=== PATIENT | male | born 1955 | race Hispanic/Latino ===

== ENCOUNTER 2020-09-20 09:33 | Inpatient (IN) | payer MEDICARE ==
[2020-09-20] MEDS ORDERED: Albuterol 200 PUFF (6.7GM INHALER) ONE (10:01)
[2020-09-20] MEDS ORDERED: methylPREDNISolone Sod Succ/PF 125 MG/2 ML VIAL ONE (10:01)
[2020-09-20 10:26] LABS: #Lymphocytes 0.7 thou/uL (1.20-3.40); #Monocytes 0.5 thou/uL (0.11-0.59); #Neutrophils 7.9 thou/uL (1.40-6.50); %Basophils 0.1 % (0.0-1.0); %Eosinophils 0.2 % (0.0-10.0); %Lymphocytes 7.5 % (21.0-51.0); %Monocytes 5.7 % (0.0-10.0); %Neutrophils 86.5 % (42.0-75.0); Hemoglobin 15.1 g/dL (14.0-18.0); Mean Corpuscular HGB CONC 34.6 g/dL (32.0-36.0); Mean Corpuscular Volume 95.5 fL (78.0-98.0); Mean Platelet Volume 11.4 fL (7.4-10.4); Platelet Count 286 thou/uL (130-400); RBC Distribution Width 12.2 % (11.5-14.5); Red Blood Cell (RBC) Count 4.58 mill/uL (4.70-6.10); White Blood Cell (WBC) Count 9.1 thou/uL (4.8-10.8)
[2020-09-20] MEDS ORDERED: Azithromycin 500 MG VIAL ONE (10:38)
--- NOTE | 2020-09-20 10:49 | RAD ---
Exam: Chest one view HISTORY:Dehydration. Low O2 saturation at home. Comparison: None FINDINGS: Cardiac silhouette:Cardiomegaly Aorta: Atherosclerosis Pulmonary vessels: Normal Costophrenic angles: Clear LUNGS: Multifocal consolidation. Pneumothorax: None Osseous abnormalities: None IMPRESSION: Cardiomegaly. Multi focal consolidation. Correlate for congestive heart failure.
[2020-09-20] MEDS ORDERED: Iopamidol-370 76% 500 ML 1 ML ONE (11:23)
[2020-09-20 11:30] LABS: ALT (SGPT) 30 U/L (8-55); AST (SGOT) 46 U/L (5-34); Alkaline Phosphatase 123 U/L (40-110); Anion Gap 20 mmol/L (10-20); BUN (Urea Nitrogen) 20 mg/dL (8.4-25.7); Calc. Creatinine Clearance 0 mL/min (70-130); Calcium 7.6 mg/dL (7.8-10.44); Carbon Dioxide 20 mmol/L (23-31); Chloride 99 mmol/L (98-107); Globulin 3.8 g/dL (2.4-3.5); Glucose 263 mg/dL (80-115); Potassium 4.2 mmol/L (3.5-5.1); Protein, Total 6.8 g/dL (5.8-8.1); Sodium 135 mmol/L (136-145)
[2020-09-20 11:58] LABS: SARS-CoV-2 NAA Rapid Test DETECTED (NotDetected)
[2020-09-20 12:28] LABS: Actual Bicarbonate (HCO3a) 19.6 mEq/L (22-28); Analyzer IN Cardio ER; Base Excess (BEa) -3.6 mEq/L (-2.0 to +3.0); CO2 Tension 31.3 mmHg (35.0-45.0); Carboxyhemoglobin (COHb) 1.3 gm% (0.0-3.0); Potassium - ABG Lab 4.17 mmol/L (3.70-5.30); pH, Arterial 7.41 (7.35-7.45)
[2020-09-20 12:31] LABS: ALV-art Gradient 251.315 mmHg (0-20); O2 Tension (PaO2), arterial 51.8 mmHg (> 80.0); Puncture Site RRA
[2020-09-20] MEDS ORDERED: Meropenem 2 GM in Sodium Chloride 0.9% 100 ML IVPB SCH (12:45)
--- NOTE | 2020-09-20 13:06 | CT ---
CT PULMONARY ANGIOGRAM WITH IV CONTRAST AND 3D POSTPROCESSING: Date: 09/20/2020 HISTORY: Dyspnea. FINDINGS: There is good contrast opacification of the pulmonary arterial vasculature without filling defects to suggest pulmonary embolism. The thoracic aorta is well opacified without evidence of aneurysm or dis section. Vascular calcifications are present. No pleural or pericardial effusions are seen. Extensive ground-glass opacities are seen in the lungs bilaterally. No pneumothoraces are identified. There ar e degenerative changes in the spine. The upper abdominal tomograms are unremarkable. IMPRESSION: 1. No CT evidence of pulmonary embolism. 2. Correlate for COVID-19 pneumonia. POS: AH
[2020-09-20 13:25] LABS: Lactic Acid 2.9 mmol/L (0.5-2.2)
[2020-09-20 14:15] LABS: Troponin I 0.013 ng/mL (< 0.028)
[2020-09-20] MEDS ORDERED: Ondansetron PF 4 MG/2 ML Vial IVP PRN (15:19)
[2020-09-20] MEDS ORDERED: hydrALAZINE 20 MG/ML VIAL SLOW IVP PRN (15:19)
[2020-09-20] MEDS ORDERED: Guaifenesin DM 100-10/5 ML UDCUP PO PRN (15:19)
[2020-09-20] MEDS ORDERED: Enoxaparin Sodium 40 MG/0.4 ML SYRINGE SC SCH (15:19)
[2020-09-20] MEDS ORDERED: Ondansetron ODT 4 MG TAB PO PRN (15:19)
[2020-09-20] MEDS ORDERED: Benzonatate 100 MG CAP PO PRN (15:19)
[2020-09-20] MEDS ORDERED: Albuterol Sulfate 2.5 mg/3 ml Neb NEB PRN (15:19)
[2020-09-20] MEDS ORDERED: [UNRECOGNIZED DRUG - REMARK] FS ONE (15:19)
[2020-09-20] MEDS ORDERED: Dextrose 50% Abboject 50 ML SYRINGE SLOW IVP PRN (15:39)
[2020-09-20] MEDS ORDERED: Dextrose 5% in Water 1,000 ML IV PRN (15:39)
[2020-09-20 16:40] LABS: Troponin I 0.013 ng/mL (< 0.028)
[2020-09-20] MEDS: cefTRIAXone\\ROCEPHIN 2 GM in Sodium Chloride 0.9% 100 ML IVPB SCH (16:49)
[2020-09-20] MEDS: Sodium Chloride 0.9% 1,000 ML IV SCH ×2 (16:49→23:26)
--- NOTE | 2020-09-20 16:55 | HP ---
PRIMARY CARE PROVIDER: Sarmad Zuniga DO CHIEF COMPLAINT: Shortness of breath. HISTORY OF PRESENT ILLNESS: This is a 65-year-old male, who presents to [facility] Emergency Department complaining of persistent shortness of breath and apparent hypoxia after checking his O2 saturations at home with a reading in the 70% to low 80% range. The patient states that his son was positive for COVID-19 several months prior to this evaluation and he denies any known sick contacts or recent travel history. The patient states his urged him to seek medical attention when he was noted with increasing shortness of breath even at rest and had difficulty completing sentences. The patient denies any chronic lung conditions, smoking history, recent vaccinations or recurrent pneumonia. The patient states he did not take any specific medications at home to alleviate the 80s symptoms and denied any unilateral weakness, chest pain, or jaw discomfort. The patient denied any swelling of his lower extremities. The patient did state he had body aches, fever, and back pain associated with the shortness of breath. In the emergency room, the patient underwent general evaluation meeting sepsis criteria for tachypneic as well as fever and tachycardia. The patient underwent ABG evaluation showing hypoxia and low CO2 levels consistent with hyperventilation. The patient was placed on initial oxygen supplementation at 2 L/minute, however, O2 saturations increased to the low 80% range, at which point, the patient was titrated to 4 L/minute. The patient continued to exhibit tachypnea, at which point, the patient was transitioned to high-flow oxygen by nasal cannula. In the emergency room, the patient received IV meropenem, azithromycin, Solu-Medrol, Proventil HFA, and intravenous normal saline x1 L. PAST MEDICAL HISTORY: 1. Hypertension. 2. Diabetes mellitus, type 2. PAST SURGICAL HISTORY: Status post right knee repair. CURRENT MEDICATIONS: Unable to provide the home medications at this time, however, family will provide them after arriving to hospital. ALLERGIES: TO PENICILLIN. FAMILY HISTORY: Positive for diabetes and hypertension. SOCIAL HISTORY: . Resides in [place], [place]. Retired. No current alcohol, tobacco, or illicit drug use. REVIEW OF SYSTEMS: CONSTITUTIONAL: Negative for weight loss or gain, ability to conduct usual activities. SKIN: Negative for rash, itching. EYES: Negative for double vision, pain. ENT/MOUTH: Negative for nose bleeding, neck stiffness, pain, tenderness. CARDIOVASCULAR: Negative for palpitations, dyspnea on exertion, orthopnea. RESPIRATORY: Negative for shortness of breath, wheezing, cough, hemoptysis, fever or night sweats. GASTROINTESTINAL: Negative for poor appetite, abdominal pain, heartburn, nausea, vomiting, constipation, or diarrhea. GENITOURINARY: Negative for urgency, frequency, dysuria, nocturia. MUSCULOSKELETAL: Negative for pain, swelling. NEUROLOGIC/PSYCHIATRIC: Negative for anxiety, depression. ALLERGY/IMMUNOLOGIC: Negative for skin rash, bleeding tendency. Otherwise negative except as stated per HPI. PHYSICAL EXAMINATION: VITAL SIGNS: On admission, blood pressure 117/82, pulse 120, respiratory rate 34, temperature 100.5 degrees Fahrenheit, and O2 saturation 85% on 2 L/minute by nasal cannula. GENERAL APPEARANCE: This is a 65-year-old male, alert and oriented x3, pleasant, responsive, in moderate respiratory distress. HEENT: Pupils are equal, round, and reactive to light and accommodation. Extraocular muscles are intact. No scleral icterus. No conjunctival injection. Nares patent. OP is clear. Teeth in fair repair. NECK: Supple. No cervical adenopathy. No thyromegaly. No carotid bruits. No JVD appreciated. Cervical spine with full active and passive range of motion. No meningeal signs noted. CHEST: Diminished breath sounds in the bases bilaterally with scattered rhonchi. Tachypnea noted with accessory muscle use. CARDIOVASCULAR: S1 and S2 with tachycardia. No murmur, rub, or gallop appreciated. ABDOMEN: Rounded, soft, nontender, and nondistended. Bowel sounds are positive in all 4 quadrants. There is no hepatosplenomegaly. No abdominal bruits. No rebound or guarding appreciated. EXTREMITIES: Warm and dry with fair turgor. No clubbing, cyanosis, or asymmetric edema appreciated. Pulses palpable distally at the dorsalis pedis, posterior tibial, and popliteal arteries bilaterally. Capillary refill less than 2 seconds. NEUROLOGIC: Cranial nerves II through XII are grossly intact. No focal or lateralizing signs appreciated. PERTINENT LABORATORY AND X-RAY FINDINGS: Sodium 135, potassium 4.2, chloride 99, CO2 of 20, BUN 20, creatinine 1.05, estimated GFR 71, and glucose 263. Lactic acid level ranged between 2.9 to 3.3. AST 46, ALT of 30, and alkaline phosphatase 123. Troponin I negative x2. BNP 21. CBC showed a white blood cell count of 9.1, hemoglobin 15, hematocrit 44, platelet count 286 with 87% neutrophils. D-dimer 1.18. ABG dated 09/20/2020, showed a pH of 7.41, pCO2 of 31, pO2 of 52, O2 saturation 86% on 48% FiO2. COVID-19 PCR positive on 09/20/2020. Influenza A and B antigen negative on 09/20/2020. Portable chest x-ray dated 09/20/2020, showed multifocal infiltrates. CT angiogram of the chest dated 09/20/2020, showed no evidence for pulmonary embolus. Multifocal infiltrates noted. EKG dated 09/20/2020, by my interpretation shows sinus tachycardia with heart rates in the 110s. Normal axis and no acute ST-T wave changes appreciated. ASSESSMENT AND PLAN: 1. Sepsis secondarily to COVID-19 pneumonia. The patient will be admitted to the medical floor. We will continue isolation protocol. Continue Rocephin 2 g IV q.24 hours with additional dose of azithromycin 500 mg IV daily. Add dexamethasone 8 mg IV daily with additional vitamin C 1000 mg daily and zinc sulfate 220 mg daily. Albuterol metered-dose inhaler q.4 hours p.r.n. Start remdesivir per protocol. Continue high-flow oxygen supplementation and titrate to clinical response. 2. Acute hypoxic respiratory failure. Continue high-flow oxygen supplementation as stated previously in #1. Titrate to clinical response. 3. Hypertension. Confirm home blood pressure regimen and continue hydralazine 10 mg IV q.4 hours p.r.n. systolic blood pressure greater than or equal to 180. 4. Diabetes mellitus, type 2. Confirm home diabetic regimen. Insulin sliding scale for reflexive coverage. ADA diet when tolerating p.o. intake. 5. Prophylaxis. SCDs while in bed. Lovenox 40 mg subcutaneously daily. Isolation per protocol. 6. Code status: Full. Surrogate medical decision maker is the patient's spouse. Job ID: [id number]
[2020-09-20] MEDS: Famotidine 20 MG TAB PO SCH (20:21)
[2020-09-20] MEDS: HumaLOG 300 UNITS/3 ML VIAL SC PRN (20:31)
[2020-09-20] MEDS ORDERED: REMDESIVIR (EUA) 200 MG in Sodium Chloride 0.9% 250 ML 210 ML IV SCH (23:00)
[2020-09-21 04:06] LABS: #Lymphocytes 0.6 thou/uL (1.20-3.40); #Monocytes 0.6 thou/uL (0.11-0.59); #Neutrophils 4.2 thou/uL (1.40-6.50); %Eosinophils 0.3 % (0.0-10.0); %Lymphocytes 10.6 % (21.0-51.0); %Monocytes 10.8 % (0.0-10.0); %Neutrophils 78.3 % (42.0-75.0); Hemoglobin 12.6 g/dL (14.0-18.0); Mean Corpuscular HGB CONC 33.1 g/dL (32.0-36.0); Mean Corpuscular Hemoglobin 31.3 pg (27.0-31.0); Mean Corpuscular Volume 94.6 fL (78.0-98.0); Mean Platelet Volume 8.5 fL (7.4-10.4); Platelet Count 280 thou/uL (130-400); Red Blood Cell (RBC) Count 4.03 mill/uL (4.70-6.10); White Blood Cell (WBC) Count 5.4 thou/uL (4.8-10.8)
[2020-09-21 04:39] LABS: ALT (SGPT) 27 U/L (8-55); AST (SGOT) 29 U/L (5-34); Albumin 2.7 g/dL (3.4-4.8); Alkaline Phosphatase 106 U/L (40-110); Anion Gap 14 mmol/L (10-20); BUN (Urea Nitrogen) 22 mg/dL (8.4-25.7); Bilirubin, Total 0.4 mg/dL (0.2-1.2); CRP (Inflammatory) 20.64 mg/dL (= or < 0.5); Calc. Creatinine Clearance 138 mL/min (70-130); Calcium 7.6 mg/dL (7.8-10.44); Carbon Dioxide 24 mmol/L (23-31); Chloride 104 mmol/L (98-107); Globulin 3.7 g/dL (2.4-3.5); Glucose 334 mg/dL (80-115); Potassium 4.3 mmol/L (3.5-5.1); Protein, Total 6.4 g/dL (5.8-8.1); Sodium 138 mmol/L (136-145)
[2020-09-21] MEDS: HumaLOG 300 UNITS/3 ML VIAL SC PRN ×2 (05:33→20:12)
[2020-09-21] MEDS ORDERED: Dexamethasone 4 mg/ml Vial SLOW IVP SCH (09:00)
[2020-09-21] MEDS ORDERED: Insulin Glargine 8 UNITS in Pre-Filled Syringe 1 EACH SC SCH (09:45)
[2020-09-21] MEDS: Dexamethasone 4 mg/ml Vial SLOW IVP SCH (10:47)
[2020-09-21] MEDS: Zinc Sulfate 220 MG CAP PO SCH (10:47)
[2020-09-21] MEDS: Ascorbic Acid 500 mg Chewable Tablet PO SCH (10:47)
[2020-09-21] MEDS: Famotidine 20 MG TAB PO SCH ×2 (10:47→19:56)
[2020-09-21] MEDS: Azithromycin 500 MG in Sodium Chloride 0.9% 250 ML 250 ML IVPB SCH (10:48)
[2020-09-21] MEDS: Enoxaparin Sodium 40 MG/0.4 ML SYRINGE SC SCH (10:48)
[2020-09-21] MEDS: HumaLOG 300 UNITS/3 ML VIAL SC SCH ×2 (11:42→17:09)
[2020-09-21] MEDS: cefTRIAXone\\ROCEPHIN 2 GM in Sodium Chloride 0.9% 100 ML IVPB SCH (15:23)
--- NOTE | 2020-09-21 16:42 | PDOC.HOSPP ---
- Subjective Encounter Date: 09/21/20 Encounter Time: 12:30 Subjective: Patient up in bed no complaints. - Objective Vital Signs & Weight: Vital Signs (12 hours) Temp Pulse Ox 09/21/20 16:00 98.1 F 09/21/20 08:00 98.5 F 09/21/20 07:37 92 L Weight Weight 236 lb Most Recent Monitor Data Heart Rate from ECG 77 NIBP 136/80 NIBP BP-Mean 98 Respiration from ECG 38 SpO2 92 I&O: 09/20/20 09/21/20 09/22/20 06:59 06:59 06:59 Intake Total 1930 Output Total 1800 Balance 130 Result Diagrams: 09/21/20 03:44 09/21/20 03:44 Additional Labs: Accuchecks 09/21/20 09/21/20 09/20/20 10:51 05:31 20:31 POC Glucose 252 H 294 H 393 H 09/20/20 17:14 POC Glucose 398 H Hospitalist ROS - Review of Systems Respiratory: reports: shortness of breath Cardiovascular: denies: chest pain, palpitations, orthopnea, paroxysmal noc. dyspnea, edema, light headedness, other Gastrointestinal: denies: nausea, vomiting, abdominal pain, diarrhea, constipation, melena, hematochezia, other Genitourinary: denies: dysuria, frequency, incontinence, hematuria, retention, other - Medication Medications: Active Medications Generic Name Dose Route Start Last Admin Trade Name Freq PRN Reason Stop Dose Admin Ascorbic Acid 1,000 mg 09/21/20 09:00 09/21/20 10:47 Ascorbic Acid 500 Mg Chewable Tablet PO 1,000 mg DAILY LUCIEN Administration Dexamethasone 6 mg 09/21/20 09:00 09/21/20 10:47 Dexamethasone 4 Mg/Ml Vial SLOW IVP 6 mg DAILY LUCIEN Administration Enoxaparin Sodium 40 mg 09/21/20 09:00 09/21/20 10:48 Enoxaparin Sodium 40 Mg/0.4 Ml Syringe SC 40 mg 0900 LUCIEN Administration Famotidine 20 mg 09/20/20 21:00 09/21/20 10:47 Famotidine 20 Mg Tab PO 20 mg BID LUCIEN Administration Azithromycin 500 mg/ Sodium 250 mls @ 250 mls/hr 09/21/20 11:00 09/21/20 10:48 Chloride IVPB 250 mls 1100 LUCIEN Administration Ceftriaxone Sodium 2 gm/ 100 mls @ 200 mls/hr 09/20/20 16:00 09/21/20 15:23 Sodium Chloride IVPB 100 mls 1600 LUCIEN Administration Insulin Human Lispro 0 units 09/20/20 15:39 09/21/20 05:33 Humalog 300 Units/3 Ml Vial SC 4 units .MILD SLIDING SCALE PRN Administration Mild Correctional Scale Insulin Human Lispro 0 units 09/20/20 15:39 09/20/20 20:31 Humalog 300 Units/3 Ml Vial SC 5 units .BEDTIME SLIDING SC PRN Administration Bedtime Correctional Scale Insulin Human Lispro 8 units 09/21/20 12:00 09/21/20 11:42 Humalog 300 Units/3 Ml Vial SC 8 unit TID-WM LUCIEN Administration Zinc Sulfate 220 mg 09/21/20 09:00 09/21/20 10:47 Zinc Sulfate 220 Mg Cap PO 220 mg DAILY LUCIEN Administration - Exam Neck: negative: supple, symmetric, no JVD, no thyromegaly, no lymphadenopathy, no carotid bruit, JVD Heart: negative: RRR, no murmur, no gallops, no rubs, normal peripheral pulses, irregular, diminshed peripheral pulses, murmur present, II/IV, III/IV Respiratory: rales Gastrointestinal: negative: soft, non-tender, non-distended, normal bowel sounds, no palpable masses, no hepatomegaly, no splenomegaly, no bruit, no gu arding, no rigidity, tender to palpation, distended, diminished bowl sounds, voluntary guarding Hosp A/P (1) Acute respiratory failure with hypoxia Code(s): J96.01 - ACUTE RESPIRATORY FAILURE WITH HYPOXIA Status: Acute (2) COVID-19 Code(s): U07.1 - COVID-19 Status: Acute (3) Diabetes Code(s): E11.9 - TYPE 2 DIABETES MELLITUS WITHOUT COMPLICATIONS Status: Acute (4) Hypertension Code(s): I10 - ESSENTIAL (PRIMARY) HYPERTENSION Status: Acute - Plan We will continue remdesivir for now. Patient on high flow. We will continue dexamethasone, DVT prophylaxis and will add Dulera. Will start patient on some insulin and will check hemoglobin A1c. We will stop fluids.
[2020-09-21] MEDS ORDERED: Mometasone 100 MCG/Formoterol 5 MCG 120 PUFF INHALER INH SCH (18:30)
[2020-09-21] MEDS ORDERED: Insulin Glargine 6 UNITS in Pre-Filled Syringe 1 EACH SC SCH (21:00)
[2020-09-21] MEDS: Mometasone 100 MCG/Formoterol 5 MCG 120 PUFF INHALER INH SCH (21:05)
[2020-09-21] MEDS: REMDESIVIR (EUA) 100 MG in Sodium Chloride 0.9% 250 ML 230 ML IV SCH (22:24)
[2020-09-22 04:29] LABS: Hemoglobin A1c 9.5 % (4.0-6.0)
[2020-09-22] MEDS: Mometasone 100 MCG/Formoterol 5 MCG 120 PUFF INHALER INH SCH ×2 (05:45→20:50)
[2020-09-22] MEDS: HumaLOG 300 UNITS/3 ML VIAL SC PRN ×2 (05:59→21:09)
[2020-09-22] MEDS: Dexamethasone 4 mg/ml Vial SLOW IVP SCH (08:27)
[2020-09-22] MEDS: Amlodipine 10 MG TAB PO SCH (08:28)
[2020-09-22] MEDS: Famotidine 20 MG TAB PO SCH ×2 (08:28→20:51)
[2020-09-22] MEDS: Zinc Sulfate 220 MG CAP PO SCH (08:28)
[2020-09-22] MEDS: Ascorbic Acid 500 mg Chewable Tablet PO SCH (08:28)
[2020-09-22] MEDS: HumaLOG 300 UNITS/3 ML VIAL SC SCH ×3 (08:35→16:46)
[2020-09-22] MEDS ORDERED: Insulin Glargine 6 UNITS in Pre-Filled Syringe 1 EACH SC SCH (09:00)
[2020-09-22] MEDS: Enoxaparin Sodium 40 MG/0.4 ML SYRINGE SC SCH (09:06)
[2020-09-22] MEDS: Azithromycin 500 MG in Sodium Chloride 0.9% 250 ML 250 ML IVPB SCH (12:15)
--- NOTE | 2020-09-22 16:32 | EKG ---
Test Reason : Blood Pressure : / mmHG Vent. Rate : 110 BPM Atrial Rate : 110 BPM P-R Int : 172 ms QRS Dur : 100 ms QT Int : 350 ms P-R-T Axes : 016 005 038 degrees QTc Int : 473 ms Sinus tachycardia RSR' or QR pattern in V1 suggests right ventricular conduction delay Borderline ECG Confirmed by JASON DELONG M.D. ([id number]), photographic editor DC THORPE ([id number]) on 09/22/2020 4:31:51 PM Referred By: Confirmed By:JASON DELONG M.D.
[2020-09-22] MEDS: cefTRIAXone\\ROCEPHIN 2 GM in Sodium Chloride 0.9% 100 ML IVPB SCH (16:45)
--- NOTE | 2020-09-22 17:27 | PDOC.HOSPP ---
- Subjective Subjective: Patient was seen examined at bedside. He is remained on high flow, patient stated he is feeling better. No fever - Objective Vital Signs & Weight: Vital Signs (12 hours) Temp Pulse Ox 09/22/20 17:15 98.6 F 09/22/20 16:00 98.0 F 09/22/20 07:38 98.2 F 09/22/20 07:24 92 L 09/22/20 07:15 97.9 F Weight Weight 236 lb Most Recent Monitor Data Heart Rate from ECG 73 NIBP 125/78 NIBP BP-Mean 93 Respiration from ECG 51 SpO2 98 I&O: 09/21/20 09/22/20 09/23/20 06:59 06:59 06:59 Intake Total 1930 850 Output Total 1800 1200 Balance 130 -350 Result Diagrams: 09/21/20 03:44 09/21/20 03:44 Additional Labs: Accuchecks 09/22/20 09/22/20 09/21/20 16:48 05:51 20:02 POC Glucose 205 H 220 H 319 H Hospitalist ROS - Medication Medications: Active Medications Generic Name Dose Route Start Last Admin Trade Name Freq PRN Reason Stop Dose Admin Amlodipine Besylate 10 mg 09/22/20 09:00 09/22/20 08:28 Amlodipine 10 Mg Tab PO 10 mg DAILY LUICEN Administration Ascorbic Acid 1,000 mg 09/21/20 09:00 09/22/20 08:28 Ascorbic Acid 500 Mg Chewable Tablet PO 1,000 mg DAILY LUCIEN Administration Dexamethasone 6 mg 09/21/20 09:00 09/22/20 08:27 Dexamethasone 4 Mg/Ml Vial SLOW IVP 6 mg DAILY LUCIEN Administration Enoxaparin Sodium 40 mg 09/21/20 09:00 09/22/20 09:06 Enoxaparin Sodium 40 Mg/0.4 Ml Syringe SC 40 mg 0900 LUCINE Administration Famotidine 20 mg 09/20/20 21:00 09/22/20 08:28 Famotidine 20 Mg Tab PO 20 mg BID LUCIEN Administration Remdesivir 100 mg/ Sodium 250 mls @ 250 mls/hr 09/21/20 23:00 09/21/20 22:24 Chloride IV 09/24/20 23:59 250 mls 2300 LUCIEN Administration Azithromycin 500 mg/ Sodium 250 mls @ 250 mls/hr 09/21/20 11:00 09/22/20 12:15 Chloride IVPB 250 mls 1100 LUCIEN Administration Ceftriaxone Sodium 2 gm/ 100 mls @ 200 mls/hr 09/20/20 16:00 09/22/20 16:45 Sodium Chloride IVPB 100 mls 1600 LUCIEN Administration Insulin Glargine 6 units/ 0.06 mls @ 0 mls/hr 09/21/20 21:00 09/21/20 20:08 Miscellaneous Medication SC 0.06 mls HS LUCIEN Administration Insulin Glargine 6 units/ 0.06 mls @ 0 mls/hr 09/22/20 09:00 09/22/20 08:27 Miscellaneous Medication SC 0.06 mls QAM LUCIEN Administration Insulin Human Lispro 0 units 09/20/20 15:39 09/22/20 05:59 Humalog 300 Units/3 Ml Vial SC 3 units .MILD SLIDING SCALE PRN Administration Mild Correctional Scale Insulin Human Lispro 0 units 09/20/20 15:39 09/21/20 20:12 Humalog 300 Units/3 Ml Vial SC 4 units .BEDTIME SLIDING SC PRN Administration Bedtime Correctional Scale Insulin Human Lispro 8 units 09/21/20 12:00 09/22/20 16:46 Humalog 300 Units/3 Ml Vial SC 8 unit TID-WM LUCIEN Administration Mometasone Furoate/Formoterol Fumar 0 puff 09/21/20 18:30 09/22/20 05:45 Mometasone 100 Mcg/Formoterol 5 Mcg 120 Puff Inhaler INH 1 puff BID-RT LUCIEN Administration Sodium Chloride 10 ml 09/21/20 21:00 09/22/20 08:28 Flush - Normal Saline 10 Ml Syringe IVF 10 ml Q12HR LUCIEN Administration Zinc Sulfate 220 mg 09/21/20 09:00 09/22/20 08:28 Zinc Sulfate 220 Mg Cap PO 220 mg DAILY LUCIEN Administration - Exam General Appearance: NAD Eye: PERRL ENT: normocephalic atraumatic Neck: supple Heart: RRR Respiratory: rhonchi, wheezes Gastrointestinal: soft, non-tender Extremities: no cyanosis Skin: normal turgor Neurological: cranial nerve grossly intact Psychiatric: normal affect, normal behavior, A&O x 3 Hosp A/P - Plan Patient is a pleasant 65 years old gentleman who has significant past medical history of uncontrolled diabetes, hypertension, who presented to the ED with complaint of short of breath and hypoxia. He was admitted for COVID-19 pneumonia Acute hypoxic respiratory failure secondary to COVID-19 pneumonia --cont HiFLo, wean as tolerated. Cont Decadron, Remdesivir un 09/24 --Follow labs. --cont Lovenox for DVT ppx COVID-19 pneumonia --as above Uncontrolled diabetes, A1c 9.5 --adjust lantus, cont Humalog TID, ISS Hypertension --cont Norvasc
[2020-09-22] MEDS: Insulin Glargine 25 UNITS in Pre-Filled Syringe SC SCH (21:08)
[2020-09-22] MEDS: REMDESIVIR (EUA) 100 MG in Sodium Chloride 0.9% 250 ML 230 ML IV SCH (23:33)
[2020-09-23 04:20] LABS: #Lymphocytes 0.8 thou/uL (1.20-3.40); #Monocytes 0.2 thou/uL (0.11-0.59); #Neutrophils 6.2 thou/uL (1.40-6.50); %Basophils 0.4 % (0.0-1.0); %Eosinophils 0.6 % (0.0-10.0); Hemoglobin 13.2 g/dL (14.0-18.0); Mean Corpuscular HGB CONC 33.3 g/dL (32.0-36.0); Mean Corpuscular Hemoglobin 31.6 pg (27.0-31.0); Mean Platelet Volume 8.3 fL (7.4-10.4); Platelet Count 272 thou/uL (130-400); RBC Distribution Width 12.3 % (11.5-14.5); Red Blood Cell (RBC) Count 4.16 mill/uL (4.70-6.10); White Blood Cell (WBC) Count 7.3 thou/uL (4.8-10.8)
[2020-09-23 04:34] LABS: Anion Gap 14 mmol/L (10-20); BUN (Urea Nitrogen) 16 mg/dL (8.4-25.7); CRP (Inflammatory) 11.98 mg/dL (= or < 0.5); Calc. Creatinine Clearance 169 mL/min (70-130); Calcium 7.7 mg/dL (7.8-10.44); Carbon Dioxide 24 mmol/L (23-31); Chloride 108 mmol/L (98-107); Glucose 109 mg/dL (80-115); Potassium 3.8 mmol/L (3.5-5.1); Sodium 142 mmol/L (136-145)
[2020-09-23] MEDS: Mometasone 100 MCG/Formoterol 5 MCG 120 PUFF INHALER INH SCH ×2 (06:28→20:53)
[2020-09-23] MEDS: Zinc Sulfate 220 MG CAP PO SCH (09:07)
[2020-09-23] MEDS: Dexamethasone 4 mg/ml Vial SLOW IVP SCH (09:07)
[2020-09-23] MEDS: Famotidine 20 MG TAB PO SCH ×2 (09:07→20:53)
[2020-09-23] MEDS: Amlodipine 10 MG TAB PO SCH (09:07)
[2020-09-23] MEDS: Ascorbic Acid 500 mg Chewable Tablet PO SCH (09:07)
[2020-09-23] MEDS: Enoxaparin Sodium 40 MG/0.4 ML SYRINGE SC SCH (09:08)
[2020-09-23] MEDS: HumaLOG 300 UNITS/3 ML VIAL SC SCH ×3 (09:15→18:03)
--- NOTE | 2020-09-23 12:21 | CON ---
DATE OF CONSULTATION: 09/23/2020 This is 75 minutes of time, of that time, greater than 50% was spent with the patient and/or the patient's unit in the hospital. REASON FOR CONSULTATION: Severe COVID-19 pneumonia. HISTORY OF PRESENT ILLNESS: Dr. Dobbs has asked me to see Mr. Pitts, who is a 65-year-old male, who was initially hospitalized here on 09/20 with complaints of shortness of breath and hypoxemia and positive COVID-19 test. He has been treated with escalated amount of oxygen, steroids, antibiotics, and anticoagulation. Despite that, he is getting worse. PAST MEDICAL HISTORY: 1. Hypertension. 2. Diabetes mellitus. PAST SURGICAL HISTORY: Knee repair. MEDICATIONS: Current medications prior to admission, amlodipine, I believe he uses also some type of insulin at home. Current inpatient medications reviewed, include; 1. Ventolin. 2. Norvasc. 3. Vitamin C. 4. Azithromycin. 5. Ceftriaxone. 6. Dexamethasone. 7. Enoxaparin. 8. Famotidine. 9. Hydralazine. 10. Glargine insulin. 11. Remdesivir. SOCIAL HISTORY: Nonsmoker. Does not consume alcohol. He is . His also has COVID-19. REVIEW OF SYSTEMS: Remarkable for shortness of breath, chest pain, body aches, intermittent fever, and chills. PHYSICAL EXAMINATION: VITAL SIGNS: Temperature 98.8, pulse 105, blood pressure 126/61, and O2 saturation around 91% on 95% high-flow nasal cannula. The patient is 5 feet and 11 inches, weighs 236 pounds. HEENT: Unremarkable. NECK: No adenopathy or JVD. LUNGS: Inspiratory crackles bilaterally. CARDIAC: S1 and S2. Regular. ABDOMEN: Soft and nontender. EXTREMITIES: No edema. LABORATORY DATA: White blood cell count 7.3, hematocrit 39.6, and platelet count 272. D-dimer 11.5. PH of 7.41, pCO2 of 31, and pO2 of 52. Sodium 142, potassium 3.8, chloride 108, CO2 of 24, BUN 16, creatinine 0.6, and glucose 109. C-reactive protein 11.8. Chest x-ray shows diffuse bilateral infiltrates. ASSESSMENT: COVID-19 infection with severe pneumonia and hypoxemia. RECOMMENDATIONS: 1. Add vitamin D. 2. BiPAP. 3. Low threshold for intubation if he gets worse. Job ID: [id number]
[2020-09-23] MEDS: Azithromycin 500 MG in Sodium Chloride 0.9% 250 ML 250 ML IVPB SCH (13:27)
--- NOTE | 2020-09-23 16:40 | PDOC.HOSPP ---
- Subjective Subjective: Segments at bedside. Patient remains very stoic, and stated he is feeling fine. However she appears to be increased work of breathing. He is currently is maxed out his high flow. His blood glucose appears to be stable. He is currently is on remdesivir Decadron, empiric IV antibiotics. Concerned that he continued to deteriorate, I have discussed the with store operations associate. Appreciate Dr. Sparks's input. - Objective Vital Signs & Weight: Vital Signs (12 hours) Pulse Pulse Ox 09/23/20 12:10 89 09/23/20 06:49 90 L 09/23/20 05:25 91 L Weight Weight 236 lb Most Recent Monitor Data Heart Rate from ECG 90 NIBP 148/94 NIBP BP-Mean 112 Respiration from ECG 55 SpO2 92 I&O: 09/22/20 09/23/20 09/24/20 06:59 06:59 06:59 Intake Total 850 730 Output Total 1200 900 Balance -350 -170 Result Diagrams: 09/23/20 03:30 09/23/20 03:30 Additional Labs: Accuchecks 09/23/20 09/23/20 09/22/20 11:27 05:39 21:00 POC Glucose 131 H 111 H 212 H 09/22/20 16:48 POC Glucose 205 H Hospitalist ROS - Medication Medications: Active Medications Generic Name Dose Route Start Last Admin Trade Name Freq PRN Reason Stop Dose Admin Amlodipine Besylate 10 mg 09/22/20 09:00 09/23/20 09:07 Amlodipine 10 Mg Tab PO 10 mg DAILY LUCIEN Administration Ascorbic Acid 1,000 mg 09/21/20 09:00 09/23/20 09:07 Ascorbic Acid 500 Mg Chewable Tablet PO 1,000 mg DAILY LUCIEN Administration Dexamethasone 6 mg 09/21/20 09:00 09/23/20 09:07 Dexamethasone 4 Mg/Ml Vial SLOW IVP 6 mg DAILY LUCIEN Administration Enoxaparin Sodium 40 mg 09/21/20 09:00 09/23/20 09:08 Enoxaparin Sodium 40 Mg/0.4 Ml Syringe SC 40 mg 0900 LUCIEN Administration Famotidine 20 mg 09/20/20 21:00 09/23/20 09:07 Famotidine 20 Mg Tab PO 20 mg BID LUCIEN Administration Remdesivir 100 mg/ Sodium 250 mls @ 250 mls/hr 09/21/20 23:00 09/22/20 23:33 Chloride IV 09/24/20 23:59 250 mls 2300 LUCIEN Administration Azithromycin 500 mg/ Sodium 250 mls @ 250 mls/hr 09/21/20 11:00 09/23/20 13:27 Chloride IVPB 250 mls 1100 LUCIEN Administration Ceftriaxone Sodium 2 gm/ 100 mls @ 200 mls/hr 09/20/20 16:00 09/22/20 16:45 Sodium Chloride IVPB 100 mls 1600 LUCIEN Administration Insulin Glargine 25 units/ 0.25 mls @ 0 mls/hr 09/22/20 21:00 09/22/20 21:08 Miscellaneous Medication SC 0.25 mls HS LUCIEN Administration Insulin Human Lispro 0 units 09/20/20 15:39 09/22/20 05:59 Humalog 300 Units/3 Ml Vial SC 3 units .MILD SLIDING SCALE PRN Administration Mild Correctional Scale Insulin Human Lispro 0 units 09/20/20 15:39 09/22/20 21:09 Humalog 300 Units/3 Ml Vial SC 2 units .BEDTIME SLIDING SC PRN Administration Bedtime Correctional Scale Insulin Human Lispro 8 units 09/21/20 12:00 09/23/20 13:28 Humalog 300 Units/3 Ml Vial SC Not Given TID-WM LUCIEN Mometasone Furoate/Formoterol Fumar 0 puff 09/21/20 18:30 09/23/20 06:28 Mometasone 100 Mcg/Formoterol 5 Mcg 120 Puff Inhaler INH 1 puff BID-RT LUCIEN Administration Sodium Chloride 10 ml 09/21/20 21:00 09/23/20 09:08 Flush - Normal Saline 10 Ml Syringe IVF 10 ml Q12HR LUCIEN Administration Zinc Sulfate 220 mg 09/21/20 09:00 09/23/20 09:07 Zinc Sulfate 220 Mg Cap PO 220 mg DAILY LUCIEN Administration - Exam General Appearance: NAD Eye: PERRL ENT: normocephalic atraumatic Neck: supple Respiratory: rhonchi Gastrointestinal: soft, non-tender Extremities: no cyanosis Skin: normal turgor Neurological: cranial nerve grossly intact Musculoskeletal: normal tone Psychiatric: normal affect Hosp A/P - Plan Patient is a pleasant 65 years old gentleman who has significant past medical history of uncontrolled diabetes, hypertension, who presented to the ED with complaint of short of breath and hypoxia. He was admitted for COVID-19 pneumonia Acute hypoxic respiratory failure secondary to COVID-19 pneumonia --pt has maxed out on HiFlo, escalate to BiBAP --Cont Decadron, Remdesivir until 09/24, empiric IV abx --cont Lovenox for DVT ppx --appreciate Pulmonology's input --AM labs COVID-19 pneumonia --as above Uncontrolled diabetes, A1c 9.5 --adjust lantus, cont Humalog TID, ISS Hypertension --cont Norvasc
[2020-09-23] MEDS ORDERED: ALPRAZolam 0.5 MG TAB PO PRN (17:24)
[2020-09-23] MEDS: cefTRIAXone\\ROCEPHIN 2 GM in Sodium Chloride 0.9% 100 ML IVPB SCH (17:28)
[2020-09-23] MEDS: Insulin Glargine 25 UNITS in Pre-Filled Syringe SC SCH (20:52)
[2020-09-23] MEDS ORDERED: Cholecalciferol 1,000 UNITS (25 MCG) TAB PO SCH (21:00)
[2020-09-23] MEDS: REMDESIVIR (EUA) 100 MG in Sodium Chloride 0.9% 250 ML 230 ML IV SCH (23:33)
[2020-09-24 03:46] LABS: Actual Bicarbonate (HCO3a) 23.8 mEq/L (22-28); Base Excess (BEa) -0.2 mEq/L (-2.0 to +3.0); CO2 Tension 36.9 mmHg (35.0-45.0); Calcium, Ionized (arterial) 1.16 mmol/L (1.12-1.30); Carboxyhemoglobin (COHb) 0.7 gm% (0.0-3.0); Hemoglobin (Hb) 13.3 g/dL (14.0-18.0); Potassium - ABG Lab 4.23 mmol/L (3.70-5.30); pH, Arterial 7.43 (7.35-7.45)
[2020-09-24 03:56] LABS: #Lymphocytes 0.7 thou/uL (1.20-3.40); #Monocytes 0.3 thou/uL (0.11-0.59); #Neutrophils 8.5 thou/uL (1.40-6.50); %Eosinophils 0.5 % (0.0-10.0); %Lymphocytes 7.3 % (21.0-51.0); %Monocytes 2.6 % (0.0-10.0); %Neutrophils 89.6 % (42.0-75.0); Hemoglobin 13.3 g/dL (14.0-18.0); Mean Corpuscular HGB CONC 32.9 g/dL (32.0-36.0); Mean Corpuscular Hemoglobin 31.5 pg (27.0-31.0); Mean Corpuscular Volume 95.9 fL (78.0-98.0); Mean Platelet Volume 8.1 fL (7.4-10.4); Platelet Count 186 thou/uL (130-400); RBC Distribution Width 12.3 % (11.5-14.5); Red Blood Cell (RBC) Count 4.21 mill/uL (4.70-6.10); White Blood Cell (WBC) Count 9.5 thou/uL (4.8-10.8)
[2020-09-24 04:19] LABS: ALT (SGPT) 24 U/L (8-55); AST (SGOT) 29 U/L (5-34); Albumin 2.7 g/dL (3.4-4.8); Alkaline Phosphatase 107 U/L (40-110); Anion Gap 16 mmol/L (10-20); BUN (Urea Nitrogen) 12 mg/dL (8.4-25.7); Bilirubin, Total 0.4 mg/dL (0.2-1.2); CRP (Inflammatory) 23.08 mg/dL (= or < 0.5); Calc. Creatinine Clearance 157 mL/min (70-130); Calcium 7.9 mg/dL (7.8-10.44); Carbon Dioxide 24 mmol/L (23-31); Chloride 107 mmol/L (98-107); Globulin 3.8 g/dL (2.4-3.5); Glucose 109 mg/dL (80-115); Potassium 4.8 mmol/L (3.5-5.1); Protein, Total 6.5 g/dL (5.8-8.1); Sodium 142 mmol/L (136-145)
[2020-09-24] MEDS ORDERED: Rocuronium Bromide 10 MG/ML (10ML VIAL) ONE ×2 (04:41→08:20)
[2020-09-24] MEDS ORDERED: Propofol 1,000 MG/100 ML VIAL IV ONE (04:48)
[2020-09-24 05:18] LABS: Actual Bicarbonate (HCO3a) 25.3 mEq/L (22-28); Base Excess (BEa) -0.1 mEq/L (-2.0 to +3.0); CO2 Tension 44.1 mmHg (35.0-45.0); Calcium, Ionized (arterial) 1.16 mmol/L (1.12-1.30); Carboxyhemoglobin (COHb) 0.8 gm% (0.0-3.0); Hemoglobin (Hb) 13.5 g/dL (14.0-18.0); O2 Tension (PaO2), arterial 65.5 mmHg (> 80.0); Potassium - ABG Lab 4.08 mmol/L (3.70-5.30); pH, Arterial 7.38 (7.35-7.45)
[2020-09-24 05:19] LABS: Puncture Site LRA
[2020-09-24 05:20] LABS: ALV-art Gradient 592.375 mmHg (0-20)
[2020-09-24 05:41] LABS: O2 Tension (PaO2), arterial 52.8 mmHg (> 80.0); Puncture Site RRA
[2020-09-24 05:43] LABS: ALV-art Gradient 614.075 mmHg (0-20)
[2020-09-24] MEDS ORDERED: Ventilator Sedation Protocol 1 EACH FS SCH (06:15)
--- NOTE | 2020-09-24 06:22 | PRG ---
DATE OF SERVICE: 09/24/2020 35 minutes of critical care time. SUBJECTIVE: The patient decompensated on BiPAP this evening, had to be brought to the ICU. He was intubated by Anesthesia and placed on mechanical ventilation. OBJECTIVE: GENERAL: He is currently in a supine position. VITAL SIGNS: His pulse is 93, blood pressure 109/87, respiratory rate 47, O2 saturation 92% on 100% oxygen. He is intubated and sedated. HEENT: Unremarkable. NECK: No JVD. LUNGS: Inspiratory crackles bilaterally. CARDIOVASCULAR: S1, S2. Tachycardic. ABDOMEN: Soft, obese, nontender. EXTREMITIES: No edema. LABORATORY DATA: White blood cell count 9.5, hematocrit 40.3, and platelet count 186. PH of 7.38, pCO2 of 44, pO2 of 65 on SIMV rate 30, tidal volume 500, PEEP 12, FiO2 of 100%. Sodium 142, potassium 4.8, chloride 107, CO2 of 24, BUN 12, creatinine 0.7, glucose 109, C-reactive protein 23. X-ray shows diffuse bilateral infiltrates, but ET tube is in good position after intubation. ASSESSMENT: 1. COVID-19 pneumonia. 2. Acute respiratory failure, requiring mechanical ventilation. PLAN: The patient is being treated with remdesivir, steroids, and empiric antibiotics. I do not expect him to do well despite aggressive therapy. We will continue supportive care and hope for the best. Job ID: [id number]
[2020-09-24] MEDS: Vecuronium 10 MG VIAL IVP PRN ×4 (06:25→23:16)
[2020-09-24] MEDS ORDERED: Propofol BOLUS 1,000 MG/100 ML VIAL IV PRN (06:30)
[2020-09-24] MEDS ORDERED: Fentanyl BOLUS 250 ML IVPB PRN (06:30)
[2020-09-24] MEDS ORDERED: Morphine 2 MG/ML VIAL SLOW IVP PRN (06:30)
[2020-09-24] MEDS: Lorazepam 2 MG/ML VIAL SLOW IVP PRN (07:22)
[2020-09-24] MEDS: Propofol 1,000 MG/100 ML VIAL IV PRN ×3 (07:24→16:48)
--- NOTE | 2020-09-24 08:12 | RAD ---
XR Chest 1 View Portable History: Tube placement Comparison: Radiograph September 20, 2020 Findings: Endotracheal tube tip above the jigar 3 cm. Moderate effusions. Extensive perihilar and pe ripheral opacities. Enteric tube tip below diaphragm although out of field of view. Impression: 1. Endotracheal tube tip above the jigar 3 cm. 2. Enteric tube tip below diaphragm although out of field of view. 3. Severe perihilar and peripheral airspace opacities.
[2020-09-24] MEDS: Acetaminophen 500 MG TAB PO PRN (08:16)
[2020-09-24] MEDS ORDERED: Rocuronium Bromide 10 MG/ML (10ML VIAL) IVP PRN (08:19)
[2020-09-24] MEDS: fentaNYL Citrate/PF 2,000 MCG in Sodium Chloride 0.9% 60 ML IV SCH (08:39)
[2020-09-24] MEDS: Mometasone 100 MCG/Formoterol 5 MCG 120 PUFF INHALER INH SCH ×2 (08:55→18:36)
[2020-09-24] MEDS: Dexamethasone 4 mg/ml Vial SLOW IVP SCH ×2 (09:34→21:23)
[2020-09-24] MEDS: Apixaban 5 MG TAB PER TUBE SCH ×2 (09:34→21:23)
[2020-09-24] MEDS: Amlodipine 10 MG TAB PO SCH (09:34)
[2020-09-24] MEDS: Zinc Sulfate 220 MG CAP PO SCH (09:34)
[2020-09-24] MEDS: Ascorbic Acid 500 mg Chewable Tablet PO SCH (09:34)
[2020-09-24] MEDS: Famotidine 20 MG TAB PO SCH ×2 (09:35→21:23)
[2020-09-24] MEDS: HumaLOG 300 UNITS/3 ML VIAL SC SCH ×4 (09:36→16:47)
[2020-09-24] MEDS: HumaLOG 300 UNITS/3 ML VIAL SC PRN ×2 (10:32→16:01)
[2020-09-24] MEDS: cefTRIAXone\\ROCEPHIN 2 GM in Sodium Chloride 0.9% 100 ML IVPB SCH (15:31)
[2020-09-24] MEDS ORDERED: Sodium Chloride 0.9% 500 ML IV SCH (18:15)
[2020-09-24] MEDS: Sodium Chloride 0.9% 1,000 ML IV SCH (18:45)
[2020-09-24] MEDS: Cholecalciferol 1,000 UNITS (25 MCG) TAB PER TUBE SCH (21:23)
[2020-09-24] MEDS: Insulin Glargine 25 UNITS in Pre-Filled Syringe SC SCH (21:24)
[2020-09-24] MEDS: REMDESIVIR (EUA) 100 MG in Sodium Chloride 0.9% 250 ML 230 ML IV SCH (22:28)
[2020-09-25] MEDS: Propofol 1,000 MG/100 ML VIAL IV PRN ×3 (00:52→17:00)
[2020-09-25] MEDS: Sodium Chloride 0.9% 1,000 ML IV SCH ×2 (02:48→07:21)
[2020-09-25 04:04] LABS: #Lymphocytes 0.3 thou/uL (1.20-3.40); #Monocytes 0.2 thou/uL (0.11-0.59); #Neutrophils 7.8 thou/uL (1.40-6.50); %Eosinophils 0.1 % (0.0-10.0); %Lymphocytes 3.9 % (21.0-51.0); %Monocytes 2.5 % (0.0-10.0); %Neutrophils 93.5 % (42.0-75.0); Hemoglobin 11.3 g/dL (14.0-18.0); Mean Corpuscular HGB CONC 31.5 g/dL (32.0-36.0); Mean Corpuscular Hemoglobin 30.8 pg (27.0-31.0); Mean Corpuscular Volume 97.7 fL (78.0-98.0); Mean Platelet Volume 9.6 fL (7.4-10.4); Platelet Count 172 thou/uL (130-400); RBC Distribution Width 12.5 % (11.5-14.5); Red Blood Cell (RBC) Count 3.68 mill/uL (4.70-6.10); White Blood Cell (WBC) Count 8.3 thou/uL (4.8-10.8)
[2020-09-25] MEDS: fentaNYL Citrate/PF 2,000 MCG in Sodium Chloride 0.9% 60 ML IV SCH (04:09)
[2020-09-25 04:54] LABS: Anion Gap 16 mmol/L (10-20); BUN (Urea Nitrogen) 42 mg/dL (8.4-25.7); Calc. Creatinine Clearance 43 mL/min (70-130); Calcium 7.5 mg/dL (7.8-10.44); Carbon Dioxide 22 mmol/L (23-31); Chloride 106 mmol/L (98-107); Glucose 276 mg/dL (80-115); Potassium 5.2 mmol/L (3.5-5.1); Sodium 139 mmol/L (136-145)
[2020-09-25] MEDS: HumaLOG 300 UNITS/3 ML VIAL SC PRN ×3 (05:06→15:50)
[2020-09-25] MEDS: Vecuronium 10 MG VIAL IVP PRN ×3 (06:36→15:36)
[2020-09-25] MEDS: HumaLOG 300 UNITS/3 ML VIAL SC SCH ×3 (07:39→16:35)
[2020-09-25] MEDS: Mometasone 100 MCG/Formoterol 5 MCG 120 PUFF INHALER INH SCH (07:40)
[2020-09-25 07:43] LABS: Actual Bicarbonate (HCO3a) 23.2 mEq/L (22-28); Base Excess (BEa) -3.4 mEq/L (-2.0 to +3.0); Calcium, Ionized (arterial) 1.11 mmol/L (1.12-1.30); Carboxyhemoglobin (COHb) 0.7 gm% (0.0-3.0); Hemoglobin (Hb) 12.2 g/dL (14.0-18.0); O2 Tension (PaO2), arterial 70.3 mmHg (> 80.0); Potassium - ABG Lab 4.71 mmol/L (3.70-5.30)
[2020-09-25 07:46] LABS: Puncture Site LRA
--- NOTE | 2020-09-25 08:56 | PRG ---
DATE OF SERVICE: 09/25/2020 35 minutes of critical care time. SUBJECTIVE: This patient remains intubated on mechanical ventilation. There have been no acute changes in the prone position overnight. OBJECTIVE: VITAL SIGNS: His temperature is 97.5, pulse 68, blood pressure 104/57. 24-hour intake 3496, up at 1020. His exam is limited to lungs and extremities. His breath sounds have crackles bilaterally and his extremities are slightly edematous. LABORATORY DATA: White blood cell count 8.3, hematocrit 35.9, and platelet count 172. PH of 7.30, pCO2 of 48, PO2 of 70 on bilevel, rate 30, high pressure 27, low pressure of 12, tidal volume is running in the high 300s, FiO2 has been weaned down to 50%. Sodium 139, potassium 5.2, chloride 106, CO2 of 22, BUN 42, creatinine 2.5, glucose 276. His x-ray shows bilateral infiltrates. ASSESSMENT: 1. COVID-19 pneumonia. 2. Acute respiratory failure requiring mechanical ventilation. 3. Obesity. 4. Developing renal dysfunction. PLAN: The remdesivir has been stopped. I think that the ceftriaxone can be stopped after 7 days. He is going to be kept in a prone position for at least the next 24 hours provided there is no facial trauma. I am going to keep him on normal saline. Eliquis and steroids will continue. Also we will put on inhaled steroid inhalation. Job ID: [id number]
[2020-09-25] MEDS: Amlodipine 10 MG TAB PO SCH (09:00)
--- NOTE | 2020-09-25 09:14 | RAD ---
PORTABLE CHEST: Date: 09/25/2020 HISTORY: Follow-up pneumonia. COMPARISON: Prior day's study. FINDINGS: Heart size is enlarged. Endotracheal and NG tubes are in satisfactory position. Diffuse lung infiltra jacinto are stable. IMPRESSION: Stable exam. POS: OFF
[2020-09-25] MEDS: Dexamethasone 4 mg/ml Vial SLOW IVP SCH ×2 (09:21→20:24)
[2020-09-25] MEDS: Apixaban 5 MG TAB PER TUBE SCH ×2 (09:22→20:24)
[2020-09-25] MEDS: Zinc Sulfate 220 MG CAP PO SCH (09:23)
[2020-09-25] MEDS: Ascorbic Acid 500 mg Chewable Tablet PO SCH (09:23)
[2020-09-25] MEDS: Metoclopramide HCl 10 MG/2 ML VIAL IVP SCH ×3 (09:25→20:23)
[2020-09-25] MEDS: NPH, Human Insulin Isophane 300 UNIT/3 ML VIAL SC SCH ×2 (10:01→20:50)
[2020-09-25] MEDS: cefTRIAXone\\ROCEPHIN 2 GM in Sodium Chloride 0.9% 100 ML IVPB SCH (15:34)
[2020-09-25] MEDS: Budesonide 0.5 MG/2 ML NEB NEB SCH (18:44)
[2020-09-25] MEDS: Arformoterol 15 MCG/2 ML NEB NEB SCH (18:45)
--- NOTE | 2020-09-25 18:45 | PDOC.HOSPP ---
- Subjective Encounter Date: 09/25/20 Encounter Time: 11:00 Subjective: Patient seen for follow-up regarding COVID-19 pneumonia. He is intubated, in prone position. - Objective Vital Signs & Weight: Vital Signs (12 hours) Pulse Resp Pulse Ox 09/25/20 18:18 69 09/25/20 18:00 30 H 09/25/20 16:00 30 H 09/25/20 15:11 65 09/25/20 14:00 30 H 09/25/20 12:49 63 09/25/20 12:00 30 H 09/25/20 10:56 74 09/25/20 10:00 30 H 09/25/20 08:00 30 H 09/25/20 07:43 97 09/25/20 07:40 96 Weight Admit Weight 236 lb Weight 236 lb Most Recent Monitor Data Heart Rate from ECG 60 NIBP 103/58 NIBP BP-Mean 73 Respiration from ECG 30 SpO2 95 I&O: 09/24/20 09/25/20 09/26/20 06:59 06:59 06:59 Intake Total 310 3496 1706 Output Total 1125 1020 200 Balance -815 2476 1506 Result Diagrams: 09/25/20 03:38 09/25/20 03:38 Additional Labs: Accuchecks 09/25/20 09/25/20 09/24/20 15:45 10:08 21:10 POC Glucose 238 H 229 H 271 H I reviewed patient's labs and MAR EKG Reviewed by me: Yes (Normal sinus rhythm on telemetry) Hospitalist ROS - Review of Systems ROS unobtainable: due to endotracheal tube - Medication Medications: Active Medications Generic Name Dose Route Start Last Admin Trade Name Freq PRN Reason Stop Dose Admin Acetaminophen 1,000 mg 09/20/20 15:19 09/24/20 08:16 Acetaminophen 500 Mg Tab PO 1,000 mg Q6H PRN Administration Mild Pain (1-3) Amlodipine Besylate 10 mg 09/22/20 09:00 09/25/20 09:00 Amlodipine 10 Mg Tab PO Not Given DAILY LUCIEN Apixaban 5 mg 09/24/20 09:00 09/25/20 09:22 Apixaban 5 Mg Tab PER TUBE 5 mg BID LUCIEN Administration Arformoterol Tartrate 15 mcg 09/25/20 18:30 09/25/20 18:45 Arformoterol 15 Mcg/2 Ml Neb NEB 15 mcg BID-RT LUCIEN Administration Ascorbic Acid 1,000 mg 09/21/20 09:00 09/25/20 09:23 Ascorbic Acid 500 Mg Chewable Tablet PO 1,000 mg DAILY LUCIEN Administration Budesonide 0.5 mg 09/25/20 18:30 09/25/20 18:44 Budesonide 0.5 Mg/2 Ml Neb NEB 0.5 mg BID-RT LUCIEN Administration Cholecalciferol 5,000 units 09/24/20 21:00 09/24/20 21:23 Cholecalciferol 1,000 Units (25 Mcg) Tab PER TUBE 5,000 units HS LUCIEN Administration Dexamethasone 6 mg 09/24/20 09:00 09/25/20 09:21 Dexamethasone 4 Mg/Ml Vial SLOW IVP 6 mg BID LUCIEN Administration Ceftriaxone Sodium 2 gm/ 100 mls @ 200 mls/hr 09/20/20 16:00 09/25/20 15:34 Sodium Chloride IVPB 100 mls 1600 LUCIEN Administration Fentanyl Citrate 2,000 mcg/ 100 mls @ 0 mls/hr 09/24/20 06:30 09/25/20 04:09 Sodium Chloride IV 10/24/20 06:30 100 mls INF LUCIEN Administration Protocol Per Protocol Sodium Chloride 1,000 mls @ 75 mls/hr 09/24/20 18:15 09/25/20 07:21 Normal Saline 0.9% IV 1,000 mls INF LUCIEN Administration Insulin Human Lispro 0 units 09/20/20 15:39 09/25/20 15:50 Humalog 300 Units/3 Ml Vial SC 3 units .MILD SLIDING SCALE PRN Administration Mild Correctional Scale Insulin Human Lispro 0 units 09/20/20 15:39 09/22/20 21:09 Humalog 300 Units/3 Ml Vial SC 2 units .BEDTIME SLIDING SC PRN Administration Bedtime Correctional Scale Insulin Human Lispro 8 units 09/21/20 12:00 09/25/20 16:35 Humalog 300 Units/3 Ml Vial SC 8 unit TID-WM LUCIEN Administration Insulin Human NPH 30 unit 09/25/20 09:00 09/25/20 10:01 Nph, Human Insulin Isophane 300 Unit/3 Ml Vial SC 30 unit BID LUCIEN Administration Lorazepam 2 mg 09/24/20 06:30 09/24/20 07:22 Lorazepam 2 Mg/Ml Vial SLOW IVP 10/24/20 06:30 2 mg Q1H PRN Administration Breakthrough agitation Metoclopramide HCl 10 mg 09/25/20 09:00 09/25/20 13:59 Metoclopramide Hcl 10 Mg/2 Ml Vial IVP 10 mg 0300,0900,1500,2100 LUCIEN Administration Propofol 1,000 mg 09/24/20 06:30 09/25/20 17:00 Propofol 1,000 Mg/100 Ml Vial IV 10/24/20 06:30 1,000 mg INF PRN Administration TO ACHIEVE GOAL RASS Protocol Sodium Chloride 10 ml 09/21/20 21:00 09/25/20 09:26 Flush - Normal Saline 10 Ml Syringe IVF 10 ml Q12HR LUCIEN Administration Vecuronium [place] 10 mg 09/24/20 06:03 09/25/20 15:36 Vecuronium 10 Mg Vial IVP 10 mg Q30MIN PRN Administration Agitation Zinc Sulfate 220 mg 09/21/20 09:00 09/25/20 09:23 Zinc Sulfate 220 Mg Cap PO 220 mg DAILY LUCIEN Administration - Exam General - other findings: Intubated Heart: RRR Respiratory: rhonchi Skin: no rashes Neurological: cranial nerve grossly intact Psychiatric: normal affect, normal behavior Hosp A/P - Plan Assessment/plan: Acute hypoxic respiratory failure secondary to COVID-19 pneumonia --And is on BiPAP --Cont Decadron, --Completed remdesivir number --cont Lovenox for DVT ppx COVID-19 pneumonia --as above Uncontrolled diabetes, A1c 9.5 --Started on Humulin N 30 units twice daily Hypertension --Controlled
[2020-09-25] MEDS: Famotidine 20 MG TAB PO SCH (20:24)
[2020-09-25] MEDS: Cholecalciferol 1,000 UNITS (25 MCG) TAB PER TUBE SCH (20:25)
[2020-09-26] MEDS: fentaNYL Citrate/PF 2,000 MCG in Sodium Chloride 0.9% 60 ML IV SCH ×2 (00:16→20:18)
[2020-09-26] MEDS: Propofol 1,000 MG/100 ML VIAL IV PRN ×4 (00:39→19:52)
[2020-09-26] MEDS: Vecuronium 10 MG VIAL IVP PRN ×4 (01:17→14:02)
[2020-09-26] MEDS: Metoclopramide HCl 10 MG/2 ML VIAL IVP SCH ×4 (03:07→21:21)
[2020-09-26 04:16] LABS: #Lymphocytes 0.3 thou/uL (1.20-3.40); #Monocytes 0.4 thou/uL (0.11-0.59); #Neutrophils 10.1 thou/uL (1.40-6.50); %Basophils 0.1 % (0.0-1.0); %Eosinophils 0.2 % (0.0-10.0); %Lymphocytes 2.3 % (21.0-51.0); %Monocytes 3.7 % (0.0-10.0); %Neutrophils 93.7 % (42.0-75.0); Hemoglobin 11.2 g/dL (14.0-18.0); Mean Corpuscular HGB CONC 31.6 g/dL (32.0-36.0); Mean Corpuscular Volume 98.2 fL (78.0-98.0); Mean Platelet Volume 9.6 fL (7.4-10.4); Platelet Count 190 thou/uL (130-400); RBC Distribution Width 12.8 % (11.5-14.5); Red Blood Cell (RBC) Count 3.62 mill/uL (4.70-6.10); White Blood Cell (WBC) Count 10.8 thou/uL (4.8-10.8)
[2020-09-26] MEDS: Sodium Chloride 0.9% 1,000 ML IV SCH (04:28)
[2020-09-26] MEDS: HumaLOG 300 UNITS/3 ML VIAL SC SCH ×4 (05:21→16:38)
[2020-09-26 05:50] LABS: Anion Gap 18 mmol/L (10-20); BUN (Urea Nitrogen) 72 mg/dL (8.4-25.7); Calc. Creatinine Clearance 26 mL/min (70-130); Calcium 7.3 mg/dL (7.8-10.44); Carbon Dioxide 20 mmol/L (23-31); Chloride 106 mmol/L (98-107); Glucose 199 mg/dL (80-115); Potassium 5.1 mmol/L (3.5-5.1); Sodium 139 mmol/L (136-145)
[2020-09-26] MEDS: Arformoterol 15 MCG/2 ML NEB NEB SCH ×2 (07:50→19:05)
[2020-09-26 08:02] LABS: Base Excess (BEa) -7.7 mEq/L (-2.0 to +3.0); CO2 Tension 57.4 mmHg (35.0-45.0); Calcium, Ionized (arterial) 1.08 mmol/L (1.12-1.30); Carboxyhemoglobin (COHb) 0.4 gm% (0.0-3.0); Hemoglobin (Hb) 12.3 g/dL (14.0-18.0); O2 Tension (PaO2), arterial 76.8 mmHg (> 80.0); Potassium - ABG Lab 4.69 mmol/L (3.70-5.30)
[2020-09-26] MEDS: Dexamethasone 4 mg/ml Vial SLOW IVP SCH ×2 (08:25→21:21)
[2020-09-26] MEDS: Zinc Sulfate 220 MG CAP PO SCH (08:25)
[2020-09-26] MEDS: Amlodipine 10 MG TAB PO SCH (08:25)
[2020-09-26] MEDS: Apixaban 5 MG TAB PER TUBE SCH ×2 (08:26→21:21)
[2020-09-26] MEDS: Ascorbic Acid 500 mg Chewable Tablet PO SCH (08:26)
[2020-09-26] MEDS: NPH, Human Insulin Isophane 300 UNIT/3 ML VIAL SC SCH ×2 (08:41→21:23)
--- NOTE | 2020-09-26 08:43 | RAD ---
CHEST 1 VIEW: Date: 09/26/2020 INDICATION: History of pneumonia. COMPARISON: Prior exam dated 09/25/2020. IMPRESSION: Bilateral air space disease persists. The patient remains intubated with gastric catheter placement. No definite pneumothorax is evident. Osseous structures are unremarkable. POS: BH
--- NOTE | 2020-09-26 08:46 | PRG ---
DATE OF SERVICE: 09/26/2020 SUBJECTIVE: The patient remains intubated in a supine position with COVID-19 pneumonia. OBJECTIVE: VITAL SIGNS: Temperature 97.7, pulse 93, blood pressure 151/71. He is requiring no vasopressor. He is sedated on propofol and fentanyl. 24-hour intake output 345. HEENT: Unremarkable. NECK: No JVD. LUNGS: Coarse breath sounds. CARDIAC: S1 and S2. Regular. ABDOMEN: Soft and obese. EXTREMITIES: No edema. LABORATORY DATA: PH 7.18, pCO2 of 57, PO2 of 76, and that was on bilevel high pressure 27, low pressure 12, rate 30, FiO2 of 50%. White blood cell count 10.8, hematocrit 35.6, and platelet count 190. Sodium 139, potassium 5.1, chloride 106, CO2 of 20, BUN 72, creatinine 4.2, glucose 199. ASSESSMENT: 1. COVID-19 pneumonia with acute respiratory failure requiring mechanical ventilation. 2. Acute renal failure. 3. Obesity. PLAN: 1. I will increase bilevel to see if we can increase his tidal volume and reduce his respiratory acidosis. 2. Continue anticoagulation. 3. We will ask Nephrology to see as the patient is developing acute renal failure related to his COVID and probably will not do well with that. 4. Continue NPH insulin for hyperglycemia. Job ID: [id number]
[2020-09-26 09:22] LABS: pH, Arterial 7.18 (7.35-7.45)
[2020-09-26 09:23] LABS: Puncture Site LRA
[2020-09-26] MEDS: Lorazepam 2 MG/ML VIAL SLOW IVP PRN ×2 (09:24→14:02)
[2020-09-26] MEDS: Budesonide 0.5 MG/2 ML NEB NEB SCH ×2 (09:41→19:05)
[2020-09-26] MEDS: HumaLOG 300 UNITS/3 ML VIAL SC PRN (10:16)
[2020-09-26 10:25] LABS: Bilirubin Negative (Negative); Blood, Urine Large (Negative); Glucose, Urine (Dipstick) Negative (Negative); Ketone, Urine Negative (Negative); Leukocyte Negative (Negative); Nitrite Negative (Negative); Protein, Urine (Dipstick) Trace mg/dL (Neg-Trace); Urobilinogen 0.2 mg/dL (Less than 2)
[2020-09-26 10:34] LABS: Clarity Clear (Clear)
[2020-09-26 10:37] LABS: Specific Gravity, Urine 1.015 (1.002-1.036)
[2020-09-26 10:42] LABS: Sodium, Urine 57 mmol/L (Not Available); Urea Nitrogen, Random Urine 445 mg/dl; pH, Urine 4.7 (5.0-9.0)
[2020-09-26 10:46] LABS: ALT (SGPT) 16 U/L (8-55); AST (SGOT) 20 U/L (5-34); Albumin 2.4 g/dL (3.4-4.8); Alkaline Phosphatase 93 U/L (40-110); Bilirubin, Direct 0.2 mg/dL (0.1-0.3); Bilirubin, Total 0.2 mg/dL (0.2-1.2); Protein, Total 6.2 g/dL (5.8-8.1)
[2020-09-26 10:48] LABS: Bacteria/HPF None Seen HPF (None Seen)
[2020-09-26 10:49] LABS: Squamous Epithelial 0-3 HPF (0-3); WBC/HPF 0-3 HPF (0-3)
--- NOTE | 2020-09-26 12:22 | CON ---
DATE OF CONSULTATION: 09/26/2020 SERVICE: Nephrology. REASON FOR CONSULTATION: Acute renal failure. REQUESTING PHYSICIAN: Derian Sparks MD HISTORY OF PRESENT ILLNESS: A 65-year-old male patient with known history of hypertension and type 2 diabetes mellitus, admitted on September 20, 2020, due to worsening shortness of breath and cough associated with hypoxia, generalized body aches in the context of recent COVID infection. The patient was found to be hypoxic, and impression of sepsis from COVID pneumonia and respiratory failure was made, and was started on oxygen supplementation. He later was escalated to high-humidity oxygen, which he failed and was subsequently intubated. Of note, on presentation due to concern for pulmonary embolism, the patient had a CT angio of the chest on September 20, which was negative for PE. On presentation, the patient had normal creatinine of 1.05, which actually trended downwards to a liset of 0.66 on September 23 before, starting to trend up to 2.59 on September 25. Creatinine went further up today to 4.22, necessitating Nephrology consult. Review of medical records showed that the patient was started on steroid as well as remdesivir on presentation. There was, however, no documented evidence of hypotension since hospitalization. Review of medical records showed no use of nephrotoxic agent since admission. Note that, the following history was obtained from review of medical record as the patient is currently intubated and mechanically ventilated and was unable to provide any history. PAST MEDICAL HISTORY: 1. Hypertension. 2. Diabetes mellitus. PAST SURGICAL HISTORY: Right knee repair. FAMILY HISTORY: Significant for diabetes mellitus in relatives. SOCIAL HISTORY: The patient lives with family. He is and lives with spouse. There is no history of alcohol, tobacco, or recreational drug use. ALLERGIES: PENICILLIN. PRIOR TO HOSPITAL MEDICATIONS: Amlodipine 10 mg daily. CURRENT HOSPITAL MEDICATIONS: Are as follows: 1. Ceftriaxone 2 g daily. 2. Sodium chloride at 75 mL/h. 3. Amlodipine 10 mg per tube daily. 4. Eliquis 5 mg per tube b.i.d. 5. Brovana 15 mcg nebulization b.i.d. 6. Ascorbic acid 1000 mg per tube daily. 7. Pulmicort nebulization 0.5 mg nebulization b.i.d. 8. Vitamin D 5000 units per tube daily. 9. Dexamethasone 6 mg IV b.i.d. 10. Pepcid 20 mg p.o. daily. 11. Humalog 8 units subcutaneously according to sliding scale. 12. NPH 30 units b.i.d. 13. Zinc 220 mg per tube daily. 14. Propofol as needed for sedation. 15. The patient also is on rocuronium as well as vecuronium p.r.n. REVIEW OF SYSTEMS: Could not be performed due to the patient's condition. PHYSICAL EXAMINATION: VITAL SIGNS: Temperature 97.9, pulse 66, respiratory rate 30, SpO2 of 97% on the ventilator. GENERAL: Male patient in prone position. HEENT: Normocephalic, atraumatic. ET tube is in place. NECK: Symmetrical. No obvious JVD appreciated. CARDIOVASCULAR: Regular rhythm and rate with normal heart sounds one and two. RESPIRATORY: Ventilator transmitted breath sounds heard. GI: Obese, soft with no distention. Bowel sound is normal. UROGENITAL: Nicole catheter is in place, draining some urine. EXTREMITIES: Trace edema of the extremities noted. CONE OPERATOR: The patient is sedated. DIAGNOSTIC DATA: CBC today showed WBC count of 10.8, hemoglobin of 11.2, platelets of 190. On presentation, WBC was 9.1, hemoglobin was 15.1, and platelets were 286. Arterial blood gas performed earlier today showed pH of 7.18, pCO2 of 57.4, pO2 of 76.8, ionized calcium of 1.08. Chemistry today showed sodium 139, potassium 5.1, chloride 106, CO2 of 20, BUN 72, creatinine 4.22, calcium 7.1, albumin 2.4, alkaline phosphatase 93, AST 20, ALT 16, total bilirubin 0.2. Total protein 6.2. Chest x-ray performed earlier today showed bilateral airspace disease with no definite pneumothorax. Review of medical records showed that on presentation, creatinine was 1.05, which is above his baseline, which ranges from 0.8 to 1.0. ASSESSMENT: 1. Acute renal failure: Etiology is unclear. Differentials include hemodynamic factors related to poor perfusion as well as cytokine-mediated injury related to sepsis. Contrast-induced nephropathy remains a concern, though it is about 4 days since the contrast therapy, and creatinine on presentation was normal and at baseline. The patient continued to make some urine, though urine output is progressively trending downwards. 2. Acidosis: Both metabolic and respiratory. 3. History of hypertension: Blood pressure is adequately controlled at this moment. He may actually be on the soft side. The patient is getting amlodipine 10 mg p.o. daily. 4. Diabetes mellitus, on insulin therapy. PLAN: 1. We will hold amlodipine and allow BP to come up to improve renal perfusion. 2. We will also avoid nephrotoxic agents. 3. We will get urinalysis as well as urine electrolytes. We will also rule out rhabdomyolysis given history of body aches. We will also start the patient on alkali therapy given metabolic acidosis. Further treatment to follow depending on hospital course. We will also monitor intake and output. Many thanks for involving us in the care of this patient. We will follow along with you. Job ID: [id number] [facility]
[2020-09-26] MEDS: Sodium Bicarbonate 150 MEQ in Dextrose 5% in Water 1,000 ML IV SCH (14:35)
[2020-09-26] MEDS: cefTRIAXone\\ROCEPHIN 2 GM in Sodium Chloride 0.9% 100 ML IVPB SCH (15:33)
--- NOTE | 2020-09-26 16:44 | PDOC.HOSPP ---
- Subjective Encounter Date: 09/26/20 Encounter Time: 11:30 Subjective: Patient seen for follow-up regarding acute hypoxic respiratory failure. Patient is intubated, review of systems could not be completed. - Objective Vital Signs & Weight: Vital Signs (12 hours) Pulse Resp BP Pulse Ox 09/26/20 16:00 30 H 09/26/20 15:49 56 L 130/72 09/26/20 14:00 30 H 09/26/20 12:00 30 H 09/26/20 11:35 63 112/60 09/26/20 10:00 30 H 09/26/20 08:25 92 155/77 H 09/26/20 08:00 30 H 09/26/20 07:50 80 120/58 L 09/26/20 07:22 95 09/26/20 05:47 30 H Weight Admit Weight 236 lb Weight 236 lb Most Recent Monitor Data Heart Rate from ECG 57 NIBP 124/71 NIBP BP-Mean 88 Respiration from ECG 30 SpO2 97 I&O: 09/25/20 09/26/20 09/27/20 06:59 06:59 06:59 Intake Total 3496 3076 90 Output Total 1020 345 275 Balance 2476 2731 -185 Result Diagrams: 09/26/20 04:03 09/26/20 04:03 Additional Labs: Accuchecks 09/26/20 09/26/20 09/26/20 15:48 10:00 05:18 POC Glucose 119 H 165 H 191 H 09/25/20 20:32 POC Glucose 200 H Labs and MAR reviewed by me Hospitalist ROS - Review of Systems ROS unobtainable: due to endotracheal tube - Medication Medications: Active Medications Generic Name Dose Route Start Last Admin Trade Name Freq PRN Reason Stop Dose Admin Acetaminophen 1,000 mg 09/20/20 15:19 09/24/20 08:16 Acetaminophen 500 Mg Tab PO 1,000 mg Q6H PRN Administration Mild Pain (1-3) Amlodipine Besylate 10 mg 09/22/20 09:00 09/26/20 08:25 Amlodipine 10 Mg Tab PO 10 mg DAILY LUCIEN Administration Apixaban 5 mg 09/24/20 09:00 09/26/20 08:26 Apixaban 5 Mg Tab PER TUBE 5 mg BID LUCIEN Administration Arformoterol Tartrate 15 mcg 09/25/20 18:30 09/26/20 07:50 Arformoterol 15 Mcg/2 Ml Neb NEB 15 mcg BID-RT LUCIEN Administration Ascorbic Acid 1,000 mg 09/21/20 09:00 09/26/20 08:26 Ascorbic Acid 500 Mg Chewable Tablet PO 1,000 mg DAILY LUCIEN Administration Budesonide 0.5 mg 09/25/20 18:30 09/26/20 09:41 Budesonide 0.5 Mg/2 Ml Neb NEB 0.5 mg BID-RT LUCIEN Administration Cholecalciferol 5,000 units 09/24/20 21:00 09/25/20 20:25 Cholecalciferol 1,000 Units (25 Mcg) Tab PER TUBE 5,000 units HS LUCIEN Administration Dexamethasone 6 mg 09/24/20 09:00 09/26/20 08:25 Dexamethasone 4 Mg/Ml Vial SLOW IVP 6 mg BID LUCIEN Administration Famotidine 20 mg 09/25/20 21:00 09/25/20 20:24 Famotidine 20 Mg Tab PO 20 mg 2100 LUCIEN Administration Ceftriaxone Sodium 2 gm/ 100 mls @ 200 mls/hr 09/20/20 16:00 09/26/20 15:33 Sodium Chloride IVPB 100 mls 1600 LUCIEN Administration Fentanyl Citrate 2,000 mcg/ 100 mls @ 0 mls/hr 09/24/20 06:30 09/26/20 00:16 Sodium Chloride IV 10/24/20 06:30 100 mls INF LUCIEN Administration Protocol Per Protocol Sodium Bicarbonate 150 meq/ 1,150 mls @ 50 mls/hr 09/26/20 11:45 09/26/20 14:35 Dextrose/Water IV 1,150 mls INF LUCIEN Administration Insulin Human Lispro 0 units 09/20/20 15:39 09/26/20 10:16 Humalog 300 Units/3 Ml Vial SC 2 units .MILD SLIDING SCALE PRN Administration Mild Correctional Scale Insulin Human Lispro 0 units 09/20/20 15:39 09/22/20 21:09 Humalog 300 Units/3 Ml Vial SC 2 units .BEDTIME SLIDING SC PRN Administration Bedtime Correctional Scale Insulin Human Lispro 8 units 09/21/20 12:00 09/26/20 16:38 Humalog 300 Units/3 Ml Vial SC 8 unit TID-WM LUCIEN Administration Insulin Human NPH 30 unit 09/25/20 09:00 09/26/20 08:41 Nph, Human Insulin Isophane 300 Unit/3 Ml Vial SC 30 unit BID LUCIEN Administration Lorazepam 2 mg 09/24/20 06:30 09/26/20 14:02 Lorazepam 2 Mg/Ml Vial SLOW IVP 10/24/20 06:30 2 mg Q1H PRN Administration Breakthrough agitation Metoclopramide HCl 10 mg 09/25/20 09:00 09/26/20 14:35 Metoclopramide Hcl 10 Mg/2 Ml Vial IVP 10 mg 0300,0900,1500,2100 LUCIEN Administration Propofol 1,000 mg 09/24/20 06:30 09/26/20 13:03 Propofol 1,000 Mg/100 Ml Vial IV 10/24/20 06:30 1,000 mg INF PRN Administration TO ACHIEVE GOAL RASS Protocol Sodium Chloride 10 ml 09/21/20 21:00 09/26/20 08:30 Flush - Normal Saline 10 Ml Syringe IVF 10 ml Q12HR LUCIEN Administration Vecuronium [place] 10 mg 09/24/20 06:03 09/26/20 14:02 Vecuronium 10 Mg Vial IVP 10 mg Q30MIN PRN Administration Agitation Zinc Sulfate 220 mg 09/21/20 09:00 09/26/20 08:25 Zinc Sulfate 220 Mg Cap PO 220 mg DAILY LUCIEN Administration - Exam General - other findings: Intubated ENT - other findings: Endotracheal tube Heart: RRR Respiratory: rales, rhonchi Gastrointestinal: normal bowel sounds Skin: no rashes Psychiatric - other findings: Notices Hosp A/P - Plan Assessment/plan: Acute hypoxic respiratory failure secondary to COVID-19 pneumonia --Continue BiPAP --Patient is on Decadron, --Completed remdesivir number 21st --cont Lovenox for DVT ppx COVID-19 pneumonia --as above Uncontrolled diabetes, A1c 9.5 --Blood sugars have improved, continue Humulin N 30 units twice daily Hypertension --Controlled
[2020-09-26] MEDS: Famotidine 20 MG TAB PO SCH (21:21)
[2020-09-26] MEDS: Cholecalciferol 1,000 UNITS (25 MCG) TAB PER TUBE SCH (21:36)
[2020-09-27] MEDS: Metoclopramide HCl 10 MG/2 ML VIAL IVP SCH ×4 (02:36→21:12)
[2020-09-27] MEDS: Propofol 1,000 MG/100 ML VIAL IV PRN ×5 (02:37→23:06)
[2020-09-27] MEDS: HumaLOG 300 UNITS/3 ML VIAL SC PRN ×3 (03:40→17:00)
[2020-09-27 03:52] LABS: #Lymphocytes 0.3 thou/uL (1.20-3.40); #Monocytes 0.4 thou/uL (0.11-0.59); #Neutrophils 7.8 thou/uL (1.40-6.50); %Basophils 0.2 % (0.0-1.0); %Eosinophils 0.3 % (0.0-10.0); %Lymphocytes 3.2 % (21.0-51.0); %Monocytes 4.9 % (0.0-10.0); %Neutrophils 91.4 % (42.0-75.0); Hemoglobin 10.9 g/dL (14.0-18.0); Mean Corpuscular HGB CONC 32.7 g/dL (32.0-36.0); Mean Corpuscular Hemoglobin 31.1 pg (27.0-31.0); Mean Corpuscular Volume 95.3 fL (78.0-98.0); Mean Platelet Volume 9.7 fL (7.4-10.4); Platelet Count 184 thou/uL (130-400); RBC Distribution Width 12.5 % (11.5-14.5); Red Blood Cell (RBC) Count 3.49 mill/uL (4.70-6.10); White Blood Cell (WBC) Count 8.6 thou/uL (4.8-10.8)
[2020-09-27 07:13] LABS: Chloride 106 mmol/L (98-107); Potassium 5.6 mmol/L (3.5-5.1); Sodium 139 mmol/L (136-145)
[2020-09-27 07:14] LABS: Calcium 7.2 mg/dL (7.8-10.44); Glucose 213 mg/dL (80-115)
[2020-09-27 07:16] LABS: Anion Gap 24 mmol/L (10-20); Carbon Dioxide 15 mmol/L (23-31)
[2020-09-27 07:18] LABS: Calc. Creatinine Clearance 23 mL/min (70-130)
[2020-09-27 07:19] LABS: BUN (Urea Nitrogen) 103 mg/dL (8.4-25.7)
--- NOTE | 2020-09-27 07:41 | RAD ---
Chest AP view INDICATION: History of pneumonia COMPARISON: September 26, 2020 FINDINGS: Lungs: Bilateral airspace disease is stable. Cardiac silhouette: The cardiomediastinal silhouette appears within normal limits. Pulmonary vasculature: Normal Pleural spaces: No pleural effusion or pneumothorax is demonstrated. Upper abdomen: No abnormality seen. Osseous structures: No acute osseous abnormality. Additional findings: ET tube and gastric catheter unchanged. IMPRESSION: Stable bilateral pneumonia. Stable tubes and lines. No pneumothorax.
[2020-09-27] MEDS: Arformoterol 15 MCG/2 ML NEB NEB SCH ×2 (07:45→18:29)
[2020-09-27 08:01] LABS: Actual Bicarbonate (HCO3a) 20.7 mEq/L (22-28); Base Excess (BEa) -5.6 mEq/L (-2.0 to +3.0); CO2 Tension 43.4 mmHg (35.0-45.0); Calcium, Ionized (arterial) 1.07 mmol/L (1.12-1.30); Carboxyhemoglobin (COHb) 0.1 gm% (0.0-3.0); Hemoglobin (Hb) 11.8 g/dL (14.0-18.0); O2 Tension (PaO2), arterial 72.9 mmHg (> 80.0); Potassium - ABG Lab 4.53 mmol/L (3.70-5.30)
[2020-09-27] MEDS: HumaLOG 300 UNITS/3 ML VIAL SC SCH ×3 (08:17→17:43)
[2020-09-27] MEDS: Sodium Bicarbonate 150 MEQ in Dextrose 5% in Water 1,000 ML IV SCH (08:53)
[2020-09-27 08:55] LABS: Puncture Site LRA
[2020-09-27] MEDS: Amlodipine 10 MG TAB PO SCH (09:01)
[2020-09-27] MEDS: Apixaban 5 MG TAB PER TUBE SCH ×2 (09:04→21:11)
[2020-09-27] MEDS: Zinc Sulfate 220 MG CAP PO SCH (09:04)
[2020-09-27] MEDS: Dexamethasone 4 mg/ml Vial SLOW IVP SCH ×2 (09:04→21:12)
[2020-09-27] MEDS: Ascorbic Acid 500 mg Chewable Tablet PO SCH (09:05)
[2020-09-27] MEDS: NPH, Human Insulin Isophane 300 UNIT/3 ML VIAL SC SCH ×2 (09:05→21:13)
--- NOTE | 2020-09-27 10:04 | PDOC.NEPPN ---
- Subjective Encounter Date: 09/27/20 Subjective: Seen in follow up for TAMI. Still intubated for Covid pneumonia. Getting tube feeds. - Objective Vital Signs & Weight: Vital Signs (12 hours) Pulse Resp BP 09/27/20 09:01 65 123/69 09/27/20 05:46 30 H 09/27/20 05:05 54 L 09/27/20 03:44 34 H 09/27/20 01:48 30 H 09/27/20 00:56 52 L 115/65 09/26/20 23:53 30 H Weight Admit Weight 236 lb Weight 236 lb Most Recent Monitor Data Heart Rate from ECG 64 NIBP 131/73 NIBP BP-Mean 92 Respiration from ECG 30 SpO2 99 I&O: 09/26/20 09/27/20 09/28/20 06:59 06:59 06:59 Intake Total 3076 1913 Output Total 345 880 Balance 2731 1033 Result Diagrams: 09/27/20 03:23 09/27/20 06:47 Additional Labs: Accuchecks 09/27/20 09/27/20 09/26/20 09:31 03:38 15:48 POC Glucose 210 H 225 H 119 H 09/26/20 10:00 POC Glucose 165 H Nephrology ROS - Medication Medications: Active Medications Generic Name Dose Route Start Last Admin Trade Name Freq PRN Reason Stop Dose Admin Acetaminophen 1,000 mg 09/20/20 15:19 09/24/20 08:16 Acetaminophen 500 Mg Tab PO 1,000 mg Q6H PRN Administration Mild Pain (1-3) Amlodipine Besylate 10 mg 09/22/20 09:00 09/27/20 09:01 Amlodipine 10 Mg Tab PO 10 mg DAILY LUCIEN Administration Apixaban 5 mg 09/24/20 09:00 09/27/20 09:04 Apixaban 5 Mg Tab PER TUBE 5 mg BID LUCIEN Administration Arformoterol Tartrate 15 mcg 09/25/20 18:30 09/26/20 19:05 Arformoterol 15 Mcg/2 Ml Neb NEB 15 mcg BID-RT LUCIEN Administration Ascorbic Acid 1,000 mg 09/21/20 09:00 09/27/20 09:05 Ascorbic Acid 500 Mg Chewable Tablet PO 1,000 mg DAILY LUCIEN Administration Budesonide 0.5 mg 09/25/20 18:30 09/26/20 19:05 Budesonide 0.5 Mg/2 Ml Neb NEB 0.5 mg BID-RT LUCIEN Administration Cholecalciferol 5,000 units 09/24/20 21:00 09/26/20 21:36 Cholecalciferol 1,000 Units (25 Mcg) Tab PER TUBE 5,000 units HS LUCIEN Administration Dexamethasone 6 mg 09/24/20 09:00 09/27/20 09:04 Dexamethasone 4 Mg/Ml Vial SLOW IVP 6 mg BID LUCIEN Administration Famotidine 20 mg 09/25/20 21:00 09/26/20 21:21 Famotidine 20 Mg Tab PO 20 mg 2100 LUCIEN Administration Fentanyl Citrate 2,000 mcg/ 100 mls @ 0 mls/hr 09/24/20 06:30 09/26/20 20:18 Sodium Chloride IV 10/24/20 06:30 100 mls INF LUCIEN Administration Protocol Per Protocol Insulin Human Lispro 0 units 09/20/20 15:39 09/27/20 03:40 Humalog 300 Units/3 Ml Vial SC 3 units .MILD SLIDING SCALE PRN Administration Mild Correctional Scale Insulin Human Lispro 0 units 09/20/20 15:39 09/22/20 21:09 Humalog 300 Units/3 Ml Vial SC 2 units .BEDTIME SLIDING SC PRN Administration Bedtime Correctional Scale Insulin Human Lispro 8 units 09/21/20 12:00 09/27/20 08:17 Humalog 300 Units/3 Ml Vial SC Not Given TID-WM LUCIEN Insulin Human NPH 30 unit 09/25/20 09:00 09/27/20 09:05 Nph, Human Insulin Isophane 300 Unit/3 Ml Vial SC 30 unit BID LUCIEN Administration Lorazepam 2 mg 09/24/20 06:30 09/26/20 14:02 Lorazepam 2 Mg/Ml Vial SLOW IVP 10/24/20 06:30 2 mg Q1H PRN Administration Breakthrough agitation Metoclopramide HCl 10 mg 09/25/20 09:00 09/27/20 09:05 Metoclopramide Hcl 10 Mg/2 Ml Vial IVP 10 mg 0300,0900,1500,2100 LUCIEN Administration Propofol 1,000 mg 09/24/20 06:30 09/27/20 09:07 Propofol 1,000 Mg/100 Ml Vial IV 10/24/20 06:30 1,000 mg INF PRN Administration TO ACHIEVE GOAL RASS Protocol Sodium Chloride 10 ml 09/21/20 21:00 09/27/20 09:05 Flush - Normal Saline 10 Ml Syringe IVF 10 ml Q12HR LUCIEN Administration Vecuronium [place] 10 mg 09/24/20 06:03 09/26/20 14:02 Vecuronium 10 Mg Vial IVP 10 mg Q30MIN PRN Administration Agitation Zinc Sulfate 220 mg 09/21/20 09:00 09/27/20 09:04 Zinc Sulfate 220 Mg Cap PO 220 mg DAILY LUCIEN Administration - Exam General Appearance: awake alert General - other findings: sedated Eye: anicteric sclera ENT: normocephalic atraumatic ENT - other findings: ET tube in place Respiratory - other findings: ventilator transmitted sound noted Cardiovascular: RRR Gastrointestinal: soft, non-distended, normal bowel sounds Extremities - other findings: trace extremity edema Neurological - other findings: sedated Nephrology Results - Labs Result Diagrams: 09/27/20 03:23 09/27/20 06:47 Lab results: WBC 8.6 thou/uL (4.8-10.8) 09/27/20 03:23 Hgb 10.9 g/dL (14.0-18.0) L 09/27/20 03:23 Hct 33.2 % (42.0-52.0) L 09/27/20 03:23 MCV 95.3 fL (78.0-98.0) 09/27/20 03:23 Plt Count 184 thou/uL (130-400) 09/27/20 03:23 Neutrophils % 91.4 % (42.0-75.0) H 09/27/20 03:23 ABG pH 7.30 (7.35-7.45) L 09/27/20 07:45 ABG pCO2 43.4 mmHg (35.0-45.0) 09/27/20 07:45 ABG pO2 72.9 mmHg (> 80.0) 09/27/20 07:45 Sodium 139 mmol/L (136-145) 09/27/20 06:47 Potassium 5.6 mmol/L (3.5-5.1) H 09/27/20 06:47 Chloride 106 mmol/L (98-107) 09/27/20 06:47 Carbon Dioxide 15 mmol/L (23-31) L 09/27/20 06:47 BUN 103 mg/dL (8.4-25.7) H 09/27/20 06:47 Creatinine 4.89 mg/dL (0.7-1.3) H 09/27/20 06:47 Glucose 213 mg/dL (80-115) H 09/27/20 06:47 Lactic Acid 2.0 mmol/L (0.5-2.2) 09/20/20 16:06 Calcium 7.2 mg/dL (7.8-10.44) L 09/27/20 06:47 Total Bilirubin 0.2 mg/dL (0.2-1.2) 09/26/20 04:03 AST 20 U/L (5-34) 09/26/20 04:03 ALT 16 U/L (8-55) 09/26/20 04:03 Alkaline Phosphatase 93 U/L (40-110) 09/26/20 04:03 Creatine Kinase 273 U/L (30-200) H 09/26/20 04:03 Troponin I 0.013 ng/mL (< 0.028) 09/20/20 16:06 C-Reactive Protein 23.08 mg/dL (= or < 0.5) H 09/24/20 03:29 B-Natriuretic Peptide 21.2 pg/mL (0-100) 09/20/20 10:13 Serum Total Protein 6.2 g/dL (5.8-8.1) 09/26/20 04:03 Albumin 2.4 g/dL (3.4-4.8) L 09/26/20 04:03 Urine Ketones Negative mg/dL (Negative) 09/26/20 10:00 Urine Blood Large (Negative) A 09/26/20 10:00 Urine Nitrite Negative (Negative) 09/26/20 10:00 Ur Leukocyte Esterase Negative (Negative) 09/26/20 10:00 Urine RBC 11-20 HPF (0-3) A 09/26/20 10:00 Urine WBC 0-3 HPF (0-3) 09/26/20 10:00 Ur Squamous Epith Cells 0-3 HPF (0-3) 09/26/20 10:00 Urine Bacteria None Seen HPF (None Seen) 09/26/20 10:00 Sodium 139 mmol/L (136-145) 09/27/20 06:47 Potassium 5.6 mmol/L (3.5-5.1) H 09/27/20 06:47 Chloride 106 mmol/L (98-107) 09/27/20 06:47 Carbon Dioxide 15 mmol/L (23-31) L 09/27/20 06:47 Anion Gap 24 mmol/L (10-20) H 09/27/20 06:47 BUN 103 mg/dL (8.4-25.7) H 09/27/20 06:47 Creatinine 4.89 mg/dL (0.7-1.3) H 09/27/20 06:47 Glucose 213 mg/dL (80-115) H 09/27/20 06:47 Calcium 7.2 mg/dL (7.8-10.44) L 09/27/20 06:47 Albumin 2.4 g/dL (3.4-4.8) L 09/26/20 04:03 Nephrology AP PN - Plan ASSESSMENT: Acute renal failure: ATN is a concern as creat continue to trend up. H emodynamic factors related to poor perfusion as well as cytokine-mediated injury related to sepsis, and Contrast-induced nephropathy are other possibilities. Urine output is better in the last 24 hours. Hyperkalemia: TAMI +/- tube feeding and acidosis Acidosis: Both metabolic and respiratory. Hypoalbuminemia Acute respiratory failure due to Covid Pneumonia: still intubated. PLAN Start sodium bicarb infusion as patient may not have started that yet. Give a dose of kayexalate. give albumin 25 grams x 2 Recheck renal function in 6 hours. Re evaluate patient with repeat labs. HD contemplated.
--- NOTE | 2020-09-27 10:11 | PRG ---
DATE OF SERVICE: 09/27/2020 35 minutes of critical care time. SUBJECTIVE: The patient remains intubated on mechanical ventilation. He is in a supine position. OBJECTIVE: VITAL SIGNS: Temperature 97.9, pulse 64, blood pressure 131/73, O2 saturations running 99%, and he is on 50% oxygen. Total intake 1913, output 880. HEENT: Unremarkable except for pressure necrosis on the tip of his nose for being prone. NECK: No JVD. CHEST: Fairly clear anteriorly. CARDIOVASCULAR: S1, S2. Regular. ABDOMEN: Soft. EXTREMITIES: No edema. LABORATORY DATA: White blood cell count 8.6, hematocrit 33.2, and platelet count 184, pH 7.30, pCO2 of 43, pO2 of 72 on bilevel rate 30, high pressure 34, low pressure 12, FiO2 of 50%. Sodium 139, potassium 5.6, chloride 106, CO2 of 15, BUN 103, creatinine 4.8, glucose 213. ASSESSMENT: 1. Coronavirus disease 2019 pneumonia. 2. Acute hypoxic respiratory failure requiring mechanical ventilation. 3. Acute renal failure. PLAN: 1. The patient can stop the Rocephin. Continue anticoagulation. 2. At some point, he is probably going to need dialysis. 3. Discussed with Dr. Pulido. For now, he is going to use bicarbonate as a way to mitigate potassium increased. 4. Continue NPH insulin. Job ID: [id number]
[2020-09-27] MEDS: Budesonide 0.5 MG/2 ML NEB NEB SCH ×2 (12:09→18:29)
[2020-09-27] MEDS: Albumin 25% 25 GM/100 ML BOT IVPB SCH ×2 (14:20→16:25)
[2020-09-27 15:42] LABS: Albumin 2.4 g/dL (3.4-4.8); Anion Gap 20 mmol/L (10-20); BUN (Urea Nitrogen) 111 mg/dL (8.4-25.7); BUN/Creatinine Ratio 23.03; Calc. Creatinine Clearance 23 mL/min (70-130); Carbon Dioxide 21 mmol/L (23-31); Chloride 104 mmol/L (98-107); Glucose 223 mg/dL (80-115); Phosphorus 8.1 mg/dL (2.3-4.7); Potassium 5.2 mmol/L (3.5-5.1); Sodium 140 mmol/L (136-145)
[2020-09-27] MEDS: fentaNYL Citrate/PF 2,000 MCG in Sodium Chloride 0.9% 60 ML IV SCH (16:11)
--- NOTE | 2020-09-27 19:57 | PDOC.HOSPP ---
- Subjective Encounter Date: 09/27/20 Encounter Time: 13:30 Subjective: Patient seen for follow-up regarding hypoxic respiratory failure. Patient is intubated, could not complete review of systems. - Objective Vital Signs & Weight: Vital Signs (12 hours) Temp Pulse Resp BP Pulse Ox 09/27/20 18:29 57 L 26 H 99 09/27/20 18:00 26 H 09/27/20 16:00 98.1 F 26 H 09/27/20 14:42 58 L 116/62 09/27/20 14:00 26 H 09/27/20 13:00 61 117/64 09/27/20 12:00 98.6 F 26 H 09/27/20 10:00 26 H 09/27/20 09:01 65 123/69 09/27/20 08:00 98.2 F 34 H 97 Weight Admit Weight 236 lb Weight 236 lb Most Recent Monitor Data Heart Rate from ECG 57 NIBP 135/73 NIBP BP-Mean 93 Respiration from ECG 26 SpO2 99 I&O: 09/26/20 09/27/20 09/28/20 06:59 06:59 06:59 Intake Total 3076 1913 1904.1 Output Total 345 880 885 Balance 2731 1033 1019.1 Result Diagrams: 09/27/20 03:23 09/27/20 14:48 Additional Labs: Accuchecks 09/27/20 09/27/20 09/27/20 16:55 09:31 03:38 POC Glucose 225 H 210 H 225 H 09/26/20 20:29 POC Glucose 148 H I reviewed patient's labs and MAR Hospitalist ROS - Review of Systems ROS unobtainable: due to endotracheal tube - Medication Medications: Active Medications Generic Name Dose Route Start Last Admin Trade Name Freq PRN Reason Stop Dose Admin Acetaminophen 1,000 mg 09/20/20 15:19 09/24/20 08:16 Acetaminophen 500 Mg Tab PO 1,000 mg Q6H PRN Administration Mild Pain (1-3) Amlodipine Besylate 10 mg 09/22/20 09:00 09/27/20 09:01 Amlodipine 10 Mg Tab PO 10 mg DAILY LUCIEN Administration Apixaban 5 mg 09/24/20 09:00 09/27/20 09:04 Apixaban 5 Mg Tab PER TUBE 5 mg BID LUCIEN Administration Arformoterol Tartrate 15 mcg 09/25/20 18:30 09/27/20 18:29 Arformoterol 15 Mcg/2 Ml Neb NEB 15 mcg BID-RT LUCIEN Administration Ascorbic Acid 1,000 mg 09/21/20 09:00 09/27/20 09:05 Ascorbic Acid 500 Mg Chewable Tablet PO 1,000 mg DAILY LUCIEN Administration Budesonide 0.5 mg 09/25/20 18:30 09/27/20 18:29 Budesonide 0.5 Mg/2 Ml Neb NEB 0.5 mg BID-RT LUCIEN Administration Cholecalciferol 5,000 units 09/24/20 21:00 09/26/20 21:36 Cholecalciferol 1,000 Units (25 Mcg) Tab PER TUBE 5,000 units HS LUCIEN Administration Dexamethasone 6 mg 09/24/20 09:00 09/27/20 09:04 Dexamethasone 4 Mg/Ml Vial SLOW IVP 6 mg BID LUCIEN Administration Famotidine 20 mg 09/25/20 21:00 09/26/20 21:21 Famotidine 20 Mg Tab PO 20 mg 2100 LUCIEN Administration Fentanyl Citrate 2,000 mcg/ 100 mls @ 0 mls/hr 09/24/20 06:30 09/27/20 16:11 Sodium Chloride IV 10/24/20 06:30 100 mls INF LUCIEN Administration Protocol Per Protocol Insulin Human Lispro 0 units 09/20/20 15:39 09/27/20 17:00 Humalog 300 Units/3 Ml Vial SC 3 units .MILD SLIDING SCALE PRN Administration Mild Correctional Scale Insulin Human Lispro 0 units 09/20/20 15:39 09/22/20 21:09 Humalog 300 Units/3 Ml Vial SC 2 units .BEDTIME SLIDING SC PRN Administration Bedtime Correctional Scale Insulin Human Lispro 8 units 09/21/20 12:00 09/27/20 17:43 Humalog 300 Units/3 Ml Vial SC 8 unit TID-WM LUCIEN Administration Insulin Human NPH 30 unit 09/25/20 09:00 09/27/20 09:05 Nph, Human Insulin Isophane 300 Unit/3 Ml Vial SC 30 unit BID LUCIEN Administration Lorazepam 2 mg 09/24/20 06:30 09/26/20 14:02 Lorazepam 2 Mg/Ml Vial SLOW IVP 10/24/20 06:30 2 mg Q1H PRN Administration Breakthrough agitation Metoclopramide HCl 10 mg 09/25/20 09:00 09/27/20 15:33 Metoclopramide Hcl 10 Mg/2 Ml Vial IVP 10 mg 0300,0900,1500,2100 LUCIEN Administration Propofol 1,000 mg 09/24/20 06:30 09/27/20 17:57 Propofol 1,000 Mg/100 Ml Vial IV 10/24/20 06:30 1,000 mg INF PRN Administration TO ACHIEVE GOAL RASS Protocol Sodium Chloride 10 ml 09/21/20 21:00 09/27/20 09:05 Flush - Normal Saline 10 Ml Syringe IVF 10 ml Q12HR LUCIEN Administration Vecuronium [place] 10 mg 09/24/20 06:03 09/26/20 14:02 Vecuronium 10 Mg Vial IVP 10 mg Q30MIN PRN Administration Agitation Zinc Sulfate 220 mg 09/21/20 09:00 09/27/20 09:04 Zinc Sulfate 220 Mg Cap PO 220 mg DAILY ULCIEN Administration - Exam General - other findings: Intubated ENT - other findings: Endotracheal tube Heart: RRR Respiratory: rhonchi Skin: no rashes Psychiatric - other findings: Unable to assess Hosp A/P - Plan Assessment/plan: Acute hypoxic respiratory failure secondary to COVID-19 pneumonia --Continue BiPAP --Continue Decadron, --Completed remdesivir August 25 --cont Lovenox for DVT ppx COVID-19 pneumonia --as above Uncontrolled diabetes, A1c 9.5 --Blood sugars have improved, continue Humulin N 30 units twice daily Hypertension --Controlled
[2020-09-27] MEDS: Cholecalciferol 1,000 UNITS (25 MCG) TAB PER TUBE SCH (21:11)
[2020-09-27] MEDS: Famotidine 20 MG TAB PO SCH (21:12)
[2020-09-28] MEDS: Sodium Bicarbonate 150 MEQ in Dextrose 5% in Water 1,000 ML IV SCH ×2 (00:06→15:29)
[2020-09-28] MEDS: Metoclopramide HCl 10 MG/2 ML VIAL IVP SCH ×4 (02:44→20:18)
[2020-09-28 04:00] LABS: #Lymphocytes 0.3 thou/uL (1.20-3.40); #Monocytes 0.5 thou/uL (0.11-0.59); #Neutrophils 8.1 thou/uL (1.40-6.50); %Basophils 0.2 % (0.0-1.0); %Eosinophils 0.3 % (0.0-10.0); %Lymphocytes 3.1 % (21.0-51.0); %Monocytes 5.4 % (0.0-10.0); Hemoglobin 10.8 g/dL (14.0-18.0); Mean Corpuscular HGB CONC 32.8 g/dL (32.0-36.0); Mean Corpuscular Hemoglobin 31.1 pg (27.0-31.0); Mean Corpuscular Volume 94.7 fL (78.0-98.0); Mean Platelet Volume 10.2 fL (7.4-10.4); Platelet Count 172 thou/uL (130-400); RBC Distribution Width 12.7 % (11.5-14.5); Red Blood Cell (RBC) Count 3.47 mill/uL (4.70-6.10); White Blood Cell (WBC) Count 8.9 thou/uL (4.8-10.8)
[2020-09-28] MEDS: Propofol 1,000 MG/100 ML VIAL IV PRN ×4 (04:12→20:21)
[2020-09-28 04:26] LABS: Anion Gap 20 mmol/L (10-20); BUN (Urea Nitrogen) 112 mg/dL (8.4-25.7); Calc. Creatinine Clearance 25 mL/min (70-130); Calcium 7.2 mg/dL (7.8-10.44); Carbon Dioxide 22 mmol/L (23-31); Chloride 102 mmol/L (98-107); Glucose 238 mg/dL (80-115); Potassium 4.8 mmol/L (3.5-5.1); Sodium 139 mmol/L (136-145)
[2020-09-28] MEDS: HumaLOG 300 UNITS/3 ML VIAL SC PRN ×2 (05:29→09:45)
[2020-09-28] MEDS: Arformoterol 15 MCG/2 ML NEB NEB SCH ×2 (07:43→18:20)
[2020-09-28] MEDS: Budesonide 0.5 MG/2 ML NEB NEB SCH ×2 (07:44→18:20)
--- NOTE | 2020-09-28 08:00 | RAD ---
CHEST 1 VIEW: Date: 09/28/2020 INDICATION: History of pneumonia. COMPARISON: Prior exam dated 09/27/2020. FINDINGS: Bilateral air space disease persists. The patient remains intubated with gastric catheter placement. No pneumothorax is evident. Osseous structures are stable appearing. IMPRESSION: Stable examination of the chest. POS: BH
[2020-09-28 08:04] LABS: Actual Bicarbonate (HCO3a) 25.7 mEq/L (22-28); Base Excess (BEa) 3.5 mEq/L (-2.0 to +3.0); CO2 Tension 30.4 mmHg (35.0-45.0); Calcium, Ionized (arterial) 1.15 mmol/L (1.12-1.30); Carboxyhemoglobin (COHb) 1.6 gm% (0.0-3.0); Hemoglobin (Hb) 9.8 g/dL (14.0-18.0); Potassium - ABG Lab 3.85 mmol/L (3.70-5.30)
[2020-09-28 08:07] LABS: O2 Tension (PaO2), arterial 53.9 mmHg (> 80.0); Puncture Site LRA; pH, Arterial 7.55 (7.35-7.45)
[2020-09-28] MEDS: HumaLOG 300 UNITS/3 ML VIAL SC SCH ×3 (08:17→20:48)
[2020-09-28] MEDS: Ascorbic Acid 500 mg Chewable Tablet PO SCH (08:18)
[2020-09-28] MEDS: Zinc Sulfate 220 MG CAP PO SCH (08:18)
[2020-09-28] MEDS: Amlodipine 10 MG TAB PO SCH (08:18)
[2020-09-28] MEDS: Dexamethasone 4 mg/ml Vial SLOW IVP SCH ×2 (08:18→20:15)
[2020-09-28] MEDS: Apixaban 5 MG TAB PER TUBE SCH ×2 (08:18→20:17)
[2020-09-28] MEDS: NPH, Human Insulin Isophane 300 UNIT/3 ML VIAL SC SCH ×2 (08:19→22:37)
--- NOTE | 2020-09-28 09:41 | PDOC.NEPPN ---
- Subjective Encounter Date: 09/28/20 Subjective: Seen in follow up for TAMI. Still intubated and mechanically ventillated. Urine output is improving. - Objective Vital Signs & Weight: Vital Signs (12 hours) Pulse Resp BP Pulse Ox 09/28/20 08:18 52 L 121/63 09/28/20 08:00 26 H 09/28/20 07:43 52 L 26 H 99 09/28/20 07:41 52 L 129/64 09/28/20 07:23 98 09/28/20 06:00 31 H 09/28/20 04:00 26 H 09/28/20 02:00 38 H 09/28/20 00:00 26 H 09/27/20 22:00 26 H Weight Admit Weight 236 lb Weight 249 lb 5.485 oz Most Recent Monitor Data Heart Rate from ECG 52 NIBP 122/63 NIBP BP-Mean 82 Respiration from ECG 26 SpO2 97 I&O: 09/27/20 09/28/20 09/29/20 06:59 06:59 06:59 Intake Total 1913 3484.1 Output Total 880 2020 350 Balance 1033 1464.1 -350 Result Diagrams: 09/28/20 03:15 09/28/20 03:15 Additional Labs: Accuchecks 09/28/20 09/27/20 09/26/20 09:30 16:55 20:29 POC Glucose 224 H 225 H 148 H Nephrology ROS - Medication Medications: Active Medications Generic Name Dose Route Start Last Admin Trade Name Freq PRN Reason Stop Dose Admin Acetaminophen 1,000 mg 09/20/20 15:19 09/24/20 08:16 Acetaminophen 500 Mg Tab PO 1,000 mg Q6H PRN Administration Mild Pain (1-3) Amlodipine Besylate 10 mg 09/22/20 09:00 09/28/20 08:18 Amlodipine 10 Mg Tab PO 10 mg DAILY LUCIEN Administration Apixaban 5 mg 09/24/20 09:00 09/28/20 08:18 Apixaban 5 Mg Tab PER TUBE 5 mg BID LUCIEN Administration Arformoterol Tartrate 15 mcg 09/25/20 18:30 09/28/20 07:43 Arformoterol 15 Mcg/2 Ml Neb NEB 15 mcg BID-RT LUCIEN Administration Ascorbic Acid 1,000 mg 09/21/20 09:00 09/28/20 08:18 Ascorbic Acid 500 Mg Chewable Tablet PO 1,000 mg DAILY LUCIEN Administration Budesonide 0.5 mg 09/25/20 18:30 09/28/20 07:44 Budesonide 0.5 Mg/2 Ml Neb NEB 0.5 mg BID-RT LUCIEN Administration Cholecalciferol 5,000 units 09/24/20 21:00 09/27/20 21:11 Cholecalciferol 1,000 Units (25 Mcg) Tab PER TUBE 5,000 units HS LUCIEN Administration Dexamethasone 6 mg 09/24/20 09:00 09/28/20 08:18 Dexamethasone 4 Mg/Ml Vial SLOW IVP 6 mg BID LUCIEN Administration Famotidine 20 mg 09/25/20 21:00 09/27/20 21:12 Famotidine 20 Mg Tab PO 20 mg 2100 LUCIEN Administration Fentanyl Citrate 2,000 mcg/ 100 mls @ 0 mls/hr 09/24/20 06:30 09/27/20 16:11 Sodium Chloride IV 10/24/20 06:30 100 mls INF LUCIEN Administration Protocol Per Protocol Sodium Bicarbonate 150 meq/ 1,150 mls @ 75 mls/hr 09/27/20 10:00 09/28/20 00:06 Dextrose/Water IV 1,150 mls INF LUCIEN Administration Insulin Human Lispro 0 units 09/20/20 15:39 09/28/20 05:29 Humalog 300 Units/3 Ml Vial SC 3 units .MILD SLIDING SCALE PRN Administration Mild Correctional Scale Insulin Human Lispro 0 units 09/20/20 15:39 09/22/20 21:09 Humalog 300 Units/3 Ml Vial SC 2 units .BEDTIME SLIDING SC PRN Administration Bedtime Correctional Scale Insulin Human Lispro 8 units 09/21/20 12:00 09/28/20 08:17 Humalog 300 Units/3 Ml Vial SC 8 unit TID-WM LUCIEN Administration Insulin Human NPH 30 unit 09/25/20 09:00 09/28/20 08:19 Nph, Human Insulin Isophane 300 Unit/3 Ml Vial SC 30 unit BID LUCIEN Administration Lorazepam 2 mg 09/24/20 06:30 09/26/20 14:02 Lorazepam 2 Mg/Ml Vial SLOW IVP 10/24/20 06:30 2 mg Q1H PRN Administration Breakthrough agitation Metoclopramide HCl 10 mg 09/25/20 09:00 09/28/20 08:21 Metoclopramide Hcl 10 Mg/2 Ml Vial IVP Not Given 0300,0900,1500,2100 LUCIEN Propofol 1,000 mg 09/24/20 06:30 09/28/20 09:12 Propofol 1,000 Mg/100 Ml Vial IV 10/24/20 06:30 1,000 mg INF PRN Administration TO ACHIEVE GOAL RASS Protocol Sodium Chloride 10 ml 09/21/20 21:00 09/28/20 08:20 Flush - Normal Saline 10 Ml Syringe IVF 10 ml Q12HR LUCIEN Administration Vecuronium [place] 10 mg 09/24/20 06:03 09/26/20 14:02 Vecuronium 10 Mg Vial IVP 10 mg Q30MIN PRN Administration Agitation Zinc Sulfate 220 mg 09/21/20 09:00 09/28/20 08:18 Zinc Sulfate 220 Mg Cap PO 220 mg DAILY LUCIEN Administration - Exam General - other findings: sedated Eye: anicteric sclera ENT: normocephalic atraumatic ENT - other findings: ET tube in place Neck: no JVD Respiratory - other findings: Ventilator transmitted sound noted Cardiovascular: RRR Gastrointestinal: non-distended, normal bowel sounds Gastrointestinal - other findings: Nicole catheter in place draining urine. Extremities: no cyanosis, no clubbing Extremities - other findings: trace edema of feet and hands noted Neurological - other findings: Sedated. Nephrology Results - Labs Result Diagrams: 09/28/20 03:15 09/28/20 03:15 Lab results: WBC 8.9 thou/uL (4.8-10.8) 09/28/20 03:15 Hgb 10.8 g/dL (14.0-18.0) L 09/28/20 03:15 Hct 32.8 % (42.0-52.0) L 09/28/20 03:15 MCV 94.7 fL (78.0-98.0) 09/28/20 03:15 Plt Count 172 thou/uL (130-400) 09/28/20 03:15 Neutrophils % 91.0 % (42.0-75.0) H 09/28/20 03:15 ABG pH 7.55 (7.35-7.45) H* 09/28/20 07:25 ABG pCO2 30.4 mmHg (35.0-45.0) L 09/28/20 07:25 ABG pO2 53.9 mmHg (> 80.0) L* 09/28/20 07:25 Sodium 139 mmol/L (136-145) 09/28/20 03:15 Potassium 4.8 mmol/L (3.5-5.1) 09/28/20 03:15 Chloride 102 mmol/L (98-107) 09/28/20 03:15 Carbon Dioxide 22 mmol/L (23-31) L 09/28/20 03:15 BUN 112 mg/dL (8.4-25.7) H 09/28/20 03:15 Creatinine 4.54 mg/dL (0.7-1.3) H 09/28/20 03:15 Glucose 238 mg/dL (80-115) H 09/28/20 03:15 Lactic Acid 2.0 mmol/L (0.5-2.2) 09/20/20 16:06 Calcium 7.2 mg/dL (7.8-10.44) L 09/28/20 03:15 Total Bilirubin 0.2 mg/dL (0.2-1.2) 09/26/20 04:03 AST 20 U/L (5-34) 09/26/20 04:03 ALT 16 U/L (8-55) 09/26/20 04:03 Alkaline Phosphatase 93 U/L (40-110) 09/26/20 04:03 Creatine Kinase 273 U/L (30-200) H 09/26/20 04:03 Troponin I 0.013 ng/mL (< 0.028) 09/20/20 16:06 C-Reactive Protein 23.08 mg/dL (= or < 0.5) H 09/24/20 03:29 B-Natriuretic Peptide 21.2 pg/mL (0-100) 09/20/20 10:13 Serum Total Protein 6.2 g/dL (5.8-8.1) 09/26/20 04:03 Albumin 2.7 g/dL (3.4-4.8) L 09/28/20 03:15 Urine Ketones Negative mg/dL (Negative) 09/26/20 10:00 Urine Blood Large (Negative) A 09/26/20 10:00 Urine Nitrite Negative (Negative) 09/26/20 10:00 Ur Leukocyte Esterase Negative (Negative) 09/26/20 10:00 Urine RBC 11-20 HPF (0-3) A 09/26/20 10:00 Urine WBC 0-3 HPF (0-3) 09/26/20 10:00 Ur Squamous Epith Cells 0-3 HPF (0-3) 09/26/20 10:00 Urine Bacteria None Seen HPF (None Seen) 09/26/20 10:00 Sodium 139 mmol/L (136-145) 09/28/20 03:15 Potassium 4.8 mmol/L (3.5-5.1) 09/28/20 03:15 Chloride 102 mmol/L (98-107) 09/28/20 03:15 Carbon Dioxide 22 mmol/L (23-31) L 09/28/20 03:15 Anion Gap 20 mmol/L (10-20) 09/28/20 03:15 BUN 112 mg/dL (8.4-25.7) H 09/28/20 03:15 Creatinine 4.54 mg/dL (0.7-1.3) H 09/28/20 03:15 Glucose 238 mg/dL (80-115) H 09/28/20 03:15 Calcium 7.2 mg/dL (7.8-10.44) L 09/28/20 03:15 Phosphorus 8.1 mg/dL (2.3-4.7) H 09/27/20 14:48 Albumin 2.7 g/dL (3.4-4.8) L 09/28/20 03:15 Nephrology AP PN - Plan ASSESSMENT: Acute renal failure: Hemodynamic factors related to poor perfusion as well as cytokine-mediated injury related to sepsis, with possible contribution from Contrast-induced nephropathy. ATN is concern. Creat has peaked and is begining to trend down and Urine output continue to improve suggesting renal recovery. Hyperkalemia: TAMI +/- tube feeding and acidosis Metabolic acidosis: Improved with alkali therapy Respiratory acidosis: Improved with vent adjustment. Hypoalbuminemia Acute respiratory failure due to Covid Pneumonia: still intubated. PLAN Continue sodium bicarb infusion. Give 2 more doses of albumin 25 grams as patient may be intravascularly depleted Monitor intake and output as well as intake and output. Other treatment as per flow machine operator.
[2020-09-28] MEDS: Albumin 25% 25 GM/100 ML BOT IVPB SCH ×2 (10:14→17:32)
[2020-09-28] MEDS: Vecuronium 10 MG VIAL IVP PRN (12:22)
[2020-09-28] MEDS: fentaNYL Citrate/PF 2,000 MCG in Sodium Chloride 0.9% 60 ML IV SCH (12:23)
--- NOTE | 2020-09-28 13:37 | PDOC.HOSPP ---
- Subjective Encounter Date: 09/28/20 Encounter Time: 10:35 Subjective: Patient seen this morning is still on bilevel vent settings. He had 2 bowel movements. His creatinine level getting better. Discussed with RN. - Objective Vital Signs & Weight: Vital Signs (12 hours) Pulse Resp BP Pulse Ox 09/28/20 12:00 26 H 09/28/20 11:05 50 L 121/60 09/28/20 10:00 26 H 09/28/20 08:18 52 L 121/63 09/28/20 08:00 26 H 09/28/20 07:43 52 L 26 H 99 09/28/20 07:41 52 L 129/64 09/28/20 07:23 98 09/28/20 06:00 31 H 09/28/20 04:00 26 H 09/28/20 02:00 38 H Weight Admit Weight 236 lb Weight 249 lb 5.485 oz Most Recent Monitor Data Heart Rate from ECG 51 NIBP 127/61 NIBP BP-Mean 83 Respiration from ECG 25 SpO2 97 I&O: 09/27/20 09/28/20 09/29/20 06:59 06:59 06:59 Intake Total 1913 3484.1 Output Total 880 2020 700 Balance 1033 1464.1 -700 Result Diagrams: 09/28/20 03:15 09/28/20 03:15 Additional Labs: Accuchecks 09/28/20 09/27/20 09:30 16:55 POC Glucose 224 H 225 H Hospitalist ROS - Medication Medications: Active Medications Generic Name Dose Route Start Last Admin Trade Name Freq PRN Reason Stop Dose Admin Acetaminophen 1,000 mg 09/20/20 15:19 09/24/20 08:16 Acetaminophen 500 Mg Tab PO 1,000 mg Q6H PRN Administration Mild Pain (1-3) Albumin Human 25 gm 09/28/20 10:00 09/28/20 10:14 Albumin 25% 25 Gm/100 Ml Bot IVPB 09/29/20 02:01 25 gm Q8H LUCIEN Administration Amlodipine Besylate 10 mg 09/22/20 09:00 09/28/20 08:18 Amlodipine 10 Mg Tab PO 10 mg DAILY LUCIEN Administration Apixaban 5 mg 09/24/20 09:00 09/28/20 08:18 Apixaban 5 Mg Tab PER TUBE 5 mg BID LUCIEN Administration Arformoterol Tartrate 15 mcg 09/25/20 18:30 09/28/20 07:43 Arformoterol 15 Mcg/2 Ml Neb NEB 15 mcg BID-RT LUCIEN Administration Ascorbic Acid 1,000 mg 09/21/20 09:00 09/28/20 08:18 Ascorbic Acid 500 Mg Chewable Tablet PO 1,000 mg DAILY LUCIEN Administration Budesonide 0.5 mg 09/25/20 18:30 09/28/20 07:44 Budesonide 0.5 Mg/2 Ml Neb NEB 0.5 mg BID-RT LUCIEN Administration Cholecalciferol 5,000 units 09/24/20 21:00 09/27/20 21:11 Cholecalciferol 1,000 Units (25 Mcg) Tab PER TUBE 5,000 units HS LUCIEN Administration Dexamethasone 6 mg 09/24/20 09:00 09/28/20 08:18 Dexamethasone 4 Mg/Ml Vial SLOW IVP 6 mg BID LUCIEN Administration Famotidine 20 mg 09/25/20 21:00 09/27/20 21:12 Famotidine 20 Mg Tab PO 20 mg 2100 LUCIEN Administration Fentanyl Citrate 2,000 mcg/ 100 mls @ 0 mls/hr 09/24/20 06:30 09/28/20 12:23 Sodium Chloride IV 10/24/20 06:30 100 mls INF LUCIEN Administration Protocol Per Protocol Sodium Bicarbonate 150 meq/ 1,150 mls @ 75 mls/hr 09/27/20 10:00 09/28/20 00:06 Dextrose/Water IV 1,150 mls INF LUCIEN Administration Insulin Human Lispro 0 units 09/20/20 15:39 09/28/20 09:45 Humalog 300 Units/3 Ml Vial SC 3 units .MILD SLIDING SCALE PRN Administration Mild Correctional Scale Insulin Human Lispro 0 units 09/20/20 15:39 09/22/20 21:09 Humalog 300 Units/3 Ml Vial SC 2 units .BEDTIME SLIDING SC PRN Administration Bedtime Correctional Scale Insulin Human Lispro 8 units 09/21/20 12:00 09/28/20 11:52 Humalog 300 Units/3 Ml Vial SC 8 unit TID-WM LUCIEN Administration Insulin Human NPH 30 unit 09/25/20 09:00 09/28/20 08:19 Nph, Human Insulin Isophane 300 Unit/3 Ml Vial SC 30 unit BID LUCIEN Administration Lorazepam 2 mg 12/21/20 06:30 09/26/20 14:02 Lorazepam 2 Mg/Ml Vial SLOW IVP 10/24/20 06:30 2 mg Q1H PRN Administration Breakthrough agitation Metoclopramide HCl 10 mg 09/25/20 09:00 09/28/20 08:21 Metoclopramide Hcl 10 Mg/2 Ml Vial IVP Not Given 0300,0900,1500,2100 LUCIEN Propofol 1,000 mg 09/24/20 06:30 09/28/20 09:12 Propofol 1,000 Mg/100 Ml Vial IV 10/24/20 06:30 1,000 mg INF PRN Administration TO ACHIEVE GOAL RASS Protocol Sodium Chloride 10 ml 09/21/20 21:00 09/28/20 08:20 Flush - Normal Saline 10 Ml Syringe IVF 10 ml Q12HR LUCIEN Administration Vecuronium [place] 10 mg 09/24/20 06:03 09/28/20 12:22 Vecuronium 10 Mg Vial IVP 10 mg Q30MIN PRN Administration Agitation Zinc Sulfate 220 mg 09/21/20 09:00 09/28/20 08:18 Zinc Sulfate 220 Mg Cap PO 220 mg DAILY LUCIEN Administration - Exam General - other findings: On vent Eye: PERRL, anicteric sclera ENT: normocephalic atraumatic Neck: supple Respiratory: normal chest expansion Neurological: cranial nerve grossly intact, no focal deficits Psychiatric: not oriented Hosp A/P - Plan Acute hypoxic respiratory failure secondary to COVID-19 pneumonia --On vent --Continue Decadron, --Completed remdesAugust 25 --cont Lovenox for DVT ppx -chest x-ray this morning shows bilateral airspace disease being persistent Acute renal failure Possible contrast-induced nephropathy. Acute tubular necrosis Metabolic acidosis secondary to renal failure --improving Hyperkalemia--resolved -He is getting currently sodium bicarb infusion as well as albumin. Uncontrolled diabetes, A1c 9.5 --Blood sugars have improved, continue Humulin N 30 units twice daily-- Dose. -Sliding scale insulin Hypertension --Controlled
[2020-09-28] MEDS: Lorazepam 2 MG/ML VIAL SLOW IVP PRN (13:44)
--- NOTE | 2020-09-28 16:23 | PRG ---
DATE OF SERVICE: 09/28/2020 SUBJECTIVE: Myles Pitts remains ventilated. His FiO2 is at 50%. OBJECTIVE: VITAL SIGNS: Blood pressure 124/59, heart rate 48, respiratory rates in the teens. LUNGS: Remarkable for coarse equal breath sounds. HEART: Regular rate and rhythm. ABDOMEN: Soft. LABORATORY DATA: White count 8.9, hemoglobin 10.8, platelets 172, sodium 139, potassium 4.8, chloride 102, bicarb 22, BUN 12, creatinine 4.5. IMPRESSION: 1. Respiratory failure with coronavirus disease 19 pneumonia. 2. Renal failure. PLAN: He is not currently weanable. We will continue to follow. Job ID: [id number]
[2020-09-28] MEDS: Cholecalciferol 1,000 UNITS (25 MCG) TAB PER TUBE SCH (20:16)
[2020-09-28] MEDS: Famotidine 20 MG TAB PO SCH (20:17)
[2020-09-29] MEDS: Metoclopramide HCl 10 MG/2 ML VIAL IVP SCH ×4 (02:21→21:35)
[2020-09-29] MEDS: Albumin 25% 25 GM/100 ML BOT IVPB SCH (02:22)
[2020-09-29] MEDS: Propofol 1,000 MG/100 ML VIAL IV PRN ×4 (02:22→22:32)
[2020-09-29 04:08] LABS: #Lymphocytes 0.4 thou/uL (1.20-3.40); #Monocytes 0.5 thou/uL (0.11-0.59); #Neutrophils 9.3 thou/uL (1.40-6.50); %Eosinophils 0.3 % (0.0-10.0); %Monocytes 5.2 % (0.0-10.0); %Neutrophils 90.5 % (42.0-75.0); Hemoglobin 10.8 g/dL (14.0-18.0); Mean Corpuscular HGB CONC 32.5 g/dL (32.0-36.0); Mean Corpuscular Hemoglobin 30.8 pg (27.0-31.0); Mean Corpuscular Volume 94.6 fL (78.0-98.0); Mean Platelet Volume 9.9 fL (7.4-10.4); Platelet Count 190 thou/uL (130-400); RBC Distribution Width 12.7 % (11.5-14.5); White Blood Cell (WBC) Count 10.2 thou/uL (4.8-10.8)
[2020-09-29 04:26] LABS: Anion Gap 20 mmol/L (10-20); BUN (Urea Nitrogen) 115 mg/dL (8.4-25.7); Calc. Creatinine Clearance 33 mL/min (70-130); Calcium 7.5 mg/dL (7.8-10.44); Carbon Dioxide 27 mmol/L (23-31); Chloride 100 mmol/L (98-107); Glucose 203 mg/dL (80-115); Potassium 4.4 mmol/L (3.5-5.1); Sodium 143 mmol/L (136-145)
[2020-09-29] MEDS: Arformoterol 15 MCG/2 ML NEB NEB SCH ×2 (04:54→18:22)
[2020-09-29] MEDS: Budesonide 0.5 MG/2 ML NEB NEB SCH ×2 (04:54→18:23)
[2020-09-29] MEDS: Sodium Bicarbonate 150 MEQ in Dextrose 5% in Water 1,000 ML IV SCH (06:36)
[2020-09-29] MEDS: fentaNYL Citrate/PF 2,000 MCG in Sodium Chloride 0.9% 60 ML IV SCH (07:01)
[2020-09-29 07:09] LABS: Actual Bicarbonate (HCO3a) 30.1 mEq/L (22-28); Base Excess (BEa) 5.6 mEq/L (-2.0 to +3.0); CO2 Tension 43.7 mmHg (35.0-45.0); Calcium, Ionized (arterial) 1.02 mmol/L (1.12-1.30); Carboxyhemoglobin (COHb) 1.3 gm% (0.0-3.0); Hemoglobin (Hb) 12.7 g/dL (14.0-18.0); Potassium - ABG Lab 4.09 mmol/L (3.70-5.30); pH, Arterial 7.46 (7.35-7.45)
[2020-09-29 07:20] LABS: O2 Tension (PaO2), arterial 57.3 mmHg (> 80.0); Puncture Site RRA
[2020-09-29 07:21] LABS: ALV-art Gradient 244.575 mmHg (0-20)
[2020-09-29 07:32] LABS: Albumin 3.4 g/dL (3.4-4.8); Phosphorus 6.9 mg/dL (2.3-4.7)
--- NOTE | 2020-09-29 08:10 | RAD ---
Chest AP view INDICATION: Pneumonia COMPARISON: September 28, 2020 FINDINGS: Lungs: There is worsening airspace disease of the right lung. Left lung airspace disease is stable. Cardiac silhouette: The cardiomediastinal silhouette appears within normal limits. Pulmonary vasculature: Normal Pleural spaces: No pleural effusion or pneumothorax is demonstrated. Upper abdomen: No abnormality seen. Osseous structures: No acute osseous abnormality. Additional findings: ET tube and gastric catheter unchanged. IMPRESSION: Worsening pneumonia. There is worsening airspace opacification within the right lung. The diffuse air space disease in the left lung is stable.
[2020-09-29] MEDS ORDERED: Calcium Chloride 13.6 MEQ in Sodium Chloride 0.9% 100 ML IVPB SCH (08:15)
[2020-09-29] MEDS: Ascorbic Acid 500 mg Chewable Tablet PO SCH (08:36)
[2020-09-29] MEDS: Apixaban 5 MG TAB PER TUBE SCH ×2 (08:36→21:36)
[2020-09-29] MEDS: Amlodipine 10 MG TAB PO SCH (08:36)
[2020-09-29] MEDS: Dexamethasone 4 mg/ml Vial SLOW IVP SCH ×2 (08:36→21:35)
[2020-09-29] MEDS: Zinc Sulfate 220 MG CAP PO SCH (08:36)
[2020-09-29] MEDS: HumaLOG 300 UNITS/3 ML VIAL SC SCH ×2 (08:38→22:11)
[2020-09-29] MEDS: NPH, Human Insulin Isophane 300 UNIT/3 ML VIAL SC SCH ×2 (08:38→22:10)
--- NOTE | 2020-09-29 12:52 | PDOC.HOSPP ---
- Subjective Encounter Date: 09/29/20 Encounter Time: 10:40 Subjective: Patient remains on the vent. His creatinine is improving he has a good urine output overnight.. - Objective Vital Signs & Weight: Vital Signs (12 hours) Pulse Resp BP Pulse Ox 09/29/20 12:00 26 H 09/29/20 11:51 52 L 09/29/20 10:00 26 H 09/29/20 08:36 72 154/76 H 09/29/20 08:00 26 H 09/29/20 07:15 93 L 09/29/20 06:00 26 H 09/29/20 04:54 72 26 H 95 09/29/20 04:00 26 H 09/29/20 02:00 26 H Weight Admit Weight 236 lb Weight 249 lb 5.485 oz Most Recent Monitor Data Heart Rate from ECG 52 NIBP 122/61 NIBP BP-Mean 81 Respiration from ECG 26 SpO2 93 I&O: 09/28/20 09/29/20 09/30/20 06:59 06:59 06:59 Intake Total 3484.1 3078 90 Output Total 2019 2780 1045 Balance 1464.1 298 -955 Result Diagrams: 09/29/20 03:35 09/29/20 03:35 Additional Labs: Accuchecks 09/29/20 09/28/20 09/28/20 09:57 23:33 15:34 POC Glucose 176 H 187 H 150 H Hospitalist ROS - Medication Medications: Active Medications Generic Name Dose Route Start Last Admin Trade Name Freq PRN Reason Stop Dose Admin Acetaminophen 1,000 mg 09/20/20 15:19 09/24/20 08:16 Acetaminophen 500 Mg Tab PO 1,000 mg Q6H PRN Administration Mild Pain (1-3) Amlodipine Besylate 10 mg 09/22/20 09:00 09/29/20 08:36 Amlodipine 10 Mg Tab PO 10 mg DAILY LUCIEN Administration Apixaban 5 mg 09/24/20 09:00 09/29/20 08:36 Apixaban 5 Mg Tab PER TUBE 5 mg BID LUCIEN Administration Arformoterol Tartrate 15 mcg 09/25/20 18:30 09/29/20 04:54 Arformoterol 15 Mcg/2 Ml Neb NEB 15 mcg BID-RT LUCIEN Administration Ascorbic Acid 1,000 mg 09/21/20 09:00 09/29/20 08:36 Ascorbic Acid 500 Mg Chewable Tablet PO 1,000 mg DAILY LUCIEN Administration Budesonide 0.5 mg 09/25/20 18:30 09/29/20 04:54 Budesonide 0.5 Mg/2 Ml Neb NEB 0.5 mg BID-RT LUCIEN Administration Cholecalciferol 5,000 units 09/24/20 21:00 09/28/20 20:16 Cholecalciferol 1,000 Units (25 Mcg) Tab PER TUBE 5,000 units HS LUCIEN Administration Dexamethasone 6 mg 09/24/20 09:00 09/29/20 08:36 Dexamethasone 4 Mg/Ml Vial SLOW IVP 6 mg BID LUCIEN Administration Famotidine 20 mg 09/25/20 21:00 09/28/20 20:17 Famotidine 20 Mg Tab PO 20 mg 2100 LUCIEN Administration Fentanyl Citrate 2,000 mcg/ 100 mls @ 0 mls/hr 09/24/20 06:30 09/29/20 07:01 Sodium Chloride IV 10/24/20 06:30 100 mls INF LUCIEN Administration Protocol Per Protocol Sodium Bicarbonate 150 meq/ 1,150 mls @ 75 mls/hr 09/27/20 10:00 09/29/20 06:36 Dextrose/Water IV 1,150 mls INF LUCIEN Administration Insulin Human Lispro 12 units 09/28/20 21:00 09/29/20 08:38 Humalog 300 Units/3 Ml Vial SC 12 units BID LUCIEN Administration Insulin Human NPH 30 unit 09/25/20 09:00 09/29/20 08:38 Nph, Human Insulin Isophane 300 Unit/3 Ml Vial SC 30 unit BID LUCIEN Administration Lorazepam 2 mg 09/24/20 06:30 09/28/20 13:44 Lorazepam 2 Mg/Ml Vial SLOW IVP 10/24/20 06:30 2 mg Q1H PRN Administration Breakthrough agitation Metoclopramide HCl 10 mg 09/25/20 09:00 09/29/20 08:38 Metoclopramide Hcl 10 Mg/2 Ml Vial IVP Not Given 0300,0900,1500,2100 LUCIEN Propofol 1,000 mg 09/24/20 06:30 09/29/20 12:25 Propofol 1,000 Mg/100 Ml Vial IV 10/24/20 06:30 1,000 mg INF PRN Administration TO ACHIEVE GOAL RASS Protocol Sodium Chloride 10 ml 09/21/20 21:00 09/29/20 08:37 Flush - Normal Saline 10 Ml Syringe IVF 10 ml Q12HR LUCIEN Administration Vecuronium [place] 10 mg 09/24/20 06:03 09/28/20 12:22 Vecuronium 10 Mg Vial IVP 10 mg Q30MIN PRN Administration Agitation Zinc Sulfate 220 mg 09/21/20 09:00 09/29/20 08:36 Zinc Sulfate 220 Mg Cap PO 220 mg DAILY LUCIEN Administration - Exam General - other findings: On vent ENT: normocephalic atraumatic Neck: supple Heart: RRR Respiratory: CTAB, normal chest expansion Gastrointestinal: soft, normal bowel sounds Neurological: cranial nerve grossly intact, no focal deficits Psychiatric: not oriented Hosp A/P - Plan Acute hypoxic respiratory failure secondary to COVID-19 pneumonia --On vent --Continue Decadron, --Completed remdesivir August 25 --cont Lovenox for DVT ppx -chest x-ray this morning shows bilateral airspace disease being persistent Acute renal failure Possible contrast-induced nephropathy. Acute tubular necrosis Metabolic acidosis secondary to renal failure --improving Hyperkalemia--resolved -He is getting currently sodium bicarb infusion as well as albumin. Uncontrolled diabetes, A1c 9.5 --Blood sugars have improved, continue Humulin N 30 units twice daily-- Dose. -Sliding scale insulin Hypertension --Controlled
--- NOTE | 2020-09-29 14:11 | PRG ---
DATE OF SERVICE: 09/29/2020 SUBJECTIVE: Myles Pitts is clinically unchanged. He remains mechanically ventilated. OBJECTIVE: VITAL SIGNS: Respiratory rates in the 20s, heart rates in the 50s to 60s, blood pressure 122/61, oximetry is in the low 90s. LUNGS: Unchanged. HEART: Unchanged. ABDOMEN: Unchanged. LABORATORY DATA: White count 10.2, hemoglobin 10.8, and platelets 190. Electrolytes are unremarkable. BUN 115, creatinine 3.59. Creatinine was 0.71 on 09/24. Chest x-ray shows progression of infiltrates. Intake and output positive approximately 8 L over the last 5 days. Weight has gone from 236 to 249. IMPRESSION: 1. Respiratory failure secondary to COVID-19. 2. Renal failure with worsening of the chest radiograph, most likely secondary to volume overload. It is highly likely that he will require dialysis. He certainly will not tolerate 2 or 3 more days of strongly positive fluid balance. He has apparently started to diurese today. His pH on blood gas this morning is 7.46, CO2 of 43, pO2 of 57. He is now on bicarb drip. We will follow. Job ID: [id number]
[2020-09-29] MEDS ORDERED: Sodium Bicarbonate 50 MEQ in Sodium Chloride 0.45% 1,000 ML IV SCH (15:15)
--- NOTE | 2020-09-29 15:18 | PDOC.NEPPN ---
- Subjective Encounter Date: 09/29/20 Subjective: Still intubated and mechanically ventilated. Making more urine. - Objective Vital Signs & Weight: Vital Signs (12 hours) Pulse Resp BP Pulse Ox 09/29/20 14:00 26 H 09/29/20 12:00 26 H 09/29/20 11:51 52 L 09/29/20 10:00 26 H 09/29/20 08:36 72 154/76 H 09/29/20 08:00 26 H 09/29/20 07:15 93 L 09/29/20 06:00 26 H 09/29/20 04:54 72 26 H 95 09/29/20 04:00 26 H Weight Admit Weight 236 lb Weight 249 lb 5.485 oz Most Recent Monitor Data Heart Rate from ECG 50 NIBP 126/69 NIBP BP-Mean 88 Respiration from ECG 26 SpO2 95 I&O: 09/28/20 09/29/20 09/30/20 06:59 06:59 06:59 Intake Total 3484.1 3078 90 Output Total 2019 2780 1315 Balance 1464.1 298 -1225 Result Diagrams: 09/29/20 03:35 09/29/20 03:35 Additional Labs: Accuchecks 09/29/20 09/28/20 09/28/20 09:57 23:33 15:34 POC Glucose 176 H 187 H 150 H Nephrology ROS - Medication Medications: Active Medications Generic Name Dose Route Start Last Admin Trade Name Freq PRN Reason Stop Dose Admin Acetaminophen 1,000 mg 09/20/20 15:19 09/24/20 08:16 Acetaminophen 500 Mg Tab PO 1,000 mg Q6H PRN Administration Mild Pain (1-3) Amlodipine Besylate 10 mg 09/22/20 09:00 09/29/20 08:36 Amlodipine 10 Mg Tab PO 10 mg DAILY LUCIEN Administration Apixaban 5 mg 09/24/20 09:00 09/29/20 08:36 Apixaban 5 Mg Tab PER TUBE 5 mg BID LUCIEN Administration Arformoterol Tartrate 15 mcg 09/25/20 18:30 09/29/20 04:54 Arformoterol 15 Mcg/2 Ml Neb NEB 15 mcg BID-RT LUCIEN Administration Ascorbic Acid 1,000 mg 09/21/20 09:00 09/29/20 08:36 Ascorbic Acid 500 Mg Chewable Tablet PO 1,000 mg DAILY LUCIEN Administration Budesonide 0.5 mg 09/25/20 18:30 09/29/20 04:54 Budesonide 0.5 Mg/2 Ml Neb NEB 0.5 mg BID-RT LUCIEN Administration Cholecalciferol 5,000 units 09/24/20 21:00 09/28/20 20:16 Cholecalciferol 1,000 Units (25 Mcg) Tab PER TUBE 5,000 units HS LUCIEN Administration Dexamethasone 6 mg 09/24/20 09:00 09/29/20 08:36 Dexamethasone 4 Mg/Ml Vial SLOW IVP 6 mg BID LUCIEN Administration Famotidine 20 mg 09/25/20 21:00 09/28/20 20:17 Famotidine 20 Mg Tab PO 20 mg 2100 LUCIEN Administration Fentanyl Citrate 2,000 mcg/ 100 mls @ 0 mls/hr 09/24/20 06:30 09/29/20 07:01 Sodium Chloride IV 10/24/20 06:30 100 mls INF LUCIEN Administration Protocol Per Protocol Insulin Human Lispro 12 units 09/28/20 21:00 09/29/20 08:38 Humalog 300 Units/3 Ml Vial SC 12 units BID LUCIEN Administration Insulin Human NPH 30 unit 09/25/20 09:00 09/29/20 08:38 Nph, Human Insulin Isophane 300 Unit/3 Ml Vial SC 30 unit BID LUCIEN Administration Lorazepam 2 mg 09/24/20 06:30 09/28/20 13:44 Lorazepam 2 Mg/Ml Vial SLOW IVP 10/24/20 06:30 2 mg Q1H PRN Administration Breakthrough agitation Metoclopramide HCl 10 mg 09/25/20 09:00 09/29/20 14:24 Metoclopramide Hcl 10 Mg/2 Ml Vial IVP Not Given 0300,0900,1500,2100 LUCIEN Propofol 1,000 mg 09/24/20 06:30 09/29/20 12:25 Propofol 1,000 Mg/100 Ml Vial IV 10/24/20 06:30 1,000 mg INF PRN Administration TO ACHIEVE GOAL RASS Protocol Sodium Chloride 10 ml 09/21/20 21:00 09/29/20 08:37 Flush - Normal Saline 10 Ml Syringe IVF 10 ml Q12HR LUCIEN Administration Vecuronium [place] 10 mg 09/24/20 06:03 09/28/20 12:22 Vecuronium 10 Mg Vial IVP 10 mg Q30MIN PRN Administration Agitation Zinc Sulfate 220 mg 09/21/20 09:00 09/29/20 08:36 Zinc Sulfate 220 Mg Cap PO 220 mg DAILY LUCIEN Administration - Exam General - other findings: sedated Eye: anicteric sclera ENT: normocephalic atraumatic ENT - other findings: ET tube in place. Mild bruise of the nose noted Respiratory - other findings: ventilator transmitted sound noted Cardiovascular: RRR Gastrointestinal: soft, non-distended Extremities - other findings: trace feet edema Neurological - other findings: sedated Nephrology Results - Labs Result Diagrams: 09/29/20 03:35 09/29/20 03:35 Lab results: WBC 10.2 thou/uL (4.8-10.8) 09/29/20 03:35 Hgb 10.8 g/dL (14.0-18.0) L 09/29/20 03:35 Hct 33.1 % (42.0-52.0) L 09/29/20 03:35 MCV 94.6 fL (78.0-98.0) 09/29/20 03:35 Plt Count 190 thou/uL (130-400) 09/29/20 03:35 Neutrophils % 90.5 % (42.0-75.0) H 09/29/20 03:35 ABG pH 7.46 (7.35-7.45) H 09/29/20 06:58 ABG pCO2 43.7 mmHg (35.0-45.0) 09/29/20 06:58 ABG pO2 57.3 mmHg (> 80.0) L* 09/29/20 06:58 Sodium 143 mmol/L (136-145) 09/29/20 03:35 Potassium 4.4 mmol/L (3.5-5.1) 09/29/20 03:35 Chloride 100 mmol/L (98-107) 09/29/20 03:35 Carbon Dioxide 27 mmol/L (23-31) 09/29/20 03:35 BUN 115 mg/dL (8.4-25.7) H 09/29/20 03:35 Creatinine 3.59 mg/dL (0.7-1.3) H 09/29/20 03:35 Glucose 203 mg/dL (80-115) H 09/29/20 03:35 Lactic Acid 2.0 mmol/L (0.5-2.2) 09/20/20 16:06 Calcium 7.5 mg/dL (7.8-10.44) L 09/29/20 03:35 Total Bilirubin 0.2 mg/dL (0.2-1.2) 09/26/20 04:03 AST 20 U/L (5-34) 09/26/20 04:03 ALT 16 U/L (8-55) 09/26/20 04:03 Alkaline Phosphatase 93 U/L (40-110) 09/26/20 04:03 Creatine Kinase 273 U/L (30-200) H 09/26/20 04:03 Troponin I 0.013 ng/mL (< 0.028) 09/20/20 16:06 C-Reactive Protein 23.08 mg/dL (= or < 0.5) H 09/24/20 03:29 B-Natriuretic Peptide 21.2 pg/mL (0-100) 09/20/20 10:13 Serum Total Protein 6.2 g/dL (5.8-8.1) 09/26/20 04:03 Albumin 3.4 g/dL (3.4-4.8) 09/29/20 03:35 Urine Ketones Negative mg/dL (Negative) 09/26/20 10:00 Urine Blood Large (Negative) A 09/26/20 10:00 Urine Nitrite Negative (Negative) 09/26/20 10:00 Ur Leukocyte Esterase Negative (Negative) 09/26/20 10:00 Urine RBC 11-20 HPF (0-3) A 09/26/20 10:00 Urine WBC 0-3 HPF (0-3) 09/26/20 10:00 Ur Squamous Epith Cells 0-3 HPF (0-3) 09/26/20 10:00 Urine Bacteria None Seen HPF (None Seen) 09/26/20 10:00 Sodium 143 mmol/L (136-145) 09/29/20 03:35 Potassium 4.4 mmol/L (3.5-5.1) 09/29/20 03:35 Chloride 100 mmol/L (98-107) 09/29/20 03:35 Carbon Dioxide 27 mmol/L (23-31) 09/29/20 03:35 Anion Gap 20 mmol/L (10-20) 09/29/20 03:35 BUN 115 mg/dL (8.4-25.7) H 09/29/20 03:35 Creatinine 3.59 mg/dL (0.7-1.3) H 09/29/20 03:35 Glucose 203 mg/dL (80-115) H 09/29/20 03:35 Calcium 7.5 mg/dL (7.8-10.44) L 09/29/20 03:35 Phosphorus 6.9 mg/dL (2.3-4.7) H 09/29/20 03:35 Magnesium 3.0 mg/dL (1.6-2.6) H 09/29/20 03:35 Albumin 3.4 g/dL (3.4-4.8) 09/29/20 03:35 Nephrology AP PN - Plan ASSESSMENT: Acute renal failure: Hemodynamic factors related to poor perfusion as well as cytokine-mediated injury related to sepsis, with possible contribution from Contrast-induced nephropathy. ATN is concern. Creat continue to trend down and Urine output continue to improve suggesting renal recovery. However BUN is trending up suggesting intravascular contraction. CXR however showed worsening lung infiltrates. Hyperkalemia: TAMI +/- tube feeding and acidosis.Resolved Metabolic acidosis: Resolved with alkali therapy Respiratory acidosis: Improved with vent adjustment. Hypoalbuminemia Acute respiratory failure due to Covid Pneumonia: still intubated. Hypocalcemia PLAN Replete serum calcium with IVF of calcium chloride. Decrease IVF rate to 50cc/hr. Monitor intake and output as well as intake and output. Other treatment as per material worker.
[2020-09-29] MEDS: Famotidine 20 MG TAB PO SCH (21:35)
[2020-09-29] MEDS: Cholecalciferol 1,000 UNITS (25 MCG) TAB PER TUBE SCH (21:36)
[2020-09-30] MEDS: Propofol 1,000 MG/100 ML VIAL IV PRN ×5 (03:30→23:56)
[2020-09-30] MEDS: Metoclopramide HCl 10 MG/2 ML VIAL IVP SCH ×4 (03:30→19:48)
[2020-09-30] MEDS: fentaNYL Citrate/PF 2,000 MCG in Sodium Chloride 0.9% 60 ML IV SCH ×2 (03:34→23:13)
[2020-09-30 03:59] LABS: #Lymphocytes 0.4 thou/uL (1.20-3.40); #Monocytes 0.7 thou/uL (0.11-0.59); #Neutrophils 12.9 thou/uL (1.40-6.50); %Basophils 0.1 % (0.0-1.0); %Eosinophils 0.3 % (0.0-10.0); %Monocytes 5.2 % (0.0-10.0); %Neutrophils 91.4 % (42.0-75.0); Mean Corpuscular HGB CONC 31.6 g/dL (32.0-36.0); Mean Corpuscular Hemoglobin 30.3 pg (27.0-31.0); Mean Corpuscular Volume 95.7 fL (78.0-98.0); Platelet Count 211 thou/uL (130-400); RBC Distribution Width 12.5 % (11.5-14.5); Red Blood Cell (RBC) Count 3.97 mill/uL (4.70-6.10); White Blood Cell (WBC) Count 14.1 thou/uL (4.8-10.8)
[2020-09-30 04:21] LABS: Anion Gap 18 mmol/L (10-20); BUN (Urea Nitrogen) 99 mg/dL (8.4-25.7); Calc. Creatinine Clearance 47 mL/min (70-130); Carbon Dioxide 28 mmol/L (23-31); Chloride 101 mmol/L (98-107); Glucose 119 mg/dL (80-115); Potassium 4.9 mmol/L (3.5-5.1); Sodium 142 mmol/L (136-145)
[2020-09-30] MEDS: Arformoterol 15 MCG/2 ML NEB NEB SCH ×2 (05:20→18:48)
[2020-09-30 07:09] LABS: Actual Bicarbonate (HCO3a) 34.8 mEq/L (22-28); Base Excess (BEa) 9.3 mEq/L (-2.0 to +3.0); CO2 Tension 50.1 mmHg (35.0-45.0); Carboxyhemoglobin (COHb) 1.5 gm% (0.0-3.0); Hemoglobin (Hb) 14.3 g/dL (14.0-18.0); pH, Arterial 7.46 (7.35-7.45)
[2020-09-30 07:18] LABS: O2 Tension (PaO2), arterial 55.2 mmHg (> 80.0); Puncture Site RBA
[2020-09-30 07:19] LABS: ALV-art Gradient 238.675 mmHg (0-20)
--- NOTE | 2020-09-30 08:08 | RAD ---
Chest AP view INDICATION: Pneumonia COMPARISON: Prior study dated September 29, 2020 FINDINGS: Lungs: Diffuse airspace disease persists Cardiac silhouette: The cardiomediastinal silhouette appears within normal limits. Pulmonary vasculature: Normal Pleural spaces: No pleural effusion or pneumothorax is demonstrated. Upper abdomen: No abnormality seen. Osseous structures: No acute osseous abnormality. Additional findings: The patient remains intubated with gastric catheter placement. No pneumothorax is evident. IMPRESSION: Stable bilateral pneumonia. Stable tubes and lines. No pneumothorax.
[2020-09-30] MEDS: Lorazepam 2 MG/ML VIAL SLOW IVP PRN (08:09)
[2020-09-30] MEDS: Dexamethasone 4 mg/ml Vial SLOW IVP SCH ×2 (08:10→19:47)
[2020-09-30] MEDS: Ascorbic Acid 500 mg Chewable Tablet PO SCH (08:11)
[2020-09-30] MEDS: Apixaban 5 MG TAB PER TUBE SCH ×2 (08:11→19:47)
[2020-09-30] MEDS: Amlodipine 10 MG TAB PO SCH (08:11)
[2020-09-30] MEDS: Zinc Sulfate 220 MG CAP PO SCH (08:12)
[2020-09-30] MEDS: HumaLOG 300 UNITS/3 ML VIAL SC SCH ×2 (08:18→20:02)
[2020-09-30] MEDS: NPH, Human Insulin Isophane 300 UNIT/3 ML VIAL SC SCH ×2 (08:18→20:02)
[2020-09-30] MEDS: Budesonide 0.5 MG/2 ML NEB NEB SCH ×2 (08:19→18:48)
[2020-09-30] MEDS ORDERED: Sodium Bicarbonate 50 MEQ in Sodium Chloride 0.45% 1,000 ML IV SCH (12:56)
--- NOTE | 2020-09-30 12:57 | PDOC.NEPPN ---
- Subjective Encounter Date: 09/30/20 Subjective: Seen in follow up for TAMI in the context of acute respiratory failure due to covid pneumonia requiring intubation. Still intubated. Urine output has improved greatly. - Objective Vital Signs & Weight: Vital Signs (12 hours) Pulse Resp BP Pulse Ox 09/30/20 12:00 34 H 09/30/20 10:13 51 L 09/30/20 10:00 26 H 09/30/20 08:11 65 152/96 H 09/30/20 08:00 33 H 09/30/20 07:15 94 L 09/30/20 05:20 59 L 26 H 96 09/30/20 05:16 72 141/82 H 09/30/20 02:26 74 155/81 H Weight Admit Weight 236 lb Weight 249 lb 5.485 oz Most Recent Monitor Data Heart Rate from ECG 49 NIBP 125/68 NIBP BP-Mean 87 Respiration from ECG 26 SpO2 96 I&O: 09/29/20 09/30/20 10/01/20 06:59 06:59 06:59 Intake Total 3078 3021 350 Output Total 2780 2530 700 Balance 298 491 -350 Result Diagrams: 09/30/20 03:45 09/30/20 03:45 Additional Labs: Accuchecks 09/30/20 09/29/20 09/29/20 09:49 22:17 15:54 POC Glucose 103 H 130 H 164 H Nephrology ROS - Medication Medications: Active Medications Generic Name Dose Route Start Last Admin Trade Name Freq PRN Reason Stop Dose Admin Acetaminophen 1,000 mg 09/20/20 15:19 09/24/20 08:16 Acetaminophen 500 Mg Tab PO 1,000 mg Q6H PRN Administration Mild Pain (1-3) Amlodipine Besylate 10 mg 09/22/20 09:00 09/30/20 08:11 Amlodipine 10 Mg Tab PO 10 mg DAILY LUCIEN Administration Apixaban 5 mg 09/24/20 09:00 09/30/20 08:11 Apixaban 5 Mg Tab PER TUBE 5 mg BID LUCIEN Administration Arformoterol Tartrate 15 mcg 09/25/20 18:30 09/30/20 05:20 Arformoterol 15 Mcg/2 Ml Neb NEB 15 mcg BID-RT LUCIEN Administration Ascorbic Acid 1,000 mg 09/21/20 09:00 09/30/20 08:11 Ascorbic Acid 500 Mg Chewable Tablet PO 1,000 mg DAILY LUCIEN Administration Budesonide 0.5 mg 09/25/20 18:30 09/30/20 08:19 Budesonide 0.5 Mg/2 Ml Neb NEB 0.5 mg BID-RT LUCIEN Administration Cholecalciferol 5,000 units 09/24/20 21:00 09/29/20 21:36 Cholecalciferol 1,000 Units (25 Mcg) Tab PER TUBE 5,000 units HS LUCIEN Administration Dexamethasone 6 mg 09/24/20 09:00 09/30/20 08:10 Dexamethasone 4 Mg/Ml Vial SLOW IVP 6 mg BID LUCIEN Administration Famotidine 20 mg 09/25/20 21:00 09/29/20 21:35 Famotidine 20 Mg Tab PO 20 mg 2100 LUCIEN Administration Fentanyl Citrate 2,000 mcg/ 100 mls @ 0 mls/hr 09/24/20 06:30 09/30/20 03:34 Sodium Chloride IV 10/24/20 06:30 100 mls INF LUCIEN Administration Protocol Per Protocol Insulin Human Lispro 12 units 09/28/20 21:00 09/30/20 08:18 Humalog 300 Units/3 Ml Vial SC 12 units BID LUCIEN Administration Insulin Human NPH 30 unit 09/25/20 09:00 09/30/20 08:18 Nph, Human Insulin Isophane 300 Unit/3 Ml Vial SC 30 unit BID LUCIEN Administration Lorazepam 2 mg 09/24/20 06:30 09/30/20 08:09 Lorazepam 2 Mg/Ml Vial SLOW IVP 10/24/20 06:30 2 mg Q1H PRN Administration Breakthrough agitation Metoclopramide HCl 10 mg 09/25/20 09:00 09/30/20 08:22 Metoclopramide Hcl 10 Mg/2 Ml Vial IVP 10 mg 0300,0900,1500,2100 LUCIEN Administration Propofol 1,000 mg 09/24/20 06:30 09/30/20 08:09 Propofol 1,000 Mg/100 Ml Vial IV 10/24/20 06:30 1,000 mg INF PRN Administration TO ACHIEVE GOAL RASS Protocol Sodium Chloride 10 ml 09/21/20 21:00 09/30/20 08:24 Flush - Normal Saline 10 Ml Syringe IVF 10 ml Q12HR LUCIEN Administration Vecuronium [place] 10 mg 09/24/20 06:03 09/28/20 12:22 Vecuronium 10 Mg Vial IVP 10 mg Q30MIN PRN Administration Agitation Zinc Sulfate 220 mg 09/21/20 09:00 09/30/20 08:12 Zinc Sulfate 220 Mg Cap PO 220 mg DAILY LUCIEN Administration - Exam General - other findings: sedated Eye: anicteric sclera ENT - other findings: Normocephalic. Mild nose bruise and ET tube noted Respiratory - other findings: Ventilator transmitted sound noted. Cardiovascular: RRR Gastrointestinal: soft, non-distended Extremities - other findings: trace to mild edema of the etremities noted Neurological - other findings: sedated Nephrology Results - Labs Result Diagrams: 09/30/20 03:45 09/30/20 03:45 Lab results: WBC 14.1 thou/uL (4.8-10.8) H 09/30/20 03:45 Hgb 12.0 g/dL (14.0-18.0) L 09/30/20 03:45 Hct 38.0 % (42.0-52.0) L 09/30/20 03:45 MCV 95.7 fL (78.0-98.0) 09/30/20 03:45 Plt Count 211 thou/uL (130-400) 09/30/20 03:45 Neutrophils % 91.4 % (42.0-75.0) H 09/30/20 03:45 ABG pH 7.46 (7.35-7.45) H 09/30/20 06:51 ABG pCO2 50.1 mmHg (35.0-45.0) H 09/30/20 06:51 ABG pO2 55.2 mmHg (> 80.0) L* 09/30/20 06:51 Sodium 142 mmol/L (136-145) 09/30/20 03:45 Potassium 4.9 mmol/L (3.5-5.1) 09/30/20 03:45 Chloride 101 mmol/L (98-107) 09/30/20 03:45 Carbon Dioxide 28 mmol/L (23-31) 09/30/20 03:45 BUN 99 mg/dL (8.4-25.7) H 09/30/20 03:45 Creatinine 2.51 mg/dL (0.7-1.3) H 09/30/20 03:45 Glucose 119 mg/dL (80-115) H 09/30/20 03:45 Lactic Acid 2.0 mmol/L (0.5-2.2) 09/20/20 16:06 Calcium 8.0 mg/dL (7.8-10.44) 09/30/20 03:45 Total Bilirubin 0.2 mg/dL (0.2-1.2) 09/26/20 04:03 AST 20 U/L (5-34) 09/26/20 04:03 ALT 16 U/L (8-55) 09/26/20 04:03 Alkaline Phosphatase 93 U/L (40-110) 09/26/20 04:03 Creatine Kinase 273 U/L (30-200) H 09/26/20 04:03 Troponin I 0.013 ng/mL (< 0.028) 09/20/20 16:06 C-Reactive Protein 23.08 mg/dL (= or < 0.5) H 09/24/20 03:29 B-Natriuretic Peptide 21.2 pg/mL (0-100) 09/20/20 10:13 Serum Total Protein 6.2 g/dL (5.8-8.1) 09/26/20 04:03 Albumin 3.4 g/dL (3.4-4.8) 09/29/20 03:35 Urine Ketones Negative mg/dL (Negative) 09/26/20 10:00 Urine Blood Large (Negative) A 09/26/20 10:00 Urine Nitrite Negative (Negative) 09/26/20 10:00 Ur Leukocyte Esterase Negative (Negative) 09/26/20 10:00 Urine RBC 11-20 HPF (0-3) A 09/26/20 10:00 Urine WBC 0-3 HPF (0-3) 09/26/20 10:00 Ur Squamous Epith Cells 0-3 HPF (0-3) 09/26/20 10:00 Urine Bacteria None Seen HPF (None Seen) 09/26/20 10:00 Sodium 142 mmol/L (136-145) 09/30/20 03:45 Potassium 4.9 mmol/L (3.5-5.1) 09/30/20 03:45 Chloride 101 mmol/L (98-107) 09/30/20 03:45 Carbon Dioxide 28 mmol/L (23-31) 09/30/20 03:45 Anion Gap 18 mmol/L (10-20) 09/30/20 03:45 BUN 99 mg/dL (8.4-25.7) H 09/30/20 03:45 Creatinine 2.51 mg/dL (0.7-1.3) H 09/30/20 03:45 Glucose 119 mg/dL (80-115) H 09/30/20 03:45 Calcium 8.0 mg/dL (7.8-10.44) 09/30/20 03:45 Phosphorus 6.9 mg/dL (2.3-4.7) H 09/29/20 03:35 Magnesium 3.0 mg/dL (1.6-2.6) H 09/29/20 03:35 Albumin 3.4 g/dL (3.4-4.8) 09/29/20 03:35 Nephrology AP PN - Plan ASSESSMENT: Acute renal failure: ATN from Hemodynamic factors related to poor perfusion as well as cytokine-mediated injury related to sepsis, with possible contribution from Contrast-induced nephropathy. Creat continue to trend down and Urine output continue to improve suggesting renal recovery. Hyperkalemia: TAMI and acidosis.Resolved Metabolic acidosis: Resolved with alkali therapy Respiratory acidosis: Improved with vent adjustment. Hypoalbuminemia Acute respiratory failure due to Covid Pneumonia: still intubated. Hypocalcemia PLAN DC IVF. patient is on tube feeding which is at goal. Monitor renal function, electrolytes as well as intake and output. Other treatment as per product development actuary.
--- NOTE | 2020-09-30 13:38 | PDOC.HOSPP ---
- Subjective Encounter Date: 09/30/20 Encounter Time: 10:25 Subjective: Patient seen this morning he is still intubated. He was elevated leukocytosis he is afebrile he has a negative balance of 2500 mL urine output believe for the last 24 hours - Objective Vital Signs & Weight: Vital Signs (12 hours) Pulse Resp BP Pulse Ox 09/30/20 12:00 34 H 09/30/20 10:13 51 L 09/30/20 10:00 26 H 09/30/20 08:11 65 152/96 H 09/30/20 08:00 33 H 09/30/20 07:15 94 L 09/30/20 05:20 59 L 26 H 96 09/30/20 05:16 72 141/82 H 09/30/20 02:26 74 155/81 H Weight Admit Weight 236 lb Weight 249 lb 5.485 oz Most Recent Monitor Data Heart Rate from ECG 49 NIBP 122/73 NIBP BP-Mean 89 Respiration from ECG 25 SpO2 94 I&O: 09/29/20 09/30/20 10/01/20 06:59 06:59 06:59 Intake Total 3078 3021 350 Output Total 2780 2530 700 Balance 298 491 -350 Result Diagrams: 09/30/20 03:45 09/30/20 03:45 Additional Labs: Accuchecks 09/30/20 09/29/20 09/29/20 09:49 22:17 15:54 POC Glucose 103 H 130 H 164 H Hospitalist ROS - Medication Medications: Active Medications Generic Name Dose Route Start Last Admin Trade Name Freq PRN Reason Stop Dose Admin Acetaminophen 1,000 mg 09/20/20 15:19 09/24/20 08:16 Acetaminophen 500 Mg Tab PO 1,000 mg Q6H PRN Administration Mild Pain (1-3) Amlodipine Besylate 10 mg 09/22/20 09:00 09/30/20 08:11 Amlodipine 10 Mg Tab PO 10 mg DAILY LUCIEN Administration Apixaban 5 mg 09/24/20 09:00 09/30/20 08:11 Apixaban 5 Mg Tab PER TUBE 5 mg BID LUCIEN Administration Arformoterol Tartrate 15 mcg 09/25/20 18:30 09/30/20 05:20 Arformoterol 15 Mcg/2 Ml Neb NEB 15 mcg BID-RT LUCIEN Administration Ascorbic Acid 1,000 mg 09/21/20 09:00 09/30/20 08:11 Ascorbic Acid 500 Mg Chewable Tablet PO 1,000 mg DAILY LUCIEN Administration Budesonide 0.5 mg 09/25/20 18:30 09/30/20 08:19 Budesonide 0.5 Mg/2 Ml Neb NEB 0.5 mg BID-RT LUCIEN Administration Cholecalciferol 5,000 units 09/24/20 21:00 09/29/20 21:36 Cholecalciferol 1,000 Units (25 Mcg) Tab PER TUBE 5,000 units HS LUCIEN Administration Dexamethasone 6 mg 09/24/20 09:00 09/30/20 08:10 Dexamethasone 4 Mg/Ml Vial SLOW IVP 6 mg BID LUCIEN Administration Famotidine 20 mg 09/25/20 21:00 09/29/20 21:35 Famotidine 20 Mg Tab PO 20 mg 2100 LUCIEN Administration Fentanyl Citrate 2,000 mcg/ 100 mls @ 0 mls/hr 09/24/20 06:30 09/30/20 03:34 Sodium Chloride IV 10/24/20 06:30 100 mls INF LUCIEN Administration Protocol Per Protocol Insulin Human Lispro 12 units 09/28/20 21:00 09/30/20 08:18 Humalog 300 Units/3 Ml Vial SC 12 units BID LUCIEN Administration Insulin Human NPH 30 unit 09/25/20 09:00 09/30/20 08:18 Nph, Human Insulin Isophane 300 Unit/3 Ml Vial SC 30 unit BID LUCIEN Administration Lorazepam 2 mg 09/24/20 06:30 09/30/20 08:09 Lorazepam 2 Mg/Ml Vial SLOW IVP 10/24/20 06:30 2 mg Q1H PRN Administration Breakthrough agitation Metoclopramide HCl 10 mg 09/25/20 09:00 09/30/20 08:22 Metoclopramide Hcl 10 Mg/2 Ml Vial IVP 10 mg 0300,0900,1500,2100 LUCIEN Administration Propofol 1,000 mg 09/24/20 06:30 09/30/20 13:19 Propofol 1,000 Mg/100 Ml Vial IV 10/24/20 06:30 1,000 mg INF PRN Administration TO ACHIEVE GOAL RASS Protocol Sodium Chloride 10 ml 09/21/20 21:00 09/30/20 08:24 Flush - Normal Saline 10 Ml Syringe IVF 10 ml Q12HR LUCIEN Administration Vecuronium [place] 10 mg 09/24/20 06:03 09/28/20 12:22 Vecuronium 10 Mg Vial IVP 10 mg Q30MIN PRN Administration Agitation Zinc Sulfate 220 mg 09/21/20 09:00 09/30/20 08:12 Zinc Sulfate 220 Mg Cap PO 220 mg DAILY LUCIEN Administration - Exam General - other findings: On vent Eye: PERRL ENT: normocephalic atraumatic Neck: supple Heart: RRR, normal peripheral pulses Respiratory: normal chest expansion Gastrointestinal: soft, normal bowel sounds Neurological: cranial nerve grossly intact, no focal deficits Hosp A/P - Plan Acute hypoxic respiratory failure secondary to COVID-19 pneumonia --On vent --Continue Decadron, --Completed remdesivir August 25 --cont Lovenox for DVT ppx -chest x-ray this morning shows bilateral airspace disease being persistent Acute renal failure Possible contrast-induced nephropathy. Acute tubular necrosis Metabolic acidosis secondary to renal failure --improving Hyperkalemia--resolved -He is getting currently sodium bicarb infusion as well as albumin. Uncontrolled diabetes, A1c 9.5 --Blood sugars have improved, continue Humulin N 30 units twice daily-- Dose. -Sliding scale insulin Hypertension --Controlled
--- NOTE | 2020-09-30 17:12 | PRG ---
DATE OF SERVICE: 09/30/2020 SUBJECTIVE: Mr. Ortega heart rate remains in the 40s, respiratory rates in the 20s, FiO2 is 45%, blood pressure 124/64. Lungs, heart, and abdomen are unchanged. LABORATORY DATA: White count 14.1, hemoglobin 12, platelets 211. Electrolytes are unchanged. Creatinine is down to 2.51. Chest radiograph is unchanged. PH 7.46, CO2 of 50, PO2 of 55, bilevel at 34/12. IMPRESSION: 1. Respiratory failure secondary to COVID pneumonia. 2. Acute on chronic kidney disease with improved kidney function in the last 24 hours. PLAN: Continue supportive care. Job ID: [id number]
[2020-09-30] MEDS: Famotidine 20 MG TAB PO SCH (19:47)
[2020-09-30] MEDS: Cholecalciferol 1,000 UNITS (25 MCG) TAB PER TUBE SCH (19:48)
[2020-10-01] MEDS: Metoclopramide HCl 10 MG/2 ML VIAL IVP SCH ×4 (02:28→21:55)
[2020-10-01] MEDS: Lorazepam 2 MG/ML VIAL SLOW IVP PRN ×4 (02:38→16:22)
[2020-10-01] MEDS: Propofol 1,000 MG/100 ML VIAL IV PRN ×4 (04:00→19:39)
[2020-10-01 04:20] LABS: #Lymphocytes 0.5 thou/uL (1.20-3.40); #Monocytes 0.5 thou/uL (0.11-0.59); #Neutrophils 9.1 thou/uL (1.40-6.50); %Basophils 0.3 % (0.0-1.0); %Eosinophils 0.4 % (0.0-10.0); %Lymphocytes 4.9 % (21.0-51.0); %Monocytes 5.3 % (0.0-10.0); Hemoglobin 11.3 g/dL (14.0-18.0); Mean Corpuscular HGB CONC 31.8 g/dL (32.0-36.0); Mean Corpuscular Hemoglobin 30.8 pg (27.0-31.0); Mean Corpuscular Volume 96.9 fL (78.0-98.0); Platelet Count 208 thou/uL (130-400); RBC Distribution Width 12.6 % (11.5-14.5); Red Blood Cell (RBC) Count 3.68 mill/uL (4.70-6.10); White Blood Cell (WBC) Count 10.2 thou/uL (4.8-10.8)
[2020-10-01 04:39] LABS: Anion Gap 17 mmol/L (10-20); BUN (Urea Nitrogen) 92 mg/dL (8.4-25.7); Calc. Creatinine Clearance 53 mL/min (70-130); Carbon Dioxide 29 mmol/L (23-31); Chloride 106 mmol/L (98-107); Glucose 99 mg/dL (80-115); Potassium 5.7 mmol/L (3.5-5.1); Sodium 146 mmol/L (136-145)
--- NOTE | 2020-10-01 07:42 | RAD ---
Chest one view HISTORY: Pneumonia. Follow-up. COMPARISON: 09/30/2020. FINDINGS: Cardiac silhouette is magnified and remains partially obscured by prominent patchy widespre ad parenchymal infiltrate. Mediastinum is midline. Lines and tubes unchanged in position. No evidence of pneumothorax. IMPRESSION : Diffuse widespread infiltrate and other findings are stable.
[2020-10-01] MEDS ORDERED: Insulin Regular 300 UNITS/3 ML VIAL IVP SCH (07:45)
[2020-10-01] MEDS ORDERED: Metolazone 5 MG TAB PER TUBE SCH (07:45)
[2020-10-01] MEDS ORDERED: Dextrose 50% Abboject 50 ML SYRINGE SLOW IVP SCH (07:45)
[2020-10-01] MEDS: Dexamethasone 4 mg/ml Vial SLOW IVP SCH ×2 (08:41→21:55)
[2020-10-01] MEDS: Apixaban 5 MG TAB PER TUBE SCH ×2 (08:42→21:54)
[2020-10-01] MEDS: Amlodipine 10 MG TAB PO SCH (08:42)
[2020-10-01] MEDS: Zinc Sulfate 220 MG CAP PO SCH (08:42)
[2020-10-01] MEDS: Ascorbic Acid 500 mg Chewable Tablet PO SCH (08:42)
[2020-10-01] MEDS: HumaLOG 300 UNITS/3 ML VIAL SC SCH ×3 (08:43→22:25)
[2020-10-01] MEDS: NPH, Human Insulin Isophane 300 UNIT/3 ML VIAL SC SCH ×3 (08:44→22:24)
[2020-10-01] MEDS: Arformoterol 15 MCG/2 ML NEB NEB SCH ×2 (08:48→18:21)
[2020-10-01] MEDS: Budesonide 0.5 MG/2 ML NEB NEB SCH ×2 (08:48→18:21)
[2020-10-01 09:01] LABS: Actual Bicarbonate (HCO3a) 31.9 mEq/L (22-28); Base Excess (BEa) 7.1 mEq/L (-2.0 to +3.0); Calcium, Ionized (arterial) 1.12 mmol/L (1.12-1.30); Carboxyhemoglobin (COHb) 0.9 gm% (0.0-3.0); Hemoglobin (Hb) 13.3 g/dL (14.0-18.0); O2 Tension (PaO2), arterial 64.8 mmHg (> 80.0); Potassium - ABG Lab 5.22 mmol/L (3.70-5.30); pH, Arterial 7.46 (7.35-7.45)
[2020-10-01 09:09] LABS: Puncture Site RRA
--- NOTE | 2020-10-01 12:05 | PRG ---
DATE OF SERVICE: 10/01/2020 SUBJECTIVE: Myles Manuels heart rate is in the 40s. OBJECTIVE: VITAL SIGNS: Blood pressure 108/76, respiratory rates in the high 20s to low 30s. Blood pressure 110/59. Intake and outputs, -1301. Lungs, heart, and abdomen are unchanged. LABORATORY DATA: White count 10.2, hemoglobin 11.3, platelets 208,000. Sodium 146, potassium 5.7, chloride 106, bicarb 29, BUN 92, creatinine 2.23. IMPRESSION: 1. COVID pneumonia. 2. Improving renal dysfunction with a negative fluid balance. 3. Diabetes. PLAN: Continue supportive care, slow decrease in ventilatory support. Critical care time 30 min. Job ID: [id number] MTDD
[2020-10-01] MEDS ORDERED: Dextrose 50% Abboject 50 ML SYRINGE SLOW IVP PRN (13:49)
[2020-10-01] MEDS ORDERED: Dextrose 5% in Water 1,000 ML IV PRN (13:49)
--- NOTE | 2020-10-01 15:14 | PDOC.NEPPN ---
- Subjective Encounter Date: 10/01/20 Subjective: Seen and examined. Still intubated. Urine output remained good despite d iscontinuation of IVF. - Objective Vital Signs & Weight: Vital Signs (12 hours) Pulse Resp BP Pulse Ox 10/01/20 15:03 45 L 10/01/20 14:00 32 H 10/01/20 12:00 34 H 10/01/20 11:25 49 L 10/01/20 10:00 31 H 10/01/20 09:02 46 L 108/76 10/01/20 08:42 45 L 112/69 10/01/20 08:00 32 H 10/01/20 07:20 97 10/01/20 06:00 26 H 10/01/20 04:00 30 H Weight Admit Weight 236 lb Weight 249 lb 5.485 oz Most Recent Monitor Data Heart Rate from ECG 47 NIBP 132/76 NIBP BP-Mean 94 Respiration from ECG 26 SpO2 93 I&O: 09/30/20 10/01/20 10/02/20 06:59 06:59 06:59 Intake Total 3021 1564 270 Output Total 2530 6455 955 Balance 538 -6467 -685 Result Diagrams: 10/01/20 04:07 10/01/20 04:07 Additional Labs: Accuchecks 10/01/20 09/30/20 09/30/20 09:32 23:26 19:53 POC Glucose 206 H 83 118 H 09/30/20 09/27/20 15:55 21:25 POC Glucose 98 205 H Nephrology ROS - Medication Medications: Active Medications Generic Name Dose Route Start Last Admin Trade Name Freq PRN Reason Stop Dose Admin Acetaminophen 1,000 mg 09/20/20 15:19 09/24/20 08:16 Acetaminophen 500 Mg Tab PO 1,000 mg Q6H PRN Administration Mild Pain (1-3) Amlodipine Besylate 10 mg 09/22/20 09:00 10/01/20 08:42 Amlodipine 10 Mg Tab PO Not Given DAILY LUCIEN Apixaban 5 mg 09/24/20 09:00 10/01/20 08:42 Apixaban 5 Mg Tab PER TUBE 5 mg BID LUCIEN Administration Arformoterol Tartrate 15 mcg 09/25/20 18:30 10/01/20 08:48 Arformoterol 15 Mcg/2 Ml Neb NEB 15 mcg BID-RT LUCIEN Administration Ascorbic Acid 1,000 mg 09/21/20 09:00 10/01/20 08:42 Ascorbic Acid 500 Mg Chewable Tablet PO 1,000 mg DAILY LUCIEN Administration Budesonide 0.5 mg 09/25/20 18:30 10/01/20 08:48 Budesonide 0.5 Mg/2 Ml Neb NEB 0.5 mg BID-RT LUCIEN Administration Cholecalciferol 5,000 units 09/24/20 21:00 09/30/20 19:48 Cholecalciferol 1,000 Units (25 Mcg) Tab PER TUBE 5,000 units HS LUCIEN Administration Dexamethasone 6 mg 09/24/20 09:00 10/01/20 08:41 Dexamethasone 4 Mg/Ml Vial SLOW IVP 6 mg BID LUCIEN Administration Famotidine 20 mg 09/25/20 21:00 09/30/20 19:47 Famotidine 20 Mg Tab PO 20 mg 2100 LUCIEN Administration Fentanyl Citrate 2,000 mcg/ 100 mls @ 0 mls/hr 09/24/20 06:30 09/30/20 23:13 Sodium Chloride IV 10/24/20 06:30 100 mls INF LUCIEN Administration Protocol Per Protocol Insulin Human Lispro 12 units 09/28/20 21:00 10/01/20 08:43 Humalog 300 Units/3 Ml Vial SC 12 units BID LUCIEN Administration Insulin Human NPH 30 unit 09/25/20 09:00 10/01/20 08:44 Nph, Human Insulin Isophane 300 Unit/3 Ml Vial SC 30 unit BID LUCIEN Administration Lorazepam 2 mg 09/24/20 06:30 10/01/20 13:58 Lorazepam 2 Mg/Ml Vial SLOW IVP 10/24/20 06:30 2 mg Q1H PRN Administration Breakthrough agitation Metoclopramide HCl 10 mg 09/25/20 09:00 10/01/20 14:28 Metoclopramide Hcl 10 Mg/2 Ml Vial IVP Not Given 0300,0900,1500,2100 LUCIEN Propofol 1,000 mg 09/24/20 06:30 10/01/20 14:00 Propofol 1,000 Mg/100 Ml Vial IV 10/24/20 06:30 1,000 mg INF PRN Administration TO ACHIEVE GOAL RASS Protocol Sodium Chloride 10 ml 09/21/20 21:00 10/01/20 08:46 Flush - Normal Saline 10 Ml Syringe IVF 10 ml Q12HR LUCIEN Administration Vecuronium [place] 10 mg 09/24/20 06:03 09/28/20 12:22 Vecuronium 10 Mg Vial IVP 10 mg Q30MIN PRN Administration Agitation Zinc Sulfate 220 mg 09/21/20 09:00 10/01/20 08:42 Zinc Sulfate 220 Mg Cap PO 220 mg DAILY LUCIEN Administration - Exam General - other findings: sedated Eye: anicteric sclera ENT - other findings: ET tube in place. Neck: symmetric Respiratory - other findings: Ventilator transmitted sound noted Cardiovascular: RRR Heart - other findings: bradycardic Gastrointestinal: non-distended, diminished bowl sounds Extremities: 1+ LE edema Neurological - other findings: sedated. Nephrology Results - Labs Result Diagrams: 10/01/20 04:07 10/01/20 04:07 Lab results: WBC 10.2 thou/uL (4.8-10.8) 10/01/20 04:07 Hgb 11.3 g/dL (14.0-18.0) L 10/01/20 04:07 Hct 35.7 % (42.0-52.0) L 10/01/20 04:07 MCV 96.9 fL (78.0-98.0) 10/01/20 04:07 Plt Count 208 thou/uL (130-400) 10/01/20 04:07 Neutrophils % 89.0 % (42.0-75.0) H 10/01/20 04:07 ABG pH 7.46 (7.35-7.45) H 10/01/20 09:00 ABG pCO2 46.0 mmHg (35.0-45.0) H 10/01/20 09:00 ABG pO2 64.8 mmHg (> 80.0) 10/01/20 09:00 Sodium 146 mmol/L (136-145) H 10/01/20 04:07 Potassium 5.7 mmol/L (3.5-5.1) H 10/01/20 04:07 Chloride 106 mmol/L (98-107) 10/01/20 04:07 Carbon Dioxide 29 mmol/L (23-31) 10/01/20 04:07 BUN 92 mg/dL (8.4-25.7) H 10/01/20 04:07 Creatinine 2.23 mg/dL (0.7-1.3) H 10/01/20 04:07 Glucose 99 mg/dL (80-115) 10/01/20 04:07 Lactic Acid 2.0 mmol/L (0.5-2.2) 09/20/20 16:06 Calcium 8.0 mg/dL (7.8-10.44) 10/01/20 04:07 Total Bilirubin 0.2 mg/dL (0.2-1.2) 09/26/20 04:03 AST 20 U/L (5-34) 09/26/20 04:03 ALT 16 U/L (8-55) 09/26/20 04:03 Alkaline Phosphatase 93 U/L (40-110) 09/26/20 04:03 Creatine Kinase 273 U/L (30-200) H 09/26/20 04:03 Troponin I 0.013 ng/mL (< 0.028) 09/20/20 16:06 C-Reactive Protein 23.08 mg/dL (= or < 0.5) H 09/24/20 03:29 B-Natriuretic Peptide 21.2 pg/mL (0-100) 09/20/20 10:13 Serum Total Protein 6.2 g/dL (5.8-8.1) 09/26/20 04:03 Albumin 3.4 g/dL (3.4-4.8) 09/29/20 03:35 Urine Ketones Negative mg/dL (Negative) 09/26/20 10:00 Urine Blood Large (Negative) A 09/26/20 10:00 Urine Nitrite Negative (Negative) 09/26/20 10:00 Ur Leukocyte Esterase Negative (Negative) 09/26/20 10:00 Urine RBC 11-20 HPF (0-3) A 09/26/20 10:00 Urine WBC 0-3 HPF (0-3) 09/26/20 10:00 Ur Squamous Epith Cells 0-3 HPF (0-3) 09/26/20 10:00 Urine Bacteria None Seen HPF (None Seen) 09/26/20 10:00 Sodium 146 mmol/L (136-145) H 10/01/20 04:07 Potassium 5.7 mmol/L (3.5-5.1) H 10/01/20 04:07 Chloride 106 mmol/L (98-107) 10/01/20 04:07 Carbon Dioxide 29 mmol/L (23-31) 10/01/20 04:07 Anion Gap 17 mmol/L (10-20) 10/01/20 04:07 BUN 92 mg/dL (8.4-25.7) H 10/01/20 04:07 Creatinine 2.23 mg/dL (0.7-1.3) H 10/01/20 04:07 Glucose 99 mg/dL (80-115) 10/01/20 04:07 Calcium 8.0 mg/dL (7.8-10.44) 10/01/20 04:07 Phosphorus 6.9 mg/dL (2.3-4.7) H 09/29/20 03:35 Magnesium 3.0 mg/dL (1.6-2.6) H 09/29/20 03:35 Albumin 3.4 g/dL (3.4-4.8) 09/29/20 03:35 Nephrology AP PN - Plan ASSESSMENT: Acute renal failure: ATN from Hemodynamic factors related to poor perfusion as well as cytokine-mediated injury related to sepsis, with possible contribution from Contrast-induced nephropathy. BUN/Creat continue to trend down with good Urine output despite discontinuation of IVF. Hyperkalemia: TAMI and acidosis. Recurrent Metabolic acidosis: Resolved with alkali therapy Respiratory acidosis: Improved with vent adjustment. Hypoalbuminemia Acute respiratory failure due to Covid Pneumonia: still intubated. Hypocalcemia PLAN Treat hyperkalemia with D50W/insulin and kayexalate. Continue tube feeding. Monitor renal function, electrolytes as well as intake and output. Other treatment as per fuel cell systems engineer.
--- NOTE | 2020-10-01 15:49 | PDOC.HOSPP ---
- Subjective Encounter Date: 10/01/20 Encounter Time: 10:45 Subjective: Patient remains on the vent. His sugar is little high. Discussed with RN. - Objective Vital Signs & Weight: Vital Signs (12 hours) Pulse Resp BP Pulse Ox 10/01/20 15:03 45 L 10/01/20 14:00 32 H 10/01/20 12:00 34 H 10/01/20 11:25 49 L 10/01/20 10:00 31 H 10/01/20 09:02 46 L 108/76 10/01/20 08:42 45 L 112/69 10/01/20 08:00 32 H 10/01/20 07:20 97 10/01/20 06:00 26 H 10/01/20 04:00 30 H Weight Admit Weight 236 lb Weight 249 lb 5.485 oz Most Recent Monitor Data Heart Rate from ECG 47 NIBP 132/76 NIBP BP-Mean 94 Respiration from ECG 26 SpO2 93 I&O: 09/30/20 10/01/20 10/02/20 06:59 06:59 06:59 Intake Total 3021 1564 270 Output Total 8273 7820 955 Balance 639 -2232 -012 Result Diagrams: 10/01/20 04:07 10/01/20 04:07 Additional Labs: Accuchecks 10/01/20 09/30/20 09/30/20 09:32 23:26 19:53 POC Glucose 206 H 83 118 H 09/30/20 09/27/20 15:55 21:25 POC Glucose 98 205 H Hospitalist ROS - Medication Medications: Active Medications Generic Name Dose Route Start Last Admin Trade Name Freq PRN Reason Stop Dose Admin Acetaminophen 1,000 mg 09/20/20 15:19 09/24/20 08:16 Acetaminophen 500 Mg Tab PO 1,000 mg Q6H PRN Administration Mild Pain (1-3) Amlodipine Besylate 10 mg 09/22/20 09:00 10/01/20 08:42 Amlodipine 10 Mg Tab PO Not Given DAILY LUCIEN Apixaban 5 mg 09/24/20 09:00 10/01/20 08:42 Apixaban 5 Mg Tab PER TUBE 5 mg BID LUCIEN Administration Arformoterol Tartrate 15 mcg 09/25/20 18:30 10/01/20 08:48 Arformoterol 15 Mcg/2 Ml Neb NEB 15 mcg BID-RT LUCIEN Administration Ascorbic Acid 1,000 mg 09/21/20 09:00 10/01/20 08:42 Ascorbic Acid 500 Mg Chewable Tablet PO 1,000 mg DAILY LUCIEN Administration Budesonide 0.5 mg 09/25/20 18:30 10/01/20 08:48 Budesonide 0.5 Mg/2 Ml Neb NEB 0.5 mg BID-RT LUCIEN Administration Cholecalciferol 5,000 units 09/24/20 21:00 09/30/20 19:48 Cholecalciferol 1,000 Units (25 Mcg) Tab PER TUBE 5,000 units HS LUCIEN Administration Dexamethasone 6 mg 09/24/20 09:00 10/01/20 08:41 Dexamethasone 4 Mg/Ml Vial SLOW IVP 6 mg BID LUCIEN Administration Famotidine 20 mg 09/25/20 21:00 09/30/20 19:47 Famotidine 20 Mg Tab PO 20 mg 2100 LUCIEN Administration Fentanyl Citrate 2,000 mcg/ 100 mls @ 0 mls/hr 09/24/20 06:30 09/30/20 23:13 Sodium Chloride IV 10/24/20 06:30 100 mls INF LUCIEN Administration Protocol Per Protocol Insulin Human Lispro 12 units 09/28/20 21:00 10/01/20 08:43 Humalog 300 Units/3 Ml Vial SC 12 units BID LUCIEN Administration Insulin Human NPH 30 unit 09/25/20 09:00 10/01/20 08:44 Nph, Human Insulin Isophane 300 Unit/3 Ml Vial SC 30 unit BID LUCIEN Administration Lorazepam 2 mg 09/24/20 06:30 10/01/20 13:58 Lorazepam 2 Mg/Ml Vial SLOW IVP 10/24/20 06:30 2 mg Q1H PRN Administration Breakthrough agitation Metoclopramide HCl 10 mg 09/25/20 09:00 10/01/20 14:28 Metoclopramide Hcl 10 Mg/2 Ml Vial IVP Not Given 0300,0900,1500,2100 LUCIEN Propofol 1,000 mg 09/24/20 06:30 10/01/20 14:00 Propofol 1,000 Mg/100 Ml Vial IV 10/24/20 06:30 1,000 mg INF PRN Administration TO ACHIEVE GOAL RASS Protocol Sodium Chloride 10 ml 09/21/20 21:00 10/01/20 08:46 Flush - Normal Saline 10 Ml Syringe IVF 10 ml Q12HR LUCIEN Administration Vecuronium [place] 10 mg 09/24/20 06:03 09/28/20 12:22 Vecuronium 10 Mg Vial IVP 10 mg Q30MIN PRN Administration Agitation Zinc Sulfate 220 mg 09/21/20 09:00 10/01/20 08:42 Zinc Sulfate 220 Mg Cap PO 220 mg DAILY LUCIEN Administration - Exam General Appearance: NAD, awake alert General - other findings: The vent Eye: PERRL ENT: normocephalic atraumatic Neck: supple Psychiatric: not oriented Hosp A/P - Plan Acute hypoxic respiratory failure secondary to COVID-19 pneumonia --On vent --Continue Decadron, --Completed remdesivir August 25 --cont Lovenox for DVT ppx -chest x-ray this morning shows bilateral airspace disease being persistent Acute renal failure Possible contrast-induced nephropathy. Acute tubular necrosis Metabolic acidosis secondary to renal failure --improving Hyperkalemia--resolved -He is getting currently sodium bicarb infusion as well as albumin. Uncontrolled diabetes, A1c 9.5 --Blood sugars have improved, continue Humulin N 30 units twice daily-- Dose. -Sliding scale insulin Hypertension --Controlled
[2020-10-01] MEDS: fentaNYL Citrate/PF 2,000 MCG in Sodium Chloride 0.9% 60 ML IV SCH (18:14)
[2020-10-01] MEDS: Famotidine 20 MG TAB PO SCH (21:54)
[2020-10-01] MEDS: Cholecalciferol 1,000 UNITS (25 MCG) TAB PER TUBE SCH (21:55)
[2020-10-02] MEDS: Lorazepam 2 MG/ML VIAL SLOW IVP PRN ×2 (00:12→05:15)
[2020-10-02] MEDS: Propofol 1,000 MG/100 ML VIAL IV PRN ×4 (00:12→17:01)
[2020-10-02] MEDS: Metoclopramide HCl 10 MG/2 ML VIAL IVP SCH ×4 (03:24→22:18)
[2020-10-02 04:14] LABS: #Lymphocytes 0.4 thou/uL (1.20-3.40); #Monocytes 0.4 thou/uL (0.11-0.59); #Neutrophils 8.6 thou/uL (1.40-6.50); %Eosinophils 0.5 % (0.0-10.0); %Lymphocytes 4.4 % (21.0-51.0); %Monocytes 4.2 % (0.0-10.0); Hemoglobin 11.3 g/dL (14.0-18.0); Mean Corpuscular HGB CONC 32.2 g/dL (32.0-36.0); Mean Corpuscular Hemoglobin 31.6 pg (27.0-31.0); Mean Corpuscular Volume 98.1 fL (78.0-98.0); Mean Platelet Volume 10.3 fL (7.4-10.4); Platelet Count 216 thou/uL (130-400); RBC Distribution Width 12.7 % (11.5-14.5); Red Blood Cell (RBC) Count 3.58 mill/uL (4.70-6.10); White Blood Cell (WBC) Count 9.4 thou/uL (4.8-10.8)
[2020-10-02 04:27] LABS: Anion Gap 15 mmol/L (10-20); BUN (Urea Nitrogen) 94 mg/dL (8.4-25.7); Calc. Creatinine Clearance 62 mL/min (70-130); Calcium 8.2 mg/dL (7.8-10.44); Carbon Dioxide 30 mmol/L (23-31); Chloride 109 mmol/L (98-107); Glucose 178 mg/dL (80-115); Potassium 5.6 mmol/L (3.5-5.1); Sodium 148 mmol/L (136-145)
[2020-10-02] MEDS: Arformoterol 15 MCG/2 ML NEB NEB SCH ×2 (07:21→19:36)
[2020-10-02] MEDS: Budesonide 0.5 MG/2 ML NEB NEB SCH ×2 (07:21→19:36)
[2020-10-02 07:36] LABS: Base Excess (BEa) 5.2 mEq/L (-2.0 to +3.0); CO2 Tension 50.9 mmHg (35.0-45.0); Calcium, Ionized (arterial) 1.15 mmol/L (1.12-1.30); Hemoglobin (Hb) 12.3 g/dL (14.0-18.0); O2 Tension (PaO2), arterial 65.8 mmHg (> 80.0); Potassium - ABG Lab 5.26 mmol/L (3.70-5.30)
[2020-10-02 07:38] LABS: ALV-art Gradient 227.075 mmHg (0-20); Puncture Site RRA
--- NOTE | 2020-10-02 07:51 | RAD ---
Chest one view HISTORY: Pneumonia. Follow-up. COMPARISON: 09/23/2020. FINDINGS: Cardiac silhouette is magnified by projection and partially obscured by widespread ill-defi nick parenchymal infiltrate that is unchanged from the previous exam. Mediastinum is midline. Lines and tubes unchanged in position. Pulmonary vasculature mostly obscured by infiltrate. No evidence of pneumothorax. IMPRESSION : Widespread bilateral infiltrate and other findings are stable.
[2020-10-02] MEDS: Dexamethasone 4 mg/ml Vial SLOW IVP SCH ×2 (08:38→22:17)
[2020-10-02] MEDS: Zinc Sulfate 220 MG CAP PO SCH (08:38)
[2020-10-02] MEDS: Apixaban 5 MG TAB PER TUBE SCH ×2 (08:38→22:15)
[2020-10-02] MEDS: HumaLOG 300 UNITS/3 ML VIAL SC SCH ×2 (08:39→22:20)
[2020-10-02] MEDS: NPH, Human Insulin Isophane 300 UNIT/3 ML VIAL SC SCH ×2 (08:40→22:20)
[2020-10-02] MEDS: Ascorbic Acid 500 mg Chewable Tablet PO SCH (09:59)
--- NOTE | 2020-10-02 11:47 | PDOC.NEPPN ---
- Subjective Encounter Date: 10/02/20 Subjective: SEen today in follow up for ARF. Still intubated and mechanically ventilated. Urine output is great. - Objective Vital Signs & Weight: Vital Signs (12 hours) Pulse Resp BP 10/02/20 11:09 64 10/02/20 10:00 26 H 10/02/20 07:22 47 L 109/65 10/02/20 06:00 26 H 10/02/20 04:00 28 H 10/02/20 02:26 46 L 137/73 10/02/20 02:00 29 H 10/02/20 00:00 26 H Weight Admit Weight 236 lb Weight 249 lb 5.485 oz Most Recent Monitor Data Heart Rate from ECG 61 NIBP 128/77 NIBP BP-Mean 94 Respiration from ECG 26 SpO2 95 I&O: 10/01/20 10/02/20 10/03/20 06:59 06:59 06:59 Intake Total 1564 1639.1 100 Output Total 2865 3140 350 Balance -1301 -1500.9 -250 Result Diagrams: 10/02/20 03:37 10/02/20 03:37 Additional Labs: Accuchecks 10/02/20 10/02/20 10/01/20 09:23 03:39 22:11 POC Glucose 159 H 163 H 98 10/01/20 16:01 POC Glucose 102 H Nephrology ROS - Medication Medications: Active Medications Generic Name Dose Route Start Last Admin Trade Name Freq PRN Reason Stop Dose Admin Acetaminophen 1,000 mg 09/20/20 15:19 09/24/20 08:16 Acetaminophen 500 Mg Tab PO 1,000 mg Q6H PRN Administration Mild Pain (1-3) Apixaban 5 mg 09/24/20 09:00 10/02/20 08:38 Apixaban 5 Mg Tab PER TUBE 5 mg BID LUCIEN Administration Arformoterol Tartrate 15 mcg 09/25/20 18:30 10/02/20 07:21 Arformoterol 15 Mcg/2 Ml Neb NEB 15 mcg BID-RT LUCIEN Administration Ascorbic Acid 1,000 mg 09/21/20 09:00 10/02/20 09:59 Ascorbic Acid 500 Mg Chewable Tablet PO 1,000 mg DAILY LUCIEN Administration Budesonide 0.5 mg 09/25/20 18:30 10/02/20 07:21 Budesonide 0.5 Mg/2 Ml Neb NEB 0.5 mg BID-RT LUCIEN Administration Cholecalciferol 5,000 units 09/24/20 21:00 10/01/20 21:55 Cholecalciferol 1,000 Units (25 Mcg) Tab PER TUBE 5,000 units HS LUCIEN Administration Dexamethasone 6 mg 09/24/20 09:00 10/02/20 08:38 Dexamethasone 4 Mg/Ml Vial SLOW IVP 6 mg BID LUCIEN Administration Famotidine 20 mg 09/25/20 21:00 10/01/20 21:54 Famotidine 20 Mg Tab PO 20 mg 2100 LUCIEN Administration Fentanyl Citrate 2,000 mcg/ 100 mls @ 0 mls/hr 09/24/20 06:30 10/01/20 18:14 Sodium Chloride IV 10/24/20 06:30 100 mls INF LUCIEN Administration Protocol Per Protocol Insulin Human Lispro 12 units 09/28/20 21:00 10/02/20 08:39 Humalog 300 Units/3 Ml Vial SC 12 units BID LUCIEN Administration Insulin Human NPH 30 unit 09/25/20 09:00 10/02/20 08:40 Nph, Human Insulin Isophane 300 Unit/3 Ml Vial SC 30 unit BID LUCIEN Administration Lorazepam 2 mg 09/24/20 06:30 10/02/20 05:15 Lorazepam 2 Mg/Ml Vial SLOW IVP 10/24/20 06:30 2 mg Q1H PRN Administration Breakthrough agitation Metoclopramide HCl 10 mg 09/25/20 09:00 10/02/20 08:38 Metoclopramide Hcl 10 Mg/2 Ml Vial IVP 10 mg 0300,0900,1500,2100 LUCIEN Administration Propofol 1,000 mg 09/24/20 06:30 10/02/20 10:00 Propofol 1,000 Mg/100 Ml Vial IV 10/24/20 06:30 1,000 mg INF PRN Administration TO ACHIEVE GOAL RASS Protocol Sodium Chloride 10 ml 09/21/20 21:00 10/02/20 08:38 Flush - Normal Saline 10 Ml Syringe IVF 10 ml Q12HR LUCIEN Administration Vecuronium [place] 10 mg 09/24/20 06:03 09/28/20 12:22 Vecuronium 10 Mg Vial IVP 10 mg Q30MIN PRN Administration Agitation Zinc Sulfate 220 mg 09/21/20 09:00 10/02/20 08:38 Zinc Sulfate 220 Mg Cap PO 220 mg DAILY LUCIEN Administration - Exam General - other findings: sedated Eye: anicteric sclera ENT - other findings: Normocephalic, ET tube in place. nose bruise noted Neck: symmetric, no JVD Respiratory - other findings: ventilator transmitted sound noted Cardiovascular: RRR Gastrointestinal: soft, non-distended, diminished bowl sounds Extremities - other findings: trace edema of feet noted Neurological - other findings: sedated Nephrology Results - Labs Result Diagrams: 10/02/20 03:37 10/02/20 03:37 Lab results: WBC 9.4 thou/uL (4.8-10.8) 10/02/20 03:37 Hgb 11.3 g/dL (14.0-18.0) L 10/02/20 03:37 Hct 35.2 % (42.0-52.0) L 10/02/20 03:37 MCV 98.1 fL (78.0-98.0) H 10/02/20 03:37 Plt Count 216 thou/uL (130-400) 10/02/20 03:37 Neutrophils % 91.0 % (42.0-75.0) H 10/02/20 03:37 ABG pH 7.40 (7.35-7.45) 10/02/20 07:26 ABG pCO2 50.9 mmHg (35.0-45.0) H 10/02/20 07:26 ABG pO2 65.8 mmHg (> 80.0) 10/02/20 07:26 Sodium 148 mmol/L (136-145) H 10/02/20 03:37 Potassium 5.6 mmol/L (3.5-5.1) H 10/02/20 03:37 Chloride 109 mmol/L (98-107) H 10/02/20 03:37 Carbon Dioxide 30 mmol/L (23-31) 10/02/20 03:37 BUN 94 mg/dL (8.4-25.7) H 10/02/20 03:37 Creatinine 1.90 mg/dL (0.7-1.3) H 10/02/20 03:37 Glucose 178 mg/dL (80-115) H 10/02/20 03:37 Lactic Acid 2.0 mmol/L (0.5-2.2) 09/20/20 16:06 Calcium 8.2 mg/dL (7.8-10.44) 10/02/20 03:37 Total Bilirubin 0.2 mg/dL (0.2-1.2) 09/26/20 04:03 AST 20 U/L (5-34) 09/26/20 04:03 ALT 16 U/L (8-55) 09/26/20 04:03 Alkaline Phosphatase 93 U/L (40-110) 09/26/20 04:03 Creatine Kinase 273 U/L (30-200) H 09/26/20 04:03 Troponin I 0.013 ng/mL (< 0.028) 09/20/20 16:06 C-Reactive Protein 23.08 mg/dL (= or < 0.5) H 09/24/20 03:29 B-Natriuretic Peptide 21.2 pg/mL (0-100) 09/20/20 10:13 Serum Total Protein 6.2 g/dL (5.8-8.1) 09/26/20 04:03 Albumin 2.7 g/dL (3.4-4.8) L 10/02/20 03:37 Urine Ketones Negative mg/dL (Negative) 09/26/20 10:00 Urine Blood Large (Negative) A 09/26/20 10:00 Urine Nitrite Negative (Negative) 09/26/20 10:00 Ur Leukocyte Esterase Negative (Negative) 09/26/20 10:00 Urine RBC 11-20 HPF (0-3) A 09/26/20 10:00 Urine WBC 0-3 HPF (0-3) 09/26/20 10:00 Ur Squamous Epith Cells 0-3 HPF (0-3) 09/26/20 10:00 Urine Bacteria None Seen HPF (None Seen) 09/26/20 10:00 Sodium 148 mmol/L (136-145) H 10/02/20 03:37 Potassium 5.6 mmol/L (3.5-5.1) H 10/02/20 03:37 Chloride 109 mmol/L (98-107) H 10/02/20 03:37 Carbon Dioxide 30 mmol/L (23-31) 10/02/20 03:37 Anion Gap 15 mmol/L (10-20) 10/02/20 03:37 BUN 94 mg/dL (8.4-25.7) H 10/02/20 03:37 Creatinine 1.90 mg/dL (0.7-1.3) H 10/02/20 03:37 Glucose 178 mg/dL (80-115) H 10/02/20 03:37 Calcium 8.2 mg/dL (7.8-10.44) 10/02/20 03:37 Phosphorus 6.9 mg/dL (2.3-4.7) H 09/29/20 03:35 Magnesium 3.0 mg/dL (1.6-2.6) H 09/29/20 03:35 Albumin 2.7 g/dL (3.4-4.8) L 10/02/20 03:37 Nephrology AP PN - Plan ASSESSMENT: Acute renal failure: ATN from Hemodynamic factors related to poor perfusion as well as cytokine-mediated injury related to sepsis, with possible contribution from Contrast-induced nephropathy. BUN/Creat continue to trend down with good Urine output. Hyperkalemia: TAMI and acidosis. Recurrent Metabolic acidosis: Resolved with alkali therapy Respiratory acidosis: Improved with vent adjustment. Hypoalbuminemia Acute respiratory failure due to Covid Pneumonia: still intubated. Hypocalcemia PLAN Give a dose of lokelma. Increase free water flushes via NG tube to 100 q2h. Continue tube feeding. Monitor renal function, electrolytes as well as intake and output. Other treatment as per emergency communications operator.
[2020-10-02] MEDS: fentaNYL Citrate/PF 2,000 MCG in Sodium Chloride 0.9% 60 ML IV SCH (14:13)
--- NOTE | 2020-10-02 14:24 | PDOC.HOSPP ---
- Subjective Encounter Date: 10/02/20 Encounter Time: 10:45 Subjective: Patient remains on the vent. He is not on any pressors. His potassium is still 5.6 this morning. Given Kayexalate D50 as well as insulin. He is on tube feed. He would likely have some loose stools exacerbated with Kayexalate and being on tube feed. His sodium also little high at 148 - Objective Vital Signs & Weight: Vital Signs (12 hours) Pulse Resp BP 10/02/20 14:00 30 H 10/02/20 13:40 70 142/76 H 10/02/20 11:09 64 10/02/20 10:00 26 H 10/02/20 07:22 47 L 109/65 10/02/20 06:00 26 H 10/02/20 04:00 28 H 10/02/20 02:26 46 L 137/73 Weight Admit Weight 236 lb Weight 249 lb 5.485 oz Most Recent Monitor Data Heart Rate from ECG 76 NIBP 148/76 NIBP BP-Mean 100 Respiration from ECG 30 SpO2 93 I&O: 10/01/20 10/02/20 10/03/20 06:59 06:59 06:59 Intake Total 1564 1639.1 100 Output Total 2865 3140 1000 Balance -1301 -1500.9 -900 Result Diagrams: 10/02/20 03:37 10/02/20 03:37 Additional Labs: Accuchecks 10/02/20 10/02/20 10/01/20 09:23 03:39 22:11 POC Glucose 159 H 163 H 98 10/01/20 16:01 POC Glucose 102 H Hospitalist ROS - Medication Medications: Active Medications Generic Name Dose Route Start Last Admin Trade Name Freq PRN Reason Stop Dose Admin Acetaminophen 1,000 mg 09/20/20 15:19 09/24/20 08:16 Acetaminophen 500 Mg Tab PO 1,000 mg Q6H PRN Administration Mild Pain (1-3) Apixaban 5 mg 09/24/20 09:00 10/02/20 08:38 Apixaban 5 Mg Tab PER TUBE 5 mg BID LUCIEN Administration Arformoterol Tartrate 15 mcg 09/25/20 18:30 10/02/20 07:21 Arformoterol 15 Mcg/2 Ml Neb NEB 15 mcg BID-RT LUCIEN Administration Ascorbic Acid 1,000 mg 09/21/20 09:00 10/02/20 09:59 Ascorbic Acid 500 Mg Chewable Tablet PO 1,000 mg DAILY LUCIEN Administration Budesonide 0.5 mg 09/25/20 18:30 10/02/20 07:21 Budesonide 0.5 Mg/2 Ml Neb NEB 0.5 mg BID-RT LUCIEN Administration Cholecalciferol 5,000 units 09/24/20 21:00 10/01/20 21:55 Cholecalciferol 1,000 Units (25 Mcg) Tab PER TUBE 5,000 units HS LUCIEN Administration Dexamethasone 6 mg 09/24/20 09:00 10/02/20 08:38 Dexamethasone 4 Mg/Ml Vial SLOW IVP 6 mg BID LUCIEN Administration Famotidine 20 mg 09/25/20 21:00 10/01/20 21:54 Famotidine 20 Mg Tab PO 20 mg 2100 LUCIEN Administration Fentanyl Citrate 2,000 mcg/ 100 mls @ 0 mls/hr 09/24/20 06:30 10/02/20 14:13 Sodium Chloride IV 10/24/20 06:30 100 mls INF LUCIEN Administration Protocol Per Protocol Insulin Human Lispro 12 units 09/28/20 21:00 10/02/20 08:39 Humalog 300 Units/3 Ml Vial SC 12 units BID LUCIEN Administration Insulin Human NPH 30 unit 09/25/20 09:00 10/02/20 08:40 Nph, Human Insulin Isophane 300 Unit/3 Ml Vial SC 30 unit BID LUCIEN Administration Lorazepam 2 mg 09/24/20 06:30 10/02/20 05:15 Lorazepam 2 Mg/Ml Vial SLOW IVP 10/24/20 06:30 2 mg Q1H PRN Administration Breakthrough agitation Metoclopramide HCl 10 mg 09/25/20 09:00 10/02/20 08:38 Metoclopramide Hcl 10 Mg/2 Ml Vial IVP 10 mg 0300,0900,1500,2100 LUCIEN Administration Propofol 1,000 mg 09/24/20 06:30 10/02/20 10:00 Propofol 1,000 Mg/100 Ml Vial IV 10/24/20 06:30 1,000 mg INF PRN Administration TO ACHIEVE GOAL RASS Protocol Sodium Chloride 10 ml 09/21/20 21:00 10/02/20 08:38 Flush - Normal Saline 10 Ml Syringe IVF 10 ml Q12HR LUCIEN Administration Vecuronium [place] 10 mg 09/24/20 06:03 09/28/20 12:22 Vecuronium 10 Mg Vial IVP 10 mg Q30MIN PRN Administration Agitation Zinc Sulfate 220 mg 09/21/20 09:00 10/02/20 08:38 Zinc Sulfate 220 Mg Cap PO 220 mg DAILY LUCIEN Administration - Exam General Appearance: NAD General - other findings: On vent Eye: PERRL ENT: normocephalic atraumatic Neck: supple Heart: RRR Respiratory: CTAB, normal chest expansion Gastrointestinal: soft, normal bowel sounds Neurological: cranial nerve grossly intact, no focal deficits Psychiatric: not oriented Hosp A/P - Plan Acute hypoxic respiratory failure secondary to COVID-19 pneumonia --On vent --Continue Decadron, --Completed remdesivir August 25 --cont Lovenox for DVT ppx -chest x-ray this morning shows bilateral airspace disease being persistent Acute renal failure Possible contrast-induced nephropathy. Acute tubular necrosis Metabolic acidosis secondary to renal failure --improving -s/p sodium bicarb infusion as well as albumin. Uncontrolled diabetes, A1c 9.5 --Blood sugars have improved, continue Humulin N 30 units twice daily-- Dose. -Sliding scale insulin Hypertension --Controlled Hypernatremia Hyperkalemia- -patient is on tube feed - and free water. -Hyperkalemia has been treated with Kayexalate D50 as well as insulin.
[2020-10-02] MEDS ORDERED: LOKELMA 10 GM PACKET PO SCH (16:15)
--- NOTE | 2020-10-02 17:22 | PRG ---
DATE OF SERVICE: 10/02/2020 SUBJECTIVE: Mr. Pitts remains hemodynamically stable. OBJECTIVE: VITAL SIGNS: Heart rate is in 80s, FiO2 is at 50%, blood pressure 150/76. LUNGS: Remarkable for coarse equal breath sounds. HEART: Regular rhythm. ABDOMEN: Soft. EXTREMITIES: Without edema. IMAGING STUDIES: Chest x-ray is unchanged. He has no pneumothorax. LABORATORY DATA: White count 9.4, hemoglobin 11.3, and platelets 216. Sodium 148, potassium 5.6, chloride 109, bicarb 30, BUN 94, and creatinine 1.9, improved from 2.2. IMPRESSION: 1. COVID pneumonia. 2. Acute on chronic kidney disease. 3. Diabetes. 4. Respiratory failure, not currently weanable. PLAN: Continue supportive care. Critical care time 30 min. Job ID: [id number] MTDD
[2020-10-02] MEDS ORDERED: LOKELMA 5 GM PACKET PO SCH (19:15)
[2020-10-02] MEDS: Famotidine 20 MG TAB PO SCH (22:15)
[2020-10-02] MEDS: Cholecalciferol 1,000 UNITS (25 MCG) TAB PER TUBE SCH (22:17)
[2020-10-03] MEDS: Propofol 1,000 MG/100 ML VIAL IV PRN ×4 (00:34→23:12)
[2020-10-03] MEDS: Metoclopramide HCl 10 MG/2 ML VIAL IVP SCH ×4 (02:51→21:05)
[2020-10-03 06:21] LABS: #Lymphocytes 0.6 thou/uL (1.20-3.40); #Monocytes 0.5 thou/uL (0.11-0.59); #Neutrophils 11.5 thou/uL (1.40-6.50); %Basophils 0.2 % (0.0-1.0); %Eosinophils 0.3 % (0.0-10.0); %Lymphocytes 4.9 % (21.0-51.0); %Monocytes 3.9 % (0.0-10.0); %Neutrophils 90.7 % (42.0-75.0); Mean Corpuscular HGB CONC 30.6 g/dL (32.0-36.0); Mean Corpuscular Hemoglobin 29.6 pg (27.0-31.0); Mean Corpuscular Volume 96.8 fL (78.0-98.0); Mean Platelet Volume 10.2 fL (7.4-10.4); Platelet Count 235 thou/uL (130-400); RBC Distribution Width 12.7 % (11.5-14.5); Red Blood Cell (RBC) Count 4.05 mill/uL (4.70-6.10); White Blood Cell (WBC) Count 12.6 thou/uL (4.8-10.8)
[2020-10-03 06:38] LABS: Anion Gap 15 mmol/L (10-20); BUN (Urea Nitrogen) 91 mg/dL (8.4-25.7); Calc. Creatinine Clearance 70 mL/min (70-130); Calcium 8.1 mg/dL (7.8-10.44); Carbon Dioxide 27 mmol/L (23-31); Chloride 107 mmol/L (98-107); Glucose 187 mg/dL (80-115); Potassium 5.2 mmol/L (3.5-5.1); Sodium 144 mmol/L (136-145)
[2020-10-03 07:37] LABS: Actual Bicarbonate (HCO3a) 28.3 mEq/L (22-28); Base Excess (BEa) 3.2 mEq/L (-2.0 to +3.0); CO2 Tension 45.1 mmHg (35.0-45.0); Calcium, Ionized (arterial) 1.17 mmol/L (1.12-1.30); Carboxyhemoglobin (COHb) 1.3 gm% (0.0-3.0); Hemoglobin (Hb) 13.7 g/dL (14.0-18.0); O2 Tension (PaO2), arterial 71.1 mmHg (> 80.0); Potassium - ABG Lab 4.98 mmol/L (3.70-5.30); pH, Arterial 7.42 (7.35-7.45)
[2020-10-03] MEDS: Ascorbic Acid 500 mg Chewable Tablet PO SCH (08:20)
[2020-10-03] MEDS: Zinc Sulfate 220 MG CAP PO SCH (08:21)
[2020-10-03] MEDS: Apixaban 5 MG TAB PER TUBE SCH ×2 (08:21→21:04)
[2020-10-03] MEDS: Dexamethasone 4 mg/ml Vial SLOW IVP SCH ×2 (08:21→21:05)
[2020-10-03] MEDS: NPH, Human Insulin Isophane 300 UNIT/3 ML VIAL SC SCH ×2 (08:22→21:15)
[2020-10-03] MEDS: HumaLOG 300 UNITS/3 ML VIAL SC SCH ×2 (08:22→21:15)
[2020-10-03] MEDS: Budesonide 0.5 MG/2 ML NEB NEB SCH ×2 (08:31→18:36)
[2020-10-03] MEDS: Arformoterol 15 MCG/2 ML NEB NEB SCH ×2 (08:31→18:35)
[2020-10-03 08:41] LABS: ALV-art Gradient 157.725 mmHg (0-20); Puncture Site RRA
--- NOTE | 2020-10-03 09:21 | PDOC.NEPPN ---
- Subjective Encounter Date: 10/03/20 Subjective: Still intubated and ventilated. making large amounts of urine. - Objective Vital Signs & Weight: Vital Signs (12 hours) Temp Pulse Resp BP 10/03/20 08:37 75 10/03/20 06:00 24 H 10/03/20 05:00 98.4 F 10/03/20 04:00 26 H 10/03/20 02:51 80 156/80 H 10/03/20 02:00 26 H 10/03/20 00:00 98.1 F 26 H 10/02/20 23:57 65 112/64 10/02/20 22:17 48 L 104/63 10/02/20 22:00 30 H Weight Admit Weight 236 lb Weight 249 lb 5.485 oz Most Recent Monitor Data Heart Rate from ECG 63 NIBP 137/83 NIBP BP-Mean 101 Respiration from ECG 26 SpO2 99 I&O: 10/02/20 10/03/20 10/04/20 06:59 06:59 06:59 Intake Total 1639.1 3160 Output Total 3140 3325 500 Balance -1500.9 -165 -500 Result Diagrams: 10/03/20 05:44 10/03/20 05:44 Additional Labs: Accuchecks 10/03/20 10/03/20 10/02/20 05:08 00:42 22:42 POC Glucose 174 H 131 H 120 H 10/02/20 09:23 POC Glucose 159 H Nephrology ROS - Medication Medications: Active Medications Generic Name Dose Route Start Last Admin Trade Name Freq PRN Reason Stop Dose Admin Acetaminophen 1,000 mg 09/20/20 15:19 09/24/20 08:16 Acetaminophen 500 Mg Tab PO 1,000 mg Q6H PRN Administration Mild Pain (1-3) Apixaban 5 mg 09/24/20 09:00 10/03/20 08:21 Apixaban 5 Mg Tab PER TUBE 5 mg BID LUCIEN Administration Arformoterol Tartrate 15 mcg 09/25/20 18:30 10/03/20 08:31 Arformoterol 15 Mcg/2 Ml Neb NEB 15 mcg BID-RT LUCIEN Administration Ascorbic Acid 1,000 mg 09/21/20 09:00 10/03/20 08:20 Ascorbic Acid 500 Mg Chewable Tablet PO 1,000 mg DAILY LUCIEN Administration Budesonide 0.5 mg 09/25/20 18:30 10/03/20 08:31 Budesonide 0.5 Mg/2 Ml Neb NEB 0.5 mg BID-RT LUCIEN Administration Cholecalciferol 5,000 units 09/24/20 21:00 10/02/20 22:17 Cholecalciferol 1,000 Units (25 Mcg) Tab PER TUBE 5,000 units HS LUCIEN Administration Dexamethasone 6 mg 09/24/20 09:00 10/03/20 08:21 Dexamethasone 4 Mg/Ml Vial SLOW IVP 6 mg BID LUCIEN Administration Famotidine 20 mg 09/25/20 21:00 10/02/20 22:15 Famotidine 20 Mg Tab PO 20 mg 2100 LUCIEN Administration Fentanyl Citrate 2,000 mcg/ 100 mls @ 0 mls/hr 09/24/20 06:30 10/02/20 14:13 Sodium Chloride IV 10/24/20 06:30 100 mls INF LUCIEN Administration Protocol Per Protocol Insulin Human Lispro 12 units 09/28/20 21:00 10/03/20 08:22 Humalog 300 Units/3 Ml Vial SC 12 units BID ULCIEN Administration Insulin Human NPH 30 unit 09/25/20 09:00 10/03/20 08:22 Nph, Human Insulin Isophane 300 Unit/3 Ml Vial SC 30 unit BID LUCIEN Administration Lorazepam 2 mg 09/24/20 06:30 10/02/20 05:15 Lorazepam 2 Mg/Ml Vial SLOW IVP 10/24/20 06:30 2 mg Q1H PRN Administration Breakthrough agitation Metoclopramide HCl 10 mg 09/25/20 09:00 10/03/20 08:21 Metoclopramide Hcl 10 Mg/2 Ml Vial IVP 10 mg 0300,0900,1500,2100 LUCIEN Administration Propofol 1,000 mg 09/24/20 06:30 10/03/20 07:15 Propofol 1,000 Mg/100 Ml Vial IV 10/24/20 06:30 1,000 mg INF PRN Administration TO ACHIEVE GOAL RASS Protocol Sodium Chloride 10 ml 09/21/20 21:00 10/03/20 08:22 Flush - Normal Saline 10 Ml Syringe IVF 10 ml Q12HR LUCIEN Administration Vecuronium [place] 10 mg 09/24/20 06:03 09/28/20 12:22 Vecuronium 10 Mg Vial IVP 10 mg Q30MIN PRN Administration Agitation Zinc Sulfate 220 mg 09/21/20 09:00 10/03/20 08:21 Zinc Sulfate 220 Mg Cap PO 220 mg DAILY LUCIEN Administration - Exam General - other findings: sedated Eye: anicteric sclera ENT - other findings: ET tube in place. Neck: symmetric, no JVD Respiratory - other findings: ventilator transmitted sound noted Cardiovascular: RRR Gastrointestinal: soft, non-distended Extremities: no edema Neurological - other findings: sedated. attempting to move with stimulation Nephrology Results - Labs Result Diagrams: 10/03/20 05:44 10/03/20 05:44 Lab results: WBC 12.6 thou/uL (4.8-10.8) H 10/03/20 05:44 Hgb 12.0 g/dL (14.0-18.0) L 10/03/20 05:44 Hct 39.2 % (42.0-52.0) L 10/03/20 05:44 MCV 96.8 fL (78.0-98.0) 10/03/20 05:44 Plt Count 235 thou/uL (130-400) 10/03/20 05:44 Neutrophils % 90.7 % (42.0-75.0) H 10/03/20 05:44 ABG pH 7.42 (7.35-7.45) 10/03/20 07:27 ABG pCO2 45.1 mmHg (35.0-45.0) H 10/03/20 07:27 ABG pO2 71.1 mmHg (> 80.0) 10/03/20 07:27 Sodium 144 mmol/L (136-145) 10/03/20 05:44 Potassium 5.2 mmol/L (3.5-5.1) H 10/03/20 05:44 Chloride 107 mmol/L (98-107) 10/03/20 05:44 Carbon Dioxide 27 mmol/L (23-31) 10/03/20 05:44 BUN 91 mg/dL (8.4-25.7) H 10/03/20 05:44 Creatinine 1.68 mg/dL (0.7-1.3) H 10/03/20 05:44 Glucose 187 mg/dL (80-115) H 10/03/20 05:44 Lactic Acid 2.0 mmol/L (0.5-2.2) 09/20/20 16:06 Calcium 8.1 mg/dL (7.8-10.44) 10/03/20 05:44 Total Bilirubin 0.2 mg/dL (0.2-1.2) 09/26/20 04:03 AST 20 U/L (5-34) 09/26/20 04:03 ALT 16 U/L (8-55) 09/26/20 04:03 Alkaline Phosphatase 93 U/L (40-110) 09/26/20 04:03 Creatine Kinase 273 U/L (30-200) H 09/26/20 04:03 Troponin I 0.013 ng/mL (< 0.028) 09/20/20 16:06 C-Reactive Protein 23.08 mg/dL (= or < 0.5) H 09/24/20 03:29 B-Natriuretic Peptide 21.2 pg/mL (0-100) 09/20/20 10:13 Serum Total Protein 6.2 g/dL (5.8-8.1) 09/26/20 04:03 Albumin 2.7 g/dL (3.4-4.8) L 10/02/20 03:37 Urine Ketones Negative mg/dL (Negative) 09/26/20 10:00 Urine Blood Large (Negative) A 09/26/20 10:00 Urine Nitrite Negative (Negative) 09/26/20 10:00 Ur Leukocyte Esterase Negative (Negative) 09/26/20 10:00 Urine RBC 11-20 HPF (0-3) A 09/26/20 10:00 Urine WBC 0-3 HPF (0-3) 09/26/20 10:00 Ur Squamous Epith Cells 0-3 HPF (0-3) 09/26/20 10:00 Urine Bacteria None Seen HPF (None Seen) 09/26/20 10:00 Sodium 144 mmol/L (136-145) 10/03/20 05:44 Potassium 5.2 mmol/L (3.5-5.1) H 10/03/20 05:44 Chloride 107 mmol/L (98-107) 10/03/20 05:44 Carbon Dioxide 27 mmol/L (23-31) 10/03/20 05:44 Anion Gap 15 mmol/L (10-20) 10/03/20 05:44 BUN 91 mg/dL (8.4-25.7) H 10/03/20 05:44 Creatinine 1.68 mg/dL (0.7-1.3) H 10/03/20 05:44 Glucose 187 mg/dL (80-115) H 10/03/20 05:44 Calcium 8.1 mg/dL (7.8-10.44) 10/03/20 05:44 Phosphorus 6.9 mg/dL (2.3-4.7) H 09/29/20 03:35 Magnesium 3.0 mg/dL (1.6-2.6) H 09/29/20 03:35 Albumin 2.7 g/dL (3.4-4.8) L 10/02/20 03:37 Nephrology AP PN - Plan ASSESSMENT: Acute renal failure: ATN from Hemodynamic factors related to poor perfusion as well as cytokine-mediated injury related to sepsis, with possible contribution from Contrast-induced nephropathy. BUN/Creat continue to trend down with good Urine output. In polyuric phase of renal recovery. Hyperkalemia: TAMI and acidosis. Recurrent Hypernatremia Metabolic acidosis: Resolved with alkali therapy Respiratory acidosis: Improved with vent adjustment. Hypoalbuminemia Acute respiratory failure due to Covid Pneumonia: still intubated. Hypocalcemia PLAN Give a dose of kayexalate Continue tube feeding with increase free water flushess. Monitor renal function, electrolytes as well as intake and output. Patient is at risk of dehydration given polyuric phase of renal recovery Other treatment as per pulley maintainer.
--- NOTE | 2020-10-03 09:53 | RAD ---
PORTABLE CHEST: INDICATION: Pneumonia followup. COMPARISON: 10/02/2020. FINDINGS: ET tube and NG tube remain in place. Bilateral hazy and diffuse infiltrates again noted. Elevated hemidiaphragms and small effusions agai n noted. No significant interval change. POS: AGW
[2020-10-03] MEDS: fentaNYL Citrate/PF 2,000 MCG in Sodium Chloride 0.9% 60 ML IV SCH (10:04)
--- NOTE | 2020-10-03 13:08 | PDOC.HOSPP ---
- Subjective Encounter Date: 10/03/20 Encounter Time: 10:20 Subjective: Patient seen this morning. He is still on the vent running propofol. He is on tube feed and tolerating it. His potassium is mildly elevated at 5.2 and sodium improved. He is getting more frequent free water. - Objective Vital Signs & Weight: Vital Signs (12 hours) Temp Pulse Resp BP Pulse Ox 10/03/20 11:02 74 10/03/20 10:00 29 H 10/03/20 08:37 75 10/03/20 08:00 26 H 98 10/03/20 06:00 24 H 10/03/20 05:00 98.4 F 10/03/20 04:00 26 H 10/03/20 02:51 80 156/80 H 10/03/20 02:00 26 H Weight Admit Weight 236 lb Weight 249 lb 5.485 oz Most Recent Monitor Data Heart Rate from ECG 74 NIBP 136/86 NIBP BP-Mean 102 Respiration from ECG 26 SpO2 95 I&O: 10/02/20 10/03/20 10/04/20 06:59 06:59 06:59 Intake Total 1639.1 3160 200 Output Total 3140 3325 725 Balance -1500.9 -165 -525 Result Diagrams: 10/03/20 05:44 10/03/20 05:44 Additional Labs: Accuchecks 10/03/20 10/03/20 10/03/20 09:21 05:08 00:42 POC Glucose 146 H 174 H 131 H 10/02/20 22:42 POC Glucose 120 H Hospitalist ROS - Medication Medications: Active Medications Generic Name Dose Route Start Last Admin Trade Name Freq PRN Reason Stop Dose Admin Acetaminophen 1,000 mg 09/20/20 15:19 09/24/20 08:16 Acetaminophen 500 Mg Tab PO 1,000 mg Q6H PRN Administration Mild Pain (1-3) Apixaban 5 mg 09/24/20 09:00 10/03/20 08:21 Apixaban 5 Mg Tab PER TUBE 5 mg BID LUCIEN Administration Arformoterol Tartrate 15 mcg 09/25/20 18:30 10/03/20 08:31 Arformoterol 15 Mcg/2 Ml Neb NEB 15 mcg BID-RT LUCIEN Administration Ascorbic Acid 1,000 mg 09/21/20 09:00 10/03/20 08:20 Ascorbic Acid 500 Mg Chewable Tablet PO 1,000 mg DAILY LUCIEN Administration Budesonide 0.5 mg 09/25/20 18:30 10/03/20 08:31 Budesonide 0.5 Mg/2 Ml Neb NEB 0.5 mg BID-RT LUCIEN Administration Cholecalciferol 5,000 units 09/24/20 21:00 10/02/20 22:17 Cholecalciferol 1,000 Units (25 Mcg) Tab PER TUBE 5,000 units HS LUCIEN Administration Dexamethasone 6 mg 09/24/20 09:00 10/03/20 08:21 Dexamethasone 4 Mg/Ml Vial SLOW IVP 6 mg BID LUCIEN Administration Famotidine 20 mg 09/25/20 21:00 10/02/20 22:15 Famotidine 20 Mg Tab PO 20 mg 2100 LUCIEN Administration Fentanyl Citrate 2,000 mcg/ 100 mls @ 0 mls/hr 09/24/20 06:30 10/03/20 10:04 Sodium Chloride IV 10/24/20 06:30 100 mls INF LUCIEN Administration Protocol Per Protocol Insulin Human Lispro 12 units 09/28/20 21:00 10/03/20 08:22 Humalog 300 Units/3 Ml Vial SC 12 units BID LUCIEN Administration Insulin Human NPH 30 unit 09/25/20 09:00 10/03/20 08:22 Nph, Human Insulin Isophane 300 Unit/3 Ml Vial SC 30 unit BID LUCIEN Administration Lorazepam 2 mg 09/24/20 06:30 10/02/20 05:15 Lorazepam 2 Mg/Ml Vial SLOW IVP 10/24/20 06:30 2 mg Q1H PRN Administration Breakthrough agitation Metoclopramide HCl 10 mg 09/25/20 09:00 10/03/20 08:21 Metoclopramide Hcl 10 Mg/2 Ml Vial IVP 10 mg 0300,0900,1500,2100 LUCIEN Administration Propofol 1,000 mg 09/24/20 06:30 10/03/20 07:15 Propofol 1,000 Mg/100 Ml Vial IV 10/24/20 06:30 1,000 mg INF PRN Administration TO ACHIEVE GOAL RASS Protocol Sodium Chloride 10 ml 09/21/20 21:00 10/03/20 08:22 Flush - Normal Saline 10 Ml Syringe IVF 10 ml Q12HR LUCIEN Administration Vecuronium [place] 10 mg 09/24/20 06:03 09/28/20 12:22 Vecuronium 10 Mg Vial IVP 10 mg Q30MIN PRN Administration Agitation Zinc Sulfate 220 mg 09/21/20 09:00 10/03/20 08:21 Zinc Sulfate 220 Mg Cap PO 220 mg DAILY LUCIEN Administration - Exam General Appearance: ill appearing General - other findings: On vent Eye: PERRL ENT: normocephalic atraumatic Neck: supple Heart: RRR, normal peripheral pulses Respiratory: CTAB, normal chest expansion Gastrointestinal: soft, normal bowel sounds Extremities: 1+ LE edema Neurological: cranial nerve grossly intact, no focal deficits Psychiatric: not oriented Hosp A/P - Plan Acute hypoxic respiratory failure secondary to COVID-19 pneumonia --On vent --Continue Decadron, --Completed remdesivir August 25 --cont Lovenox for DVT ppx -Cx-ray on seems to have improvement but still has diffuse infiltrate bilaterally and trace pleural effusion and elevated hemidiaphragm. Acute renal failure Possible contrast-induced nephropathy. Acute tubular necrosis Metabolic acidosis secondary to renal failure --improving -s/p sodium bicarb infusion as well as albumin. Uncontrolled diabetes, A1c 9.5 --Blood sugars have improved, continue Humulin N 30 units twice daily-- Dose. -Sliding scale insulin Hypertension --Controlled Hypernatremia Hyperkalemia- -patient is on tube feed - and free water. -Hyperkalemia has been treated with Kayexalate D50 as well as insulin. -Improving
--- NOTE | 2020-10-03 14:30 | PRG ---
DATE OF SERVICE: 10/03/2020 SUBJECTIVE: Mr. Pitts remains mechanically ventilated. He is afebrile. OBJECTIVE: VITAL SIGNS: Heart rates in the 70s to 80s, blood pressure 146/87, respiratory rate is 26. Intake and outputs -165 mL. LUNGS: Unchanged. HEART: Unchanged. ABDOMEN: Unchanged. LABORATORY DATA: White count 12.6, hemoglobin 12.0, platelets 235. Sodium 144, potassium 5.2, chloride 107, bicarb 27, BUN 91, creatinine 1.68 which is down from 1.9. PH 7.42, CO2 of 45, pO2 of 71. His FiO2 is down to 40% now. We will down his rate. His renal function appears to be improving 13 days into his hospitalization. I suspect he is longer into this illness, but there is no way to figure this out. The admission history and physical does not document the duration of his symptoms. He will remain in isolation for now. Critical care time 30 min. Job ID: [id number] MTDD
[2020-10-03] MEDS: HumaLOG 300 UNITS/3 ML VIAL SC PRN (17:15)
[2020-10-03] MEDS: Famotidine 20 MG TAB PO SCH (21:04)
[2020-10-03] MEDS: Cholecalciferol 1,000 UNITS (25 MCG) TAB PER TUBE SCH (21:04)
[2020-10-04] MEDS: Metoclopramide HCl 10 MG/2 ML VIAL IVP SCH ×4 (03:35→20:04)
[2020-10-04 04:14] LABS: #Lymphocytes 0.6 thou/uL (1.20-3.40); #Monocytes 0.5 thou/uL (0.11-0.59); %Basophils 0.1 % (0.0-1.0); %Eosinophils 0.1 % (0.0-10.0); %Lymphocytes 5.2 % (21.0-51.0); %Neutrophils 90.5 % (42.0-75.0); Hemoglobin 11.5 g/dL (14.0-18.0); Mean Corpuscular HGB CONC 32.8 g/dL (32.0-36.0); Mean Corpuscular Hemoglobin 31.9 pg (27.0-31.0); Mean Corpuscular Volume 97.1 fL (78.0-98.0); Mean Platelet Volume 10.3 fL (7.4-10.4); Platelet Count 204 thou/uL (130-400); RBC Distribution Width 12.6 % (11.5-14.5); Red Blood Cell (RBC) Count 3.61 mill/uL (4.70-6.10); White Blood Cell (WBC) Count 12.2 thou/uL (4.8-10.8)
[2020-10-04 04:31] LABS: Anion Gap 16 mmol/L (10-20); BUN (Urea Nitrogen) 82 mg/dL (8.4-25.7); Calc. Creatinine Clearance 82 mL/min (70-130); Carbon Dioxide 27 mmol/L (23-31); Chloride 107 mmol/L (98-107); Glucose 178 mg/dL (80-115); Potassium 4.6 mmol/L (3.5-5.1); Sodium 145 mmol/L (136-145)
[2020-10-04] MEDS: HumaLOG 300 UNITS/3 ML VIAL SC PRN (05:13)
[2020-10-04] MEDS: Propofol 1,000 MG/100 ML VIAL IV PRN ×4 (05:14→20:02)
[2020-10-04] MEDS ORDERED: Morphine 2 MG/ML VIAL SLOW IVP PRN (07:00)
[2020-10-04] MEDS ORDERED: Fentanyl BOLUS 250 ML IVPB PRN (07:00)
--- NOTE | 2020-10-04 07:54 | PDOC.NEPPN ---
- Subjective Encounter Date: 10/04/20 Subjective: Seen in follow up for ARF. Developed hematuria since last night. Still intubated and ventilated. - Objective Vital Signs & Weight: Vital Signs (12 hours) Temp Resp Pulse Ox 10/04/20 06:00 26 H 10/04/20 04:00 26 H 10/04/20 02:00 29 H 10/04/20 00:00 27 H 10/03/20 22:00 26 H 10/03/20 20:00 96.9 F L 26 H 97 Weight Admit Weight 236 lb Weight 249 lb 5.485 oz Most Recent Monitor Data Heart Rate from ECG 70 NIBP 123/73 NIBP BP-Mean 89 Respiration from ECG 26 SpO2 94 I&O: 10/03/20 10/04/20 10/05/20 06:59 06:59 06:59 Intake Total 3160 3015.3 Output Total 3325 3390 Balance -165 -374.7 Result Diagrams: 10/04/20 03:37 10/04/20 03:37 Additional Labs: Accuchecks 10/03/20 10/03/20 10/03/20 21:26 17:12 09:21 POC Glucose 127 H 174 H 146 H Nephrology ROS - Medication Medications: Active Medications Generic Name Dose Route Start Last Admin Trade Name Freq PRN Reason Stop Dose Admin Acetaminophen 1,000 mg 09/20/20 15:19 09/24/20 08:16 Acetaminophen 500 Mg Tab PO 1,000 mg Q6H PRN Administration Mild Pain (1-3) Apixaban 5 mg 09/24/20 09:00 10/03/20 21:04 Apixaban 5 Mg Tab PER TUBE 5 mg BID LUCIEN Administration Arformoterol Tartrate 15 mcg 09/25/20 18:30 10/03/20 18:35 Arformoterol 15 Mcg/2 Ml Neb NEB 15 mcg BID-RT LUCIEN Administration Ascorbic Acid 1,000 mg 09/21/20 09:00 10/03/20 08:20 Ascorbic Acid 500 Mg Chewable Tablet PO 1,000 mg DAILY LUCIEN Administration Budesonide 0.5 mg 09/25/20 18:30 10/03/20 18:36 Budesonide 0.5 Mg/2 Ml Neb NEB 0.5 mg BID-RT LUCIEN Administration Cholecalciferol 5,000 units 09/24/20 21:00 10/03/20 21:04 Cholecalciferol 1,000 Units (25 Mcg) Tab PER TUBE 5,000 units HS LUCIEN Administration Dexamethasone 6 mg 09/24/20 09:00 10/03/20 21:05 Dexamethasone 4 Mg/Ml Vial SLOW IVP 6 mg BID LUCIEN Administration Famotidine 20 mg 09/25/20 21:00 10/03/20 21:04 Famotidine 20 Mg Tab PO 20 mg 2100 LUCIEN Administration Insulin Human Lispro 12 units 09/28/20 21:00 10/03/20 21:15 Humalog 300 Units/3 Ml Vial SC Not Given BID LUCIEN Insulin Human Lispro 0 units 10/01/20 13:49 10/04/20 05:13 Humalog 300 Units/3 Ml Vial SC 2 unit .MODERATE SLIDING SC PRN Administration Moderate Correctional Scale Insulin Human NPH 30 unit 09/25/20 09:00 10/03/20 21:15 Nph, Human Insulin Isophane 300 Unit/3 Ml Vial SC Not Given BID LUCIEN Metoclopramide HCl 10 mg 09/25/20 09:00 10/04/20 03:35 Metoclopramide Hcl 10 Mg/2 Ml Vial IVP 10 mg 0300,0900,1500,2100 LUCIEN Administration Propofol 1,000 mg 09/24/20 06:30 10/04/20 05:14 Propofol 1,000 Mg/100 Ml Vial IV 10/24/20 06:30 1,000 mg INF PRN Administration TO ACHIEVE GOAL RASS Protocol Sodium Chloride 10 ml 09/21/20 21:00 10/03/20 21:06 Flush - Normal Saline 10 Ml Syringe IVF 10 ml Q12HR LUCIEN Administration Vecuronium [place] 10 mg 09/24/20 06:03 09/28/20 12:22 Vecuronium 10 Mg Vial IVP 10 mg Q30MIN PRN Administration Agitation Zinc Sulfate 220 mg 09/21/20 09:00 10/03/20 08:21 Zinc Sulfate 220 Mg Cap PO 220 mg DAILY LUCIEN Administration - Exam General - other findings: sedated Eye: anicteric sclera ENT: normocephalic atraumatic ENT - other findings: ET tube is in place Neck: symmetric, no JVD Respiratory - other findings: ventilator transmitted sound noted Cardiovascular: RRR Gastrointestinal: soft, non-distended Extremities: no edema Neurological - other findings: sedated Nephrology Results - Labs Result Diagrams: 10/04/20 03:37 10/04/20 03:37 Lab results: WBC 12.2 thou/uL (4.8-10.8) H 10/04/20 03:37 Hgb 11.5 g/dL (14.0-18.0) L 10/04/20 03:37 Hct 35.1 % (42.0-52.0) L 10/04/20 03:37 MCV 97.1 fL (78.0-98.0) 10/04/20 03:37 Plt Count 204 thou/uL (130-400) 10/04/20 03:37 Neutrophils % 90.5 % (42.0-75.0) H 10/04/20 03:37 ABG pH 7.42 (7.35-7.45) 10/03/20 07:27 ABG pCO2 45.1 mmHg (35.0-45.0) H 10/03/20 07:27 ABG pO2 71.1 mmHg (> 80.0) 10/03/20 07:27 Sodium 145 mmol/L (136-145) 10/04/20 03:37 Potassium 4.6 mmol/L (3.5-5.1) 10/04/20 03:37 Chloride 107 mmol/L (98-107) 10/04/20 03:37 Carbon Dioxide 27 mmol/L (23-31) 10/04/20 03:37 BUN 82 mg/dL (8.4-25.7) H 10/04/20 03:37 Creatinine 1.43 mg/dL (0.7-1.3) H 10/04/20 03:37 Glucose 178 mg/dL (80-115) H 10/04/20 03:37 Lactic Acid 2.0 mmol/L (0.5-2.2) 09/20/20 16:06 Calcium 8.0 mg/dL (7.8-10.44) 10/04/20 03:37 Total Bilirubin 0.2 mg/dL (0.2-1.2) 09/26/20 04:03 AST 20 U/L (5-34) 09/26/20 04:03 ALT 16 U/L (8-55) 09/26/20 04:03 Alkaline Phosphatase 93 U/L (40-110) 09/26/20 04:03 Creatine Kinase 273 U/L (30-200) H 09/26/20 04:03 Troponin I 0.013 ng/mL (< 0.028) 09/20/20 16:06 C-Reactive Protein 23.08 mg/dL (= or < 0.5) H 09/24/20 03:29 B-Natriuretic Peptide 21.2 pg/mL (0-100) 09/20/20 10:13 Serum Total Protein 6.2 g/dL (5.8-8.1) 09/26/20 04:03 Albumin 2.7 g/dL (3.4-4.8) L 10/02/20 03:37 Urine Ketones Negative mg/dL (Negative) 09/26/20 10:00 Urine Blood Large (Negative) A 09/26/20 10:00 Urine Nitrite Negative (Negative) 09/26/20 10:00 Ur Leukocyte Esterase Negative (Negative) 09/26/20 10:00 Urine RBC 11-20 HPF (0-3) A 09/26/20 10:00 Urine WBC 0-3 HPF (0-3) 09/26/20 10:00 Ur Squamous Epith Cells 0-3 HPF (0-3) 09/26/20 10:00 Urine Bacteria None Seen HPF (None Seen) 09/26/20 10:00 Sodium 145 mmol/L (136-145) 10/04/20 03:37 Potassium 4.6 mmol/L (3.5-5.1) 10/04/20 03:37 Chloride 107 mmol/L (98-107) 10/04/20 03:37 Carbon Dioxide 27 mmol/L (23-31) 10/04/20 03:37 Anion Gap 16 mmol/L (10-20) 10/04/20 03:37 BUN 82 mg/dL (8.4-25.7) H 10/04/20 03:37 Creatinine 1.43 mg/dL (0.7-1.3) H 10/04/20 03:37 Glucose 178 mg/dL (80-115) H 10/04/20 03:37 Calcium 8.0 mg/dL (7.8-10.44) 10/04/20 03:37 Phosphorus 6.9 mg/dL (2.3-4.7) H 09/29/20 03:35 Magnesium 3.0 mg/dL (1.6-2.6) H 09/29/20 03:35 Albumin 2.7 g/dL (3.4-4.8) L 10/02/20 03:37 Nephrology AP PN - Plan ASSESSMENT: Acute renal failure: ATN from Hemodynamic factors related to poor perfusion as well as cytokine-mediated injury related to sepsis, with possible contribution from Contrast-induced nephropathy. BUN/Creat continue to trend down with good Urine output. Hyperkalemia: TAMI and acidosis. Resolved Hypernatremia Metabolic acidosis: Resolved with alkali therapy Respiratory acidosis: Improved with vent adjustment. Hypoalbuminemia Acute respiratory failure due to Covid Pneumonia: still intubated. Hypocalcemia Hematuria: ? spontaneous or related to trauma. Patient has bravo catheter in place. PLAN Continue tube feeding with free water flushess. Monitor renal function, electrolytes as well as intake and output. Avoid nephrotoxic agents Other treatment as per detention deputy.
--- NOTE | 2020-10-04 07:59 | RAD ---
Chest one view HISTORY: Pneumonia. Follow-up. COMPARISON: 10/03/2020. FINDINGS: Cardiac silhouette remains predominantly obscured by widespread ill-defined minimal infiltr ate throughout each lung that is predominantly homogeneous. Mediastinum is midline. Shallow its patient accentuates pulmonary markings. Endotracheal catheter and nasogastric tube remain in place. No pneumothorax. IMPRESSION : Dense widespread infiltrate and other findings are stable.
[2020-10-04] MEDS: Dexamethasone 4 mg/ml Vial SLOW IVP SCH ×2 (08:10→20:02)
[2020-10-04] MEDS: Ascorbic Acid 500 mg Chewable Tablet PO SCH (08:10)
[2020-10-04] MEDS: Zinc Sulfate 220 MG CAP PO SCH (08:10)
[2020-10-04] MEDS: Apixaban 5 MG TAB PER TUBE SCH (08:10)
[2020-10-04] MEDS: HumaLOG 300 UNITS/3 ML VIAL SC SCH ×2 (08:11→20:06)
[2020-10-04] MEDS: NPH, Human Insulin Isophane 300 UNIT/3 ML VIAL SC SCH ×2 (08:12→20:03)
[2020-10-04] MEDS: Budesonide 0.5 MG/2 ML NEB NEB SCH ×2 (08:22→20:32)
[2020-10-04] MEDS: Arformoterol 15 MCG/2 ML NEB NEB SCH ×2 (08:22→20:33)
[2020-10-04] MEDS: fentaNYL Citrate/PF 2,000 MCG in Sodium Chloride 0.9% 60 ML IV SCH (08:29)
[2020-10-04 08:44] LABS: Actual Bicarbonate (HCO3a) 28.1 mEq/L (22-28); Base Excess (BEa) 3.7 mEq/L (-2.0 to +3.0); CO2 Tension 41.7 mmHg (35.0-45.0); Calcium, Ionized (arterial) 1.15 mmol/L (1.12-1.30); Carboxyhemoglobin (COHb) 1.5 gm% (0.0-3.0); Hemoglobin (Hb) 12.8 g/dL (14.0-18.0); Potassium - ABG Lab 4.01 mmol/L (3.70-5.30); pH, Arterial 7.45 (7.35-7.45)
[2020-10-04 08:53] LABS: ALV-art Gradient 393.075 mmHg (0-20); O2 Tension (PaO2), arterial 53.9 mmHg (> 80.0); Puncture Site LRA
--- NOTE | 2020-10-04 13:45 | PDOC.HOSPP ---
- Subjective Encounter Date: 10/04/20 Encounter Time: 10:35 Subjective: Patient remains on the vent. When he is off the sedation he gets more agitated. Sats dropped significantly. He follows very simple commands. - Objective Vital Signs & Weight: Vital Signs (12 hours) Pulse Resp BP Pulse Ox 10/04/20 12:00 26 H 10/04/20 11:00 63 120/75 10/04/20 10:00 26 H 10/04/20 08:30 82 165/103 H 10/04/20 08:22 68 26 H 96 10/04/20 08:00 26 H 10/04/20 06:00 26 H 10/04/20 04:00 26 H 10/04/20 02:00 29 H Weight Admit Weight 236 lb Weight 249 lb 5.485 oz Most Recent Monitor Data Heart Rate from ECG 66 NIBP 118/70 NIBP BP-Mean 86 Respiration from ECG 26 SpO2 99 I&O: 10/03/20 10/04/20 10/05/20 06:59 06:59 06:59 Intake Total 3160 3015.3 650 Output Total 3325 3390 640 Balance -165 -374.7 10 Result Diagrams: 10/04/20 03:37 10/04/20 03:37 Additional Labs: Accuchecks 10/04/20 10/03/20 10/03/20 11:31 21:26 17:12 POC Glucose 112 H 127 H 174 H Hospitalist ROS - Medication Medications: Active Medications Generic Name Dose Route Start Last Admin Trade Name Freq PRN Reason Stop Dose Admin Acetaminophen 1,000 mg 09/20/20 15:19 09/24/20 08:16 Acetaminophen 500 Mg Tab PO 1,000 mg Q6H PRN Administration Mild Pain (1-3) Apixaban 5 mg 09/24/20 09:00 10/04/20 08:10 Apixaban 5 Mg Tab PER TUBE 5 mg BID LUCIEN Administration Arformoterol Tartrate 15 mcg 09/25/20 18:30 10/04/20 08:22 Arformoterol 15 Mcg/2 Ml Neb NEB 15 mcg BID-RT LUCIEN Administration Ascorbic Acid 1,000 mg 09/21/20 09:00 10/04/20 08:10 Ascorbic Acid 500 Mg Chewable Tablet PO 1,000 mg DAILY LUCIEN Administration Budesonide 0.5 mg 09/25/20 18:30 10/04/20 08:22 Budesonide 0.5 Mg/2 Ml Neb NEB 0.5 mg BID-RT LUCIEN Administration Cholecalciferol 5,000 units 09/24/20 21:00 10/03/20 21:04 Cholecalciferol 1,000 Units (25 Mcg) Tab PER TUBE 5,000 units HS LUCIEN Administration Dexamethasone 6 mg 09/24/20 09:00 10/04/20 08:10 Dexamethasone 4 Mg/Ml Vial SLOW IVP 6 mg BID LUCIEN Administration Famotidine 20 mg 09/25/20 21:00 10/03/20 21:04 Famotidine 20 Mg Tab PO 20 mg 2100 LUCIEN Administration Fentanyl Citrate 2,000 mcg/ 100 mls @ 0 mls/hr 10/04/20 07:00 10/04/20 08:29 Sodium Chloride IV 11/03/20 07:00 100 mls INF LUCIEN Administration Protocol Per Protocol Insulin Human Lispro 12 units 09/28/20 21:00 10/04/20 08:11 Humalog 300 Units/3 Ml Vial SC 12 units BID LUCIEN Administration Insulin Human Lispro 0 units 10/01/20 13:49 10/04/20 05:13 Humalog 300 Units/3 Ml Vial SC 2 unit .MODERATE SLIDING SC PRN Administration Moderate Correctional Scale Insulin Human NPH 30 unit 09/25/20 09:00 10/04/20 08:12 Nph, Human Insulin Isophane 300 Unit/3 Ml Vial SC 30 unit BID LUCIEN Administration Metoclopramide HCl 10 mg 09/25/20 09:00 10/04/20 08:10 Metoclopramide Hcl 10 Mg/2 Ml Vial IVP 10 mg 0300,0900,1500,2100 LUCIEN Administration Propofol 1,000 mg 09/24/20 06:30 10/04/20 11:08 Propofol 1,000 Mg/100 Ml Vial IV 10/24/20 06:30 1,000 mg INF PRN Administration TO ACHIEVE GOAL RASS Protocol Sodium Chloride 10 ml 09/21/20 21:00 10/04/20 08:10 Flush - Normal Saline 10 Ml Syringe IVF 10 ml Q12HR LUCIEN Administration Vecuronium [place] 10 mg 09/24/20 06:03 09/28/20 12:22 Vecuronium 10 Mg Vial IVP 10 mg Q30MIN PRN Administration Agitation Zinc Sulfate 220 mg 09/21/20 09:00 12/31/20 08:10 Zinc Sulfate 220 Mg Cap PO 220 mg DAILY LUCIEN Administration - Exam General Appearance: ill appearing General - other findings: On vent Eye: PERRL ENT: normocephalic atraumatic Neck: supple Respiratory: normal chest expansion Neurological: cranial nerve grossly intact, no focal deficits Psychiatric: not oriented Hosp A/P - Plan Acute hypoxic respiratory failure secondary to COVID-19 pneumonia --On vent --Continue Decadron, --Completed remdesivir August 25 --cont Lovenox for DVT ppx -Cx-ray on seems to have improvement but still has diffuse infiltrate bilaterally and trace pleural effusion and elevated hemidiaphragm. Acute renal failure Possible contrast-induced nephropathy. Acute tubular necrosis Metabolic acidosis secondary to renal failure --improving -s/p sodium bicarb infusion as well as albumin. Uncontrolled diabetes, A1c 9.5 --Blood sugars have improved, continue Humulin N 30 units twice daily-- Dose. -Sliding scale insulin Hypertension --Controlled Hypernatremia Hyperkalemia- -patient is on tube feed - and free water. -Hyperkalemia has been treated with Kayexalate D50 as well as insulin. -Improving
--- NOTE | 2020-10-04 17:40 | PRG ---
DATE OF SERVICE: 10/04/2020 SUBJECTIVE: Mr. Pitts remains mechanically ventilated. He is 14 days into his hospitalization, but it is unclear reviewing records how long he had symptoms prior to admission. It would be nice to discontinue his isolation, but we will probably need to wait 5 or 6 more days. OBJECTIVE: VITAL SIGNS: Current heart rate 60, blood pressure 121/70, FiO2 is down to 40%. He is afebrile. LUNGS: Clear. HEART: Regular rhythm. ABDOMEN: Soft. EXTREMITIES: Without asymmetry. LABORATORY DATA: White count 12.2, hemoglobin 11.5, platelets 204. Sodium 145, potassium 4.6, chloride 107, bicarb 27, BUN 82, and creatinine 1.43. IMPRESSION: 1. COVID pneumonia with respiratory failure, improving. 2. Acute renal failure on chronic kidney disease, improving. PLAN: Continue slow decrease in his ventilatory support. Probably, not weanable for a few more days. I suspect will be able to avoid a tracheostomy in him hopefully. Job ID: [id number]
[2020-10-04] MEDS: Cholecalciferol 1,000 UNITS (25 MCG) TAB PER TUBE SCH (20:01)
[2020-10-04] MEDS: Apixaban 2.5 MG TAB PER TUBE SCH (20:05)
[2020-10-04] MEDS: Famotidine 20 MG TAB PO SCH (20:05)
[2020-10-05] MEDS: Metoclopramide HCl 10 MG/2 ML VIAL IVP SCH ×4 (04:00→21:51)
[2020-10-05] MEDS: Propofol 1,000 MG/100 ML VIAL IV PRN ×4 (04:00→22:38)
[2020-10-05 04:08] LABS: #Lymphocytes 0.7 thou/uL (1.20-3.40); #Monocytes 0.5 thou/uL (0.11-0.59); #Neutrophils 14.9 thou/uL (1.40-6.50); %Basophils 0.2 % (0.0-1.0); %Eosinophils 0.3 % (0.0-10.0); %Lymphocytes 4.3 % (21.0-51.0); %Monocytes 2.9 % (0.0-10.0); %Neutrophils 92.4 % (42.0-75.0); Hemoglobin 12.6 g/dL (14.0-18.0); Mean Corpuscular HGB CONC 31.4 g/dL (32.0-36.0); Mean Corpuscular Hemoglobin 30.3 pg (27.0-31.0); Mean Corpuscular Volume 96.7 fL (78.0-98.0); Mean Platelet Volume 9.7 fL (7.4-10.4); Platelet Count 209 thou/uL (130-400); RBC Distribution Width 12.7 % (11.5-14.5); Red Blood Cell (RBC) Count 4.15 mill/uL (4.70-6.10); White Blood Cell (WBC) Count 16.1 thou/uL (4.8-10.8)
[2020-10-05 04:26] LABS: Anion Gap 16 mmol/L (10-20); BUN (Urea Nitrogen) 74 mg/dL (8.4-25.7); Calc. Creatinine Clearance 78 mL/min (70-130); Calcium 8.6 mg/dL (7.8-10.44); Carbon Dioxide 25 mmol/L (23-31); Chloride 107 mmol/L (98-107); Glucose 170 mg/dL (80-115); Potassium 4.5 mmol/L (3.5-5.1); Sodium 143 mmol/L (136-145)
[2020-10-05 07:13] LABS: Actual Bicarbonate (HCO3a) 25.6 mEq/L (22-28); Base Excess (BEa) 1.5 mEq/L (-2.0 to +3.0); CO2 Tension 38.6 mmHg (35.0-45.0); Calcium, Ionized (arterial) 1.19 mmol/L (1.12-1.30); Carboxyhemoglobin (COHb) 1.4 gm% (0.0-3.0); O2 Tension (PaO2), arterial 62.5 mmHg (> 80.0); pH, Arterial 7.44 (7.35-7.45)
[2020-10-05 07:22] LABS: Puncture Site RRA
[2020-10-05] MEDS: Budesonide 0.5 MG/2 ML NEB NEB SCH ×2 (07:23→19:21)
[2020-10-05] MEDS: Arformoterol 15 MCG/2 ML NEB NEB SCH ×2 (07:23→19:21)
--- NOTE | 2020-10-05 09:11 | PDOC.NEPPN ---
- Subjective Encounter Date: 10/05/20 Subjective: Still intubated and sedated. Still with hematuria. - Objective Vital Signs & Weight: Vital Signs (12 hours) Pulse Resp Pulse Ox 10/05/20 07:24 66 10/05/20 07:23 64 26 H 96 10/05/20 06:00 26 H 10/05/20 04:00 26 H 10/05/20 02:47 66 10/05/20 02:00 26 H 10/05/20 00:00 26 H 10/04/20 22:00 26 H Weight Admit Weight 236 lb Weight 249 lb 5.485 oz Most Recent Monitor Data Heart Rate from ECG 67 NIBP 126/76 NIBP BP-Mean 92 Respiration from ECG 26 SpO2 98 I&O: 10/04/20 10/05/20 10/06/20 06:59 06:59 06:59 Intake Total 3015.3 2763 Output Total 3390 2040 Balance -374.7 723 Result Diagrams: 10/05/20 03:56 10/05/20 03:56 Additional Labs: Accuchecks 10/04/20 10/04/20 10/04/20 22:08 16:47 11:31 POC Glucose 104 H 122 H 112 H Nephrology ROS - Medication Medications: Active Medications Generic Name Dose Route Start Last Admin Trade Name Freq PRN Reason Stop Dose Admin Acetaminophen 1,000 mg 09/20/20 15:19 09/24/20 08:16 Acetaminophen 500 Mg Tab PO 1,000 mg Q6H PRN Administration Mild Pain (1-3) Apixaban 2.5 mg 10/04/20 21:00 10/04/20 20:05 Apixaban 2.5 Mg Tab PER TUBE Not Given BID LUCIEN Arformoterol Tartrate 15 mcg 09/25/20 18:30 10/05/20 07:23 Arformoterol 15 Mcg/2 Ml Neb NEB 15 mcg BID-RT LUCIEN Administration Ascorbic Acid 1,000 mg 09/21/20 09:00 10/04/20 08:10 Ascorbic Acid 500 Mg Chewable Tablet PO 1,000 mg DAILY LUCIEN Administration Budesonide 0.5 mg 09/25/20 18:30 10/05/20 07:23 Budesonide 0.5 Mg/2 Ml Neb NEB 0.5 mg BID-RT LUCIEN Administration Cholecalciferol 5,000 units 09/24/20 21:00 10/04/20 20:01 Cholecalciferol 1,000 Units (25 Mcg) Tab PER TUBE 5,000 units HS LUCIEN Administration Dexamethasone 6 mg 09/24/20 09:00 10/04/20 20:02 Dexamethasone 4 Mg/Ml Vial SLOW IVP 6 mg BID LUCIEN Administration Famotidine 20 mg 09/25/20 21:00 10/04/20 20:05 Famotidine 20 Mg Tab PO 20 mg 2100 LUCIEN Administration Fentanyl Citrate 2,000 mcg/ 100 mls @ 0 mls/hr 10/04/20 07:00 10/04/20 08:29 Sodium Chloride IV 11/03/20 07:00 100 mls INF LUCIEN Administration Protocol Per Protocol Insulin Human Lispro 12 units 09/28/20 21:00 10/04/20 20:06 Humalog 300 Units/3 Ml Vial SC 12 units BID LUCIEN Administration Insulin Human Lispro 0 units 10/01/20 13:49 10/04/20 05:13 Humalog 300 Units/3 Ml Vial SC 2 unit .MODERATE SLIDING SC PRN Administration Moderate Correctional Scale Insulin Human NPH 30 unit 09/25/20 09:00 10/04/20 20:03 Nph, Human Insulin Isophane 300 Unit/3 Ml Vial SC 30 unit BID LUCIEN Administration Metoclopramide HCl 10 mg 09/25/20 09:00 10/05/20 04:00 Metoclopramide Hcl 10 Mg/2 Ml Vial IVP 10 mg 0300,0900,1500,2100 LUCIEN Administration Propofol 1,000 mg 09/24/20 06:30 10/05/20 04:00 Propofol 1,000 Mg/100 Ml Vial IV 10/24/20 06:30 1,000 mg INF PRN Administration TO ACHIEVE GOAL RASS Protocol Sodium Chloride 10 ml 09/21/20 21:00 10/04/20 20:03 Flush - Normal Saline 10 Ml Syringe IVF 10 ml Q12HR LUCIEN Administration Vecuronium [place] 10 mg 09/24/20 06:03 09/28/20 12:22 Vecuronium 10 Mg Vial IVP 10 mg Q30MIN PRN Administration Agitation Zinc Sulfate 220 mg 09/21/20 09:00 10/04/20 08:10 Zinc Sulfate 220 Mg Cap PO 220 mg DAILY LUCIEN Administration - Exam General - other findings: sedated. Eye: anicteric sclera ENT: normocephalic atraumatic ENT - other findings: ET tube in place Cardiovascular: RRR Gastrointestinal: soft, non-distended Gastrointestinal - other findings: Bravo in place draining bloody urine Extremities: no edema Neurological - other findings: sedated. Nephrology Results - Labs Result Diagrams: 10/05/20 03:56 10/05/20 03:56 Lab results: WBC 16.1 thou/uL (4.8-10.8) H 10/05/20 03:56 Hgb 12.6 g/dL (14.0-18.0) L 10/05/20 03:56 Hct 40.2 % (42.0-52.0) L 10/05/20 03:56 MCV 96.7 fL (78.0-98.0) 10/05/20 03:56 Plt Count 209 thou/uL (130-400) 10/05/20 03:56 Neutrophils % 92.4 % (42.0-75.0) H 10/05/20 03:56 ABG pH 7.44 (7.35-7.45) 10/05/20 07:03 ABG pCO2 38.6 mmHg (35.0-45.0) 10/05/20 07:03 ABG pO2 62.5 mmHg (> 80.0) 10/05/20 07:03 Sodium 143 mmol/L (136-145) 10/05/20 03:56 Potassium 4.5 mmol/L (3.5-5.1) 10/05/20 03:56 Chloride 107 mmol/L (98-107) 10/05/20 03:56 Carbon Dioxide 25 mmol/L (23-31) 10/05/20 03:56 BUN 74 mg/dL (8.4-25.7) H 10/05/20 03:56 Creatinine 1.52 mg/dL (0.7-1.3) H 10/05/20 03:56 Glucose 170 mg/dL (80-115) H 10/05/20 03:56 Lactic Acid 2.0 mmol/L (0.5-2.2) 09/20/20 16:06 Calcium 8.6 mg/dL (7.8-10.44) 10/05/20 03:56 Total Bilirubin 0.2 mg/dL (0.2-1.2) 09/26/20 04:03 AST 20 U/L (5-34) 09/26/20 04:03 ALT 16 U/L (8-55) 09/26/20 04:03 Alkaline Phosphatase 93 U/L (40-110) 09/26/20 04:03 Creatine Kinase 273 U/L (30-200) H 09/26/20 04:03 Troponin I 0.013 ng/mL (< 0.028) 09/20/20 16:06 C-Reactive Protein 23.08 mg/dL (= or < 0.5) H 09/24/20 03:29 B-Natriuretic Peptide 21.2 pg/mL (0-100) 09/20/20 10:13 Serum Total Protein 6.2 g/dL (5.8-8.1) 09/26/20 04:03 Albumin 2.7 g/dL (3.4-4.8) L 10/02/20 03:37 Urine Ketones Negative mg/dL (Negative) 09/26/20 10:00 Urine Blood Large (Negative) A 09/26/20 10:00 Urine Nitrite Negative (Negative) 09/26/20 10:00 Ur Leukocyte Esterase Negative (Negative) 09/26/20 10:00 Urine RBC 11-20 HPF (0-3) A 09/26/20 10:00 Urine WBC 0-3 HPF (0-3) 09/26/20 10:00 Ur Squamous Epith Cells 0-3 HPF (0-3) 09/26/20 10:00 Urine Bacteria None Seen HPF (None Seen) 09/26/20 10:00 Sodium 143 mmol/L (136-145) 10/05/20 03:56 Potassium 4.5 mmol/L (3.5-5.1) 10/05/20 03:56 Chloride 107 mmol/L (98-107) 10/05/20 03:56 Carbon Dioxide 25 mmol/L (23-31) 10/05/20 03:56 Anion Gap 16 mmol/L (10-20) 10/05/20 03:56 BUN 74 mg/dL (8.4-25.7) H 10/05/20 03:56 Creatinine 1.52 mg/dL (0.7-1.3) H 10/05/20 03:56 Glucose 170 mg/dL (80-115) H 10/05/20 03:56 Calcium 8.6 mg/dL (7.8-10.44) 10/05/20 03:56 Phosphorus 6.9 mg/dL (2.3-4.7) H 09/29/20 03:35 Magnesium 3.0 mg/dL (1.6-2.6) H 09/29/20 03:35 Albumin 2.7 g/dL (3.4-4.8) L 10/02/20 03:37 Nephrology AP PN - Plan ASSESSMENT: Acute renal failure: ATN from Hemodynamic factors related to poor perfusion as well as cytokine-mediated injury related to sepsis, with possible contribution from Contrast-induced nephropathy. BUN/Creat continue to trend down with good Urine output. Not yet back to baseline. Hyperkalemia: 2/2 TAMI and acidosis. Resolved Hypernatremia: Resolved with free water provision. Metabolic acidosis: Resolved with alkali therapy Respiratory acidosis: Improved with vent adjustment. Hypoalbuminemia Acute respiratory failure due to Covid Pneumonia: still intubated. Hypocalcemia. corrected. Hematuria: ? spontaneous or related to trauma. Patient has bravo catheter in place. PLAN Continue tube feeding with free water flushess. Monitor renal function, electrolytes as well as intake and output. Avoid nephrotoxic agents. Renaly dose all medications.
--- NOTE | 2020-10-05 09:37 | RAD ---
Chest one view HISTORY: Pneumonia. Follow-up. COMPARISON: 10/04/2020. FINDINGS: Iliac silhouette is magnified by projection. Pulmonary vasculature upper limits of normal a nd accentuated by shallow inspiration. Ill-defined parenchymal infiltrate throughout each lung are similar in appearance to the prior study. Mediastinum is midline. Lines and tubes unchanged in positi on. No evidence of pneumothorax. IMPRESSION : Diffuse bilateral infiltrate and other findings are stable.
[2020-10-05] MEDS: Zinc Sulfate 220 MG CAP PO SCH (10:05)
[2020-10-05] MEDS: Ascorbic Acid 500 mg Chewable Tablet PO SCH (10:05)
[2020-10-05] MEDS: Dexamethasone 4 mg/ml Vial SLOW IVP SCH ×2 (10:06→21:51)
[2020-10-05] MEDS: HumaLOG 300 UNITS/3 ML VIAL SC SCH ×3 (10:06→22:13)
[2020-10-05] MEDS: NPH, Human Insulin Isophane 300 UNIT/3 ML VIAL SC SCH ×3 (10:07→22:13)
[2020-10-05] MEDS: Apixaban 2.5 MG TAB PER TUBE SCH ×2 (10:11→21:50)
--- NOTE | 2020-10-05 10:23 | PRG ---
DATE OF SERVICE: 10/05/2020 SUBJECTIVE: Mr. Pitts is a 65-year-old gentleman, day #15 in the hospital, on the vent. OBJECTIVE: VITAL SIGNS: Temperature 96, pulse 64, respiratory set at 26, sats are 93% on 40% bilevel, blood pressure 126/76. CHEST: Wheezing. No crackles. CARDIAC: Normal S1, S2. No gallops. ABDOMEN: No masses. LABORATORY DATA: PO2 of 62, pCO2 of rate 26, 40%, low PEEP of 10. White count 16,000, H and H unremarkable. Blood sugar 170. IMPRESSION: Respiratory failure, leahy positive pneumonia, diabetes, and azotemia. He is on no steroids. We will restart low-dose steroids in this gentleman. One-half hour of critical care time. Job ID: [id number]
--- NOTE | 2020-10-05 14:57 | PDOC.HOSPP ---
- Subjective Encounter Date: 10/05/20 Encounter Time: 11:20 Subjective: Patient remains on the vent. White count is slightly higher. His blood glucose is controlled. - Objective Vital Signs & Weight: Vital Signs (12 hours) Pulse Resp BP Pulse Ox 10/05/20 14:21 53 L 10/05/20 11:09 58 L 136/77 10/05/20 07:24 66 10/05/20 07:23 64 26 H 96 10/05/20 06:00 26 H 10/05/20 04:00 26 H Weight Admit Weight 236 lb Weight 249 lb 5.485 oz Most Recent Monitor Data Heart Rate from ECG 56 NIBP 114/70 NIBP BP-Mean 84 Respiration from ECG 16 SpO2 98 I&O: 10/04/20 10/05/20 10/06/20 06:59 06:59 06:59 Intake Total 3015.3 2763 Output Total 3390 2040 Balance -374.7 723 Result Diagrams: 10/05/20 03:56 10/05/20 03:56 Additional Labs: Accuchecks 10/05/20 10/04/20 10/04/20 10:29 22:08 16:47 POC Glucose 142 H 104 H 122 H Hospitalist ROS - Medication Medications: Active Medications Generic Name Dose Route Start Last Admin Trade Name Freq PRN Reason Stop Dose Admin Acetaminophen 1,000 mg 09/20/20 15:19 09/24/20 08:16 Acetaminophen 500 Mg Tab PO 1,000 mg Q6H PRN Administration Mild Pain (1-3) Apixaban 2.5 mg 10/04/20 21:00 10/05/20 10:11 Apixaban 2.5 Mg Tab PER TUBE 2.5 mg BID LUCIEN Administration Arformoterol Tartrate 15 mcg 09/25/20 18:30 10/05/20 07:23 Arformoterol 15 Mcg/2 Ml Neb NEB 15 mcg BID-RT LUCIEN Administration Ascorbic Acid 1,000 mg 09/21/20 09:00 10/05/20 10:05 Ascorbic Acid 500 Mg Chewable Tablet PO 1,000 mg DAILY LUCIEN Administration Budesonide 0.5 mg 09/25/20 18:30 10/05/20 07:23 Budesonide 0.5 Mg/2 Ml Neb NEB 0.5 mg BID-RT LUCIEN Administration Cholecalciferol 5,000 units 09/24/20 21:00 10/04/20 20:01 Cholecalciferol 1,000 Units (25 Mcg) Tab PER TUBE 5,000 units HS LUCIEN Administration Dexamethasone 6 mg 09/24/20 09:00 10/05/20 10:06 Dexamethasone 4 Mg/Ml Vial SLOW IVP 6 mg BID LUCIEN Administration Famotidine 20 mg 09/25/20 21:00 10/04/20 20:05 Famotidine 20 Mg Tab PO 20 mg 2100 LUCIEN Administration Fentanyl Citrate 2,000 mcg/ 100 mls @ 0 mls/hr 10/04/20 07:00 10/04/20 08:29 Sodium Chloride IV 11/03/20 07:00 100 mls INF LUCIEN Administration Protocol Per Protocol Insulin Human Lispro 12 units 09/28/20 21:00 10/05/20 10:06 Humalog 300 Units/3 Ml Vial SC 12 units BID LUCIEN Administration Insulin Human Lispro 0 units 10/01/20 13:49 10/04/20 05:13 Humalog 300 Units/3 Ml Vial SC 2 unit .MODERATE SLIDING SC PRN Administration Moderate Correctional Scale Insulin Human NPH 30 unit 09/25/20 09:00 10/05/20 10:07 Nph, Human Insulin Isophane 300 Unit/3 Ml Vial SC 30 unit BID LUCIEN Administration Metoclopramide HCl 10 mg 09/25/20 09:00 10/05/20 10:06 Metoclopramide Hcl 10 Mg/2 Ml Vial IVP 10 mg 0300,0900,1500,2100 LUCIEN Administration Propofol 1,000 mg 09/24/20 06:30 10/05/20 10:08 Propofol 1,000 Mg/100 Ml Vial IV 10/24/20 06:30 1,000 mg INF PRN Administration TO ACHIEVE GOAL RASS Protocol Sodium Chloride 10 ml 09/21/20 21:00 10/05/20 10:07 Flush - Normal Saline 10 Ml Syringe IVF 10 ml Q12HR LUCIEN Administration Vecuronium [place] 10 mg 09/24/20 06:03 09/28/20 12:22 Vecuronium 10 Mg Vial IVP 10 mg Q30MIN PRN Administration Agitation Zinc Sulfate 220 mg 09/21/20 09:00 10/05/20 10:05 Zinc Sulfate 220 Mg Cap PO 220 mg DAILY LUCIEN Administration - Exam General - other findings: On vent Eye: PERRL ENT: normocephalic atraumatic Neck: supple Respiratory: normal chest expansion Gastrointestinal: soft, normal bowel sounds Psychiatric: not oriented Hosp A/P - Plan Acute hypoxic respiratory failure secondary to COVID-19 pneumonia --On vent --Continue Decadron, --Completed remdesivir August 25 --cont Lovenox for DVT ppx -Cx-ray seems to have improvement but still has diffuse infiltrate bilaterally and trace pleural effusion and elevated hemidiaphragm. Acute renal failure Possible contrast-induced nephropathy. Acute tubular necrosis Metabolic acidosis secondary to renal failure --improving -s/p sodium bicarb infusion as well as albumin. Uncontrolled diabetes, A1c 9.5 --Blood sugars have improved, continue Humulin twice daily-- -Sliding scale insulin Hypertension --Controlled Hypernatremia--- resolved Hyperkalemia-resolved -patient is on tube feed - and free water. -Hyperkalemia has been treated with Kayexalate D50 as well as insulin. -Improving -Inflammatory markers have been ordered to monitor the clinical progression
[2020-10-05] MEDS: HumaLOG 300 UNITS/3 ML VIAL SC PRN (16:40)
[2020-10-05] MEDS: fentaNYL Citrate/PF 2,000 MCG in Sodium Chloride 0.9% 60 ML IV SCH (17:27)
[2020-10-05] MEDS: Cholecalciferol 1,000 UNITS (25 MCG) TAB PER TUBE SCH (21:50)
[2020-10-05] MEDS: Famotidine 20 MG TAB PO SCH (21:52)
[2020-10-06 04:35] LABS: #Basophils 0.1 thou/uL (0.0-0.2); #Eosinphils 0.1 thou/uL (0.0-0.7); #Lymphocytes 0.6 thou/uL (1.20-3.40); #Monocytes 0.5 thou/uL (0.11-0.59); #Neutrophils 11.1 thou/uL (1.40-6.50); %Basophils 0.4 % (0.0-1.0); %Eosinophils 0.5 % (0.0-10.0); %Monocytes 4.1 % (0.0-10.0); Mean Corpuscular HGB CONC 31.8 g/dL (32.0-36.0); Mean Corpuscular Hemoglobin 30.9 pg (27.0-31.0); Mean Corpuscular Volume 97.2 fL (78.0-98.0); Mean Platelet Volume 10.6 fL (7.4-10.4); Platelet Count 187 thou/uL (130-400); RBC Distribution Width 12.7 % (11.5-14.5); Red Blood Cell (RBC) Count 3.87 mill/uL (4.70-6.10); White Blood Cell (WBC) Count 12.3 thou/uL (4.8-10.8)
[2020-10-06] MEDS: Metoclopramide HCl 10 MG/2 ML VIAL IVP SCH ×4 (04:51→22:17)
[2020-10-06 05:03] LABS: Anion Gap 13 mmol/L (10-20); BUN (Urea Nitrogen) 73 mg/dL (8.4-25.7); Calc. Creatinine Clearance 82 mL/min (70-130); Calcium 8.5 mg/dL (7.8-10.44); Carbon Dioxide 27 mmol/L (23-31); Chloride 107 mmol/L (98-107); Glucose 153 mg/dL (80-115); Potassium 4.4 mmol/L (3.5-5.1); Sodium 143 mmol/L (136-145)
[2020-10-06] MEDS: Propofol 1,000 MG/100 ML VIAL IV PRN ×4 (06:04→19:47)
[2020-10-06] MEDS: Arformoterol 15 MCG/2 ML NEB NEB SCH ×2 (08:30→18:40)
[2020-10-06] MEDS: Budesonide 0.5 MG/2 ML NEB NEB SCH ×2 (08:30→18:40)
[2020-10-06] MEDS: Apixaban 2.5 MG TAB PER TUBE SCH ×2 (08:54→22:16)
[2020-10-06] MEDS: Ascorbic Acid 500 mg Chewable Tablet PO SCH (08:54)
[2020-10-06] MEDS: Dexamethasone 4 mg/ml Vial SLOW IVP SCH ×2 (08:54→22:17)
[2020-10-06] MEDS: HumaLOG 300 UNITS/3 ML VIAL SC SCH ×4 (08:55→23:02)
[2020-10-06] MEDS: NPH, Human Insulin Isophane 300 UNIT/3 ML VIAL SC SCH ×4 (08:55→23:02)
--- NOTE | 2020-10-06 08:56 | RAD ---
EXAM: Chest one view: HISTORY: Follow-up pneumonia COMPARISON: 10/05/2020 FINDINGS: Stable life-support tubes. Heart size: Within normal limits. Lungs: Stable extensive bilateral interstitial, alveolar, and groundglass opacity changes. No significant pleural effusion. IMPRESSION: Stable exam.
[2020-10-06] MEDS ORDERED: methylPREDNISolone Sod Succ 40 MG VIAL IVP SCH (09:00)
[2020-10-06 09:01] LABS: Actual Bicarbonate (HCO3a) 26.5 mEq/L (22-28); Base Excess (BEa) 0.8 mEq/L (-2.0 to +3.0); CO2 Tension 46.6 mmHg (35.0-45.0); Calcium, Ionized (arterial) 1.22 mmol/L (1.12-1.30); Hemoglobin (Hb) 14.5 g/dL (14.0-18.0); O2 Tension (PaO2), arterial 75.3 mmHg (> 80.0); Potassium - ABG Lab 4.41 mmol/L (3.70-5.30); pH, Arterial 7.37 (7.35-7.45)
[2020-10-06 09:02] LABS: Puncture Site LRA
[2020-10-06] MEDS: Zinc Sulfate 220 MG CAP PO SCH (09:09)
--- NOTE | 2020-10-06 10:53 | PRG ---
DATE OF SERVICE: 10/06/2020 SUBJECTIVE: Myles Pitts, 65-year-old gentleman who is intubated on the vent with leahy positive pneumonia day 15. He looks somewhat better. OBJECTIVE: VITAL SIGNS: Sats are 100%, present settings 40% and bilevel. Blood pressure 107/66, pulse 80, respiratory rate 18. I's and O's have been good. CHEST: No wheezing. No crackles. CARDIAC: Normal S1, S2. No gallops. ABDOMEN: Soft. LABORATORY DATA: White count 10,000, H and H 12 and 37, platelet count is normal. PO2 is 75, pCO2 , BUN 73. IMPRESSION: Respiratory failure, leahy positive pneumonia, renal failure. PLAN: 1. Slowly improving. 2. Vent is being adjusted. Otherwise, we will continue Decadron, steroids, supportive care. 3. Slow weaning. One-half hour of critical care time. Job ID: [id number]
--- NOTE | 2020-10-06 13:50 | PDOC.NEPPN ---
- Subjective Encounter Date: 10/06/20 Subjective: No new problem. Still intubated. - Objective Vital Signs & Weight: Vital Signs (12 hours) Pulse Resp BP Pulse Ox 10/06/20 12:00 16 10/06/20 10:56 50 L 105/64 10/06/20 10:00 20 10/06/20 08:00 16 10/06/20 07:37 100 10/06/20 06:00 14 10/06/20 04:56 76 10/06/20 04:00 14 10/06/20 02:00 14 Weight Admit Weight 236 lb Weight 249 lb 5.485 oz Most Recent Monitor Data Heart Rate from ECG 60 NIBP 141/77 NIBP BP-Mean 98 Respiration from ECG 21 SpO2 97 I&O: 10/05/20 10/06/20 10/07/20 06:59 06:59 06:59 Intake Total 2763 2329.0 90 Output Total 2040 2685 430 Balance 723 -356.0 -340 Result Diagrams: 10/06/20 03:24 10/06/20 03:24 Additional Labs: Accuchecks 10/06/20 10/05/20 10/05/20 09:19 21:59 16:35 POC Glucose 104 H 107 H 156 H Nephrology ROS - Medication Medications: Active Medications Generic Name Dose Route Start Last Admin Trade Name Freq PRN Reason Stop Dose Admin Acetaminophen 1,000 mg 09/20/20 15:19 09/24/20 08:16 Acetaminophen 500 Mg Tab PO 1,000 mg Q6H PRN Administration Mild Pain (1-3) Apixaban 2.5 mg 10/04/20 21:00 10/06/20 08:54 Apixaban 2.5 Mg Tab PER TUBE 2.5 mg BID LUCIEN Administration Arformoterol Tartrate 15 mcg 09/25/20 18:30 10/06/20 08:30 Arformoterol 15 Mcg/2 Ml Neb NEB 15 mcg BID-RT LUCIEN Administration Ascorbic Acid 1,000 mg 09/21/20 09:00 10/06/20 08:54 Ascorbic Acid 500 Mg Chewable Tablet PO 1,000 mg DAILY LUCIEN Administration Budesonide 0.5 mg 09/25/20 18:30 10/06/20 08:30 Budesonide 0.5 Mg/2 Ml Neb NEB 0.5 mg BID-RT LUCIEN Administration Cholecalciferol 5,000 units 09/24/20 21:00 10/05/20 21:50 Cholecalciferol 1,000 Units (25 Mcg) Tab PER TUBE 5,000 units HS LUCIEN Administration Dexamethasone 6 mg 09/24/20 09:00 10/06/20 08:54 Dexamethasone 4 Mg/Ml Vial SLOW IVP 6 mg BID LUCIEN Administration Famotidine 20 mg 09/25/20 21:00 10/05/20 21:52 Famotidine 20 Mg Tab PO 20 mg 2100 LUCIEN Administration Fentanyl Citrate 2,000 mcg/ 100 mls @ 0 mls/hr 10/04/20 07:00 10/05/20 17:27 Sodium Chloride IV 11/03/20 07:00 100 mls INF LUCIEN Administration Protocol Per Protocol Insulin Human Lispro 12 units 09/28/20 21:00 10/06/20 08:55 Humalog 300 Units/3 Ml Vial SC 12 units BID LUCIEN Administration Insulin Human Lispro 0 units 10/01/20 13:49 10/05/20 16:40 Humalog 300 Units/3 Ml Vial SC 2 unit .MODERATE SLIDING SC PRN Administration Moderate Correctional Scale Insulin Human NPH 30 unit 09/25/20 09:00 10/06/20 08:55 Nph, Human Insulin Isophane 300 Unit/3 Ml Vial SC 30 unit BID LUCIEN Administration Metoclopramide HCl 10 mg 09/25/20 09:00 10/06/20 08:54 Metoclopramide Hcl 10 Mg/2 Ml Vial IVP 10 mg 0300,0900,1500,2100 LUCIEN Administration Propofol 1,000 mg 09/24/20 06:30 10/06/20 12:03 Propofol 1,000 Mg/100 Ml Vial IV 10/24/20 06:30 1,000 mg INF PRN Administration TO ACHIEVE GOAL RASS Protocol Sodium Chloride 10 ml 09/21/20 21:00 10/06/20 08:54 Flush - Normal Saline 10 Ml Syringe IVF 10 ml Q12HR LUCIEN Administration Vecuronium [place] 10 mg 09/24/20 06:03 09/28/20 12:22 Vecuronium 10 Mg Vial IVP 10 mg Q30MIN PRN Administration Agitation Zinc Sulfate 220 mg 09/21/20 09:00 10/06/20 09:09 Zinc Sulfate 220 Mg Cap PO 220 mg DAILY LUCIEN Administration - Exam General - other findings: sedated Eye: anicteric sclera ENT: normocephalic atraumatic ENT - other findings: ET tube in place Respiratory - other findings: ventilator transmitted sound noted Cardiovascular: RRR Gastrointestinal: non-distended, normal bowel sounds Gastrointestinal - other findings: Bravo cath draining dark urine Extremities: no edema Neurological - other findings: sedated Nephrology Results - Labs Result Diagrams: 10/06/20 03:24 10/06/20 03:24 Lab results: WBC 12.3 thou/uL (4.8-10.8) H 10/06/20 03:24 Hgb 12.0 g/dL (14.0-18.0) L 10/06/20 03:24 Hct 37.6 % (42.0-52.0) L 10/06/20 03:24 MCV 97.2 fL (78.0-98.0) 10/06/20 03:24 Plt Count 187 thou/uL (130-400) 10/06/20 03:24 Neutrophils % 90.0 % (42.0-75.0) H 10/06/20 03:24 ABG pH 7.37 (7.35-7.45) 10/06/20 08:45 ABG pCO2 46.6 mmHg (35.0-45.0) H 10/06/20 08:45 ABG pO2 75.3 mmHg (> 80.0) 10/06/20 08:45 Sodium 143 mmol/L (136-145) 10/06/20 03:24 Potassium 4.4 mmol/L (3.5-5.1) 10/06/20 03:24 Chloride 107 mmol/L (98-107) 10/06/20 03:24 Carbon Dioxide 27 mmol/L (23-31) 10/06/20 03:24 BUN 73 mg/dL (8.4-25.7) H 10/06/20 03:24 Creatinine 1.43 mg/dL (0.7-1.3) H 10/06/20 03:24 Glucose 153 mg/dL (80-115) H 10/06/20 03:24 Lactic Acid 2.0 mmol/L (0.5-2.2) 09/20/20 16:06 Calcium 8.5 mg/dL (7.8-10.44) 10/06/20 03:24 Total Bilirubin 0.2 mg/dL (0.2-1.2) 09/26/20 04:03 AST 20 U/L (5-34) 09/26/20 04:03 ALT 16 U/L (8-55) 09/26/20 04:03 Alkaline Phosphatase 93 U/L (40-110) 09/26/20 04:03 Creatine Kinase 273 U/L (30-200) H 09/26/20 04:03 Troponin I 0.013 ng/mL (< 0.028) 09/20/20 16:06 C-Reactive Protein 1.16 mg/dL (= or < 0.5) H 10/06/20 03:24 B-Natriuretic Peptide 21.2 pg/mL (0-100) 09/20/20 10:13 Serum Total Protein 6.2 g/dL (5.8-8.1) 09/26/20 04:03 Albumin 2.9 g/dL (3.4-4.8) L 10/06/20 03:24 Urine Ketones Negative mg/dL (Negative) 09/26/20 10:00 Urine Blood Large (Negative) A 09/26/20 10:00 Urine Nitrite Negative (Negative) 09/26/20 10:00 Ur Leukocyte Esterase Negative (Negative) 09/26/20 10:00 Urine RBC 11-20 HPF (0-3) A 09/26/20 10:00 Urine WBC 0-3 HPF (0-3) 09/26/20 10:00 Ur Squamous Epith Cells 0-3 HPF (0-3) 09/26/20 10:00 Urine Bacteria None Seen HPF (None Seen) 09/26/20 10:00 Sodium 143 mmol/L (136-145) 10/06/20 03:24 Potassium 4.4 mmol/L (3.5-5.1) 10/06/20 03:24 Chloride 107 mmol/L (98-107) 10/06/20 03:24 Carbon Dioxide 27 mmol/L (23-31) 10/06/20 03:24 Anion Gap 13 mmol/L (10-20) 10/06/20 03:24 BUN 73 mg/dL (8.4-25.7) H 10/06/20 03:24 Creatinine 1.43 mg/dL (0.7-1.3) H 10/06/20 03:24 Glucose 153 mg/dL (80-115) H 10/06/20 03:24 Calcium 8.5 mg/dL (7.8-10.44) 10/06/20 03:24 Phosphorus 6.9 mg/dL (2.3-4.7) H 09/29/20 03:35 Magnesium 3.0 mg/dL (1.6-2.6) H 09/29/20 03:35 Albumin 2.9 g/dL (3.4-4.8) L 10/06/20 03:24 Nephrology AP PN - Plan ASSESSMENT: Acute renal failure: ATN from Hemodynamic factors related to poor perfusion as well as cytokine-mediated injury related to sepsis, with possible contribution from Contrast-induced nephropathy. BUN/Creat continue to trend down with good Urine output. Not yet back to baseline. Hyperkalemia: 2/2 TAMI and acidosis. Resolved Hypernatremia: Resolved with free water provision. Metabolic acidosis: Resolved with alkali therapy Respiratory acidosis: Improved with vent adjustment. Hypoalbuminemia Acute respiratory failure due to Covid Pneumonia: still intubated. Hypocalcemia. corrected. Hematuria: ? spontaneous or related to trauma. Patient has bravo catheter in place. PLAN Continue tube feeding with free water flushes. Monitor renal function, electrolytes as well as intake and output.
[2020-10-06] MEDS: HumaLOG 300 UNITS/3 ML VIAL SC PRN (15:36)
--- NOTE | 2020-10-06 21:31 | PDOC.HOSPP ---
- Subjective Encounter Date: 10/06/20 Encounter Time: 14:30 non-verbal Subjective: Patient evaluated for respiratory failure due to COVID 19. Remains on mechanical ventilation. - Objective Vital Signs & Weight: Vital Signs (12 hours) Pulse Resp BP Pulse Ox 10/06/20 20:00 26 H 10/06/20 19:00 97 10/06/20 18:41 60 10/06/20 18:40 59 L 24 H 95 10/06/20 18:00 27 H 10/06/20 16:00 24 H 10/06/20 15:45 55 L 117/58 L 10/06/20 14:00 20 10/06/20 12:00 16 10/06/20 10:56 50 L 105/64 10/06/20 10:00 20 Weight Admit Weight 236 lb Weight 249 lb 5.485 oz Most Recent Monitor Data Heart Rate from ECG 62 NIBP 108/63 NIBP BP-Mean 78 Respiration from ECG 21 SpO2 96 I&O: 10/05/20 10/06/20 10/07/20 06:59 06:59 06:59 Intake Total 2763 2329.0 396 Output Total 2040 2685 1085 Balance 723 -356.0 -689 Result Diagrams: 10/06/20 03:24 10/06/20 03:24 Additional Labs: Accuchecks 10/06/20 10/06/20 10/05/20 15:24 09:19 21:59 POC Glucose 186 H 104 H 107 H Abnormal Lab Results - Last 48 hrs 10/05/20 03:56: BUN 74 H, Creatinine 1.52 H 10/05/20 03:56: WBC 16.1 H, RBC 4.15 L, Hgb 12.6 L, Hct 40.2 L, MCHC 31.4 L, Neutrophils % 92.4 H, Lymphocytes % 4.3 L, Neutrophils # 14.9 H, Lymphocytes # 0.7 L 10/05/20 07:03: ABG O2 Sat (Measured) 91.4 L, ABG O2 Content 16.4 L, ABG Hematocrit 38.0 L, ABG Hemoglobin 13.0 L, ABG Oxyhemoglobin 89.8 L, ABG Deoxyhemoglobin 8.5 H, A-a O2 Gradient 174.450 H, Chloride 107 H 10/05/20 17:25: D-Dimer 2.65 H 10/06/20 03:24: BUN 73 H, Creatinine 1.43 H 10/06/20 03:24: WBC 12.3 H, RBC 3.87 L, Hgb 12.0 L, Hct 37.6 L, MCHC 31.8 L, MPV 10.6 H, Neutrophils % 90.0 H, Lymphocytes % 5.0 L, Neutrophils # 11.1 H, Lymphocytes # 0.6 L 10/06/20 03:24: Albumin 2.9 L 10/06/20 03:24: C-Reactive Protein 1.16 H 10/06/20 03:24: Ferritin 849.23 H 10/06/20 08:45: ABG pCO2 46.6 H, ABG O2 Sat (Measured) 93.7 L, ABG Oxyhemoglobin 92.5 L, ABG Deoxyhemoglobin 6.2 H, A-a O2 Gradient 151.650 H, Chloride 108 H Microbiology - Entire Visit 09/26/20 10:00 Urine bravo catheter Urine Culture - Final NO GROWTH AT 48 HOURS 09/20/20 10:12 Venous blood - Left Hand Blood Culture - Final NO GROWTH IN 5 DAYS 09/20/20 10:12 Venous blood - Left Arm Blood Culture - Final NO GROWTH IN 5 DAYS Radiology Reviewed by me: Yes (Chest x-rayreviewed) EKG Reviewed by me: Yes (Sinus rhythm on telemetry) Hospitalist ROS - Review of Systems ROS unobtainable: due to mental status - Medication Medications: Active Medications Generic Name Dose Route Start Last Admin Trade Name Freq PRN Reason Stop Dose Admin Acetaminophen 1,000 mg 09/20/20 15:19 09/24/20 08:16 Acetaminophen 500 Mg Tab PO 1,000 mg Q6H PRN Administration Mild Pain (1-3) Apixaban 2.5 mg 10/04/20 21:00 10/06/20 08:54 Apixaban 2.5 Mg Tab PER TUBE 2.5 mg BID LUCIEN Administration Arformoterol Tartrate 15 mcg 09/25/20 18:30 10/06/20 18:40 Arformoterol 15 Mcg/2 Ml Neb NEB 15 mcg BID-RT LUCIEN Administration Ascorbic Acid 1,000 mg 09/21/20 09:00 10/06/20 08:54 Ascorbic Acid 500 Mg Chewable Tablet PO 1,000 mg DAILY LUCIEN Administration Budesonide 0.5 mg 09/25/20 18:30 10/06/20 18:40 Budesonide 0.5 Mg/2 Ml Neb NEB 0.5 mg BID-RT LUCIEN Administration Cholecalciferol 5,000 units 09/24/20 21:00 10/05/20 21:50 Cholecalciferol 1,000 Units (25 Mcg) Tab PER TUBE 5,000 units HS LUCIEN Administration Dexamethasone 6 mg 09/24/20 09:00 10/06/20 08:54 Dexamethasone 4 Mg/Ml Vial SLOW IVP 6 mg BID LUCIEN Administration Famotidine 20 mg 09/25/20 21:00 10/05/20 21:52 Famotidine 20 Mg Tab PO 20 mg 2100 LUCIEN Administration Fentanyl Citrate 2,000 mcg/ 100 mls @ 0 mls/hr 10/04/20 07:00 10/05/20 17:27 Sodium Chloride IV 11/03/20 07:00 100 mls INF LUCIEN Administration Protocol Per Protocol Insulin Human Lispro 12 units 09/28/20 21:00 10/06/20 15:38 Humalog 300 Units/3 Ml Vial SC Not Given BID LUCIEN Insulin Human Lispro 0 units 10/01/20 13:49 10/06/20 15:36 Humalog 300 Units/3 Ml Vial SC 2 unit .MODERATE SLIDING SC PRN Administration Moderate Correctional Scale Insulin Human NPH 30 unit 09/25/20 09:00 10/06/20 15:38 Nph, Human Insulin Isophane 300 Unit/3 Ml Vial SC Not Given BID LUCIEN Metoclopramide HCl 10 mg 09/25/20 09:00 10/06/20 14:59 Metoclopramide Hcl 10 Mg/2 Ml Vial IVP 10 mg 0300,0900,1500,2100 LUCIEN Administration Propofol 1,000 mg 09/24/20 06:30 10/06/20 18:31 Propofol 1,000 Mg/100 Ml Vial IV 10/24/20 06:30 1,000 mg INF PRN Administration TO ACHIEVE GOAL RASS Protocol Sodium Chloride 10 ml 09/21/20 21:00 10/06/20 08:54 Flush - Normal Saline 10 Ml Syringe IVF 10 ml Q12HR LUCIEN Administration Vecuronium [place] 10 mg 09/24/20 06:03 09/28/20 12:22 Vecuronium 10 Mg Vial IVP 10 mg Q30MIN PRN Administration Agitation Zinc Sulfate 220 mg 09/21/20 09:00 10/06/20 09:09 Zinc Sulfate 220 Mg Cap PO 220 mg DAILY LUCIEN Administration - Exam General Appearance: ill appearing Neck: supple Heart: RRR, no rubs Respiratory: rales, rhonchi Gastrointestinal: soft, no guarding, no rigidity Neurological - other findings: Neuro/psychexam limited due to current mentation Hosp A/P - Plan Acute hypoxic respiratory failure/sepsis due to COVID 19 pneumonia requiring mechanical ventilation S/p Remdesivir Acute kidney injury Hypertension Diabetes mellitus type II Chronic anemia probably due to nutritional deficiency Hyperkalemia/hypernatremia/hyponatremiaresolved Plan: Continue supportive care. Continue IV steroids. Continue current dose of insulin with sliding scale. Recheck labs in a.m. Monitor inflammatory markers. Continue other medications as above
[2020-10-06] MEDS: Cholecalciferol 1,000 UNITS (25 MCG) TAB PER TUBE SCH (22:16)
[2020-10-06] MEDS: Famotidine 20 MG TAB PO SCH (22:17)
[2020-10-06] MEDS: fentaNYL Citrate/PF 2,000 MCG in Sodium Chloride 0.9% 60 ML IV SCH (23:29)
[2020-10-07] MEDS: Propofol 1,000 MG/100 ML VIAL IV PRN ×5 (02:50→22:04)
[2020-10-07] MEDS: Metoclopramide HCl 10 MG/2 ML VIAL IVP SCH ×4 (02:50→20:05)
--- NOTE | 2020-10-07 04:53 | PRG ---
DATE OF SERVICE: 10/06/2020 SUBJECTIVE: This morning, he remains intubated in the vent, sedated, though he is doing somewhat better. His x-ray shows improvement in his infiltrates. Oxygen level has improved. OBJECTIVE: VITAL SIGNS: His temperature is 98.9, pulse 80, saturations 100% on FiO2 of 40%, low PEEP of 10, blood pressure 106/66. CHEST: No wheezing. No crackles. CARDIAC: Normal S1 and S2. No gallops. ABDOMEN: No masses. LABORATORY DATA: White count 12,000, H and H of 12 and 37. PO2 of 75, pCO2 of 46, pH 7.37. BUN and creatinine of 73 and 1.43, and his C-reactive protein is down to 1.16, albumin 2.9. ASSESSMENT: Respiratory failure, renal failure, prerenal, leahy positive pneumonia. PLAN: Vent is being adjusted. Continue steroids, supportive care, PT. Hopefully, we can start decreasing the sedation, try and wean process. One-half hour of critical care time. Job ID: [id number]
[2020-10-07 05:20] LABS: #Lymphocytes 0.7 thou/uL (1.20-3.40); #Monocytes 0.6 thou/uL (0.11-0.59); #Neutrophils 15.7 thou/uL (1.40-6.50); %Eosinophils 0.3 % (0.0-10.0); %Lymphocytes 4.2 % (21.0-51.0); %Monocytes 3.2 % (0.0-10.0); %Neutrophils 92.3 % (42.0-75.0); Mean Corpuscular HGB CONC 31.9 g/dL (32.0-36.0); Mean Corpuscular Hemoglobin 30.7 pg (27.0-31.0); Mean Corpuscular Volume 96.2 fL (78.0-98.0); Mean Platelet Volume 10.1 fL (7.4-10.4); Platelet Count 180 thou/uL (130-400); RBC Distribution Width 12.6 % (11.5-14.5); Red Blood Cell (RBC) Count 3.91 mill/uL (4.70-6.10)
[2020-10-07 05:41] LABS: Phosphorus 4.5 mg/dL (2.3-4.7)
[2020-10-07 05:41] LABS: Anion Gap 15 mmol/L (10-20); BUN (Urea Nitrogen) 66 mg/dL (8.4-25.7); Calc. Creatinine Clearance 89 mL/min (70-130); Calcium 8.7 mg/dL (7.8-10.44); Carbon Dioxide 25 mmol/L (23-31); Chloride 106 mmol/L (98-107); Glucose 159 mg/dL (80-115); Magnesium 1.9 mg/dL (1.6-2.6); Potassium 4.6 mmol/L (3.5-5.1); Sodium 141 mmol/L (136-145)
--- NOTE | 2020-10-07 07:58 | RAD ---
Chest one view HISTORY: Pneumonia. Follow-up. COMPARISON: 10/06/2020. FINDINGS: Cardiac silhouette is magnified by projection and slightly shifted rightward with patient r otation. Lines and tubes unchanged in position. Shallow inspiration accentuates pulmonary markings. Parenchymal opacity at the right base has become slightly less dense, with better delineation of the right hemidiaphragm. Patchy infiltrate throughout the left lung is not significantly changed. No evidence of pneumothorax. IMPRESSION : Slight improvement, with improved aeration and decreased density of right basilar infiltrate. Left in filtrate unchanged.
[2020-10-07] MEDS: Apixaban 2.5 MG TAB PER TUBE SCH ×2 (09:02→20:04)
[2020-10-07] MEDS: Dexamethasone 4 mg/ml Vial SLOW IVP SCH ×2 (09:02→20:08)
[2020-10-07] MEDS: Zinc Sulfate 220 MG CAP PO SCH (09:02)
[2020-10-07] MEDS: Ascorbic Acid 500 mg Chewable Tablet PO SCH (09:02)
[2020-10-07 09:10] LABS: Actual Bicarbonate (HCO3a) 24.4 mEq/L (22-28); Base Excess (BEa) -0.2 mEq/L (-2.0 to +3.0); Calcium, Ionized (arterial) 1.23 mmol/L (1.12-1.30); Carboxyhemoglobin (COHb) 1.1 gm% (0.0-3.0); Hemoglobin (Hb) 12.1 g/dL (14.0-18.0); O2 Tension (PaO2), arterial 82.5 mmHg (> 80.0); Potassium - ABG Lab 4.19 mmol/L (3.70-5.30)
[2020-10-07] MEDS: NPH, Human Insulin Isophane 300 UNIT/3 ML VIAL SC SCH ×2 (09:19→20:06)
[2020-10-07 09:38] LABS: Puncture Site LRA
--- NOTE | 2020-10-07 09:39 | PRG ---
DATE OF SERVICE: 10/07/2020 SUBJECTIVE: Myles Pitts is a 65-year-old gentleman who is intubated on the vent, sedated. X-ray looks somewhat better today . He is oxygenating much improved. OBJECTIVE: VITAL SIGNS: Pulse 59, blood pressure 109/62. He is on 40%, low PEEP of 8 on a bilevel. CHEST: No wheezing. No crackles. CARDIAC: Normal S1, S2. No gallop. ABDOMEN: No masses. LABORATORY DATA: White count 70,000, creatinine 1.3, BUN 66. IMPRESSION: Renal failure, slowly improving; acute respiratory distress syndrome; leahy-positive pneumonia, slightly better. Vent is being adjusted. Tomorrow, we can switch him over to IMV pressure control, start weaning slowly. In the meantime, continue steroids, supportive care. He is day #16. He may need an empiric antibiotic for presumed hospital-acquired infection. One-half hour of critical care time. Job ID: [id number]
[2020-10-07] MEDS: Arformoterol 15 MCG/2 ML NEB NEB SCH ×2 (09:42→19:13)
[2020-10-07] MEDS: Budesonide 0.5 MG/2 ML NEB NEB SCH ×2 (09:46→19:13)
[2020-10-07] MEDS: HumaLOG 300 UNITS/3 ML VIAL SC SCH ×2 (10:34→20:05)
--- NOTE | 2020-10-07 15:35 | PDOC.NEPPN ---
- Subjective Encounter Date: 10/07/20 Subjective: Still intubated and sedated. No new problem. - Objective Vital Signs & Weight: Vital Signs (12 hours) Pulse Resp BP Pulse Ox 10/07/20 14:00 24 H 10/07/20 12:00 23 H 10/07/20 11:11 58 L 123/66 10/07/20 10:00 22 H 10/07/20 09:11 59 L 109/62 10/07/20 08:00 26 H 98 10/07/20 06:00 25 H 10/07/20 04:00 25 H Weight Admit Weight 236 lb Weight 249 lb 5.485 oz Most Recent Monitor Data Heart Rate from ECG 77 NIBP 103/53 NIBP BP-Mean 69 Respiration from ECG 28 SpO2 91 I&O: 10/06/20 10/07/20 10/08/20 06:59 06:59 06:59 Intake Total 2329.0 1354.2 140 Output Total 2685 1910 570 Balance -356.0 -555.8 -430 Result Diagrams: 10/07/20 05:03 10/07/20 03:30 Additional Labs: Accuchecks 10/07/20 10/06/20 10/06/20 09:19 22:27 15:24 POC Glucose 129 H 75 186 H Nephrology ROS - Medication Medications: Active Medications Generic Name Dose Route Start Last Admin Trade Name Freq PRN Reason Stop Dose Admin Acetaminophen 1,000 mg 09/20/20 15:19 09/24/20 08:16 Acetaminophen 500 Mg Tab PO 1,000 mg Q6H PRN Administration Mild Pain (1-3) Apixaban 2.5 mg 10/04/20 21:00 10/07/20 09:02 Apixaban 2.5 Mg Tab PER TUBE 2.5 mg BID LUCIEN Administration Arformoterol Tartrate 15 mcg 09/25/20 18:30 10/07/20 09:42 Arformoterol 15 Mcg/2 Ml Neb NEB 15 mcg BID-RT LUCIEN Administration Ascorbic Acid 1,000 mg 09/21/20 09:00 10/07/20 09:02 Ascorbic Acid 500 Mg Chewable Tablet PO 1,000 mg DAILY LUCIEN Administration Budesonide 0.5 mg 09/25/20 18:30 10/07/20 09:46 Budesonide 0.5 Mg/2 Ml Neb NEB 0.5 mg BID-RT LUCIEN Administration Cholecalciferol 5,000 units 09/24/20 21:00 10/06/20 22:16 Cholecalciferol 1,000 Units (25 Mcg) Tab PER TUBE 5,000 units HS LUCIEN Administration Dexamethasone 6 mg 09/24/20 09:00 10/07/20 09:02 Dexamethasone 4 Mg/Ml Vial SLOW IVP 6 mg BID LUCIEN Administration Famotidine 20 mg 09/25/20 21:00 10/06/20 22:17 Famotidine 20 Mg Tab PO 20 mg 2100 LUCIEN Administration Fentanyl Citrate 2,000 mcg/ 100 mls @ 0 mls/hr 10/04/20 07:00 10/06/20 23:29 Sodium Chloride IV 11/03/20 07:00 100 mls INF LUCIEN Administration Protocol Per Protocol Insulin Human Lispro 12 units 09/28/20 21:00 10/07/20 10:34 Humalog 300 Units/3 Ml Vial SC Not Given BID LUCIEN Insulin Human Lispro 0 units 10/01/20 13:49 10/06/20 15:36 Humalog 300 Units/3 Ml Vial SC 2 unit .MODERATE SLIDING SC PRN Administration Moderate Correctional Scale Insulin Human NPH 30 unit 09/25/20 09:00 10/07/20 09:19 Nph, Human Insulin Isophane 300 Unit/3 Ml Vial SC 30 unit BID LUCIEN Administration Metoclopramide HCl 10 mg 09/25/20 09:00 10/07/20 14:37 Metoclopramide Hcl 10 Mg/2 Ml Vial IVP 10 mg 0300,0900,1500,2100 LUCIEN Administration Propofol 1,000 mg 09/24/20 06:30 10/07/20 14:38 Propofol 1,000 Mg/100 Ml Vial IV 10/24/20 06:30 1,000 mg INF PRN Administration TO ACHIEVE GOAL RASS Protocol Sodium Chloride 10 ml 09/21/20 21:00 10/07/20 10:34 Flush - Normal Saline 10 Ml Syringe IVF 10 ml Q12HR LUCIEN Administration Vecuronium [place] 10 mg 09/24/20 06:03 09/28/20 12:22 Vecuronium 10 Mg Vial IVP 10 mg Q30MIN PRN Administration Agitation Zinc Sulfate 220 mg 09/21/20 09:00 10/07/20 09:02 Zinc Sulfate 220 Mg Cap PO 220 mg DAILY LUCIEN Administration - Exam General - other findings: Sedated Eye: anicteric sclera ENT: normocephalic atraumatic ENT - other findings: ET tube in place Respiratory - other findings: ventiltor transmitted sound noted Cardiovascular: RRR Gastrointestinal: soft, non-distended, normal bowel sounds Gastrointestinal - other findings: Nicole catheter in place draining non bloody urine Extremities: no edema Neurological - other findings: sedated Nephrology Results - Labs Result Diagrams: 10/07/20 05:03 10/07/20 03:30 Lab results: WBC 17.0 thou/uL (4.8-10.8) H 10/07/20 05:03 Hgb 12.0 g/dL (14.0-18.0) L 10/07/20 05:03 Hct 37.6 % (42.0-52.0) L 10/07/20 05:03 MCV 96.2 fL (78.0-98.0) 10/07/20 05:03 Plt Count 180 thou/uL (130-400) 10/07/20 05:03 Neutrophils % 92.3 % (42.0-75.0) H 10/07/20 05:03 ABG pH 7.40 (7.35-7.45) 10/07/20 08:55 ABG pCO2 40.0 mmHg (35.0-45.0) 10/07/20 08:55 ABG pO2 82.5 mmHg (> 80.0) H 10/07/20 08:55 Sodium 141 mmol/L (136-145) 10/07/20 03:30 Potassium 4.6 mmol/L (3.5-5.1) 10/07/20 03:30 Chloride 106 mmol/L (98-107) 10/07/20 03:30 Carbon Dioxide 25 mmol/L (23-31) 10/07/20 03:30 BUN 66 mg/dL (8.4-25.7) H 10/07/20 03:30 Creatinine 1.32 mg/dL (0.7-1.3) H 10/07/20 03:30 Glucose 159 mg/dL (80-115) H 10/07/20 03:30 Lactic Acid 2.0 mmol/L (0.5-2.2) 09/20/20 16:06 Calcium 8.7 mg/dL (7.8-10.44) 10/07/20 03:30 Total Bilirubin 0.2 mg/dL (0.2-1.2) 09/26/20 04:03 AST 20 U/L (5-34) 09/26/20 04:03 ALT 16 U/L (8-55) 09/26/20 04:03 Alkaline Phosphatase 93 U/L (40-110) 09/26/20 04:03 Creatine Kinase 273 U/L (30-200) H 09/26/20 04:03 Troponin I 0.013 ng/mL (< 0.028) 09/20/20 16:06 C-Reactive Protein 1.16 mg/dL (= or < 0.5) H 10/06/20 03:24 B-Natriuretic Peptide 21.2 pg/mL (0-100) 09/20/20 10:13 Serum Total Protein 6.2 g/dL (5.8-8.1) 09/26/20 04:03 Albumin 2.9 g/dL (3.4-4.8) L 10/06/20 03:24 Urine Ketones Negative mg/dL (Negative) 09/26/20 10:00 Urine Blood Large (Negative) A 09/26/20 10:00 Urine Nitrite Negative (Negative) 09/26/20 10:00 Ur Leukocyte Esterase Negative (Negative) 09/26/20 10:00 Urine RBC 11-20 HPF (0-3) A 09/26/20 10:00 Urine WBC 0-3 HPF (0-3) 09/26/20 10:00 Ur Squamous Epith Cells 0-3 HPF (0-3) 09/26/20 10:00 Urine Bacteria None Seen HPF (None Seen) 09/26/20 10:00 Sodium 141 mmol/L (136-145) 10/07/20 03:30 Potassium 4.6 mmol/L (3.5-5.1) 10/07/20 03:30 Chloride 106 mmol/L (98-107) 10/07/20 03:30 Carbon Dioxide 25 mmol/L (23-31) 10/07/20 03:30 Anion Gap 15 mmol/L (10-20) 10/07/20 03:30 BUN 66 mg/dL (8.4-25.7) H 10/07/20 03:30 Creatinine 1.32 mg/dL (0.7-1.3) H 10/07/20 03:30 Glucose 159 mg/dL (80-115) H 10/07/20 03:30 Calcium 8.7 mg/dL (7.8-10.44) 10/07/20 03:30 Phosphorus 4.5 mg/dL (2.3-4.7) 10/07/20 05:03 Magnesium 1.9 mg/dL (1.6-2.6) 10/07/20 03:30 Albumin 2.9 g/dL (3.4-4.8) L 10/06/20 03:24 Nephrology AP PN - Plan ASSESSMENT: Acute renal failure: ATN from Hemodynamic factors related to poor perfusion as well as cytokine-mediated injury related to sepsis, with possible contribution from Contrast-induced nephropathy. BUN/Creat continue to trend down with good Urine output. Not yet back to baseline however. Hyperkalemia: 2/2 TAMI and acidosis. Resolved Hypernatremia: Resolved with free water provision. Metabolic acidosis: Resolved with alkali therapy Hypoalbuminemia Acute respiratory failure due to Covid Pneumonia: still intubated. Hypocalcemia. corrected. Hematuria: ? spontaneous or related to trauma. Resolved. PLAN Continue tube feeding with free water flushes. Monitor renal function, electrolytes as well as intake and output. Life support management as per costing manager.
[2020-10-07] MEDS: HumaLOG 300 UNITS/3 ML VIAL SC PRN (16:24)
--- NOTE | 2020-10-07 19:12 | PDOC.HOSPP ---
- Subjective Encounter Date: 10/07/20 Encounter Time: 15:00 non-verbal Subjective: Patient evaluated for respiratory failure with multiple other comorbidities. Remains on mechanical ventilation. No overnight events. - Objective Vital Signs & Weight: Vital Signs (12 hours) Temp Pulse Resp BP Pulse Ox 10/07/20 18:00 25 H 10/07/20 16:00 97.3 F L 30 H 10/07/20 15:51 63 103/58 L 10/07/20 14:00 24 H 10/07/20 12:00 23 H 10/07/20 11:11 58 L 123/66 10/07/20 10:00 22 H 10/07/20 09:11 59 L 109/62 10/07/20 08:00 26 H 98 Weight Admit Weight 236 lb Weight 249 lb 5.485 oz Most Recent Monitor Data Heart Rate from ECG 60 NIBP 98/55 NIBP BP-Mean 69 Respiration from ECG 23 SpO2 100 I&O: 10/06/20 10/07/20 10/08/20 06:59 06:59 06:59 Intake Total 2329.0 1354.2 1299 Output Total 2685 1910 765 Balance -356.0 -555.8 534 Result Diagrams: 10/08/20 03:08 10/08/20 03:08 Additional Labs: Accuchecks 10/07/20 10/07/20 10/06/20 15:58 09:19 22:27 POC Glucose 212 H 129 H 75 EKG Reviewed by me: Yes (Sinus rhythm on telemetry) Hospitalist ROS - Review of Systems ROS unobtainable: due to mental status - Medication Medications: Active Medications Generic Name Dose Route Start Last Admin Trade Name Freq PRN Reason Stop Dose Admin Acetaminophen 1,000 mg 09/20/20 15:19 09/24/20 08:16 Acetaminophen 500 Mg Tab PO 1,000 mg Q6H PRN Administration Mild Pain (1-3) Apixaban 2.5 mg 10/04/20 21:00 10/07/20 09:02 Apixaban 2.5 Mg Tab PER TUBE 2.5 mg BID LUCIEN Administration Arformoterol Tartrate 15 mcg 09/25/20 18:30 10/07/20 09:42 Arformoterol 15 Mcg/2 Ml Neb NEB 15 mcg BID-RT LUCIEN Administration Ascorbic Acid 1,000 mg 09/21/20 09:00 10/07/20 09:02 Ascorbic Acid 500 Mg Chewable Tablet PO 1,000 mg DAILY LUCIEN Administration Budesonide 0.5 mg 09/25/20 18:30 10/07/20 09:46 Budesonide 0.5 Mg/2 Ml Neb NEB 0.5 mg BID-RT LUCIEN Administration Cholecalciferol 5,000 units 09/24/20 21:00 10/06/20 22:16 Cholecalciferol 1,000 Units (25 Mcg) Tab PER TUBE 5,000 units HS LUCIEN Administration Dexamethasone 6 mg 09/24/20 09:00 10/07/20 09:02 Dexamethasone 4 Mg/Ml Vial SLOW IVP 6 mg BID LUCIEN Administration Famotidine 20 mg 09/25/20 21:00 10/06/20 22:17 Famotidine 20 Mg Tab PO 20 mg 2100 LUCIEN Administration Fentanyl Citrate 2,000 mcg/ 100 mls @ 0 mls/hr 10/04/20 07:00 10/06/20 23:29 Sodium Chloride IV 11/03/20 07:00 100 mls INF LUCIEN Administration Protocol Per Protocol Insulin Human Lispro 12 units 09/28/20 21:00 10/07/20 10:34 Humalog 300 Units/3 Ml Vial SC Not Given BID LUCIEN Insulin Human Lispro 0 units 10/01/20 13:49 10/07/20 16:24 Humalog 300 Units/3 Ml Vial SC 3 unit .MODERATE SLIDING SC PRN Administration Moderate Correctional Scale Insulin Human NPH 30 unit 09/25/20 09:00 10/07/20 09:19 Nph, Human Insulin Isophane 300 Unit/3 Ml Vial SC 30 unit BID LUCIEN Administration Metoclopramide HCl 10 mg 09/25/20 09:00 10/07/20 14:37 Metoclopramide Hcl 10 Mg/2 Ml Vial IVP 10 mg 0300,0900,1500,2100 LUCIEN Administration Propofol 1,000 mg 09/24/20 06:30 10/07/20 14:38 Propofol 1,000 Mg/100 Ml Vial IV 10/24/20 06:30 1,000 mg INF PRN Administration TO ACHIEVE GOAL RASS Protocol Sodium Chloride 10 ml 09/21/20 21:00 10/07/20 10:34 Flush - Normal Saline 10 Ml Syringe IVF 10 ml Q12HR LUCIEN Administration Vecuronium [place] 10 mg 09/24/20 06:03 09/28/20 12:22 Vecuronium 10 Mg Vial IVP 10 mg Q30MIN PRN Administration Agitation Zinc Sulfate 220 mg 09/21/20 09:00 10/07/20 09:02 Zinc Sulfate 220 Mg Cap PO 220 mg DAILY LUCIEN Administration - Exam General - other findings: On mechanical ventilation Heart: RRR, no gallops, no rubs Respiratory: rales, rhonchi Gastrointestinal: soft, no guarding, no rigidity Extremities: no cyanosis Neurological - other findings: Neuro/psychpatient intubated on vent Hosp A/P - Plan DVT proph w/SCDs Acute hypoxic respiratory failure/sepsis due to COVID 19 pneumonia requiring mechanical ventilation S/p Remdesivir Acute kidney injury Hypertension Diabetes mellitus type II Chronic anemia probably due to nutritional deficiency Hyperkalemia/hypernatremia/hyponatremiaresolved Plan: Continue dexamethasone. Continue supportive care. Patient on Eliquis for DVT prophylaxis. Will discontinue Humalog. Continue GI prophylaxis. Continue other medications as above
[2020-10-07] MEDS: Cholecalciferol 1,000 UNITS (25 MCG) TAB PER TUBE SCH (20:04)
[2020-10-07] MEDS: Famotidine 20 MG TAB PO SCH (20:05)
[2020-10-08] MEDS: Metoclopramide HCl 10 MG/2 ML VIAL IVP SCH ×4 (02:14→21:26)
[2020-10-08 04:35] LABS: #Eosinphils 0.1 thou/uL (0.0-0.7); #Lymphocytes 0.6 thou/uL (1.20-3.40); #Monocytes 0.5 thou/uL (0.11-0.59); #Neutrophils 13.8 thou/uL (1.40-6.50); %Basophils 0.3 % (0.0-1.0); %Eosinophils 0.6 % (0.0-10.0); %Lymphocytes 3.8 % (21.0-51.0); %Monocytes 3.2 % (0.0-10.0); %Neutrophils 92.1 % (42.0-75.0); Mean Corpuscular HGB CONC 31.3 g/dL (32.0-36.0); Mean Corpuscular Hemoglobin 30.2 pg (27.0-31.0); Mean Corpuscular Volume 96.7 fL (78.0-98.0); Mean Platelet Volume 11.1 fL (7.4-10.4); Platelet Count 155 thou/uL (130-400); Red Blood Cell (RBC) Count 3.64 mill/uL (4.70-6.10)
[2020-10-08 04:37] LABS: Anion Gap 15 mmol/L (10-20); BUN (Urea Nitrogen) 62 mg/dL (8.4-25.7); Calc. Creatinine Clearance 102 mL/min (70-130); Calcium 8.2 mg/dL (7.8-10.44); Carbon Dioxide 24 mmol/L (23-31); Chloride 105 mmol/L (98-107); Glucose 175 mg/dL (80-115); Potassium 3.8 mmol/L (3.5-5.1); Sodium 140 mmol/L (136-145)
[2020-10-08] MEDS: HumaLOG 300 UNITS/3 ML VIAL SC PRN ×2 (04:42→15:20)
[2020-10-08] MEDS: Propofol 1,000 MG/100 ML VIAL IV PRN (05:43)
[2020-10-08] MEDS: Lorazepam 2 MG/ML VIAL SLOW IVP PRN (07:40)
[2020-10-08] MEDS: Dexamethasone 4 mg/ml Vial SLOW IVP SCH (07:40)
[2020-10-08] MEDS: Ascorbic Acid 500 mg Chewable Tablet PO SCH (07:40)
[2020-10-08] MEDS: Zinc Sulfate 220 MG CAP PO SCH (07:41)
[2020-10-08] MEDS: Apixaban 2.5 MG TAB PER TUBE SCH ×2 (07:41→21:25)
[2020-10-08] MEDS: HumaLOG 300 UNITS/3 ML VIAL SC SCH (07:41)
[2020-10-08 07:43] LABS: Actual Bicarbonate (HCO3a) 27.2 mEq/L (22-28); Base Excess (BEa) 1.5 mEq/L (-2.0 to +3.0); CO2 Tension 47.6 mmHg (35.0-45.0); Calcium, Ionized (arterial) 1.21 mmol/L (1.12-1.30); Carboxyhemoglobin (COHb) 1.1 gm% (0.0-3.0); Hemoglobin (Hb) 12.6 g/dL (14.0-18.0); O2 Tension (PaO2), arterial 94.4 mmHg (> 80.0); Potassium - ABG Lab 3.43 mmol/L (3.70-5.30); pH, Arterial 7.38 (7.35-7.45)
[2020-10-08 07:54] LABS: Puncture Site LRA
[2020-10-08] MEDS: fentaNYL Citrate/PF 2,000 MCG in Sodium Chloride 0.9% 60 ML IV SCH (08:24)
[2020-10-08] MEDS: Arformoterol 15 MCG/2 ML NEB NEB SCH ×2 (08:25→19:27)
[2020-10-08] MEDS: Budesonide 0.5 MG/2 ML NEB NEB SCH ×2 (08:26→19:28)
--- NOTE | 2020-10-08 09:02 | PRG ---
DATE OF SERVICE: 10/08/2020 45 minutes of critical care time. SUBJECTIVE: The patient remains intubated, on mechanical ventilation. There has been no acute change overnight. OBJECTIVE: VITAL SIGNS: Temperature 99, pulse 51, blood pressure 135/71, O2 saturation 100%. 24-hour intake 2515, output 1845. HEENT: Unremarkable except for being intubated. NECK: No JVD. LUNGS: Few crackles. CARDIAC: S1 and S2. Regular. ABDOMEN: Soft. EXTREMITIES: Trace edema. LABORATORY DATA: White blood cell count 15, hematocrit 35, platelet count 155. The pH is 7.38, pCO2 47, PO2 94 on bilevel rate 10, FiO2 40%, and PEEP of 8. Sodium 140, potassium 3.8, chloride 105, CO2 of 24, BUN 62, creatinine 1.1, glucose 175. His x-ray is clearing. ASSESSMENT: 1. COVID-19 pneumonia. 2. Acute respiratory failure, requiring mechanical ventilation. 3. Acute renal failure, which was improved. 4. Diabetes mellitus. PLAN: The patient needs to remain isolated until Thursday. We will try to hold the sedation and see where his neurologic status is at. I think neuromuscular status is the only thing that would prohibit weaning at this time. Otherwise, he looks very close to extubation. Job ID: [id number]
--- NOTE | 2020-10-08 09:04 | RAD ---
PORTABLE CHEST: HISTORY: Pneumonia followup. COMPARISON: 10/07/2020. FINDINGS: ET tube and NG tube are unchanged in position. Bilateral lung infiltrates more extensive on the left again noted. No change from 10/07/2020. IMPRESSION: Stable chest. POS: AGW
[2020-10-08] MEDS: NPH, Human Insulin Isophane 300 UNIT/3 ML VIAL SC SCH ×2 (10:31→21:32)
--- NOTE | 2020-10-08 16:36 | PDOC.NEPPN ---
- Subjective Encounter Date: 10/08/20 Subjective: No new problem. Still intubated and sedated. Tolerating tube feeding and water flushes well. - Objective Vital Signs & Weight: Vital Signs (12 hours) Pulse Resp BP Pulse Ox 10/08/20 15:58 76 130/71 10/08/20 13:15 24 H 10/08/20 10:43 62 118/70 10/08/20 08:00 61 94/56 L 10/08/20 07:12 20 100 10/08/20 06:00 22 H Weight Admit Weight 236 lb Weight 229 lb 11.547 oz Most Recent Monitor Data Heart Rate from ECG 71 NIBP 123/69 NIBP BP-Mean 87 Respiration from ECG 26 SpO2 92 I&O: 10/07/20 10/08/20 10/09/20 06:59 06:59 06:59 Intake Total 1354.2 2515 752 Output Total 1910 1845 650 Balance -555.8 670 102 Result Diagrams: 10/08/20 03:08 10/08/20 03:08 Additional Labs: Accuchecks 10/08/20 10/08/20 10/07/20 15:14 09:21 20:21 POC Glucose 191 H 132 H 106 H Nephrology ROS - Medication Medications: Active Medications Generic Name Dose Route Start Last Admin Trade Name Freq PRN Reason Stop Dose Admin Acetaminophen 1,000 mg 09/20/20 15:19 09/24/20 08:16 Acetaminophen 500 Mg Tab PO 1,000 mg Q6H PRN Administration Mild Pain (1-3) Apixaban 2.5 mg 10/04/20 21:00 10/08/20 07:41 Apixaban 2.5 Mg Tab PER TUBE 2.5 mg BID LUCIEN Administration Arformoterol Tartrate 15 mcg 09/25/20 18:30 10/08/20 08:25 Arformoterol 15 Mcg/2 Ml Neb NEB 15 mcg BID-RT LUCIEN Administration Ascorbic Acid 1,000 mg 09/21/20 09:00 10/08/20 07:40 Ascorbic Acid 500 Mg Chewable Tablet PO 1,000 mg DAILY LUCIEN Administration Budesonide 0.5 mg 09/25/20 18:30 10/08/20 08:26 Budesonide 0.5 Mg/2 Ml Neb NEB 0.5 mg BID-RT LUCIEN Administration Cholecalciferol 5,000 units 09/24/20 21:00 10/07/20 20:04 Cholecalciferol 1,000 Units (25 Mcg) Tab PER TUBE 5,000 units HS LUCIEN Administration Fentanyl Citrate 2,000 mcg/ 100 mls @ 0 mls/hr 10/04/20 07:00 10/08/20 08:24 Sodium Chloride IV 11/03/20 07:00 100 mls INF LUCIEN Administration Protocol Per Protocol Insulin Human Lispro 0 units 10/01/20 13:49 10/08/20 15:20 Humalog 300 Units/3 Ml Vial SC 2 unit .MODERATE SLIDING SC PRN Administration Moderate Correctional Scale Insulin Human NPH 20 unit 10/08/20 08:36 10/08/20 10:31 Nph, Human Insulin Isophane 300 Unit/3 Ml Vial SC Not Given BID LUCIEN Lorazepam 2 mg 10/04/20 07:00 10/08/20 07:40 Lorazepam 2 Mg/Ml Vial SLOW IVP 11/03/20 07:00 2 mg Q1H PRN Administration Breakthrough agitation Metoclopramide HCl 10 mg 09/25/20 09:00 10/08/20 15:08 Metoclopramide Hcl 10 Mg/2 Ml Vial IVP 10 mg 0300,0900,1500,2100 LUCIEN Administration Propofol 1,000 mg 09/24/20 06:30 10/08/20 05:43 Propofol 1,000 Mg/100 Ml Vial IV 10/24/20 06:30 1,000 mg INF PRN Administration TO ACHIEVE GOAL RASS Protocol Sodium Chloride 10 ml 09/21/20 21:00 10/08/20 07:42 Flush - Normal Saline 10 Ml Syringe IVF 10 ml Q12HR LUCIEN Administration Zinc Sulfate 220 mg 09/21/20 09:00 10/08/20 07:41 Zinc Sulfate 220 Mg Cap PO 220 mg DAILY LUCIEN Administration - Exam General - other findings: sedated. ENT - other findings: ET tube is in place Neck: symmetric, no JVD Respiratory: no tachypnea Cardiovascular: RRR Gastrointestinal: soft, non-distended Gastrointestinal - other findings: Nicole catheter drainoing clear urine Skin - other findings: sedated. Nephrology Results - Labs Result Diagrams: 10/08/20 03:08 10/08/20 03:08 Lab results: WBC 15.0 thou/uL (4.8-10.8) H 10/08/20 03:08 Hgb 11.0 g/dL (14.0-18.0) L 10/08/20 03:08 Hct 35.2 % (42.0-52.0) L 10/08/20 03:08 MCV 96.7 fL (78.0-98.0) 10/08/20 03:08 Plt Count 155 thou/uL (130-400) 10/08/20 03:08 Neutrophils % 92.1 % (42.0-75.0) H 10/08/20 03:08 ABG pH 7.38 (7.35-7.45) 10/08/20 07:30 ABG pCO2 47.6 mmHg (35.0-45.0) H 10/08/20 07:30 ABG pO2 94.4 mmHg (> 80.0) H 10/08/20 07:30 Sodium 140 mmol/L (136-145) 10/08/20 03:08 Potassium 3.8 mmol/L (3.5-5.1) 10/08/20 03:08 Chloride 105 mmol/L (98-107) 10/08/20 03:08 Carbon Dioxide 24 mmol/L (23-31) 10/08/20 03:08 BUN 62 mg/dL (8.4-25.7) H 10/08/20 03:08 Creatinine 1.15 mg/dL (0.7-1.3) 10/08/20 03:08 Glucose 175 mg/dL (80-115) H 10/08/20 03:08 Lactic Acid 2.0 mmol/L (0.5-2.2) 09/20/20 16:06 Calcium 8.2 mg/dL (7.8-10.44) 10/08/20 03:08 Total Bilirubin 0.2 mg/dL (0.2-1.2) 09/26/20 04:03 AST 20 U/L (5-34) 09/26/20 04:03 ALT 16 U/L (8-55) 09/26/20 04:03 Alkaline Phosphatase 93 U/L (40-110) 09/26/20 04:03 Creatine Kinase 273 U/L (30-200) H 09/26/20 04:03 Troponin I 0.013 ng/mL (< 0.028) 09/20/20 16:06 C-Reactive Protein 1.16 mg/dL (= or < 0.5) H 10/06/20 03:24 B-Natriuretic Peptide 21.2 pg/mL (0-100) 09/20/20 10:13 Serum Total Protein 6.2 g/dL (5.8-8.1) 09/26/20 04:03 Albumin 2.9 g/dL (3.4-4.8) L 10/06/20 03:24 Urine Ketones Negative mg/dL (Negative) 09/26/20 10:00 Urine Blood Large (Negative) A 09/26/20 10:00 Urine Nitrite Negative (Negative) 09/26/20 10:00 Ur Leukocyte Esterase Negative (Negative) 09/26/20 10:00 Urine RBC 11-20 HPF (0-3) A 09/26/20 10:00 Urine WBC 0-3 HPF (0-3) 09/26/20 10:00 Ur Squamous Epith Cells 0-3 HPF (0-3) 09/26/20 10:00 Urine Bacteria None Seen HPF (None Seen) 09/26/20 10:00 Sodium 140 mmol/L (136-145) 10/08/20 03:08 Potassium 3.8 mmol/L (3.5-5.1) 10/08/20 03:08 Chloride 105 mmol/L (98-107) 10/08/20 03:08 Carbon Dioxide 24 mmol/L (23-31) 10/08/20 03:08 Anion Gap 15 mmol/L (10-20) 10/08/20 03:08 BUN 62 mg/dL (8.4-25.7) H 10/08/20 03:08 Creatinine 1.15 mg/dL (0.7-1.3) 10/08/20 03:08 Glucose 175 mg/dL (80-115) H 10/08/20 03:08 Calcium 8.2 mg/dL (7.8-10.44) 10/08/20 03:08 Phosphorus 4.5 mg/dL (2.3-4.7) 10/07/20 05:03 Magnesium 1.9 mg/dL (1.6-2.6) 10/07/20 03:30 Albumin 2.9 g/dL (3.4-4.8) L 10/06/20 03:24 Nephrology AP PN - Plan ASSESSMENT: Acute renal failure: ATN from Hemodynamic factors related to poor perfusion as well as cytokine-mediated injury related to sepsis, with possible contribution from Contrast-induced nephropathy. BUN/Creat continue to trend down with good Urine output. Creat down to 1.1. Not yet back to baseline however. Hyperkalemia: 2/2 TAMI and acidosis. Resolved Hypernatremia: Resolved with free water provision. Metabolic acidosis: Resolved with alkali therapy Hypoalbuminemia Acute respiratory failure due to Covid Pneumonia: still intubated. Hypocalcemia. corrected. Hematuria: ? spontaneous or related to trauma. Resolved. PLAN Continue tube feeding with free water flushes. Monitor renal function, electrolytes as well as intake and output. vent management as per community health coordinator.
[2020-10-08] MEDS: Cholecalciferol 1,000 UNITS (25 MCG) TAB PER TUBE SCH (21:25)
[2020-10-08] MEDS: Famotidine 20 MG TAB PO SCH (21:26)
[2020-10-09] MEDS: Metoclopramide HCl 10 MG/2 ML VIAL IVP SCH ×4 (03:07→21:30)
[2020-10-09 04:57] LABS: #Eosinphils 0.7 thou/uL (0.0-0.7); #Lymphocytes 1.4 thou/uL (1.20-3.40); #Monocytes 0.8 thou/uL (0.11-0.59); #Neutrophils 11.7 thou/uL (1.40-6.50); %Basophils 0.2 % (0.0-1.0); %Eosinophils 4.5 % (0.0-10.0); %Lymphocytes 9.4 % (21.0-51.0); %Monocytes 5.6 % (0.0-10.0); %Neutrophils 80.3 % (42.0-75.0); Hemoglobin 11.3 g/dL (14.0-18.0); Mean Corpuscular HGB CONC 31.4 g/dL (32.0-36.0); Mean Corpuscular Hemoglobin 30.3 pg (27.0-31.0); Mean Corpuscular Volume 96.3 fL (78.0-98.0); Platelet Count 165 thou/uL (130-400); RBC Distribution Width 13.2 % (11.5-14.5); Red Blood Cell (RBC) Count 3.74 mill/uL (4.70-6.10); White Blood Cell (WBC) Count 14.6 thou/uL (4.8-10.8)
[2020-10-09 05:29] LABS: Anion Gap 12 mmol/L (10-20); BUN (Urea Nitrogen) 53 mg/dL (8.4-25.7); Calc. Creatinine Clearance 109 mL/min (70-130); Calcium 8.3 mg/dL (7.8-10.44); Carbon Dioxide 27 mmol/L (23-31); Chloride 104 mmol/L (98-107); Glucose 113 mg/dL (80-115); Potassium 3.4 mmol/L (3.5-5.1); Sodium 140 mmol/L (136-145)
[2020-10-09] MEDS ORDERED: Potassium Chloride 20 MEQ TAB PER TUBE SCH (06:30)
--- NOTE | 2020-10-09 06:30 | PDOC.NEPPN ---
- Subjective Encounter Date: 10/09/20 Subjective: More awake and responding some with weaning of sedatives. Still intubated. - Objective Vital Signs & Weight: Vital Signs (12 hours) Temp Pulse Resp BP Pulse Ox 10/09/20 06:00 26 H 10/09/20 04:00 23 H 10/09/20 02:00 26 H 10/09/20 00:00 24 H 10/08/20 22:00 24 H 10/08/20 21:57 71 121/69 10/08/20 21:00 96.1 F L 10/08/20 20:00 24 H 100 10/08/20 19:27 63 23 H 100 Weight Admit Weight 236 lb Weight 229 lb 11.547 oz Most Recent Monitor Data Heart Rate from ECG 82 NIBP 126/70 NIBP BP-Mean 88 Respiration from ECG 28 SpO2 97 I&O: 10/07/20 10/08/20 10/09/20 06:59 06:59 06:59 Intake Total 1354.2 2515 1241 Output Total 1910 2345 1945 Balance -555.8 670 -944 Result Diagrams: 10/09/20 03:15 10/09/20 03:15 Additional Labs: Accuchecks 10/09/20 10/08/20 10/08/20 03:34 21:46 15:14 POC Glucose 118 H 112 H 191 H 10/08/20 09:21 POC Glucose 132 H Nephrology ROS - Medication Medications: Active Medications Generic Name Dose Route Start Last Admin Trade Name Freq PRN Reason Stop Dose Admin Acetaminophen 1,000 mg 09/20/20 15:19 09/24/20 08:16 Acetaminophen 500 Mg Tab PO 1,000 mg Q6H PRN Administration Mild Pain (1-3) Apixaban 2.5 mg 10/04/20 21:00 10/08/20 21:25 Apixaban 2.5 Mg Tab PER TUBE 2.5 mg BID LUCIEN Administration Arformoterol Tartrate 15 mcg 09/25/20 18:30 10/08/20 19:27 Arformoterol 15 Mcg/2 Ml Neb NEB 15 mcg BID-RT LUCIEN Administration Ascorbic Acid 1,000 mg 09/21/20 09:00 10/08/20 07:40 Ascorbic Acid 500 Mg Chewable Tablet PO 1,000 mg DAILY LUCIEN Administration Budesonide 0.5 mg 09/25/20 18:30 10/08/20 19:28 Budesonide 0.5 Mg/2 Ml Neb NEB 0.5 mg BID-RT LUCIEN Administration Cholecalciferol 5,000 units 09/24/20 21:00 10/08/20 21:25 Cholecalciferol 1,000 Units (25 Mcg) Tab PER TUBE 5,000 units HS LUCIEN Administration Famotidine 20 mg 10/08/20 21:00 10/08/20 21:26 Famotidine 20 Mg Tab PO 20 mg BID LUCIEN Administration Fentanyl Citrate 2,000 mcg/ 100 mls @ 0 mls/hr 10/04/20 07:00 10/08/20 08:24 Sodium Chloride IV 11/03/20 07:00 100 mls INF LUCIEN Administration Protocol Per Protocol Insulin Human Lispro 0 units 10/01/20 13:49 10/08/20 15:20 Humalog 300 Units/3 Ml Vial SC 2 unit .MODERATE SLIDING SC PRN Administration Moderate Correctional Scale Insulin Human NPH 20 unit 10/08/20 08:36 10/08/20 21:32 Nph, Human Insulin Isophane 300 Unit/3 Ml Vial SC 20 unit BID LUCIEN Administration Lorazepam 2 mg 10/04/20 07:00 10/08/20 07:40 Lorazepam 2 Mg/Ml Vial SLOW IVP 11/03/20 07:00 2 mg Q1H PRN Administration Breakthrough agitation Metoclopramide HCl 10 mg 09/25/20 09:00 10/09/20 03:07 Metoclopramide Hcl 10 Mg/2 Ml Vial IVP 10 mg 0300,0900,1500,2100 LUCIEN Administration Propofol 1,000 mg 09/24/20 06:30 10/08/20 05:43 Propofol 1,000 Mg/100 Ml Vial IV 10/24/20 06:30 1,000 mg INF PRN Administration TO ACHIEVE GOAL RASS Protocol Sodium Chloride 10 ml 09/21/20 21:00 10/08/20 21:31 Flush - Normal Saline 10 Ml Syringe IVF 10 ml Q12HR LUCIEN Administration Zinc Sulfate 220 mg 09/21/20 09:00 10/08/20 07:41 Zinc Sulfate 220 Mg Cap PO 220 mg DAILY LUCIEN Administration - Exam General - other findings: sedated ENT: normocephalic atraumatic ENT - other findings: ET tube in place Respiratory - other findings: ventilator transmitted sound noted Cardiovascular: RRR Gastrointestinal: soft, non-distended, normal bowel sounds Extremities: no edema Neurological - other findings: sedated. moving limbs. obeying some simple command Nephrology Results - Labs Result Diagrams: 10/09/20 03:15 10/09/20 03:15 Lab results: WBC 14.6 thou/uL (4.8-10.8) H 10/09/20 03:15 Hgb 11.3 g/dL (14.0-18.0) L 10/09/20 03:15 Hct 36.0 % (42.0-52.0) L 10/09/20 03:15 MCV 96.3 fL (78.0-98.0) 10/09/20 03:15 Plt Count 165 thou/uL (130-400) 10/09/20 03:15 Neutrophils % 80.3 % (42.0-75.0) H 10/09/20 03:15 ABG pH 7.38 (7.35-7.45) 10/08/20 07:30 ABG pCO2 47.6 mmHg (35.0-45.0) H 10/08/20 07:30 ABG pO2 94.4 mmHg (> 80.0) H 10/08/20 07:30 Sodium 140 mmol/L (136-145) 10/09/20 03:15 Potassium 3.4 mmol/L (3.5-5.1) L 10/09/20 03:15 Chloride 104 mmol/L (98-107) 10/09/20 03:15 Carbon Dioxide 27 mmol/L (23-31) 10/09/20 03:15 BUN 53 mg/dL (8.4-25.7) H 10/09/20 03:15 Creatinine 1.00 mg/dL (0.7-1.3) 10/09/20 03:15 Glucose 113 mg/dL (80-115) 10/09/20 03:15 Lactic Acid 2.0 mmol/L (0.5-2.2) 09/20/20 16:06 Calcium 8.3 mg/dL (7.8-10.44) 10/09/20 03:15 Total Bilirubin 0.2 mg/dL (0.2-1.2) 09/26/20 04:03 AST 20 U/L (5-34) 09/26/20 04:03 ALT 16 U/L (8-55) 09/26/20 04:03 Alkaline Phosphatase 93 U/L (40-110) 09/26/20 04:03 Creatine Kinase 273 U/L (30-200) H 09/26/20 04:03 Troponin I 0.013 ng/mL (< 0.028) 09/20/20 16:06 C-Reactive Protein 1.16 mg/dL (= or < 0.5) H 10/06/20 03:24 B-Natriuretic Peptide 21.2 pg/mL (0-100) 09/20/20 10:13 Serum Total Protein 6.2 g/dL (5.8-8.1) 09/26/20 04:03 Albumin 2.9 g/dL (3.4-4.8) L 10/06/20 03:24 Urine Ketones Negative mg/dL (Negative) 09/26/20 10:00 Urine Blood Large (Negative) A 09/26/20 10:00 Urine Nitrite Negative (Negative) 09/26/20 10:00 Ur Leukocyte Esterase Negative (Negative) 09/26/20 10:00 Urine RBC 11-20 HPF (0-3) A 09/26/20 10:00 Urine WBC 0-3 HPF (0-3) 09/26/20 10:00 Ur Squamous Epith Cells 0-3 HPF (0-3) 09/26/20 10:00 Urine Bacteria None Seen HPF (None Seen) 09/26/20 10:00 Sodium 140 mmol/L (136-145) 10/09/20 03:15 Potassium 3.4 mmol/L (3.5-5.1) L 10/09/20 03:15 Chloride 104 mmol/L (98-107) 10/09/20 03:15 Carbon Dioxide 27 mmol/L (23-31) 10/09/20 03:15 Anion Gap 12 mmol/L (10-20) 10/09/20 03:15 BUN 53 mg/dL (8.4-25.7) H 10/09/20 03:15 Creatinine 1.00 mg/dL (0.7-1.3) 10/09/20 03:15 Glucose 113 mg/dL (80-115) 10/09/20 03:15 Calcium 8.3 mg/dL (7.8-10.44) 10/09/20 03:15 Phosphorus 4.5 mg/dL (2.3-4.7) 10/07/20 05:03 Magnesium 1.9 mg/dL (1.6-2.6) 10/07/20 03:30 Albumin 2.9 g/dL (3.4-4.8) L 10/06/20 03:24 Nephrology AP PN - Plan ASSESSMENT: Hypokalemia Acute renal failure: ATN from Hemodynamic factors related to poor perfusion as well as cytokine-mediated injury related to sepsis, with possible contribution from Contrast-induced nephropathy. BUN/Creat continue to trend down with good Urine output. Creat down to 1.1. Not yet back to baseline however. Hyperkalemia: 2/2 TAMI and acidosis. Resolved Hypernatremia: Resolved with free water provision. Metabolic acidosis: Resolved with alkali therapy Hypoalbuminemia Acute respiratory failure due to Covid Pneumonia: still intubated. Hypocalcemia. corrected. Hematuria: ? spontaneous or related to trauma. PLAN Replete serum potassium with 40 meq KCL. Get magnesium level and replete if indicated. Continue tube feeding with free water flushes. Monitor renal function, electrolytes as well as intake and output. Nephrology will sign off at this time due to marked improvement of renal function. call for any questions.
[2020-10-09] MEDS: Budesonide 0.5 MG/2 ML NEB NEB SCH ×2 (07:33→20:24)
[2020-10-09] MEDS: Arformoterol 15 MCG/2 ML NEB NEB SCH ×2 (07:33→20:24)
[2020-10-09] MEDS: Dexamethasone 4 mg/ml Vial SLOW IVP SCH (08:15)
[2020-10-09] MEDS: Ascorbic Acid 500 mg Chewable Tablet PO SCH (08:16)
[2020-10-09] MEDS: Apixaban 2.5 MG TAB PER TUBE SCH ×2 (08:16→21:29)
[2020-10-09] MEDS: Famotidine 20 MG TAB PO SCH ×2 (08:16→21:29)
[2020-10-09] MEDS: Zinc Sulfate 220 MG CAP PO SCH (08:19)
[2020-10-09] MEDS: NPH, Human Insulin Isophane 300 UNIT/3 ML VIAL SC SCH ×3 (08:19→21:31)
--- NOTE | 2020-10-09 08:26 | RAD ---
PORTABLE CHEST: HISTORY: Pneumonia followup. CCU followup with ventilator. COMPARISON: 10/08/2020. FINDINGS: ET tube and NG tube are unchanged. Hazy bilateral infiltrates again noted. Possible improvement in the left lung infiltrates. Otherwise, no acute interval change. POS: AGW
--- NOTE | 2020-10-09 08:50 | PRG ---
DATE OF SERVICE: 10/09/2020 This is 35 minutes of critical care time. SUBJECTIVE: Mr. Pitts remains intubated on mechanical ventilation for COVID-19 pneumonia. He has been converted from bilevel ventilation to SIMV today and so far is doing well. OBJECTIVE: VITAL SIGNS: Temperature 99.9, pulse 96, blood pressure 130/74, O2 saturation 96%. NEUROLOGICAL: He will follow commands. He is lightly sedated. HEENT: Unremarkable except for the endotracheal tube. An orogastric tube in place. NECK: No JVD. LUNGS: Clear anteriorly. CARDIOVASCULAR: S1, S2. Slightly tachycardic. ABDOMEN: Soft and nontender. EXTREMITIES: No edema. LABORATORY DATA: White blood cell count 14.6, hematocrit 36, platelet count 165. ABG pending. Sodium 140, potassium 3.4, chloride 104, CO2 of 27, BUN 53, creatinine 1.0, and glucose 113. Chest x-ray continues to show some improvement. ASSESSMENT: 1. COVID-19 pneumonia with acute respiratory failure requiring mechanical ventilation. 2. Improved acute renal failure. PLAN: 1. Proceed with SIMV ventilation. 2. Steroids were cut in half yesterday. Likely needs further reduction in NPH insulin. Hopefully, can continue slow weaning over the course of the week. Job ID: [id number]
[2020-10-09] MEDS: Lorazepam 2 MG/ML VIAL SLOW IVP PRN ×2 (08:58→11:44)
[2020-10-09] MEDS ORDERED: Magnesium 2 GM/50 ML 2 GM in Premix Bag 1 BAG IVPB SCH (10:00)
[2020-10-09] MEDS ORDERED: Electrolyte Replacement Protocol FS PRN (10:00)
[2020-10-09] MEDS ORDERED: Electrolyte Replacement Protocol 1 EACH FS SCH (10:00)
--- NOTE | 2020-10-09 10:05 | PDOC.HOSPP ---
- Subjective Encounter Date: 10/08/20 Encounter Time: 13:00 Subjective: Patient seen and examined for respiratory failure. Remains on mechanical ventilation. - Objective Vital Signs & Weight: Vital Signs (12 hours) Pulse Resp BP Pulse Ox 10/09/20 07:16 96 123/72 10/09/20 07:14 32 H 95 10/09/20 06:00 26 H 10/09/20 04:00 23 H 10/09/20 02:00 26 H 10/09/20 00:00 24 H Weight Admit Weight 236 lb Weight 229 lb 11.547 oz Most Recent Monitor Data Heart Rate from ECG 99 NIBP 120/73 NIBP BP-Mean 88 Respiration from ECG 36 SpO2 97 I&O: 10/08/20 10/09/20 10/10/20 06:59 06:59 06:59 Intake Total 9792 1241 158 Output Total 1504 1101 300 Balance 670 -704 -142 Result Diagrams: 10/09/20 03:15 10/09/20 03:15 Additional Labs: Accuchecks 10/09/20 10/09/20 10/08/20 09:05 03:34 21:46 POC Glucose 129 H 118 H 112 H 10/08/20 15:14 POC Glucose 191 H EKG Reviewed by me: Yes (Sinus rhythm on telemetry) Hospitalist ROS - Review of Systems ROS unobtainable: due to mental status - Medication Medications: Active Medications Generic Name Dose Route Start Last Admin Trade Name Freq PRN Reason Stop Dose Admin Acetaminophen 1,000 mg 09/20/20 15:19 09/24/20 08:16 Acetaminophen 500 Mg Tab PO 1,000 mg Q6H PRN Administration Mild Pain (1-3) Apixaban 2.5 mg 10/04/20 21:00 10/09/20 08:16 Apixaban 2.5 Mg Tab PER TUBE 2.5 mg BID LUCIEN Administration Arformoterol Tartrate 15 mcg 09/25/20 18:30 10/09/20 07:33 Arformoterol 15 Mcg/2 Ml Neb NEB 15 mcg BID-RT LUCIEN Administration Ascorbic Acid 1,000 mg 09/21/20 09:00 10/09/20 08:16 Ascorbic Acid 500 Mg Chewable Tablet PO 1,000 mg DAILY LUCIEN Administration Budesonide 0.5 mg 09/25/20 18:30 10/09/20 07:33 Budesonide 0.5 Mg/2 Ml Neb NEB 0.5 mg BID-RT LUCIEN Administration Cholecalciferol 5,000 units 09/24/20 21:00 10/08/20 21:25 Cholecalciferol 1,000 Units (25 Mcg) Tab PER TUBE 5,000 units HS LUCIEN Administration Dexamethasone 6 mg 10/09/20 09:00 10/09/20 08:15 Dexamethasone 4 Mg/Ml Vial SLOW IVP 6 mg DAILY LUCIEN Administration Famotidine 20 mg 10/08/20 21:00 10/09/20 08:16 Famotidine 20 Mg Tab PO 20 mg BID LUCIEN Administration Fentanyl Citrate 2,000 mcg/ 100 mls @ 0 mls/hr 10/04/20 07:00 10/08/20 08:24 Sodium Chloride IV 11/03/20 07:00 100 mls INF LUCIEN Administration Protocol Per Protocol Insulin Human Lispro 0 units 10/01/20 13:49 10/08/20 15:20 Humalog 300 Units/3 Ml Vial SC 2 unit .MODERATE SLIDING SC PRN Administration Moderate Correctional Scale Insulin Human NPH 15 unit 10/09/20 08:19 10/09/20 08:59 Nph, Human Insulin Isophane 300 Unit/3 Ml Vial SC 15 units BID LUCIEN Administration Lorazepam 2 mg 10/04/20 07:00 10/09/20 08:58 Lorazepam 2 Mg/Ml Vial SLOW IVP 11/03/20 07:00 2 mg Q1H PRN Administration Breakthrough agitation Metoclopramide HCl 10 mg 09/25/20 09:00 10/09/20 08:16 Metoclopramide Hcl 10 Mg/2 Ml Vial IVP 10 mg 0300,0900,1500,2100 LUCIEN Administration Propofol 1,000 mg 09/24/20 06:30 10/08/20 05:43 Propofol 1,000 Mg/100 Ml Vial IV 10/24/20 06:30 1,000 mg INF PRN Administration TO ACHIEVE GOAL RASS Protocol Sodium Chloride 10 ml 09/21/20 21:00 10/09/20 08:19 Flush - Normal Saline 10 Ml Syringe IVF 10 ml Q12HR LUCIEN Administration Zinc Sulfate 220 mg 09/21/20 09:00 10/09/20 08:19 Zinc Sulfate 220 Mg Cap PO Not Given DAILY LUCIEN - Exam General - other findings: On mechanical ventilation Heart: no rubs Respiratory: rales, rhonchi Gastrointestinal: soft, no guarding, no rigidity Extremities: no cyanosis Neurological: no new deficit Hosp A/P - Plan DVT proph w/SCDs Acute hypoxic respiratory failure/sepsis due to COVID 19 pneumonia requiring mechanical ventilation S/p Remdesivir Acute kidney injury Hypertension Diabetes mellitus type II Chronic anemia probably due to nutritional deficiency Hyperkalemia/hypernatremia/hyponatremiaresolved Plan: Replace magnesium and potassium. Continue bronchodilators with dexamethasone. Continue DVT and GI prophylaxis. Humalog discontinued. NPH dose reduced to 15 units twice daily earlier today. A.m. labs
[2020-10-09 12:43] LABS: Potassium 3.9 mmol/L (3.5-5.1)
[2020-10-09] MEDS: Cholecalciferol 1,000 UNITS (25 MCG) TAB PER TUBE SCH (21:30)
--- NOTE | 2020-10-09 23:55 | PDOC.HOSPP ---
- Subjective Encounter Date: 10/09/20 Encounter Time: 14:45 Subjective: Patient evaluated for respiratory failure. Remains on mechanical ventilation. No overnight events. - Objective Vital Signs & Weight: Vital Signs (12 hours) Pulse Resp BP Pulse Ox 10/09/20 23:18 84 10/09/20 22:00 35 H 10/09/20 20:18 65 106/64 10/09/20 20:00 29 H 100 10/09/20 16:29 82 10/09/20 13:16 77 110/65 Weight Admit Weight 236 lb Weight 229 lb 11.547 oz Most Recent Monitor Data Heart Rate from ECG 68 NIBP 111/59 NIBP BP-Mean 76 Respiration from ECG 28 SpO2 100 I&O: 10/08/20 10/09/20 10/10/20 06:59 06:59 06:59 Intake Total 2030 1240 643 Output Total 0262 1172 0332 Balance 880 -708 -827 Result Diagrams: 10/10/20 03:45 10/10/20 03:45 Additional Labs: Accuchecks 10/09/20 10/09/20 10/09/20 21:07 15:17 09:05 POC Glucose 113 H 173 H 129 H 10/09/20 03:34 POC Glucose 118 H Abnormal Lab Results - Last 48 hrs 10/09/20 03:15: Potassium 3.4 L, BUN 53 H 10/09/20 03:15: WBC 14.6 H, RBC 3.74 L, Hgb 11.3 L, Hct 36.0 L, MCHC 31.4 L, MPV 11.0 H, Neutrophils % 80.3 H, Lymphocytes % 9.4 L, Neutrophils # 11.7 H, Monocytes # 0.8 H Microbiology - Entire Visit 09/26/20 10:00 Urine bravo catheter Urine Culture - Final NO GROWTH AT 48 HOURS 09/20/20 10:12 Venous blood - Left Hand Blood Culture - Final NO GROWTH IN 5 DAYS 09/20/20 10:12 Venous blood - Left Arm Blood Culture - Final NO GROWTH IN 5 DAYS Hospitalist ROS - Review of Systems ROS unobtainable: due to mental status - Medication Medications: Active Medications Generic Name Dose Route Start Last Admin Trade Name Freq PRN Reason Stop Dose Admin Acetaminophen 1,000 mg 09/20/20 15:19 09/24/20 08:16 Acetaminophen 500 Mg Tab PO 1,000 mg Q6H PRN Administration Mild Pain (1-3) Apixaban 2.5 mg 10/04/20 21:00 10/09/20 21:29 Apixaban 2.5 Mg Tab PER TUBE 2.5 mg BID LUCIEN Administration Arformoterol Tartrate 15 mcg 09/25/20 18:30 10/09/20 20:24 Arformoterol 15 Mcg/2 Ml Neb NEB 15 mcg BID-RT LUCIEN Administration Ascorbic Acid 1,000 mg 09/21/20 09:00 10/09/20 08:16 Ascorbic Acid 500 Mg Chewable Tablet PO 1,000 mg DAILY LUCIEN Administration Budesonide 0.5 mg 09/25/20 18:30 10/09/20 20:24 Budesonide 0.5 Mg/2 Ml Neb NEB 0.5 mg BID-RT LUCIEN Administration Cholecalciferol 5,000 units 09/24/20 21:00 10/09/20 21:30 Cholecalciferol 1,000 Units (25 Mcg) Tab PER TUBE 5,000 units HS LUCIEN Administration Dexamethasone 6 mg 10/09/20 09:00 10/09/20 08:15 Dexamethasone 4 Mg/Ml Vial SLOW IVP 6 mg DAILY LUCIEN Administration Famotidine 20 mg 10/08/20 21:00 10/09/20 21:29 Famotidine 20 Mg Tab PO 20 mg BID LUCIEN Administration Fentanyl Citrate 2,000 mcg/ 100 mls @ 0 mls/hr 10/04/20 07:00 10/08/20 08:24 Sodium Chloride IV 11/03/20 07:00 100 mls INF LUCIEN Administration Protocol Per Protocol Insulin Human Lispro 0 units 10/01/20 13:49 10/08/20 15:20 Humalog 300 Units/3 Ml Vial SC 2 unit .MODERATE SLIDING SC PRN Administration Moderate Correctional Scale Insulin Human NPH 15 unit 10/09/20 08:19 10/09/20 21:31 Nph, Human Insulin Isophane 300 Unit/3 Ml Vial SC 15 units BID LUCIEN Administration Lorazepam 2 mg 10/04/20 07:00 10/09/20 11:44 Lorazepam 2 Mg/Ml Vial SLOW IVP 11/03/20 07:00 2 mg Q1H PRN Administration Breakthrough agitation Metoclopramide HCl 10 mg 09/25/20 09:00 10/09/20 21:30 Metoclopramide Hcl 10 Mg/2 Ml Vial IVP 10 mg 0300,0900,1500,2100 LUCIEN Administration Propofol 1,000 mg 09/24/20 06:30 10/08/20 05:43 Propofol 1,000 Mg/100 Ml Vial IV 10/24/20 06:30 1,000 mg INF PRN Administration TO ACHIEVE GOAL RASS Protocol Sodium Chloride 10 ml 09/21/20 21:00 10/09/20 23:20 Flush - Normal Saline 10 Ml Syringe IVF 10 ml Q12HR LUCIEN Administration Zinc Sulfate 220 mg 09/21/20 09:00 10/09/20 08:19 Zinc Sulfate 220 Mg Cap PO Not Given DAILY LUCIEN - Exam General Appearance: ill appearing General - other findings: On ventilator ENT: normocephalic atraumatic Neck: supple Extremities: no cyanosis, no clubbing Neurological - other findings: Neuro/psychpatient on mechanical ventilator Hosp A/P - Plan DVT proph w/SCDs Acute hypoxic respiratory failure/sepsis due to COVID 19 pneumonia requiring mechanical ventilation S/p Remdesivir Acute kidney injury Hypertension Diabetes mellitus type II Chronic anemia probably due to nutritional deficiency Hyperkalemia/hypernatremia/hyponatremiaresolved Plan: Continue supportive care. Continue dexamethasone 6 mg daily. Continue NPH with sliding scale. Continue Eliquis for DVT prophylaxis. Continue other medications as above
[2020-10-10] MEDS: Metoclopramide HCl 10 MG/2 ML VIAL IVP SCH ×4 (03:08→21:02)
[2020-10-10 04:27] LABS: #Eosinphils 0.6 thou/uL (0.0-0.7); #Lymphocytes 1.1 thou/uL (1.20-3.40); #Monocytes 0.7 thou/uL (0.11-0.59); #Neutrophils 8.8 thou/uL (1.40-6.50); %Basophils 0.2 % (0.0-1.0); %Lymphocytes 9.7 % (21.0-51.0); %Monocytes 5.9 % (0.0-10.0); %Neutrophils 79.2 % (42.0-75.0); Hemoglobin 10.7 g/dL (14.0-18.0); Mean Corpuscular HGB CONC 32.8 g/dL (32.0-36.0); Mean Corpuscular Hemoglobin 31.7 pg (27.0-31.0); Mean Corpuscular Volume 96.7 fL (78.0-98.0); Mean Platelet Volume 10.4 fL (7.4-10.4); Platelet Count 137 thou/uL (130-400); RBC Distribution Width 13.4 % (11.5-14.5); Red Blood Cell (RBC) Count 3.37 mill/uL (4.70-6.10); White Blood Cell (WBC) Count 11.2 thou/uL (4.8-10.8)
[2020-10-10 04:53] LABS: Anion Gap 12 mmol/L (10-20); BUN (Urea Nitrogen) 44 mg/dL (8.4-25.7); Calc. Creatinine Clearance 115 mL/min (70-130); Carbon Dioxide 27 mmol/L (23-31); Chloride 104 mmol/L (98-107); Glucose 108 mg/dL (80-115); Potassium 3.6 mmol/L (3.5-5.1); Sodium 139 mmol/L (136-145)
[2020-10-10] MEDS: Famotidine 20 MG TAB PO SCH ×2 (08:18→21:01)
[2020-10-10] MEDS: Apixaban 2.5 MG TAB PER TUBE SCH ×2 (08:19→21:01)
[2020-10-10] MEDS: Dexamethasone 4 mg/ml Vial SLOW IVP SCH (08:19)
[2020-10-10] MEDS: Ascorbic Acid 500 mg Chewable Tablet PO SCH (08:19)
[2020-10-10] MEDS: fentaNYL Citrate/PF 2,000 MCG in Sodium Chloride 0.9% 60 ML IV SCH (08:24)
[2020-10-10] MEDS: Arformoterol 15 MCG/2 ML NEB NEB SCH ×2 (08:25→19:12)
[2020-10-10] MEDS: Budesonide 0.5 MG/2 ML NEB NEB SCH ×2 (08:25→19:13)
[2020-10-10] MEDS: Zinc Sulfate 220 MG CAP PO SCH (08:27)
[2020-10-10 08:31] LABS: Actual Bicarbonate (HCO3a) 25.1 mEq/L (22-28); Base Excess (BEa) 1.7 mEq/L (-2.0 to +3.0); CO2 Tension 34.5 mmHg (35.0-45.0); Calcium, Ionized (arterial) 1.12 mmol/L (1.12-1.30); Carboxyhemoglobin (COHb) 0.9 gm% (0.0-3.0); Hemoglobin (Hb) 10.1 g/dL (14.0-18.0); O2 Tension (PaO2), arterial 75.6 mmHg (> 80.0); pH, Arterial 7.48 (7.35-7.45)
[2020-10-10] MEDS: NPH, Human Insulin Isophane 300 UNIT/3 ML VIAL SC SCH ×2 (08:34→21:00)
--- NOTE | 2020-10-10 08:38 | PRG ---
DATE OF SERVICE: This is 35 minutes critical care time. SUBJECTIVE: Today is day 20 and the patient can come out of isolation. He is awake, but extremely weak. OBJECTIVE: VITAL SIGNS: His pulse is 94, blood pressure 115/63, O2 saturation 99%, respiratory rate in the mid to high 30s, temperature 100.4. Intake for 24 hours 763, output 1718. HEENT: Unremarkable. NECK: No JVD. LUNGS: Inspiratory crackles. CARDIAC: S1 and S2. Regular. ABDOMEN: Soft. EXTREMITIES: No edema. IMAGING STUDIES: His chest x-ray shows no significant change. LABORATORY DATA: Sodium 139, potassium 3.6, chloride 104, CO2 of 27, BUN 44, creatinine 0.9, and glucose 108. ABG result pending. White blood cell count 11.2, hematocrit 32.6, and platelet count 137. ASSESSMENT: 1. COVID-19 pneumonia. 2. Status post acute renal failure. 3. Acute respiratory failure requiring mechanical ventilation. PLAN: 1. He can come out of respiratory isolation. 2. Slowly transitioning him from bilevel to standard SIMV and beginning to wean the ventilator appropriately. 3. Steroid dose was reduced yesterday, probably will reduce it again in 3 to 4 days. 4. Appropriately decreased his NPH dose. His blood sugars are trending a lot lower, so I will cut the NPH down even more today. 5. I spoke with the patient's yesterday. Job ID: [id number]
[2020-10-10] MEDS: Lorazepam 2 MG/ML VIAL SLOW IVP PRN ×3 (08:44→12:58)
--- NOTE | 2020-10-10 09:16 | RAD ---
EXAM: Portable chest PROVIDED CLINICAL HISTORY: Respiratory insufficiency COMPARISON: 10/09/2020 FINDINGS: Significant interval change with respect to the prior examination is not apparent. IMPRESSION: As above.
[2020-10-10 09:32] LABS: ALV-art Gradient 166.475 mmHg (0-20); Puncture Site LRA
--- NOTE | 2020-10-10 15:14 | PDOC.PALCO ---
Palliative Care Consult - Consult Details Requesting Physician: Dr Sparks Reason for Consult: goals of care, assistance with communication prognosis/disease, complex decision-making Family Members Present: - Pertinent HPI 65 year old male who presented 09/20/2020 to the emergency room via EMS from the home setting with worsening shortness of breathe and decreasing O2 saturation. Son was recently positive for Covid-19. On arrival to hospital patient was noted to be tachypnic, and transitioned to high flow O2, given IV meropenem, steroids, and azithromycin. He was admitted for medical management and supportive care related to Covid 10. Continued decline with subsequent intubation, received Remdesivir, steroids. - Social History Smoking Status: Never smoker Smoking: no tobacco exposure Alcohol Use: none Drug Use History: none Living Situation: - Medications MAR Reviewed: Yes - Allergies Allergies/Adverse Reactions: Allergies Allergy/AdvReac Type Severity Reaction Status Date / Time Penicillins Allergy Verified 09/20/20 16:01 - Subjective Intubated, mechanical ventilation. Isolation removed today related to Covid. Per pulmonology hopeful for transition from bilevel to standard SIMV, weaning as appropriate. to bedside. - ROS Non Response: due to endotracheal tube, due to mental status - Objective Vital Signs: Vital Signs - Most Recent Temp Pulse Resp BP Pulse Ox 96.1 F L 74 39 H 95/54 L 95 10/08/20 21:00 10/10/20 14:41 10/10/20 07:06 10/10/20 14:41 10/10/20 07:06 Palliative Performance Scale: 20 - Physical Exam Constitutional: encephalitic, ill appearing HEENT: moist MMs Deviation from normal: adventicious on inspiration. Intubated Cardiovascular: no significant murmur, RRR Gastrointestinal: soft, non-tender, positive bowel sounds Genitourinary: bravo catheter Musculoskeletal: no cyanosis, no edema, diffuse muscle atrophy Skin: cap refill <2 seconds, no lesions, no rash Deviation from normal: encephalopathic, sedated - Problem List (1) Palliative care encounter Code(s): Z51.5 - ENCOUNTER FOR PALLIATIVE CARE Current Visit: Yes Status: Acute (2) Acute respiratory failure with hypoxia Code(s): J96.01 - ACUTE RESPIRATORY FAILURE WITH HYPOXIA Current Visit: Yes Status: Acute (3) COVID-19 Code(s): U07.1 - COVID-19 Current Visit: Yes Status: Acute (4) Diabetes Code(s): E11.9 - TYPE 2 DIABETES MELLITUS WITHOUT COMPLICATIONS Current Visit: Yes Status: Acute (5) Hypertension Code(s): I10 - ESSENTIAL (PRIMARY) HYPERTENSION Current Visit: Yes Status: Acute - Plan/Recommendations Plan: Palliative care has been in contact with patient via phone secondary to Covid precautions. to bedside today. Short life review. Patient active prior to Covid. No consistent health care until January 2020, then diabetes and HTN identified. They have a ranch and states that is one of her husbands favorite things is to go and work on their property. Patient had previously completed directive to physician and MPOA. MPOA obtained, to bring copy of directives to hospital states in the past her stated he would never desire dialysis, amputation or extreme measures. She stated that her son said that Mr Pitts would never want to have a Trach or Peg placed regardless of situation. Will have directives placed on chart for review and to be scanned in Medical records. Discussed hope to have Mr Pitts be able to tolerate weaning from mechanical ventilation. Please also refer to Palliative Care notes in note section. [70] minutes spent on this encounter with >50% of the time in counseling and coordination of care. Thank you for this very appropriate consult.
--- NOTE | 2020-10-10 21:20 | PDOC.HOSPP ---
- Subjective Encounter Date: 10/10/20 Encounter Time: 14:00 Subjective: Patient seen and examined for respiratory failure. Isolation discontinued today. Remains on mechanical ventilation. No overnight events. - Objective Vital Signs & Weight: Vital Signs (12 hours) Temp Pulse Resp BP 10/10/20 20:00 98.3 F 27 H 10/10/20 19:13 72 10/10/20 14:41 74 95/54 L 10/10/20 11:24 89 116/68 Weight Admit Weight 236 lb Weight 229 lb 11.547 oz Most Recent Monitor Data Heart Rate from ECG 75 NIBP 101/58 NIBP BP-Mean 72 Respiration from ECG 26 SpO2 100 I&O: 10/09/20 10/10/20 10/11/20 06:59 06:59 06:59 Intake Total 1241 763 303 Output Total 4671 7190 995 [facility] -[phone] -692 Result Diagrams: 10/10/20 03:45 10/10/20 03:45 Additional Labs: Accuchecks 10/10/20 10/10/20 10/10/20 20:54 14:18 09:17 POC Glucose 138 H 178 H 141 H 10/10/20 03:49 POC Glucose 128 H Radiology Reviewed by me: Yes (Chest x-ray no new changes) EKG Reviewed by me: Yes (Sinus rhythm on telemetry) Hospitalist ROS - Review of Systems ROS unobtainable: due to mental status - Medication Medications: Active Medications Generic Name Dose Route Start Last Admin Trade Name Freq PRN Reason Stop Dose Admin Acetaminophen 1,000 mg 09/20/20 15:19 09/24/20 08:16 Acetaminophen 500 Mg Tab PO 1,000 mg Q6H PRN Administration Mild Pain (1-3) Apixaban 2.5 mg 10/04/20 21:00 10/10/20 21:01 Apixaban 2.5 Mg Tab PER TUBE 2.5 mg BID LUCIEN Administration Arformoterol Tartrate 15 mcg 09/25/20 18:30 10/10/20 19:12 Arformoterol 15 Mcg/2 Ml Neb NEB 15 mcg BID-RT LUCIEN Administration Ascorbic Acid 1,000 mg 09/21/20 09:00 10/10/20 08:19 Ascorbic Acid 500 Mg Chewable Tablet PO 1,000 mg DAILY LUCIEN Administration Budesonide 0.5 mg 09/25/20 18:30 10/10/20 19:13 Budesonide 0.5 Mg/2 Ml Neb NEB 0.5 mg BID-RT LUCIEN Administration Cholecalciferol 5,000 units 09/24/20 21:00 10/09/20 21:30 Cholecalciferol 1,000 Units (25 Mcg) Tab PER TUBE 5,000 units HS LUCIEN Administration Dexamethasone 6 mg 10/09/20 09:00 10/10/20 08:19 Dexamethasone 4 Mg/Ml Vial SLOW IVP 6 mg DAILY LUCIEN Administration Famotidine 20 mg 10/08/20 21:00 10/10/20 21:01 Famotidine 20 Mg Tab PO 20 mg BID LUCIEN Administration Fentanyl Citrate 2,000 mcg/ 100 mls @ 0 mls/hr 10/04/20 07:00 10/10/20 08:24 Sodium Chloride IV 11/03/20 07:00 100 mls INF LUCIEN Administration Protocol Per Protocol Insulin Human Lispro 0 units 10/01/20 13:49 10/08/20 15:20 Humalog 300 Units/3 Ml Vial SC 2 unit .MODERATE SLIDING SC PRN Administration Moderate Correctional Scale Insulin Human NPH 10 unit 10/10/20 09:00 10/10/20 21:00 Nph, Human Insulin Isophane 300 Unit/3 Ml Vial SC 10 units BID LUCIEN Administration Lorazepam 2 mg 10/04/20 07:00 10/10/20 12:58 Lorazepam 2 Mg/Ml Vial SLOW IVP 11/03/20 07:00 2 mg Q1H PRN Administration Breakthrough agitation Metoclopramide HCl 10 mg 09/25/20 09:00 10/10/20 21:02 Metoclopramide Hcl 10 Mg/2 Ml Vial IVP 10 mg 0300,0900,1500,2100 LUCIEN Administration Propofol 1,000 mg 09/24/20 06:30 10/08/20 05:43 Propofol 1,000 Mg/100 Ml Vial IV 10/24/20 06:30 1,000 mg INF PRN Administration TO ACHIEVE GOAL RASS Protocol Sodium Chloride 10 ml 09/21/20 21:00 10/10/20 21:02 Flush - Normal Saline 10 Ml Syringe IVF 10 ml Q12HR LUCIEN Administration Zinc Sulfate 220 mg 09/21/20 09:00 10/10/20 08:27 Zinc Sulfate 220 Mg Cap PO 220 mg DAILY LUCIEN Administration - Exam General Appearance: ill appearing General - other findings: On mechanical ventilation Heart: RRR, no gallops Respiratory: rales, rhonchi Gastrointestinal: soft, no guarding, no rigidity Extremities: no cyanosis Neurological - other findings: Neuro/psychunable to assess due to current mentation Hosp A/P - Plan DVT proph w/SCDs Acute hypoxic respiratory failure/sepsis due to COVID 19 pneumonia requiring mechanical ventilation S/p Remdesivir Acute kidney injury Hypertension Diabetes mellitus type II Chronic anemia probably due to nutritional deficiency Hyperkalemia/hypernatremia/hyponatremiaresolved Plan: Palliative care notes reviewed. On dexamethasone 6 mg daily. NPH dose reduced to 10 units twice daily. Continue bronchodilators. Continue DVT and GI prophylaxis. A.m. labs. Chest x-ray in a.m. Continue tube feeding
[2020-10-10] MEDS: Cholecalciferol 1,000 UNITS (25 MCG) TAB PER TUBE SCH (21:39)
[2020-10-11] MEDS: Acetaminophen 500 MG TAB PO PRN ×2 (02:19→20:34)
[2020-10-11] MEDS: Metoclopramide HCl 10 MG/2 ML VIAL IVP SCH ×4 (04:18→20:33)
[2020-10-11 05:31] LABS: Phosphorus 2.7 mg/dL (2.3-4.7)
[2020-10-11 05:43] LABS: #Eosinphils 0.6 thou/uL (0.0-0.7); #Monocytes 0.5 thou/uL (0.11-0.59); #Neutrophils 6.4 thou/uL (1.40-6.50); %Basophils 0.2 % (0.0-1.0); %Eosinophils 6.6 % (0.0-10.0); %Monocytes 6.2 % (0.0-10.0); Hemoglobin 10.3 g/dL (14.0-18.0); Mean Corpuscular HGB CONC 32.4 g/dL (32.0-36.0); Mean Corpuscular Hemoglobin 31.7 pg (27.0-31.0); Mean Corpuscular Volume 97.8 fL (78.0-98.0); Mean Platelet Volume 11.1 fL (7.4-10.4); Platelet Count 137 thou/uL (130-400); RBC Distribution Width 13.5 % (11.5-14.5); Red Blood Cell (RBC) Count 3.25 mill/uL (4.70-6.10); White Blood Cell (WBC) Count 8.5 thou/uL (4.8-10.8)
[2020-10-11 05:47] LABS: Anion Gap 13 mmol/L (10-20); BUN (Urea Nitrogen) 41 mg/dL (8.4-25.7); Calc. Creatinine Clearance 121 mL/min (70-130); Calcium 7.6 mg/dL (7.8-10.44); Carbon Dioxide 27 mmol/L (23-31); Chloride 104 mmol/L (98-107); Glucose 97 mg/dL (80-115); Magnesium 1.7 mg/dL (1.6-2.6); Potassium 3.5 mmol/L (3.5-5.1); Sodium 140 mmol/L (136-145)
[2020-10-11] MEDS: Budesonide 0.5 MG/2 ML NEB NEB SCH ×2 (06:45→19:44)
[2020-10-11] MEDS ORDERED: Magnesium 2 GM/50 ML 2 GM in Premix Bag 1 BAG IVPB SCH (06:45)
[2020-10-11] MEDS ORDERED: Potassium Bicarbonate/Cit Ac 20 MEQ TAB PER TUBE SCH (06:45)
[2020-10-11] MEDS: Arformoterol 15 MCG/2 ML NEB NEB SCH ×2 (06:45→19:44)
--- NOTE | 2020-10-11 08:33 | RAD ---
EXAM: CHEST ONE VIEW HISTORY: Pneumonia. Follow-up evaluation. COMPARISON: 10/10/2020 FINDINGS: Endotracheal tube and nasogastric tubes remain in place. Cardiac silhouette is magnified by projectio n. Interstitial opacities are again seen within the lungs bilaterally with mild scattered patchy parenchymal opacities as well. Findings have not significantly changed when compared to prior exam. N o large pleural effusion is identified. No other interval change. IMPRESSION: Persistent interstitial opacities with a few mild scattered patchy parenchymal airspace opacities as well. Findings are overall similar to the prior exam. Findings could be related to Covid pneumonia in the correct clinical scenario.
[2020-10-11] MEDS: fentaNYL Citrate/PF 2,000 MCG in Sodium Chloride 0.9% 60 ML IV SCH (09:10)
[2020-10-11] MEDS ORDERED: NPH, Human Insulin Isophane 300 UNIT/3 ML VIAL SC SCH (09:11)
[2020-10-11] MEDS: Famotidine 20 MG TAB PO SCH ×2 (09:42→20:33)
[2020-10-11] MEDS: Zinc Sulfate 220 MG CAP PO SCH (09:42)
[2020-10-11] MEDS: Dexamethasone 4 mg/ml Vial SLOW IVP SCH (09:42)
[2020-10-11] MEDS: Ascorbic Acid 500 mg Chewable Tablet PO SCH (09:42)
--- NOTE | 2020-10-11 09:56 | PRG ---
DATE OF SERVICE: 10/11/2020 TIME SPENT: This is 35 minutes of critical care time. SUBJECTIVE: Mr. Pitts is awake, alert, follows commands, but he is very weak, squeezing his hands and pushing with his feet. OBJECTIVE: VITAL SIGNS: Pulse is 82, blood pressure is 115/72, O2 saturation 96%, respiratory rate 20, temperature is 99.1. 24-hour intake was 1483, output 1525. HEENT: Unremarkable except for the endotracheal tube and orogastric tube. NECK: No JVD. LUNGS: Few inspiratory crackles. CARDIAC: S1 and S2. Regular. ABDOMEN: Soft. EXTREMITIES: No edema. DIAGNOSTIC DATA: His chest x-ray shows continued bilateral infiltrates. LABORATORY DATA: Sodium 140, potassium 3.5, chloride 104, CO2 of 27, BUN 41, creatinine 0.9, glucose 85. White blood cell count 8.5, hematocrit 31.8, and platelet count 137. ASSESSMENT: 1. COVID-19 pneumonia. 2. Acute hypoxic respiratory failure requiring mechanical ventilation. 3. Status post renal failure. PLAN: 1. The main issue now is his neuromuscular weakness. I have been successful in weaning him down to CPAP pressure support ventilation today. If his strength improves, I could see him being extubated as soon as tomorrow. I am hoping physical therapy and occupational therapy can work closely with him and improve his muscle strength in the interim. 2. I have decreased his NPH insulin as his blood sugars are continuing to improve. Job ID: [id number]
[2020-10-11] MEDS: Apixaban 2.5 MG TAB PER TUBE SCH ×2 (10:34→20:34)
[2020-10-11] MEDS: NPH, Human Insulin Isophane 300 UNIT/3 ML VIAL SC SCH (13:46)
--- NOTE | 2020-10-11 20:43 | PDOC.HOSPP ---
- Subjective Encounter Date: 10/11/20 Encounter Time: 14:15 non-verbal Subjective: Patient seen and examined for respiratory failure due to COVID-19 pneumonia. On mechanical ventilation. No overnight events. - Objective Vital Signs & Weight: Vital Signs (12 hours) Temp Pulse Pulse Pulse Resp BP BP 10/11/20 20:34 100.1 F H 89 29 H 144/78 H 10/11/20 20:00 29 H 10/11/20 19:44 92 32 H 10/11/20 19:42 83 10/11/20 18:00 23 H 10/11/20 16:00 99.0 F 26 H 10/11/20 14:25 74 115/69 10/11/20 14:00 27 H 10/11/20 12:00 98.1 F 25 H 10/11/20 10:46 80 126/72 10/11/20 10:00 80 81 27 H 112/65 10/11/20 09:38 82 84 115/72 10/11/20 09:16 79 115/72 BP Pulse Ox Pulse Ox Pulse Ox 10/11/20 20:34 10/11/20 20:00 98 10/11/20 19:44 96 10/11/20 19:42 10/11/20 18:00 10/11/20 16:00 10/11/20 14:25 10/11/20 14:00 10/11/20 12:00 10/11/20 10:46 10/11/20 10:00 126/72 98 98 10/11/20 09:38 114/71 96 98 10/11/20 09:16 Weight Admit Weight 236 lb Weight 229 lb 11.547 oz Most Recent Monitor Data Heart Rate from ECG 86 NIBP 144/78 NIBP BP-Mean 100 Respiration from ECG 27 SpO2 98 I&O: 10/10/20 10/11/20 10/12/20 06:59 06:59 06:59 Intake Total 763 1483 1063 Output Total 1780 1525 960 Balance -1017 -42 103 Result Diagrams: 10/11/20 03:30 10/11/20 03:30 Additional Labs: Accuchecks 10/11/20 10/11/20 10/11/20 15:45 08:27 03:36 POC Glucose 132 H 127 H 98 10/10/20 20:54 POC Glucose 138 H Radiology Reviewed by me: Yes (Chest x-rayreviewed) EKG Reviewed by me: Yes (Sinus rhythm on telemetry) Hospitalist ROS - Review of Systems ROS unobtainable: due to mental status - Medication Medications: Active Medications Generic Name Dose Route Start Last Admin Trade Name Freq PRN Reason Stop Dose Admin Acetaminophen 1,000 mg 09/20/20 15:19 10/11/20 20:34 Acetaminophen 500 Mg Tab PO 1,000 mg Q6H PRN Administration Mild Pain (1-3) Apixaban 2.5 mg 10/04/20 21:00 10/11/20 20:34 Apixaban 2.5 Mg Tab PER TUBE 2.5 mg BID LUCIEN Administration Arformoterol Tartrate 15 mcg 09/25/20 18:30 10/11/20 19:44 Arformoterol 15 Mcg/2 Ml Neb NEB 15 mcg BID-RT LUCIEN Administration Ascorbic Acid 1,000 mg 09/21/20 09:00 10/11/20 09:42 Ascorbic Acid 500 Mg Chewable Tablet PO 1,000 mg DAILY LUCIEN Administration Budesonide 0.5 mg 09/25/20 18:30 10/11/20 19:44 Budesonide 0.5 Mg/2 Ml Neb NEB 0.5 mg BID-RT LUCIEN Administration Cholecalciferol 5,000 units 09/24/20 21:00 10/10/20 21:39 Cholecalciferol 1,000 Units (25 Mcg) Tab PER TUBE 5,000 units HS LUCIEN Administration Dexamethasone 6 mg 10/09/20 09:00 10/11/20 09:42 Dexamethasone 4 Mg/Ml Vial SLOW IVP 6 mg DAILY LUCIEN Administration Famotidine 20 mg 10/08/20 21:00 10/11/20 20:33 Famotidine 20 Mg Tab PO 20 mg BID LUCIEN Administration Fentanyl Citrate 2,000 mcg/ 100 mls @ 0 mls/hr 10/04/20 07:00 10/11/20 09:10 Sodium Chloride IV 11/03/20 07:00 100 mls INF LUCIEN Administration Protocol Per Protocol Insulin Human Lispro 0 units 10/01/20 13:49 10/08/20 15:20 Humalog 300 Units/3 Ml Vial SC 2 unit .MODERATE SLIDING SC PRN Administration Moderate Correctional Scale Lorazepam 2 mg 10/04/20 07:00 10/10/20 12:58 Lorazepam 2 Mg/Ml Vial SLOW IVP 11/03/20 07:00 2 mg Q1H PRN Administration Breakthrough agitation Metoclopramide HCl 10 mg 09/25/20 09:00 10/11/20 20:33 Metoclopramide Hcl 10 Mg/2 Ml Vial IVP 10 mg 0300,0900,1500,2100 LUCIEN Administration Propofol 1,000 mg 09/24/20 06:30 10/08/20 05:43 Propofol 1,000 Mg/100 Ml Vial IV 10/24/20 06:30 1,000 mg INF PRN Administration TO ACHIEVE GOAL RASS Protocol Sodium Chloride 10 ml 09/21/20 21:00 10/11/20 09:43 Flush - Normal Saline 10 Ml Syringe IVF 10 ml Q12HR LUCIEN Administration Zinc Sulfate 220 mg 09/21/20 09:00 10/11/20 09:42 Zinc Sulfate 220 Mg Cap PO 220 mg DAILY LUCIEN Administration - Exam General Appearance: ill appearing General - other findings: On mechanical ventilation Heart: RRR, no gallops Respiratory: rales, rhonchi Gastrointestinal: soft, no guarding, no rigidity Extremities: no cyanosis, no clubbing Hosp A/P - Plan DVT proph w/lovenox, DVT proph w/SCDs Acute hypoxic respiratory failure/sepsis due to COVID 19 pneumonia requiring mechanical ventilation S/p Remdesivir Acute kidney injury Hypertension Diabetes mellitus type II Chronic anemia probably due to nutritional deficiency Hypokalemia Hypomagnesemia Hyperkalemia/hypernatremia/hyponatremiaresolved Plan: Continue supportive care. Replace magnesium and potassium. On dexamethasone. NPH dose reduced to 5 units twice daily. Continue other medications as above.
[2020-10-11] MEDS: Cholecalciferol 1,000 UNITS (25 MCG) TAB PER TUBE SCH (21:14)
[2020-10-12] MEDS: Metoclopramide HCl 10 MG/2 ML VIAL IVP SCH ×4 (03:29→19:51)
[2020-10-12 04:46] LABS: #Eosinphils 0.6 thou/uL (0.0-0.7); #Lymphocytes 0.9 thou/uL (1.20-3.40); #Monocytes 0.5 thou/uL (0.11-0.59); #Neutrophils 5.2 thou/uL (1.40-6.50); %Basophils 0.4 % (0.0-1.0); %Eosinophils 8.3 % (0.0-10.0); %Lymphocytes 12.4 % (21.0-51.0); %Monocytes 6.3 % (0.0-10.0); %Neutrophils 72.5 % (42.0-75.0); Hemoglobin 9.9 g/dL (14.0-18.0); Mean Corpuscular HGB CONC 31.3 g/dL (32.0-36.0); Mean Corpuscular Hemoglobin 30.9 pg (27.0-31.0); Mean Corpuscular Volume 98.7 fL (78.0-98.0); Mean Platelet Volume 10.8 fL (7.4-10.4); Platelet Count 116 thou/uL (130-400); RBC Distribution Width 13.5 % (11.5-14.5); White Blood Cell (WBC) Count 7.2 thou/uL (4.8-10.8)
[2020-10-12 04:59] LABS: Anion Gap 12 mmol/L (10-20); BUN (Urea Nitrogen) 31 mg/dL (8.4-25.7); Calc. Creatinine Clearance 132 mL/min (70-130); Calcium 7.7 mg/dL (7.8-10.44); Carbon Dioxide 29 mmol/L (23-31); Chloride 102 mmol/L (98-107); Glucose 105 mg/dL (80-115); Sodium 139 mmol/L (136-145)
[2020-10-12] MEDS: Arformoterol 15 MCG/2 ML NEB NEB SCH ×2 (06:40→19:23)
[2020-10-12] MEDS: Budesonide 0.5 MG/2 ML NEB NEB SCH ×2 (06:41→19:25)
--- NOTE | 2020-10-12 08:20 | RAD ---
Portable frontal chest radiograph: 10/12/2020 COMPARISON: 10/11/2020 HISTORY: Pneumonia FINDINGS: Stable endotracheal tube and nasogastric tube. Diffuse prominent coarse interstitial and al veolar opacity noted bilaterally, right greater than left, with a perihilar and bibasilar predominance. Aeration has worsened in the right upper lobe. IMPRESSION: Extensive interstitial and alveolar opacity, right greater than left, worsened on the rig ht, suspicious for bilateral Covid pneumonia.
[2020-10-12] MEDS ORDERED: DC Sedation Protocol FS ONE (08:33)
[2020-10-12] MEDS: Ascorbic Acid 500 mg Chewable Tablet PO SCH (08:50)
[2020-10-12] MEDS: Apixaban 2.5 MG TAB PER TUBE SCH ×2 (08:50→19:51)
[2020-10-12] MEDS: Famotidine 20 MG TAB PO SCH ×2 (08:50→19:51)
[2020-10-12] MEDS: Zinc Sulfate 220 MG CAP PO SCH (08:50)
--- NOTE | 2020-10-12 09:14 | PRG ---
DATE OF SERVICE: 10/12/2020 This 35 minutes critical time included conversation with the patient's over the phone. SUBJECTIVE: The patient is doing well. He is awake, alert, follows commands. He is currently on CPAP 5, pressure support 10 on mechanical ventilation. OBJECTIVE: VITAL SIGNS: Temperature 99.5, pulse 92, blood pressure 133/79. 24-hour intake 2032, output 1425. HEENT: Unremarkable. NECK: No adenopathy or JVD. LUNGS: Few crackles. CARDIAC: S1 and S2. Regular. ABDOMEN: Soft. EXTREMITIES: No edema. LABORATORY DATA: Sodium 139, potassium 4, BUN 31, creatinine 0.8, and glucose 105. White blood cell count 7.2, hematocrit 31.6, and platelet count 116. IMAGING STUDIES: Chest x-ray continues to show bilateral infiltrates. ASSESSMENT: 1. COVID-19 pneumonia with improved hypoxic respiratory failure requiring mechanical ventilation. 2. Status post acute renal failure. PLAN: It seems that he has passed a spontaneous breathing trial today and we can extubate. Hopefully, he can be on minimal high-flow oxygen. His medications were reviewed extensively. His sedation protocol will be discontinued. I think I will go ahead and cut his steroid dose down further. His blood sugars have been steadily decreasing, so based on that, I will go ahead and hold his NPH insulin. We will have speech therapy evaluate potential for swallowing. Job ID: [id number]
[2020-10-12] MEDS: Dexamethasone 4 mg/ml Vial SLOW IVP SCH (09:29)
[2020-10-12] MEDS ORDERED: Acetaminophen 650 MG/20.3 ML UDCUP PO PRN (13:22)
[2020-10-12] MEDS: Acetaminophen 650 MG Suppository PR PRN (14:54)
[2020-10-12] MEDS: D5 1/2 NS w/20 mEq KCL 1,000 ML IV SCH (16:00)
[2020-10-12] MEDS: Cholecalciferol 1,000 UNITS (25 MCG) TAB PER TUBE SCH (19:51)
[2020-10-13] MEDS: Metoclopramide HCl 10 MG/2 ML VIAL IVP SCH ×2 (02:32→09:28)
[2020-10-13 03:03] LABS: #Eosinphils 0.3 thou/uL (0.0-0.7); #Lymphocytes 0.9 thou/uL (1.20-3.40); #Monocytes 0.4 thou/uL (0.11-0.59); #Neutrophils 5.1 thou/uL (1.40-6.50); %Basophils 0.5 % (0.0-1.0); %Eosinophils 4.1 % (0.0-10.0); %Lymphocytes 13.2 % (21.0-51.0); %Monocytes 6.4 % (0.0-10.0); %Neutrophils 75.8 % (42.0-75.0); Mean Corpuscular HGB CONC 32.4 g/dL (32.0-36.0); Mean Corpuscular Hemoglobin 31.3 pg (27.0-31.0); Mean Corpuscular Volume 96.4 fL (78.0-98.0); Mean Platelet Volume 9.4 fL (7.4-10.4); Platelet Count 132 thou/uL (130-400); RBC Distribution Width 13.5 % (11.5-14.5); Red Blood Cell (RBC) Count 3.19 mill/uL (4.70-6.10); White Blood Cell (WBC) Count 6.8 thou/uL (4.8-10.8)
[2020-10-13 03:31] LABS: Anion Gap 12 mmol/L (10-20); BUN (Urea Nitrogen) 25 mg/dL (8.4-25.7); Calc. Creatinine Clearance 136 mL/min (70-130); Carbon Dioxide 27 mmol/L (23-31); Chloride 102 mmol/L (98-107); Glucose 95 mg/dL (80-115); Potassium 3.9 mmol/L (3.5-5.1); Sodium 137 mmol/L (136-145)
[2020-10-13 03:32] LABS: Calcium 7.7 mg/dL (7.8-10.44)
[2020-10-13] MEDS: Arformoterol 15 MCG/2 ML NEB NEB SCH ×2 (08:16→20:12)
[2020-10-13] MEDS: Budesonide 0.5 MG/2 ML NEB NEB SCH ×2 (08:18→20:13)
[2020-10-13] MEDS ORDERED: Enoxaparin Sodium 100 MG/ML SYRINGE SC SCH (09:00)
[2020-10-13] MEDS: Ascorbic Acid 500 mg Chewable Tablet PO SCH (09:27)
[2020-10-13] MEDS: Famotidine 20 MG TAB PO SCH ×2 (09:27→21:33)
[2020-10-13] MEDS: Zinc Sulfate 220 MG CAP PO SCH (09:28)
[2020-10-13] MEDS: Dexamethasone 4 mg/ml Vial SLOW IVP SCH (09:28)
--- NOTE | 2020-10-13 09:31 | RAD ---
Exam: Chest one view HISTORY:Pneumonia Comparison: 10/12/2020 FINDINGS: Cardiac silhouette: Normal Aorta: Unremarkable Pulmonary vessels: Normal Costophrenic angles: Clear LUNGS: Persistent multi focal interstitial and alveolar opacities. Pneumothorax: None Osseous abnormalities: None Lines and tubes: Interval removal of endotracheal and nasogastric tube. IMPRESSION: 1. Interval level of endotracheal and nasogastric tube 2. Persistent multi lobar pneumonia.
--- NOTE | 2020-10-13 09:41 | PDOC.HOSPP ---
- Subjective Encounter Date: 10/12/20 Encounter Time: 14:30 Subjective: Patient seen and examined for respiratory failure. Extubated. On nasal cannula. Generally weak. No new complaints - Objective Vital Signs & Weight: Vital Signs (12 hours) Pulse Resp Pulse Ox 10/13/20 08:19 94 L 10/13/20 08:16 91 34 H 94 L 10/13/20 07:42 94 L 10/13/20 03:00 95 Weight Admit Weight 236 lb Weight 229 lb 11.547 oz Most Recent Monitor Data Heart Rate from ECG 91 NIBP 140/71 NIBP BP-Mean 94 Respiration from ECG 37 SpO2 95 I&O: 10/12/20 10/13/20 10/14/20 06:59 06:59 06:59 Intake Total 3023 781 Output Total 1428 1475 105 Balance 608 -694 -105 Result Diagrams: 10/13/20 02:56 10/13/20 02:56 Additional Labs: Accuchecks 10/12/20 10/12/20 10/12/20 22:43 18:07 10:30 POC Glucose 114 H 173 H 138 H Abnormal Lab Results - Last 48 hrs 10/12/20 03:30: BUN 31 H, Calcium 7.7 L 10/12/20 03:30: RBC 3.20 L, Hgb 9.9 L, Hct 31.6 L, MCV 98.7 H, MCHC 31.3 L, Plt Count 116 L, MPV 10.8 H, Lymphocytes % 12.4 L, Lymphocytes # 0.9 L 10/13/20 02:56: Calcium 7.7 L 10/13/20 02:56: RBC 3.19 L, Hgb 10.0 L, Hct 30.8 L, MCH 31.3 H, Neutrophils % 75.8 H, Lymphocytes % 13.2 L, Lymphocytes # 0.9 L Microbiology - Entire Visit 09/26/20 10:00 Urine bravo catheter Urine Culture - Final NO GROWTH AT 48 HOURS 09/20/20 10:12 Venous blood - Left Hand Blood Culture - Final NO GROWTH IN 5 DAYS 09/20/20 10:12 Venous blood - Left Arm Blood Culture - Final NO GROWTH IN 5 DAYS EKG Reviewed by me: Yes (Sinus rhythm on telemetry) Hospitalist ROS - Review of Systems Cardiovascular: denies: chest pain, palpitations, orthopnea, paroxysmal noc. dyspnea, edema, light headedness, other Gastrointestinal: denies: nausea, vomiting, abdominal pain, diarrhea, constipation, melena, hematochezia, other - Medication Medications: Active Medications Generic Name Dose Route Start Last Admin Trade Name Freq PRN Reason Stop Dose Admin Acetaminophen 650 mg 10/12/20 13:22 10/12/20 14:54 Acetaminophen 650 Mg Suppository [place] 650 mg Q4H PRN Administration Headache/Fever or Pain Arformoterol Tartrate 15 mcg 09/25/20 18:30 10/13/20 08:16 Arformoterol 15 Mcg/2 Ml Neb NEB 15 mcg BID-RT LUCIEN Administration Ascorbic Acid 1,000 mg 09/21/20 09:00 10/13/20 09:27 Ascorbic Acid 500 Mg Chewable Tablet PO Not Given DAILY LUCIEN Budesonide 0.5 mg 09/25/20 18:30 10/13/20 08:18 Budesonide 0.5 Mg/2 Ml Neb NEB 0.5 mg BID-RT LUCIEN Administration Cholecalciferol 5,000 units 09/24/20 21:00 10/12/20 19:51 Cholecalciferol 1,000 Units (25 Mcg) Tab PER TUBE Not Given HS LUCIEN Dexamethasone 3 mg 10/12/20 08:38 10/13/20 09:28 Dexamethasone 4 Mg/Ml Vial SLOW IVP 3 mg DAILY LUCIEN Administration Enoxaparin Sodium 100 mg 10/13/20 09:00 10/13/20 09:28 Enoxaparin Sodium 100 Mg/Ml Syringe SC 100 mg 0900,2100 LUCIEN Administration Famotidine 20 mg 10/08/20 21:00 10/13/20 09:27 Famotidine 20 Mg Tab PO Not Given BID LUCIEN Potassium Chloride/Dextrose/Sod Cl 1,000 mls @ 50 mls/hr 10/12/20 15:00 10/12/20 16:00 D5 1/2 Ns W/20 Meq Kcl IV 1,000 mls .Q20H LUCIEN Administration Insulin Human Lispro 0 units 10/01/20 13:49 10/08/20 15:20 Humalog 300 Units/3 Ml Vial SC 2 unit .MODERATE SLIDING SC PRN Administration Moderate Correctional Scale Metoclopramide HCl 10 mg 09/25/20 09:00 10/13/20 09:28 Metoclopramide Hcl 10 Mg/2 Ml Vial IVP 10 mg 0300,0900,1500,2100 LUCIEN Administration Sodium Chloride 10 ml 09/21/20 21:00 10/13/20 09:28 Flush - Normal Saline 10 Ml Syringe IVF 10 ml Q12HR LUCIEN Administration Zinc Sulfate 220 mg 09/21/20 09:00 10/13/20 09:28 Zinc Sulfate 220 Mg Cap PO Not Given DAILY LUCIEN - Exam General Appearance: ill appearing Heart: RRR, no gallops Respiratory: rales, rhonchi Gastrointestinal: soft, no guarding, no rigidity Extremities: no cyanosis Hosp A/P - Plan DVT proph w/SCDs Acute hypoxic respiratory failure/sepsis due to COVID 19 pneumonia requiring mechanical ventilation S/p Remdesivir Acute kidney injury Hypertension Diabetes mellitus type II Chronic anemia probably due to nutritional deficiency Hypokalemia Hypomagnesemia Swallow dysfunction Physical deconditioning Hyperkalemia/hypernatremia/hyponatremiaresolved Plan: Patient failed swallow eval. Will start gentle hydration. Physical therapy. Continue other medications as above. Continue supportive care
[2020-10-13] MEDS: D5 1/2 NS w/20 mEq KCL 1,000 ML IV SCH (15:15)
[2020-10-13] MEDS: Acetaminophen 650 MG Suppository PR PRN (15:15)
--- NOTE | 2020-10-13 17:35 | PRG ---
DATE OF SERVICE: 10/13/2020 SUBJECTIVE: Mr. Pitts was up in a chair. Encephalopathic. OBJECTIVE: VITAL SIGNS: Afebrile, blood pressure 144/80, heart rate is 110. LUNGS: Clear. HEART: Regular rhythm. ABDOMEN: Soft. LABORATORY DATA: Chest radiograph shows no new infiltrates. White count 6.8, hemoglobin 10.0, platelets 132. Electrolytes are normal creatinine is 0.8. IMPRESSION: Status post mechanical ventilation, COVID pneumonia, clinically stable. His weakness and encephalopathy probably prevent him from safely moving out of Critical Care Unit at this point in time. LTAC evaluation versus rehab would be the next step. Job ID: [id number]
[2020-10-13] MEDS: Cholecalciferol 1,000 UNITS (25 MCG) TAB PER TUBE SCH (22:13)
[2020-10-14 04:43] LABS: #Eosinphils 0.5 thou/uL (0.0-0.7); #Monocytes 0.4 thou/uL (0.11-0.59); #Neutrophils 5.5 thou/uL (1.40-6.50); %Basophils 0.4 % (0.0-1.0); %Eosinophils 6.4 % (0.0-10.0); %Lymphocytes 13.9 % (21.0-51.0); %Monocytes 5.9 % (0.0-10.0); %Neutrophils 73.4 % (42.0-75.0); Mean Corpuscular HGB CONC 32.7 g/dL (32.0-36.0); Mean Corpuscular Hemoglobin 31.7 pg (27.0-31.0); Mean Corpuscular Volume 96.7 fL (78.0-98.0); Mean Platelet Volume 9.9 fL (7.4-10.4); Platelet Count 136 thou/uL (130-400); RBC Distribution Width 13.6 % (11.5-14.5); Red Blood Cell (RBC) Count 3.15 mill/uL (4.70-6.10); White Blood Cell (WBC) Count 7.5 thou/uL (4.8-10.8)
[2020-10-14 04:51] LABS: Anion Gap 12 mmol/L (10-20); BUN (Urea Nitrogen) 22 mg/dL (8.4-25.7); Calc. Creatinine Clearance 134 mL/min (70-130); Calcium 7.8 mg/dL (7.8-10.44); Carbon Dioxide 26 mmol/L (23-31); Chloride 103 mmol/L (98-107); Glucose 88 mg/dL (80-115); Potassium 4.2 mmol/L (3.5-5.1); Sodium 137 mmol/L (136-145)
[2020-10-14] MEDS: Arformoterol 15 MCG/2 ML NEB NEB SCH ×2 (07:24→22:01)
[2020-10-14] MEDS: Budesonide 0.5 MG/2 ML NEB NEB SCH ×2 (07:26→22:21)
[2020-10-14] MEDS: Enoxaparin Sodium 40 MG/0.4 ML SYRINGE SC SCH ×2 (09:27→21:13)
[2020-10-14] MEDS: D5 1/2 NS w/20 mEq KCL 1,000 ML IV SCH (09:27)
[2020-10-14] MEDS: Ascorbic Acid 500 mg Chewable Tablet PO SCH (09:27)
[2020-10-14] MEDS: Zinc Sulfate 220 MG CAP PO SCH (09:28)
[2020-10-14] MEDS: Dexamethasone 4 mg/ml Vial SLOW IVP SCH (09:28)
[2020-10-14] MEDS: Famotidine 20 MG TAB PO SCH ×2 (09:28→21:11)
--- NOTE | 2020-10-14 10:42 | RAD ---
AP CHEST: Date: 10/14/2020 HISTORY: Pneumonia. CCU follow-up. COMPARISON: 10/13/2020. FINDINGS/IMPRESSION: There are bilateral hazy and patchy infiltrates with evidence of small effusions. Mild cardiomegaly. Bilateral infiltrates without significant interval change from yesterday. POS: AGW
[2020-10-14] MEDS: traMADol HCl 50 MG TAB PO PRN (10:44)
--- NOTE | 2020-10-14 13:34 | PDOC.HOSPP ---
- Subjective Encounter Date: 10/13/20 Encounter Time: 11:30 Subjective: Patient seen and examined for respiratory failure. On neuro chair. Generally weak. No other overnight events. Started on modified diet per speech - Objective Vital Signs & Weight: Vital Signs (12 hours) Pulse Resp Pulse Ox 10/14/20 07:55 94 L 10/14/20 07:24 86 28 H 98 10/14/20 02:47 95 Weight Admit Weight 236 lb Weight 229 lb 11.547 oz Most Recent Monitor Data Heart Rate from ECG 96 NIBP 167/80 NIBP BP-Mean 109 Respiration from ECG 27 SpO2 94 I&O: 10/13/20 10/14/20 10/15/20 06:59 06:59 06:59 Intake Total 781 760 Output Total 2145 845 50 Balance -694 -85 -50 Result Diagrams: 10/14/20 04:00 10/14/20 04:00 Additional Labs: Accuchecks 10/14/20 10/14/20 10/13/20 11:41 06:39 19:49 POC Glucose 146 H 96 122 H Abnormal Lab Results - Last 48 hrs 10/13/20 02:56: Calcium 7.7 L 10/13/20 02:56: RBC 3.19 L, Hgb 10.0 L, Hct 30.8 L, MCH 31.3 H, Neutrophils % 75.8 H, Lymphocytes % 13.2 L, Lymphocytes # 0.9 L Microbiology - Entire Visit 09/26/20 10:00 Urine bravo catheter Urine Culture - Final NO GROWTH AT 48 HOURS 09/20/20 10:12 Venous blood - Left Hand Blood Culture - Final NO GROWTH IN 5 DAYS 09/20/20 10:12 Venous blood - Left Arm Blood Culture - Final NO GROWTH IN 5 DAYS Hospitalist ROS - Review of Systems Cardiovascular: denies: chest pain, palpitations, orthopnea, paroxysmal noc. dyspnea, edema, light headedness, other Gastrointestinal: denies: nausea, vomiting, abdominal pain, diarrhea, constipation, melena, hematochezia, other - Medication Medications: Active Medications Generic Name Dose Route Start Last Admin Trade Name Freq PRN Reason Stop Dose Admin Acetaminophen 650 mg 10/12/20 13:22 10/13/20 15:15 Acetaminophen 650 Mg Suppository MD 650 mg Q4H PRN Administration Headache/Fever or Pain Arformoterol Tartrate 15 mcg 09/25/20 18:30 10/14/20 07:24 Arformoterol 15 Mcg/2 Ml Neb NEB 15 mcg BID-RT LUCIEN Administration Ascorbic Acid 1,000 mg 09/21/20 09:00 10/14/20 09:27 Ascorbic Acid 500 Mg Chewable Tablet PO 1,000 mg DAILY LUCIEN Administration Budesonide 0.5 mg 09/25/20 18:30 10/14/20 07:26 Budesonide 0.5 Mg/2 Ml Neb NEB 0.5 mg BID-RT LUCIEN Administration Cholecalciferol 5,000 units 09/24/20 21:00 10/13/20 22:13 Cholecalciferol 1,000 Units (25 Mcg) Tab PER TUBE 5,000 units HS LUCIEN Administration Dexamethasone 3 mg 10/12/20 08:38 10/14/20 09:28 Dexamethasone 4 Mg/Ml Vial SLOW IVP 3 mg DAILY LUCIEN Administration Enoxaparin Sodium 40 mg 10/14/20 09:00 10/14/20 09:27 Enoxaparin Sodium 40 Mg/0.4 Ml Syringe SC 40 mg 0900,2099 LUCIEN Administration Famotidine 20 mg 10/08/20 21:00 10/14/20 09:28 Famotidine 20 Mg Tab PO 20 mg BID LUCIEN Administration Potassium Chloride/Dextrose/Sod Cl 1,000 mls @ 50 mls/hr 10/12/20 15:00 10/14/20 09:27 D5 1/2 Ns W/20 Meq Kcl IV 1,000 mls .Q20H LUCIEN Administration Insulin Human Lispro 0 units 10/01/20 13:49 10/08/20 15:20 Humalog 300 Units/3 Ml Vial SC 2 unit .MODERATE SLIDING SC PRN Administration Moderate Correctional Scale Sodium Chloride 10 ml 09/21/20 21:00 10/14/20 09:28 Flush - Normal Saline 10 Ml Syringe IVF 10 ml Q12HR LUCIEN Administration Tramadol HCl 50 mg 10/14/20 10:05 10/14/20 10:44 Tramadol Hcl 50 Mg Tab PO 50 mg Q6H PRN Administration Moderate Pain (4-6) Zinc Sulfate 220 mg 09/21/20 09:00 10/14/20 09:28 Zinc Sulfate 220 Mg Cap PO 220 mg DAILY LUCIEN Administration - Exam General Appearance: ill appearing Neck: supple, no JVD Heart: RRR, no gallops Respiratory: no wheezes, rales, rhonchi Gastrointestinal: soft, no guarding, no rigidity Extremities: no cyanosis Musculoskeletal: generalized weakness Hosp A/P - Plan DVT proph w/SCDs Acute hypoxic respiratory failure/sepsis due to COVID 19 pneumonia requiring mechanical ventilation S/p Remdesivir Acute kidney injury Hypertension Diabetes mellitus type II Chronic anemia probably due to nutritional deficiency Hypokalemia Hypomagnesemia Swallow dysfunction Physical deconditioning Hyperkalemia/hypernatremia/hyponatremiaresolved Plan: Discontinue IV fluids once tolerating p.o. Patient will probably need rehab versus jail facility. Continue supportive care. Lovenox for DVT prophylaxis. Continue steroid taper. Continue bronchodilators. A.m. labs
--- NOTE | 2020-10-14 14:47 | PDOC.PALPN ---
Palliative Progress Note - Subjective Sitting in Tanya Chair, weakness. Tolerating modified diet. Tolerating Nasal cannula. Pronounced weakness, denies complaints - Objective Vital Signs: Vital Signs - Most Recent Temp Pulse Resp BP Pulse Ox 98.7 F 86 28 H 130/80 94 L 10/14/20 00:00 10/14/20 07:24 10/14/20 07:24 10/12/20 09:10 10/14/20 07:55 - Physical Exam Constitutional: NAD, ill appearing HEENT: EOMI, moist MMs Respiratory: unlabored breathing Cardiovascular: RRR Gastrointestinal: soft, non-tender, positive bowel sounds Genitourinary: bravo catheter Musculoskeletal: no cyanosis, no clubbing, diffuse muscle atrophy Neurology: moves all 4 limbs, no focal deficits Skin: cap refill <2 seconds - Assessment (1) Palliative care encounter Code(s): Z51.5 - ENCOUNTER FOR PALLIATIVE CARE Current Visit: Yes Status: Acute (2) Acute respiratory failure with hypoxia Code(s): J96.01 - ACUTE RESPIRATORY FAILURE WITH HYPOXIA Current Visit: Yes Status: Acute (3) COVID-19 Code(s): U07.1 - COVID-19 Current Visit: Yes Status: Acute (4) Diabetes Code(s): E11.9 - TYPE 2 DIABETES MELLITUS WITHOUT COMPLICATIONS Current Visit: Yes Status: Acute (5) Hypertension Code(s): I10 - ESSENTIAL (PRIMARY) HYPERTENSION Current Visit: Yes Status: Acute - Plan Plan: Extubated and tolerating O2 via NC. Patient directives on chart, MPOA. Speech/PT/OT Hopeful for continued recovery, rehab if indicated. Provided emotional support to patient . Palliative care will sign off as Goal of care established, Directives confirmed. Thank you for this very appropriate consult. [20] minutes spent on this encounter with >50% of the time in counseling and coordination of care. - ROS Constitutional: alert, weakness ENT: dry mouth Respiratory: other Cardiology: other (denies chest pain, palpitations) Musculoskeletal: other (Negative for specific pain, generalized fatigue of muscles) Neurological: other (Denies numbness, dizziness)
--- NOTE | 2020-10-14 16:37 | PRG ---
DATE OF SERVICE: 10/14/2020 SUBJECTIVE: Myles Pitts is afebrile. He is much more coherent today. He actually nodded yes that he wanted to go home, but nodded no when I asked him if he thought he would be safe going home, which is a contrast to yesterday. OBJECTIVE: VITAL SIGNS: Heart rate is 76, respiratory rates in the teens, oximetry is 100% on 2 L cannula, and blood pressure 110/60. LUNGS: Clear. HEART: Regular rhythm. ABDOMEN: Soft. LABORATORY DATA: White count 7.5, hemoglobin 10.0, and platelets 136. Electrolytes are unremarkable. IMPRESSION: Status post COVID pneumonia, in mechanical ventilation, doing well. He can transfer to a skilled facility at this point given his stability. He can transfer out of the critical care unit, but may need a sitter either family or a sitter provided by the hospital. Job ID: [id number]
[2020-10-14] MEDS: Cholecalciferol 1,000 UNITS (25 MCG) TAB PER TUBE SCH (21:12)
--- NOTE | 2020-10-14 23:58 | PDOC.HOSPP ---
- Subjective Encounter Date: 10/14/20 Encounter Time: 15:30 Subjective: Patient seen and examined for respiratory failure. Participating in physical therapy. Denies any chest pain or palpitations. RN reported colder Right foot compared to the left - Objective Vital Signs & Weight: Vital Signs (12 hours) Temp Pulse Pulse Pulse Resp BP BP 10/14/20 22:01 20 10/14/20 20:00 99.7 F H 89 22 H 10/14/20 16:06 98.9 F 76 19 10/14/20 16:00 98.9 F 82 16 10/14/20 14:10 86 75 110/60 108/52 L BP Pulse Ox Pulse Ox Pulse Ox 10/14/20 22:01 10/14/20 20:00 163/78 H 96 10/14/20 16:06 100 10/14/20 16:00 160/84 H 98 10/14/20 14:10 100 100 Weight Admit Weight 236 lb Weight 229 lb 11.547 oz Most Recent Monitor Data Heart Rate from ECG 78 NIBP 167/80 NIBP BP-Mean 109 Respiration from ECG 37 SpO2 99 I&O: 10/13/20 10/14/20 10/15/20 06:59 06:59 06:59 Intake Total 781 760 Output Total 5185 845 50 Balance -694 -85 -50 Result Diagrams: 10/14/20 04:00 10/14/20 04:00 Additional Labs: Accuchecks 10/14/20 10/14/20 10/14/20 21:27 16:57 11:41 POC Glucose 106 H 140 H 146 H 10/14/20 06:39 POC Glucose 96 Abnormal Lab Results - Last 48 hrs 10/13/20 02:56: Calcium 7.7 L 10/13/20 02:56: RBC 3.19 L, Hgb 10.0 L, Hct 30.8 L, MCH 31.3 H, Neutrophils % 75.8 H, Lymphocytes % 13.2 L, Lymphocytes # 0.9 L 10/14/20 04:00: RBC 3.15 L, Hgb 10.0 L, Hct 30.5 L, MCH 31.7 H, Lymphocytes % 13.9 L, Lymphocytes # 1.0 L Microbiology - Entire Visit 09/26/20 10:00 Urine bravo catheter Urine Culture - Final NO GROWTH AT 48 HOURS 09/20/20 10:12 Venous blood - Left Hand Blood Culture - Final NO GROWTH IN 5 DAYS 09/20/20 10:12 Venous blood - Left Arm Blood Culture - Final NO GROWTH IN 5 DAYS EKG Reviewed by me: Yes (Sinus rhythm on telemetry earlier) Hospitalist ROS - Review of Systems Constitutional: reports: weakness. denies: fever, chills, sweats, malaise, other Gastrointestinal: denies: nausea, vomiting, abdominal pain, diarrhea, constipati on, melena, hematochezia, other - Medication Medications: Active Medications Generic Name Dose Route Start Last Admin Trade Name Freq PRN Reason Stop Dose Admin Acetaminophen 650 mg 10/12/20 13:22 10/13/20 15:15 Acetaminophen 650 Mg Suppository IL 650 mg Q4H PRN Administration Headache/Fever or Pain Arformoterol Tartrate 15 mcg 09/25/20 18:30 10/14/20 22:01 Arformoterol 15 Mcg/2 Ml Neb NEB 15 mcg BID-RT LUCIEN Administration Ascorbic Acid 1,000 mg 09/21/20 09:00 10/14/20 09:27 Ascorbic Acid 500 Mg Chewable Tablet PO 1,000 mg DAILY LUCIEN Administration Budesonide 0.5 mg 09/25/20 18:30 10/14/20 22:21 Budesonide 0.5 Mg/2 Ml Neb NEB 0.5 mg BID-RT LUCIEN Administration Cholecalciferol 5,000 units 09/24/20 21:00 10/14/20 21:12 Cholecalciferol 1,000 Units (25 Mcg) Tab PER TUBE 5,000 units HS LUCIEN Administration Dexamethasone 3 mg 10/12/20 08:38 10/14/20 09:28 Dexamethasone 4 Mg/Ml Vial SLOW IVP 3 mg DAILY LUCIEN Administration Enoxaparin Sodium 40 mg 10/14/20 09:00 10/14/20 21:13 Enoxaparin Sodium 40 Mg/0.4 Ml Syringe SC 40 mg 0900,2100 LUCIEN Administration Famotidine 20 mg 10/08/20 21:00 10/14/20 21:11 Famotidine 20 Mg Tab PO 20 mg BID LUCIEN Administration Potassium Chloride/Dextrose/Sod Cl 1,000 mls @ 50 mls/hr 10/12/20 15:00 10/14/20 09:27 D5 1/2 Ns W/20 Meq Kcl IV 1,000 mls .Q20H LUCIEN Administration Insulin Human Lispro 0 units 10/01/20 13:49 10/08/20 15:20 Humalog 300 Units/3 Ml Vial SC 2 unit .MODERATE SLIDING SC PRN Administration Moderate Correctional Scale Sodium Chloride 10 ml 09/21/20 21:00 10/14/20 21:13 Flush - Normal Saline 10 Ml Syringe IVF 10 ml Q12HR LUCIEN Administration Tramadol HCl 50 mg 10/14/20 10:05 10/14/20 10:44 Tramadol Hcl 50 Mg Tab PO 50 mg Q6H PRN Administration Moderate Pain (4-6) Zinc Sulfate 220 mg 09/21/20 09:00 10/14/20 09:28 Zinc Sulfate 220 Mg Cap PO 220 mg DAILY LUCIEN Administration - Exam General Appearance: ill appearing Neck: supple, no JVD Heart: RRR, no gallops Respiratory: no wheezes, rhonchi Gastrointestinal: soft, non-distended, normal bowel sounds Extremities: no cyanosis, no clubbing Extremities - other findings: Right lower extremity cooler than the left Hosp A/P - Plan DVT proph w/lovenox, DVT proph w/SCDs Acute hypoxic respiratory failure/sepsis due to COVID 19 pneumonia requiring mechanical ventilation S/p Remdesivir Acute kidney injury Hypertension Diabetes mellitus type II Chronic anemia probably due to nutritional deficiency Hypokalemia Hypomagnesemia Swallow dysfunction Physical deconditioning Hyperkalemia/hypernatremia/hyponatremiaresolved Plan: Consult behavioral health case manager for intermediate facility placement. Will obtain arterial Doppler due to colder right Foot compared to the left. Continue supportive care. Sitter for safety. Continue supportive care. A.m. labs. Continue other medications as above. DC IV fluids when tolerating po well
[2020-10-15 06:17] LABS: #Eosinphils 0.7 thou/uL (0.0-0.7); #Lymphocytes 1.4 thou/uL (1.20-3.40); #Monocytes 0.7 thou/uL (0.11-0.59); #Neutrophils 5.9 thou/uL (1.40-6.50); %Basophils 0.5 % (0.0-1.0); %Eosinophils 8.2 % (0.0-10.0); %Monocytes 7.7 % (0.0-10.0); %Neutrophils 67.7 % (42.0-75.0); Hemoglobin 11.5 g/dL (14.0-18.0); Mean Corpuscular HGB CONC 32.2 g/dL (32.0-36.0); Mean Corpuscular Hemoglobin 31.4 pg (27.0-31.0); Mean Corpuscular Volume 97.6 fL (78.0-98.0); Mean Platelet Volume 9.2 fL (7.4-10.4); Platelet Count 134 thou/uL (130-400); RBC Distribution Width 13.6 % (11.5-14.5); Red Blood Cell (RBC) Count 3.65 mill/uL (4.70-6.10); White Blood Cell (WBC) Count 8.7 thou/uL (4.8-10.8)
[2020-10-15 06:22] LABS: Anion Gap 13 mmol/L (10-20); BUN (Urea Nitrogen) 18 mg/dL (8.4-25.7); Calc. Creatinine Clearance 141 mL/min (70-130); Calcium 7.9 mg/dL (7.8-10.44); Carbon Dioxide 23 mmol/L (23-31); Chloride 103 mmol/L (98-107); Glucose 88 mg/dL (80-115); Potassium 4.1 mmol/L (3.5-5.1); Sodium 135 mmol/L (136-145)
[2020-10-15] MEDS: D5 1/2 NS w/20 mEq KCL 1,000 ML IV SCH (06:39)
[2020-10-15] MEDS: Arformoterol 15 MCG/2 ML NEB NEB SCH ×2 (06:58→19:04)
[2020-10-15] MEDS: Budesonide 0.5 MG/2 ML NEB NEB SCH ×2 (07:02→19:04)
--- NOTE | 2020-10-15 08:36 | ULT ---
ULTRASOUND DOPPLER DUPLEX ARTERIAL LOWER EXTREMITY RIGHT: DATE: 10/15/2020 HISTORY: 65-year-old male with cold right lower extremity TECHNIQUE: Grayscale, color-flow, and spectral analysis, of major arteries of right lower extremities. FINDINGS: Atherosclerosis: Mild to moderate throughout all vessels. All vessels have triphasic pulsed Doppler waveforms. Highest peak systolic velocity in cm/s:: Common femoral: 135; Profunda femoral: 50; Superficial femoral, proximal: 155; Superficial femoral, mid: 110; Superficial femoral, distal: 105; Popliteal: 90; Posterior tibial: 85; Anterior tibial: 50; Dorsalis pedis: 40; IMPRESSION: 1) mild to moderate atherosclerosis throughout all major arteries. 2) no evidence of high-grade arterial occlusive disease.
--- NOTE | 2020-10-15 08:40 | RAD ---
CHEST 1 VIEW: INDICATION: History of pneumonia. COMPARISON: Prior exam dated October 14, 2020. IMPRESSION: Bilateral airspace disease persists. No pleural effusion or pneumothorax evident. The osseous struc tures are unchanged. POS: BH
--- NOTE | 2020-10-15 09:06 | PRG ---
DATE OF SERVICE: 10/15/2020 SUBJECTIVE: The patient is apparently doing well. His O2 is running about 96% on 2 L. Temperature 98.9, blood pressure 134/73. OBJECTIVE: Unchanged. LABORATORY DATA: Sodium 135, potassium 4.1, BUN 18, creatinine 0.7. White blood cell count 8.7, hematocrit 35.6, and platelet count 134. X-ray about the same. ASSESSMENT: 1. COVID-19 pneumonia. 2. Status post respiratory failure, requiring mechanical ventilation. PLAN: Hopefully transition home fairly soon with home oxygen temporarily. Increase activity as tolerated. No further pulmonary recommendations at this time. We will be available as needed. Job ID: [id number]
[2020-10-15] MEDS: Zinc Sulfate 220 MG CAP PO SCH (09:17)
[2020-10-15] MEDS: Enoxaparin Sodium 40 MG/0.4 ML SYRINGE SC SCH ×2 (09:17→22:37)
[2020-10-15] MEDS: Famotidine 20 MG TAB PO SCH ×2 (09:17→21:58)
[2020-10-15] MEDS: Ascorbic Acid 500 mg Chewable Tablet PO SCH (09:17)
[2020-10-15] MEDS: Dexamethasone 4 mg/ml Vial SLOW IVP SCH (09:17)
--- NOTE | 2020-10-15 09:27 | PDOC.HOSPP ---
- Subjective Encounter Date: 10/15/20 Encounter Time: 12:00 Subjective: Patient still not eating much. Stable on 2L NC O2. - Objective Vital Signs & Weight: Vital Signs (12 hours) Temp Pulse Resp BP Pulse Ox 10/15/20 06:58 82 24 H 96 10/15/20 04:00 98.9 F 77 30 H 134/73 96 10/15/20 00:00 98.4 F 84 20 135/75 92 L 10/14/20 22:01 20 Weight Admit Weight 236 lb Weight 229 lb 11.547 oz Most Recent Monitor Data Heart Rate from ECG 78 NIBP 167/80 NIBP BP-Mean 109 Respiration from ECG 37 SpO2 99 I&O: 10/14/20 10/15/20 10/16/20 06:59 06:59 06:59 Intake Total 760 Output Total 845 50 Balance -85 -50 Result Diagrams: 10/15/20 06:00 10/15/20 06:00 Additional Labs: Accuchecks 10/15/20 10/14/20 10/14/20 06:01 21:27 16:57 POC Glucose 83 106 H 140 H 10/14/20 10/13/20 11:41 17:35 POC Glucose 146 H 144 H Hospitalist ROS - Review of Systems ROS unobtainable: due to mental status - Medication Medications: Active Medications Generic Name Dose Route Start Last Admin Trade Name Freq PRN Reason Stop Dose Admin Acetaminophen 650 mg 10/12/20 13:22 10/13/20 15:15 Acetaminophen 650 Mg Suppository NM 650 mg Q4H PRN Administration Headache/Fever or Pain Arformoterol Tartrate 15 mcg 09/25/20 18:30 10/15/20 06:58 Arformoterol 15 Mcg/2 Ml Neb NEB 15 mcg BID-RT LUCIEN Administration Ascorbic Acid 1,000 mg 09/21/20 09:00 10/15/20 09:17 Ascorbic Acid 500 Mg Chewable Tablet PO 1,000 mg DAILY LUCIEN Administration Budesonide 0.5 mg 09/25/20 18:30 10/15/20 07:02 Budesonide 0.5 Mg/2 Ml Neb NEB 0.5 mg BID-RT LUCIEN Administration Cholecalciferol 5,000 units 09/24/20 21:00 10/14/20 21:12 Cholecalciferol 1,000 Units (25 Mcg) Tab PER TUBE 5,000 units HS LUCIEN Administration Dexamethasone 3 mg 10/12/20 08:38 10/15/20 09:17 Dexamethasone 4 Mg/Ml Vial SLOW IVP 3 mg DAILY LUCIEN Administration Enoxaparin Sodium 40 mg 10/14/20 09:00 10/15/20 09:17 Enoxaparin Sodium 40 Mg/0.4 Ml Syringe SC 40 mg 0900,2100 LUCIEN Administration Famotidine 20 mg 10/08/20 21:00 10/15/20 09:17 Famotidine 20 Mg Tab PO 20 mg BID LUCIEN Administration Potassium Chloride/Dextrose/Sod Cl 1,000 mls @ 50 mls/hr 10/12/20 15:00 10/15/20 06:39 D5 1/2 Ns W/20 Meq Kcl IV 1,000 mls .Q20H LUCIEN Administration Insulin Human Lispro 0 units 10/01/20 13:49 10/08/20 15:20 Humalog 300 Units/3 Ml Vial SC 2 unit .MODERATE SLIDING SC PRN Administration Moderate Correctional Scale Sodium Chloride 10 ml 09/21/20 21:00 10/15/20 09:18 Flush - Normal Saline 10 Ml Syringe IVF 10 ml Q12HR LUCIEN Administration Tramadol HCl 50 mg 10/14/20 10:05 10/14/20 10:44 Tramadol Hcl 50 Mg Tab PO 50 mg Q6H PRN Administration Moderate Pain (4-6) Zinc Sulfate 220 mg 09/21/20 09:00 10/15/20 09:17 Zinc Sulfate 220 Mg Cap PO 220 mg DAILY LUCIEN Administration - Exam General Appearance: NAD, awake alert ENT: moist mucosa Heart: RRR, no murmur, no gallops, no rubs Respiratory: CTAB, no wheezes, no rales, no ronchi Gastrointestinal: soft, non-tender, non-distended, normal bowel sounds Extremities: no edema Psychiatric: normal affect, normal behavior Hosp A/P - Plan DVT proph w/lovenox, DVT proph w/SCDs Acute hypoxic respiratory failure/sepsis due to COVID 19 pneumonia requiring mechanical ventilation- now on 2L NC S/p Remdesivir Acute kidney injury Hypertension Diabetes mellitus type II Chronic anemia probably due to nutritional deficiency Hypokalemia Hypomagnesemia Swallow dysfunction Physical deconditioning Hyperkalemia/hypernatremia/hyponatremiaresolved Plan: Consulted machine adjuster leader case trim for custodial facility placement. Will need to be able to remove sitter before placement. Arterial Doppler due to colder right Foot compared to the left without evidence of high grade disease. Continue supportive care. Sitter for safety. Continue other medications as above. DC IV fluids when tolerating po well. D/c to SNF once arranged.
[2020-10-15] MEDS: Cholecalciferol 1,000 UNITS (25 MCG) TAB PER TUBE SCH (21:58)
[2020-10-16] MEDS: D5 1/2 NS w/20 mEq KCL 1,000 ML IV SCH ×2 (04:41→23:03)
[2020-10-16 05:40] LABS: #Eosinphils 0.5 thou/uL (0.0-0.7); #Lymphocytes 1.1 thou/uL (1.20-3.40); #Monocytes 0.5 thou/uL (0.11-0.59); #Neutrophils 6.2 thou/uL (1.40-6.50); %Basophils 0.4 % (0.0-1.0); %Eosinophils 6.5 % (0.0-10.0); %Lymphocytes 13.3 % (21.0-51.0); %Monocytes 5.8 % (0.0-10.0); %Neutrophils 74.1 % (42.0-75.0); Hemoglobin 10.7 g/dL (14.0-18.0); Mean Corpuscular HGB CONC 32.2 g/dL (32.0-36.0); Mean Corpuscular Hemoglobin 30.8 pg (27.0-31.0); Mean Corpuscular Volume 95.8 fL (78.0-98.0); Mean Platelet Volume 8.5 fL (7.4-10.4); Platelet Count 166 thou/uL (130-400); RBC Distribution Width 13.6 % (11.5-14.5); Red Blood Cell (RBC) Count 3.46 mill/uL (4.70-6.10); White Blood Cell (WBC) Count 8.3 thou/uL (4.8-10.8)
[2020-10-16 06:06] LABS: Anion Gap 14 mmol/L (10-20); BUN (Urea Nitrogen) 14 mg/dL (8.4-25.7); Calc. Creatinine Clearance 136 mL/min (70-130); Calcium 7.9 mg/dL (7.8-10.44); Carbon Dioxide 22 mmol/L (23-31); Chloride 103 mmol/L (98-107); Glucose 106 mg/dL (80-115); Potassium 4.1 mmol/L (3.5-5.1); Sodium 135 mmol/L (136-145)
[2020-10-16] MEDS: Budesonide 0.5 MG/2 ML NEB NEB SCH ×2 (08:01→19:26)
[2020-10-16] MEDS: Arformoterol 15 MCG/2 ML NEB NEB SCH ×2 (08:01→19:26)
--- NOTE | 2020-10-16 08:06 | PDOC.HOSPP ---
- Subjective Encounter Date: 10/16/20 Encounter Time: 11:20 Subjective: Patient eating a little better. No sitter needed today. Voice a little stronger when talking to me. No complaints. - Objective Vital Signs & Weight: Vital Signs (12 hours) Temp Pulse Resp BP Pulse Ox 10/16/20 08:01 87 22 H 100 10/16/20 06:43 97.5 F L 85 20 122/86 100 10/16/20 00:00 98.8 F 96 20 164/88 H 95 Weight Admit Weight 236 lb Weight 229 lb 11.547 oz Most Recent Monitor Data Heart Rate from ECG 78 NIBP 167/80 NIBP BP-Mean 109 Respiration from ECG 37 SpO2 99 I&O: 10/15/20 10/16/20 10/17/20 06:59 06:59 06:59 Output Total 50 Balance -50 Result Diagrams: 10/16/20 05:27 10/16/20 05:27 Additional Labs: Accuchecks 10/16/20 10/15/20 10/15/20 06:57 21:58 16:04 POC Glucose 109 H 79 161 H 10/15/20 10/13/20 10:45 17:35 POC Glucose 115 H 144 H Hospitalist ROS - Review of Systems Constitutional: denies: fever, chills Respiratory: denies: cough, shortness of breath Cardiovascular: denies: chest pain, palpitations Gastrointestinal: denies: nausea, vomiting, abdominal pain - Medication Medications: Active Medications Generic Name Dose Route Start Last Admin Trade Name Freq PRN Reason Stop Dose Admin Acetaminophen 650 mg 10/12/20 13:22 10/13/20 15:15 Acetaminophen 650 Mg Suppository IN 650 mg Q4H PRN Administration Headache/Fever or Pain Arformoterol Tartrate 15 mcg 09/25/20 18:30 10/16/20 08:01 Arformoterol 15 Mcg/2 Ml Neb NEB 15 mcg BID-RT LUCIEN Administration Ascorbic Acid 1,000 mg 09/21/20 09:00 10/15/20 09:17 Ascorbic Acid 500 Mg Chewable Tablet PO 1,000 mg DAILY LUCIEN Administration Budesonide 0.5 mg 09/25/20 18:30 10/16/20 08:01 Budesonide 0.5 Mg/2 Ml Neb NEB 0.5 mg BID-RT LUCIEN Administration Cholecalciferol 5,000 units 09/24/20 21:00 10/15/20 21:58 Cholecalciferol 1,000 Units (25 Mcg) Tab PER TUBE 5,000 units HS LUCIEN Administration Dexamethasone 3 mg 10/12/20 08:38 10/15/20 09:17 Dexamethasone 4 Mg/Ml Vial SLOW IVP 3 mg DAILY LUCIEN Administration Enoxaparin Sodium 40 mg 10/14/20 09:00 10/15/20 22:37 Enoxaparin Sodium 40 Mg/0.4 Ml Syringe SC 40 mg 0900,2100 LUCIEN Administration Famotidine 20 mg 10/08/20 21:00 10/15/20 21:58 Famotidine 20 Mg Tab PO 20 mg BID LUCIEN Administration Potassium Chloride/Dextrose/Sod Cl 1,000 mls @ 50 mls/hr 10/12/20 15:00 10/16/20 04:41 D5 1/2 Ns W/20 Meq Kcl IV 1,000 mls .Q20H LUCIEN Administration Insulin Human Lispro 0 units 10/01/20 13:49 10/08/20 15:20 Humalog 300 Units/3 Ml Vial SC 2 unit .MODERATE SLIDING SC PRN Administration Moderate Correctional Scale Sodium Chloride 10 ml 09/21/20 21:00 10/15/20 21:58 Flush - Normal Saline 10 Ml Syringe IVF 10 ml Q12HR LUCIEN Administration Tramadol HCl 50 mg 10/14/20 10:05 10/14/20 10:44 Tramadol Hcl 50 Mg Tab PO 50 mg Q6H PRN Administration Moderate Pain (4-6) Zinc Sulfate 220 mg 09/21/20 09:00 10/15/20 09:17 Zinc Sulfate 220 Mg Cap PO 220 mg DAILY LUCIEN Administration - Exam General Appearance: NAD, awake alert ENT: moist mucosa Heart: RRR, no murmur, no gallops, no rubs Respiratory: CTAB, no wheezes, no rales, no ronchi Gastrointestinal: soft, non-tender, non-distended, normal bowel sounds Extremities: no edema Psychiatric: normal affect, normal behavior Hosp A/P - Plan DVT proph w/lovenox, DVT proph w/SCDs Acute hypoxic respiratory failure/sepsis due to COVID 19 pneumonia requiring mechanical ventilation- now on 2L NC S/p Remdesivir Acute kidney injury Hypertension Diabetes mellitus type II Chronic anemia probably due to nutritional deficiency Hypokalemia Hypomagnesemia Swallow dysfunction Physical deconditioning Hyperkalemia/hypernatremia/hyponatremiaresolved Plan: Consulted pillowcase cutter for [facility] facility placement. Family would like swing bed at [facility]. Continue supportive care. Sitter for safety. Continue other medications as above. DC IV fluids when tolerating po well. D/c to swing bed once arranged.
--- NOTE | 2020-10-16 08:10 | RAD ---
XR Chest 1 View Portable History: Pneumonia Comparison: Radiograph prior day Findings: Multifocal airspace opacities are similar with greatest consolidation within the right uppe r lobe. No pneumothorax. No pneumomediastinum. No acute osseous abnormality. Impression: Similar examination the chest extensive bilateral airspace consolidation.
[2020-10-16] MEDS: Dexamethasone 4 mg/ml Vial SLOW IVP SCH (10:09)
[2020-10-16] MEDS: Enoxaparin Sodium 40 MG/0.4 ML SYRINGE SC SCH ×2 (10:09→20:50)
[2020-10-16] MEDS: Zinc Sulfate 220 MG CAP PO SCH (10:09)
[2020-10-16] MEDS: Famotidine 20 MG TAB PO SCH ×2 (10:10→20:51)
[2020-10-16] MEDS: Ascorbic Acid 500 mg Chewable Tablet PO SCH (10:17)
[2020-10-16] MEDS: HumaLOG 300 UNITS/3 ML VIAL SC PRN (16:31)
[2020-10-16] MEDS: Cholecalciferol 1,000 UNITS (25 MCG) TAB PER TUBE SCH (20:50)
[2020-10-17 06:54] LABS: #Eosinphils 0.7 thou/uL (0.0-0.7); #Lymphocytes 1.2 thou/uL (1.20-3.40); #Monocytes 0.5 thou/uL (0.11-0.59); #Neutrophils 6.7 thou/uL (1.40-6.50); %Basophils 0.3 % (0.0-1.0); %Eosinophils 7.8 % (0.0-10.0); %Lymphocytes 13.1 % (21.0-51.0); %Monocytes 5.8 % (0.0-10.0); Mean Corpuscular Hemoglobin 31.2 pg (27.0-31.0); Mean Corpuscular Volume 97.7 fL (78.0-98.0); Mean Platelet Volume 8.9 fL (7.4-10.4); Platelet Count 189 thou/uL (130-400); RBC Distribution Width 13.8 % (11.5-14.5); Red Blood Cell (RBC) Count 3.84 mill/uL (4.70-6.10); White Blood Cell (WBC) Count 9.1 thou/uL (4.8-10.8)
[2020-10-17 07:05] LABS: Anion Gap 15 mmol/L (10-20); BUN (Urea Nitrogen) 10 mg/dL (8.4-25.7); Calc. Creatinine Clearance 136 mL/min (70-130); Calcium 8.3 mg/dL (7.8-10.44); Carbon Dioxide 25 mmol/L (23-31); Chloride 102 mmol/L (98-107); Glucose 95 mg/dL (80-115); Potassium 3.9 mmol/L (3.5-5.1); Sodium 138 mmol/L (136-145)
[2020-10-17] MEDS: Arformoterol 15 MCG/2 ML NEB NEB SCH ×2 (07:30→19:26)
[2020-10-17] MEDS: Budesonide 0.5 MG/2 ML NEB NEB SCH ×2 (07:32→19:27)
--- NOTE | 2020-10-17 08:06 | RAD ---
Chest AP view INDICATION: History of pneumonia COMPARISON: Prior exam dated October 16, 2020 FINDINGS: Lungs: Bilateral airspace disease is stable. Cardiac silhouette: The cardiomediastinal silhouette appears within normal limits. Pulmonary vasculature: Normal Pleural spaces: No pleural effusion or pneumothorax is demonstrated. Upper abdomen: No abnormality seen. Osseous structures: No acute osseous abnormality. Additional findings: None. IMPRESSION: Stable bilateral pneumonia.
[2020-10-17] MEDS: Enoxaparin Sodium 40 MG/0.4 ML SYRINGE SC SCH (09:41)
[2020-10-17] MEDS: Dexamethasone 4 mg/ml Vial SLOW IVP SCH (09:41)
[2020-10-17] MEDS: Famotidine 20 MG TAB PO SCH ×2 (09:41→20:45)
[2020-10-17] MEDS: Zinc Sulfate 220 MG CAP PO SCH (09:41)
[2020-10-17] MEDS: Ascorbic Acid 500 mg Chewable Tablet PO SCH (09:41)
[2020-10-17] MEDS: traMADol HCl 50 MG TAB PO PRN (12:20)
[2020-10-17] MEDS ORDERED: Furosemide 40 MG/4 ML VIAL SLOW IVP SCH (12:30)
[2020-10-17] MEDS ORDERED: Potassium Phosphate 30 MMOL in Sodium Chloride 0.9% 500 ML IVPB SCH (13:30)
[2020-10-17] MEDS ORDERED: D5W-AA 4.25% with LYTES 1,000 ML BAG IV SCH (13:30)
[2020-10-17] MEDS ORDERED: Magnesium 2 GM/50 ML 2 GM in Premix Bag 1 BAG IVPB SCH (14:00)
[2020-10-17 14:15] LABS: Troponin I Less than 0.010 ng/mL (< 0.028)
--- NOTE | 2020-10-17 19:20 | PDOC.HOSPP ---
- Subjective Encounter Date: 10/17/20 Encounter Time: 11:30 Subjective: Patient seen and examined for respiratory failure. Poor appetite. Requiring more oxygen today. Denies any chest pain or palpitations - Objective Vital Signs & Weight: Vital Signs (12 hours) Temp Pulse Pulse Resp BP Pulse Ox Pulse Ox 10/17/20 12:00 94 L 10/17/20 11:12 10/17/20 09:43 105 H 74 L 10/17/20 08:00 97.7 F 83 20 147/77 H 95 10/17/20 07:32 69 18 94 L 10/17/20 07:30 89 18 94 L Pulse Ox 10/17/20 12:00 10/17/20 11:12 82 L 10/17/20 09:43 10/17/20 08:00 10/17/20 07:32 10/17/20 07:30 Weight Admit Weight 236 lb Weight 229 lb 11.547 oz Most Recent Monitor Data Heart Rate from ECG 78 NIBP 167/80 NIBP BP-Mean 109 Respiration from ECG 37 SpO2 99 I&O: 10/16/20 10/17/20 10/18/20 06:59 06:59 06:59 Intake Total 30 Balance 30 Result Diagrams: 10/17/20 06:22 10/17/20 06:22 Additional Labs: Accuchecks 10/17/20 10/16/20 06:24 20:51 POC Glucose 100 99 Radiology Reviewed by me: Yes (Chest x-raybilateral infiltrates) Hospitalist ROS - Review of Systems Cardiovascular: denies: chest pain, palpitations, orthopnea, paroxysmal noc. dyspnea, edema, light headedness, other Gastrointestinal: denies: nausea, vomiting, abdominal pain, diarrhea, constipation, melena, hematochezia, other - Medication Medications: Active Medications Generic Name Dose Route Start Last Admin Trade Name Freq PRN Reason Stop Dose Admin Acetaminophen 650 mg 10/12/20 13:22 10/13/20 15:15 Acetaminophen 650 Mg Suppository [place] 650 mg Q4H PRN Administration Headache/Fever or Pain Arformoterol Tartrate 15 mcg 09/25/20 18:30 10/17/20 07:30 Arformoterol 15 Mcg/2 Ml Neb NEB 15 mcg BID-RT LUCIEN Administration Ascorbic Acid 1,000 mg 09/21/20 09:00 10/17/20 09:41 Ascorbic Acid 500 Mg Chewable Tablet PO 1,000 mg DAILY LUCIEN Administration Budesonide 0.5 mg 09/25/20 18:30 10/17/20 07:32 Budesonide 0.5 Mg/2 Ml Neb NEB 0.5 mg BID-RT LUCIEN Administration Cholecalciferol 5,000 units 09/24/20 21:00 10/16/20 20:50 Cholecalciferol 1,000 Units (25 Mcg) Tab PER TUBE 5,000 units HS LUCIEN Administration Dexamethasone 3 mg 10/12/20 08:38 10/17/20 09:41 Dexamethasone 4 Mg/Ml Vial SLOW IVP 3 mg DAILY LUCIEN Administration Famotidine 20 mg 10/08/20 21:00 10/17/20 09:41 Famotidine 20 Mg Tab PO 20 mg BID LUCIEN Administration Potassium Phosphate 30 mmol/ 510 mls @ 83.3 mls/hr 10/17/20 13:30 10/17/20 15:40 Sodium Chloride IVPB 10/17/20 19:38 510 mls NOW LUCIEN Administration Insulin Human Lispro 0 units 10/01/20 13:49 10/16/20 16:31 Humalog 300 Units/3 Ml Vial SC 2 unit .MODERATE SLIDING SC PRN Administration Moderate Correctional Scale Sodium Chloride 10 ml 09/21/20 21:00 10/17/20 09:42 Flush - Normal Saline 10 Ml Syringe IVF 10 ml Q12HR LUCIEN Administration Tramadol HCl 50 mg 10/14/20 10:05 10/17/20 12:20 Tramadol Hcl 50 Mg Tab PO 50 mg Q6H PRN Administration Moderate Pain (4-6) Zinc Sulfate 220 mg 09/21/20 09:00 10/17/20 09:41 Zinc Sulfate 220 Mg Cap PO 220 mg DAILY LUCIEN Administration - Exam General Appearance: ill appearing Heart: RRR, no rubs Respiratory: no wheezes, rales, rhonchi, tachypneic Gastrointestinal: soft, non-distended, no guarding, no rigidity Extremities: no cyanosis, no clubbing Neurological: no new deficit Musculoskeletal: generalized weakness Psychiatric: normal affect, A&O x 3 Hosp A/P - Plan DVT proph w/lovenox, DVT proph w/SCDs Acute hypoxic respiratory failure/sepsis due to COVID 19 pneumonia requiring mechanical ventilation S/p Remdesivir Acute kidney injury Hypertension Diabetes mellitus type II Chronic anemia probably due to nutritional deficiency Hypokalemia Hypomagnesemia Swallow dysfunction Physical deconditioning Hyperkalemia/hypernatremia/hyponatremiaresolved Peripheral vascular disease Plan: Discontinue IV fluids. 1 dose of IV Lasix. Replace electrolytes. Switch Lovenox to Eliquis. Continue bronchodilators. Continue Brovana and Pulmicort. Continue steroids. Low-dose Paxil for anxiety/depression. Case discussed with the family in detail. Continuous pulse oximetry. Perative care consultation
[2020-10-17] MEDS ORDERED: PROVENTIL INHALER 6.7 G (200 INHALATIONS) INH PRN (19:41)
[2020-10-17] MEDS: Apixaban 2.5 MG TAB PO SCH (20:45)
[2020-10-17] MEDS: Cholecalciferol 1,000 UNITS (25 MCG) TAB PER TUBE SCH (20:45)
[2020-10-17] MEDS: PROVENTIL INHALER 6.7 G (200 INHALATIONS) INH SCH (22:32)
[2020-10-18] MEDS: PROVENTIL INHALER 6.7 G (200 INHALATIONS) INH SCH ×6 (02:32→22:44)
[2020-10-18 06:35] LABS: #Basophils 0.1 thou/uL (0.0-0.2); #Eosinphils 0.7 thou/uL (0.0-0.7); #Lymphocytes 1.5 thou/uL (1.20-3.40); #Monocytes 0.6 thou/uL (0.11-0.59); #Neutrophils 7.1 thou/uL (1.40-6.50); %Basophils 0.7 % (0.0-1.0); %Eosinophils 7.2 % (0.0-10.0); %Lymphocytes 15.5 % (21.0-51.0); %Monocytes 5.6 % (0.0-10.0); Mean Corpuscular Hemoglobin 31.7 pg (27.0-31.0); Mean Platelet Volume 8.8 fL (7.4-10.4); Platelet Count 254 thou/uL (130-400); RBC Distribution Width 13.9 % (11.5-14.5); Red Blood Cell (RBC) Count 3.79 mill/uL (4.70-6.10); White Blood Cell (WBC) Count 9.9 thou/uL (4.8-10.8)
[2020-10-18] MEDS: Arformoterol 15 MCG/2 ML NEB NEB SCH ×2 (06:58→19:29)
[2020-10-18] MEDS: Budesonide 0.5 MG/2 ML NEB NEB SCH ×2 (06:59→19:30)
[2020-10-18 07:00] LABS: ALT (SGPT) 21 U/L (8-55); AST (SGOT) 12 U/L (5-34); Alkaline Phosphatase 129 U/L (40-110); Anion Gap 14 mmol/L (10-20); BUN (Urea Nitrogen) 18 mg/dL (8.4-25.7); Bilirubin, Total 0.5 mg/dL (0.2-1.2); Calc. Creatinine Clearance 103 mL/min (70-130); Calcium 8.4 mg/dL (7.8-10.44); Carbon Dioxide 28 mmol/L (23-31); Chloride 100 mmol/L (98-107); Globulin 4.2 g/dL (2.4-3.5); Glucose 105 mg/dL (80-115); Magnesium 1.8 mg/dL (1.6-2.6); Phosphorus 3.9 mg/dL (2.3-4.7); Potassium 3.8 mmol/L (3.5-5.1); Protein, Total 7.2 g/dL (5.8-8.1); Sodium 138 mmol/L (136-145)
[2020-10-18] MEDS ORDERED: Magnesium 2 GM/50 ML 2 GM in Premix Bag 1 BAG IVPB SCH (07:30)
[2020-10-18] MEDS: Famotidine 20 MG TAB PO SCH ×2 (08:35→20:46)
[2020-10-18] MEDS: Dexamethasone 4 mg/ml Vial SLOW IVP SCH (08:36)
[2020-10-18] MEDS: Zinc Sulfate 220 MG CAP PO SCH (08:36)
[2020-10-18] MEDS: PARoxetine 20 MG TAB PO SCH (08:36)
[2020-10-18] MEDS: Ascorbic Acid 500 mg Chewable Tablet PO SCH (08:37)
[2020-10-18] MEDS: Apixaban 2.5 MG TAB PO SCH ×2 (08:37→20:46)
[2020-10-18] MEDS ORDERED: ALPRAZolam 0.25 MG TAB PO PRN (11:33)
[2020-10-18] MEDS: HumaLOG 300 UNITS/3 ML VIAL SC PRN ×2 (12:27→17:25)
[2020-10-18] MEDS: AA 4.25 %/CALCIUM/LYTES/D5W (PPN) 2,000 ML BAG IV SCH (14:27)
[2020-10-18] MEDS: Cholecalciferol 1,000 UNITS (25 MCG) TAB PER TUBE SCH (20:46)
[2020-10-19] MEDS: PROVENTIL INHALER 6.7 G (200 INHALATIONS) INH SCH ×6 (03:10→22:06)
[2020-10-19 05:44] LABS: #Basophils 0.1 thou/uL (0.0-0.2); #Eosinphils 0.8 thou/uL (0.0-0.7); #Lymphocytes 1.6 thou/uL (1.20-3.40); #Monocytes 0.7 thou/uL (0.11-0.59); #Neutrophils 8.6 thou/uL (1.40-6.50); %Basophils 0.6 % (0.0-1.0); %Eosinophils 6.8 % (0.0-10.0); %Lymphocytes 13.3 % (21.0-51.0); %Monocytes 5.9 % (0.0-10.0); %Neutrophils 73.4 % (42.0-75.0); Hemoglobin 10.9 g/dL (14.0-18.0); Mean Corpuscular HGB CONC 30.7 g/dL (32.0-36.0); Mean Corpuscular Hemoglobin 29.5 pg (27.0-31.0); Mean Platelet Volume 8.2 fL (7.4-10.4); Platelet Count 290 thou/uL (130-400); Red Blood Cell (RBC) Count 3.69 mill/uL (4.70-6.10); White Blood Cell (WBC) Count 11.7 thou/uL (4.8-10.8)
[2020-10-19 06:08] LABS: ALT (SGPT) 22 U/L (8-55); AST (SGOT) 13 U/L (5-34); Albumin 2.9 g/dL (3.4-4.8); Alkaline Phosphatase 126 U/L (40-110); Anion Gap 15 mmol/L (10-20); BUN (Urea Nitrogen) 23 mg/dL (8.4-25.7); Bilirubin, Total 0.4 mg/dL (0.2-1.2); Calc. Creatinine Clearance 103 mL/min (70-130); Calcium 8.3 mg/dL (7.8-10.44); Carbon Dioxide 26 mmol/L (23-31); Chloride 101 mmol/L (98-107); Glucose 121 mg/dL (80-115); Phosphorus 3.3 mg/dL (2.3-4.7); Potassium 4.2 mmol/L (3.5-5.1); Protein, Total 6.9 g/dL (5.8-8.1); Sodium 138 mmol/L (136-145)
[2020-10-19] MEDS ORDERED: Magnesium 2 GM/50 ML 2 GM in Premix Bag 1 BAG IVPB SCH (06:15)
[2020-10-19] MEDS: Furosemide 40 MG TAB PO SCH (06:32)
[2020-10-19] MEDS: Budesonide 0.5 MG/2 ML NEB NEB SCH ×2 (07:20→19:05)
[2020-10-19] MEDS: Arformoterol 15 MCG/2 ML NEB NEB SCH ×2 (07:22→19:04)
[2020-10-19] MEDS: Apixaban 2.5 MG TAB PO SCH ×2 (08:35→20:54)
[2020-10-19] MEDS: Folic Acid 1 MG TAB PO SCH (08:35)
[2020-10-19] MEDS: Ascorbic Acid 500 mg Chewable Tablet PO SCH (08:35)
[2020-10-19] MEDS: PARoxetine 20 MG TAB PO SCH (08:35)
[2020-10-19] MEDS: Famotidine 20 MG TAB PO SCH (08:35)
[2020-10-19] MEDS: Zinc Sulfate 220 MG CAP PO SCH (08:35)
[2020-10-19] MEDS: Cyanocobalamin (Vitamin B-12) 1,000 MCG TAB PO SCH (08:35)
[2020-10-19] MEDS: Dexamethasone 4 mg/ml Vial SLOW IVP SCH (08:36)
[2020-10-19] MEDS: traMADol HCl 50 MG TAB PO PRN ×2 (08:37→17:51)
--- NOTE | 2020-10-19 10:46 | PDOC.HOSPP ---
- Subjective Encounter Date: 10/18/20 Encounter Time: 15:00 Subjective: Patient seen and examined for respiratory failure due to COVID-19 pneumonia requiring mechanical medical ventilation. Symptomatically feeling much better. No fever or chills - Objective Vital Signs & Weight: Vital Signs (12 hours) Temp Pulse Resp BP BP Pulse Ox 10/19/20 08:00 99.3 F 110 H 17 131/83 100 10/19/20 07:22 110 H 20 98 10/19/20 07:20 110 H 20 98 10/19/20 06:11 96 28 H 137/91 H 100 10/19/20 03:03 98.7 F 108 H 32 H 96 10/18/20 23:47 91 99 10/18/20 23:13 110 H 36 H 98 Weight Admit Weight 236 lb Weight 201 lb 6.4 oz Most Recent Monitor Data Heart Rate from ECG 78 NIBP 167/80 NIBP BP-Mean 109 Respiration from ECG 37 SpO2 99 I&O: 10/18/20 10/19/20 10/20/20 06:59 06:59 06:59 Intake Total 1490 1440 Output Total 1950 1500 Balance -460 -60 Result Diagrams: 10/19/20 05:31 10/19/20 05:31 Additional Labs: Accuchecks 10/19/20 10/18/20 10/18/20 05:48 20:36 16:22 POC Glucose 126 H 112 H 154 H Abnormal Lab Results - Last 48 hrs 10/18/20 05:52: RBC 3.79 L, Hgb 12.0 L, Hct 36.4 L, MCH 31.7 H, Lymphocytes % 15.5 L, Neutrophils # 7.1 H, Monocytes # 0.6 H 10/18/20 05:52: Alkaline Phosphatase 129 H, Albumin 3.0 L, Globulin 4.2 H, Album in/Globulin Ratio 0.7 L 10/18/20 05:52: C-Reactive Protein 5.57 H 10/18/20 05:52: Ferritin 472.04 H 10/18/20 05:52: D-Dimer 1.32 H Microbiology - Entire Visit 09/26/20 10:00 Urine bravo catheter Urine Culture - Final NO GROWTH AT 48 HOURS 09/20/20 10:12 Venous blood - Left Hand Blood Culture - Final NO GROWTH IN 5 DAYS 09/20/20 10:12 Venous blood - Left Arm Blood Culture - Final NO GROWTH IN 5 DAYS Radiology Reviewed by me: Yes (Chest x-raypersistent infiltrate) Hospitalist ROS - Review of Systems Constitutional: reports: weakness, malaise Gastrointestinal: denies: nausea, vomiting, abdominal pain, diarrhea, constipation, melena, hematochezia, other - Medication Medications: Active Medications Generic Name Dose Route Start Last Admin Trade Name Freq PRN Reason Stop Dose Admin Acetaminophen 650 mg 10/12/20 13:22 10/13/20 15:15 Acetaminophen 650 Mg Suppository [place] 650 mg Q4H PRN Administration Headache/Fever or Pain Albuterol Sulfate 2 puff 10/17/20 22:30 10/19/20 10:43 Proventil Inhaler 6.7 G (200 Inhalations) INH 2 puff [id number] LUCIEN Administration Amino Ac/Electrol/Dextrose/Calcium 2,000 ml 10/18/20 12:00 10/18/20 14:27 Aa 4.25 %/Calcium/Lytes/D5w (Ppn) 2,000 Ml Bag IV 11/16/20 12:01 2,000 ml INF LUCIEN Administration Apixaban 2.5 mg 10/17/20 21:00 10/19/20 08:35 Apixaban 2.5 Mg Tab PO 2.5 mg BID LUCIEN Administration Arformoterol Tartrate 15 mcg 09/25/20 18:30 10/19/20 07:22 Arformoterol 15 Mcg/2 Ml Neb NEB 15 mcg BID-RT LUCIEN Administration Ascorbic Acid 1,000 mg 09/21/20 09:00 10/19/20 08:35 Ascorbic Acid 500 Mg Chewable Tablet PO 1,000 mg DAILY LUCIEN Administration Budesonide 0.5 mg 09/25/20 18:30 10/19/20 07:20 Budesonide 0.5 Mg/2 Ml Neb NEB 0.5 mg BID-RT LUCIEN Administration Cholecalciferol 5,000 units 09/24/20 21:00 10/18/20 20:46 Cholecalciferol 1,000 Units (25 Mcg) Tab PER TUBE 5,000 units HS LUCIEN Administration Cyanocobalamin 1,000 mcg 10/19/20 09:00 10/19/20 08:35 Cyanocobalamin (Vitamin B-12) 1,000 Mcg Tab PO 1,000 mcg DAILY LUCIEN Administration Dexamethasone 3 mg 10/12/20 08:38 10/19/20 08:36 Dexamethasone 4 Mg/Ml Vial SLOW IVP 3 mg DAILY LUCIEN Administration Famotidine 20 mg 10/08/20 21:00 10/19/20 08:35 Famotidine 20 Mg Tab PO 20 mg BID LUCIEN Administration Folic Acid 1 mg 10/19/20 09:00 10/19/20 08:35 Folic Acid 1 Mg Tab PO 1 mg DAILY LUCIEN Administration Furosemide 40 mg 10/19/20 07:30 10/19/20 06:32 Furosemide 40 Mg Tab PO 40 mg DAILY-AC LUCIEN Administration Insulin Human Lispro 0 units 10/01/20 13:49 10/18/20 17:25 Humalog 300 Units/3 Ml Vial SC 2 unit .MODERATE SLIDING SC PRN Administration Moderate Correctional Scale Paroxetine HCl 20 mg 10/18/20 09:00 10/19/20 08:35 Paroxetine 20 Mg Tab PO 20 mg DAILY LUCIEN Administration Sodium Chloride 10 ml 09/21/20 21:00 10/19/20 08:36 Flush - Normal Saline 10 Ml Syringe IVF 10 ml Q12HR LUCIEN Administration Tramadol HCl 50 mg 10/14/20 10:05 10/19/20 08:37 Tramadol Hcl 50 Mg Tab PO 50 mg Q6H PRN Administration Moderate Pain (4-6) Zinc Sulfate 220 mg 09/21/20 09:00 10/19/20 08:35 Zinc Sulfate 220 Mg Cap PO 220 mg DAILY LUCIEN Administration - Exam General Appearance: ill appearing Neck: supple, no JVD Heart: RRR, no gallops Respiratory: no wheezes, rales, rhonchi Gastrointestinal: soft, no guarding, no rigidity Extremities: no cyanosis, no clubbing Neurological: no new deficit Hosp A/P - Plan DVT proph w/SCDs Acute hypoxic respiratory failure/sepsis due to COVID 19 pneumonia requiring mechanical ventilation S/p Remdesivir Acute kidney injury Hypertension Diabetes mellitus type II Chronic anemia probably due to nutritional deficiency Hypokalemia Hypomagnesemia Swallow dysfunction Physical deconditioning Hyperkalemia/hypernatremia/hyponatremiaresolved Peripheral vascular disease Plan: IV PPN due to poor appetite. Advance diet. Continue Eliquis, steroid taper, Paxil, steroid inhalers and bronchodilators. Palliative care input appreciated. Transfer to [facility] facility probably in 24 hours if stable.
[2020-10-19] MEDS: HumaLOG 300 UNITS/3 ML VIAL SC PRN ×2 (13:36→17:51)
[2020-10-19] MEDS: AA 4.25 %/CALCIUM/LYTES/D5W (PPN) 2,000 ML BAG IV SCH (14:30)
--- NOTE | 2020-10-19 14:36 | PDOC.HOSPP ---
- Subjective Encounter Date: 10/19/20 Encounter Time: 13:00 Subjective: Patient seen and examined for respiratory failure. Appetite slowly improving. On low-dose PPN due to poor appetite. Denies any fever, chills or chest pain - Objective Vital Signs & Weight: Vital Signs (12 hours) Temp Pulse Resp BP BP Pulse Ox Pulse Ox 10/19/20 12:10 98.8 F 90 16 120/78 97 10/19/20 09:47 88 L 10/19/20 08:00 99.3 F 110 H 17 131/83 100 10/19/20 07:22 110 H 20 98 10/19/20 07:20 110 H 20 98 10/19/20 06:11 96 28 H 137/91 H 100 10/19/20 03:03 98.7 F 108 H 32 H 96 Pulse Ox Pulse Ox 10/19/20 12:10 10/19/20 09:47 85 L 90 L 10/19/20 08:00 10/19/20 07:22 10/19/20 07:20 10/19/20 06:11 10/19/20 03:03 Weight Admit Weight 236 lb Weight 201 lb 6.4 oz Most Recent Monitor Data Heart Rate from ECG 78 NIBP 167/80 NIBP BP-Mean 109 Respiration from ECG 37 SpO2 99 I&O: 10/18/20 10/19/20 10/20/20 06:59 06:59 06:59 Intake Total 1490 1440 Output Total 1950 1500 Balance -460 -60 Result Diagrams: 10/19/20 05:31 10/19/20 05:31 Additional Labs: Accuchecks 10/19/20 10/19/20 10/18/20 12:11 05:48 20:36 POC Glucose 201 H 126 H 112 H 10/18/20 10/18/20 16:22 11:55 POC Glucose 154 H 220 H Hospitalist ROS - Review of Systems Cardiovascular: denies: chest pain, palpitations, orthopnea, paroxysmal noc. dyspnea, edema, light headedness, other Gastrointestinal: denies: nausea, vomiting, abdominal pain, diarrhea, constipation, melena, hematochezia, other - Medication Medications: Active Medications Generic Name Dose Route Start Last Admin Trade Name Freq PRN Reason Stop Dose Admin Acetaminophen 650 mg 10/12/20 13:22 10/13/20 15:15 Acetaminophen 650 Mg Suppository MD 650 mg Q4H PRN Administration Headache/Fever or Pain Albuterol Sulfate 2 puff 10/17/20 22:30 10/19/20 10:43 Proventil Inhaler 6.7 G (200 Inhalations) INH 2 puff [id number] LUCIEN Administration Amino Ac/Electrol/Dextrose/Calcium 2,000 ml 10/18/20 12:00 10/18/20 14:27 Aa 4.25 %/Calcium/Lytes/D5w (Ppn) 2,000 Ml Bag IV 11/16/20 12:01 2,000 ml INF LUCIEN Administration Apixaban 2.5 mg 10/17/20 21:00 10/19/20 08:35 Apixaban 2.5 Mg Tab PO 2.5 mg BID LUCIEN Administration Arformoterol Tartrate 15 mcg 09/25/20 18:30 10/19/20 07:22 Arformoterol 15 Mcg/2 Ml Neb NEB 15 mcg BID-RT LUCIEN Administration Ascorbic Acid 1,000 mg 09/21/20 09:00 10/19/20 08:35 Ascorbic Acid 500 Mg Chewable Tablet PO 1,000 mg DAILY LUCIEN Administration Budesonide 0.5 mg 09/25/20 18:30 10/19/20 07:20 Budesonide 0.5 Mg/2 Ml Neb NEB 0.5 mg BID-RT LUCIEN Administration Cholecalciferol 5,000 units 09/24/20 21:00 10/18/20 20:46 Cholecalciferol 1,000 Units (25 Mcg) Tab PER TUBE 5,000 units HS LUCIEN Administration Cyanocobalamin 1,000 mcg 10/19/20 09:00 10/19/20 08:35 Cyanocobalamin (Vitamin B-12) 1,000 Mcg Tab PO 1,000 mcg DAILY LUCIEN Administration Dexamethasone 3 mg 10/12/20 08:38 10/19/20 08:36 Dexamethasone 4 Mg/Ml Vial SLOW IVP 3 mg DAILY LUCIEN Administration Famotidine 20 mg 10/08/20 21:00 10/19/20 08:35 Famotidine 20 Mg Tab PO 20 mg BID LUCIEN Administration Folic Acid 1 mg 10/19/20 09:00 10/19/20 08:35 Folic Acid 1 Mg Tab PO 1 mg DAILY LUCIEN Administration Furosemide 40 mg 10/19/20 07:30 10/19/20 06:32 Furosemide 40 Mg Tab PO 40 mg DAILY-AC LUCIEN Administration Insulin Human Lispro 0 units 10/01/20 13:49 10/19/20 13:36 Humalog 300 Units/3 Ml Vial SC 4 unit .MODERATE SLIDING SC PRN Administration Moderate Correctional Scale Paroxetine HCl 20 mg 10/18/20 09:00 10/19/20 08:35 Paroxetine 20 Mg Tab PO 20 mg DAILY LUCIEN Administration Sodium Chloride 10 ml 09/21/20 21:00 10/19/20 08:36 Flush - Normal Saline 10 Ml Syringe IVF 10 ml Q12HR LUCIEN Administration Tramadol HCl 50 mg 10/14/20 10:05 10/19/20 08:37 Tramadol Hcl 50 Mg Tab PO 50 mg Q6H PRN Administration Moderate Pain (4-6) Zinc Sulfate 220 mg 09/21/20 09:00 10/19/20 08:35 Zinc Sulfate 220 Mg Cap PO 220 mg DAILY LUCIEN Administration - Exam General Appearance: awake alert Heart: RRR, no gallops Respiratory: no wheezes, rales, rhonchi Gastrointestinal: soft, non-distended Extremities: no cyanosis Neurological: no new deficit Musculoskeletal: generalized weakness Psychiatric: normal affect, A&O x 3 Hosp A/P - Plan DVT proph w/SCDs Acute hypoxic respiratory failure/sepsis due to COVID 19 pneumonia requiring mechanical ventilation S/p Remdesivir Acute kidney injury Hypertension Diabetes mellitus type II Chronic anemia probably due to nutritional deficiency Hypokalemia Hypomagnesemia Swallow dysfunction Physical deconditioning Hyperkalemia/hypernatremia/hyponatremiaresolved Peripheral vascular disease Plan: [facility] Case discussed with Dr. Recinos. Dr. Recinos recommended transfer in a.m. He also agreed with short-term PPN for now. Continue modified diet. Magnesium replaced. Will continue steroid taper. Continue Eliquis for DVT prophylaxis. Continue other medications as above
--- NOTE | 2020-10-19 16:36 | PDOC.PALPN ---
Palliative Progress Note - Subjective Awake, alert. Converses but fatigued. Shortness of breath with minimal conversation/exertion. PPN continues for nutrition supplementation. - Objective Vital Signs: Vital Signs - Most Recent Temp Pulse Resp BP Pulse Ox 98.7 F 87 16 130/81 99 10/19/20 16:11 10/19/20 16:11 10/19/20 16:11 10/19/20 16:11 10/19/20 16:11 - Physical Exam Constitutional: NAD, ill appearing HEENT: EOMI, moist MMs, PERRLA, sclera anicteric Respiratory: clear to auscultation bilateral, no rales, no rhonchi, no wheezing, diminished lung sound Cardiovascular: RRR Gastrointestinal: soft, non-tender, no distention, positive bowel sounds Genitourinary: continent Musculoskeletal: no cyanosis, no clubbing, diffuse muscle atrophy Neurology: moves all 4 limbs, no focal deficits Skin: cap refill <2 seconds, no lesions, no rash, fragile Psychiatric: A&O x 3, normal affect - Assessment (1) Palliative care encounter Code(s): Z51.5 - ENCOUNTER FOR PALLIATIVE CARE Current Visit: Yes Status: Acute (2) Acute respiratory failure with hypoxia Code(s): J96.01 - ACUTE RESPIRATORY FAILURE WITH HYPOXIA Current Visit: Yes Status: Acute (3) COVID-19 Code(s): U07.1 - COVID-19 Current Visit: Yes Status: Acute (4) Diabetes Code(s): E11.9 - TYPE 2 DIABETES MELLITUS WITHOUT COMPLICATIONS Current Visit: Yes Status: Acute (5) Hypertension Code(s): I10 - ESSENTIAL (PRIMARY) HYPERTENSION Current Visit: Yes Status: Acute - Plan Plan: Reviewed slow process to heal. In agreement for transfer to swing bed, understanding of continuation of PT/OT/Speech is bringing "his favorite foods" Hopeful for continued recovery, reinforced slow process to heal. Confirmed Directives. Palliative care will sign off as Goals addressed and Directives reviewed. Please also refer to Palliative care notes in note section. Thank you for this very appropriate consult. [25] minutes spent on this encounter with >50% of the time in counseling and coordination of care. - ROS Constitutional: loss appetite, weakness ENT: dry mouth, difficulty swallowing Respiratory: other (cough) Cardiology: other (Denies palpitations, chest pain) Gastrointestinal: other (Denies nausea, vomiting) Neurological: other (Denies numbness, confusion, headache)
[2020-10-19] MEDS: Cholecalciferol 1,000 UNITS (25 MCG) TAB PER TUBE SCH (20:48)
[2020-10-20] MEDS: PROVENTIL INHALER 6.7 G (200 INHALATIONS) INH SCH ×6 (02:11→22:03)
[2020-10-20] MEDS: Arformoterol 15 MCG/2 ML NEB NEB SCH ×2 (07:29→19:13)
[2020-10-20] MEDS: Budesonide 0.5 MG/2 ML NEB NEB SCH ×2 (07:29→19:14)
[2020-10-20] MEDS: Furosemide 40 MG TAB PO SCH (08:06)
[2020-10-20] MEDS ORDERED: Furosemide 40 MG/4 ML VIAL SLOW IVP SCH (08:15)
[2020-10-20 08:19] LABS: Anion Gap 17 mmol/L (10-20); BUN (Urea Nitrogen) 31 mg/dL (8.4-25.7); Calc. Creatinine Clearance 104 mL/min (70-130); Calcium 8.9 mg/dL (7.8-10.44); Carbon Dioxide 25 mmol/L (23-31); Chloride 98 mmol/L (98-107); Glucose 126 mg/dL (80-115); Potassium 4.1 mmol/L (3.5-5.1); Sodium 136 mmol/L (136-145)
[2020-10-20 08:25] LABS: Troponin I Less than 0.010 ng/mL (< 0.028)
[2020-10-20] MEDS ORDERED: Metoprolol Tartrate 5 MG/5 ML VIAL ONE (08:27)
[2020-10-20] MEDS ORDERED: Furosemide 40 MG/4 ML VIAL ONE (08:29)
--- NOTE | 2020-10-20 10:21 | CT ---
CT ANGIOGRAM THORAX WITH IV CONTRAST AND 3-D RECONSTRUCTIONS CLINICAL INDICATION: Covid +2 weeks ago. Respiratory distress, code green. Shortness breath. COMPARISON: 09/20/2020 FINDINGS: Pulmonary arteries: Respiratory motion limits evaluation, but no definitive filling defect is seen wi thin the pulmonary arteries to suggest a pulmonary embolus. Aorta: Vascular calcifications are seen in the aortic arch. The thoracic aorta is normal in caliber w ithout evidence of an aortic dissection. Ascending aorta is ectatic measuring 4.1 cm. Lungs: There are diffuse and extensive increased interstitial densities seen throughout the lungs wit h slightly greater patchy parenchymal densities in the lower lobes. Greater degree of groundglass opacities were seen on prior study on 09/20/2020. Findings on current study are more suggestive of pr ogression to chronic interstitial fibrotic lung changes. There are now loculated cystic areas within the medial aspect of the anterior aspect of the medial right middle lobe with a much smaller t hin-walled cyst in the right upper lobe anteriorly. No pleural effusion is seen. Mediastinum: Coronary artery calcifications are seen. The heart is mildly enlarged. Trace pericardial effusion is present Thyroid gland: Left lobe of thyroid gland not well assessed due to artifact from dense contrast withi n adjacent veins. Right lobe of thyroid gland does have a normal appearance. Questionable nodule is present in the left lobe of the thyroid gland. Osseous structures: Degenerative changes are again seen in the spine. No suspicious lytic or scleroti c osseous lesions are identified. Chest wall: No abnormality visualized. Upper abdomen: Within normal limits for phase of imaging. IMPRESSION: 1. No CT evidence of a pulmonary embolus. 2. Improvement in groundglass densities within the lungs bilaterally. However, there is now an increa se in interstitial densities throughout the lungs bilaterally, and findings are likely related to progression to chronic interstitial fibrotic lung changes when compared to prior exam. There has also been interval development of cystic structures within the anteromedial right middle lobe and anterior right upper lobe with larger cystic structures in the anteromedial right middle lobe located peripherally adjacent to the pleura. 3. Cardiomegaly.
[2020-10-20] MEDS ORDERED: Iopamidol-370 76% 500 ML 1 ML ONE (10:55)
[2020-10-20 11:00] LABS: Magnesium 1.9 mg/dL (1.6-2.6); Phosphorus 3.6 mg/dL (2.3-4.7)
[2020-10-20] MEDS ORDERED: Magnesium 2 GM/50 ML 2 GM in Premix Bag 1 BAG IVPB SCH (11:15)
[2020-10-20] MEDS: Cyanocobalamin (Vitamin B-12) 1,000 MCG TAB PO SCH (11:46)
[2020-10-20] MEDS: Folic Acid 1 MG TAB PO SCH (11:47)
[2020-10-20] MEDS: Ascorbic Acid 500 mg Chewable Tablet PO SCH (11:47)
[2020-10-20] MEDS: Apixaban 2.5 MG TAB PO SCH ×2 (11:47→20:15)
[2020-10-20] MEDS: Zinc Sulfate 220 MG CAP PO SCH (11:47)
[2020-10-20] MEDS: traMADol HCl 50 MG TAB PO PRN (12:21)
[2020-10-20] MEDS: Dexamethasone 1 MG TAB PO SCH (14:08)
[2020-10-20] MEDS ORDERED: Sodium Acetate 2 mEq/ml 20 MEQ, Sodium Chloride 15 MEQ, Potassium ACETATE 10 MEQ, Potas... IV SCH (15:30)
[2020-10-20] MEDS ORDERED: Vancomycin 1 GM in Premix Bag 1 BAG IVPB SCH (17:30)
[2020-10-20] MEDS: MEROPENEM 1 GM/50 ML 1 GM in Premix Bag 1 BAG IVPB SCH (18:13)
[2020-10-20] MEDS: Vancomycin 1.5 GRAM/300 ML BAG 1.5 GM in Premix Bag 1 BAG IVPB SCH (19:39)
[2020-10-20] MEDS: Cholecalciferol 1,000 UNITS (25 MCG) TAB PER TUBE SCH (20:15)
[2020-10-21 00:56] LABS: Bacteria/HPF None Seen HPF (None Seen); Bilirubin Negative (Negative); Blood, Urine Negative (Negative); Clarity Clear (Clear); Glucose, Urine (Dipstick) Normal (Negative); Ketone, Urine Negative (Negative); Leukocyte Negative Leu/uL (Negative); Nitrite Negative (Negative); Protein, Urine (Dipstick) 30 mg/dL (Neg-Trace); RBC/HPF 0-3 HPF (0-3); Specific Gravity, Urine 1.034 (1.002-1.036); Squamous Epithelial 0-3 HPF (0-3); Urobilinogen Normal mg/dL (Less than 2)
[2020-10-21 00:58] LABS: Urine Culture Reflex Yes Yes
[2020-10-21] MEDS: MEROPENEM 1 GM/50 ML 1 GM in Premix Bag 1 BAG IVPB SCH ×3 (01:44→19:20)
[2020-10-21] MEDS: PROVENTIL INHALER 6.7 G (200 INHALATIONS) INH SCH ×6 (03:10→22:29)
[2020-10-21] MEDS: Vancomycin 1.5 GRAM/300 ML BAG 1.5 GM in Premix Bag 1 BAG IVPB SCH ×2 (05:30→17:48)
[2020-10-21] MEDS: Budesonide 0.5 MG/2 ML NEB NEB SCH ×2 (08:03→19:33)
[2020-10-21] MEDS: Arformoterol 15 MCG/2 ML NEB NEB SCH ×2 (08:05→19:33)
[2020-10-21 08:27] LABS: ALT (SGPT) 25 U/L (8-55); AST (SGOT) 11 U/L (5-34); Alkaline Phosphatase 149 U/L (40-110); Anion Gap 17 mmol/L (10-20); BUN (Urea Nitrogen) 37 mg/dL (8.4-25.7); Bilirubin, Total 0.4 mg/dL (0.2-1.2); Calc. Creatinine Clearance 92 mL/min (70-130); Calcium 8.6 mg/dL (7.8-10.44); Carbon Dioxide 27 mmol/L (23-31); Chloride 98 mmol/L (98-107); Globulin 4.6 g/dL (2.4-3.5); Glucose 128 mg/dL (80-115); Magnesium 2.2 mg/dL (1.6-2.6); Phosphorus 3.7 mg/dL (2.3-4.7); Protein, Total 7.6 g/dL (5.8-8.1); Sodium 138 mmol/L (136-145)
[2020-10-21 08:28] LABS: Band 9 % (5-11); Eosinophils 1 % (0-10); Hemoglobin 11.7 g/dL (14.0-18.0); Lymphocytes 8 % (21-51); MDiff Complete? YES; Mean Corpuscular Hemoglobin 31.2 pg (27.0-31.0); Mean Corpuscular Volume 97.6 fL (78.0-98.0); Mean Platelet Volume 8.2 fL (7.4-10.4); Monocytes 6 % (0-10); Neutrophil 76 % (42-75); Platelet Count 349 thou/uL (130-400); RBC Distribution Width 13.9 % (11.5-14.5); Red Blood Cell (RBC) Count 3.75 mill/uL (4.70-6.10); White Blood Cell (WBC) Count 23.4 thou/uL (4.8-10.8)
[2020-10-21] MEDS ORDERED: PROPOFOL 200 MG/20 ML VIAL ONE (08:47)
--- NOTE | 2020-10-21 09:58 | CON ---
DATE OF CONSULTATION: 10/20/2020 REQUESTING PHYSICIAN: Dr. Ortega. HISTORY OF PRESENT ILLNESS: Mr. Pitts is a 65-year-old gentleman who has been here since the when he was admitted with COVID pneumonia. Prior to that, he had been diagnosed earlier this year with diabetes according to his daughter who is at the bedside. 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 He was intubated for a time, during which time he was on TPN and tube feeds. Now, he is on Clinimix PPN for nutritional support. He is just not really wanting to eat. He has been extubated over a week ago and this has persisted, he is just not eating at all. As he has not been eating, his family is inquiring about enteral feeding. Dr. Ortega asked me to see him today about a PEG tube. The nurses note that he desaturated last night as he took off his oxygen, got very uncomfortable, but presently with his oxygen back on, he is breathing better, but still fairly tachypneic. He had a code green last night and a CAT scan showed no pulmonary embolus. He had increased interstitial densities throughout the lungs bilaterally. He has some cardiomegaly. Denies abdominal pain. PAST MEDICAL HISTORY: Diabetes. PAST SURGICAL HISTORY: Orthopedic surgery. PRESENT MEDICATIONS: 1. Tylenol. 2. Apixaban 2.5 mg b.i.d. 3. PPN. 4. Brovana. 5. Vitamin C. 6. Pulmicort. 7. Vitamin D. 8. Vitamin B. 9. Decadron 2 mg daily p.o. 10. Folic acid. 11. Furosemide. 12. Glucagon. 13. Hydralazine. 14. Insulin sliding scale. 15. Zofran. 16. Protonix 40 mg daily. 17. Tramadol. 18. Zinc. PHYSICAL EXAMINATION: GENERAL: He is resting, sitting up in bed. VITAL SIGNS: T-max 101. Pulse 133 at 7:00 this morning, 107 now. Blood pressure 103/64. On 4 L nasal cannula, O2 saturation 99%. He is a little bit tachypneic on looking at him. LUNGS: Fairly clear surprisingly. HEART: Sinus tachycardia. ABDOMEN: Soft and nontender. EXTREMITIES: No clubbing, cyanosis, or edema. LABORATORY DATA: White count went up a little bit today at 11.7, hemoglobin 10, platelet count 290. INR is 1.3 on 10/18. Sodium 136, potassium 4.1, chloride 98, bicarb 25, BUN and creatinine are 31 and 0.8. Liver function tests were normal on the , alkaline phosphatase is 126. Albumin was 2.9. CT scan report reviewed. ASSESSMENT: This is a 65-year-old gentleman with COVID-19 for over 20 days. He has come off the ventilator 7 days ago. He is just not eating. He has no appetite. He has been getting Clinimix and previously was getting TPN and some tube feeds when he was in the ICU intubated. I have been asked to place a PEG tube in him. He had decompensation this morning, a code erick was called. His chest x-ray shows some fibrotic changes. He had a fever today as well. RECOMMENDATIONS: I would strongly consider Dobhoff feeding for right now. We can tentatively re-look at him tomorrow and see if he would meet criteria to be sedated for a PEG, but I am not sure we can able to do that safely, more from a respiratory standpoint. If we are, we will proceed with a PEG. If not, then the primary team will need to consider Dobhoff feeding if they want to get away from the peripheral nutrition. Job ID: [id number]
--- NOTE | 2020-10-21 10:49 | PDOC.HOSPP ---
- Subjective Encounter Date: 10/20/20 Encounter Time: 11:00 Subjective: Patient seen and examined for respiratory failure. Had code green this morning due to tachycardia. Patient had pulled his O2 nasal cannula this morning per RN. CTA was negative for pulmonary embolism - Objective Vital Signs & Weight: Vital Signs (12 hours) Temp Pulse Resp BP Pulse Ox 10/21/20 10:43 90 L 10/21/20 08:03 90 24 H 92 L 10/21/20 07:51 99.0 F 102 H 18 130/84 90 L 10/21/20 04:00 99 F 110 H 20 106/73 99 10/21/20 03:10 114 H 20 97 10/21/20 01:26 98.1 F 105 H 18 108/71 97 Weight Admit Weight 236 lb Weight 200 lb 5 oz Most Recent Monitor Data Heart Rate from ECG 78 NIBP 167/80 NIBP BP-Mean 109 Respiration from ECG 37 SpO2 99 I&O: 10/20/20 10/21/20 10/22/20 06:59 06:59 06:59 Intake Total 632 30 Output Total 250 Balance 382 30 Result Diagrams: 10/21/20 07:54 10/21/20 07:54 Additional Labs: Accuchecks 10/21/20 10/20/20 04:17 22:35 POC Glucose 132 H 141 H Radiology Reviewed by me: Yes (CTA negative for PE) EKG Reviewed by me: Yes (Sinus tachycardia) Hospitalist ROS - Review of Systems Cardiovascular: denies: chest pain, palpitations, orthopnea, paroxysmal noc. dyspnea, edema, light headedness, other Gastrointestinal: denies: nausea, vomiting, abdominal pain, diarrhea, constipation, melena, hematochezia, other - Medication Medications: Active Medications Generic Name Dose Route Start Last Admin Trade Name Freq PRN Reason Stop Dose Admin Acetaminophen 650 mg 10/12/20 13:22 10/13/20 15:15 Acetaminophen 650 Mg Suppository NC 650 mg Q4H PRN Administration Headache/Fever or Pain Albuterol Sulfate 2 puff 10/17/20 22:30 10/21/20 10:43 Proventil Inhaler 6.7 G (200 Inhalations) INH 2 puff [id number] LUCIEN Administration Apixaban 2.5 mg 10/17/20 21:00 10/20/20 20:15 Apixaban 2.5 Mg Tab PO 2.5 mg BID LUCIEN Administration Arformoterol Tartrate 15 mcg 09/25/20 18:30 10/21/20 08:05 Arformoterol 15 Mcg/2 Ml Neb NEB 15 mcg BID-RT LUCIEN Administration Ascorbic Acid 1,000 mg 09/21/20 09:00 10/20/20 11:47 Ascorbic Acid 500 Mg Chewable Tablet PO 1,000 mg DAILY LUCIEN Administration Budesonide 0.5 mg 09/25/20 18:30 10/21/20 08:03 Budesonide 0.5 Mg/2 Ml Neb NEB 0.5 mg BID-RT LUCIEN Administration Cholecalciferol 5,000 units 09/24/20 21:00 10/20/20 20:15 Cholecalciferol 1,000 Units (25 Mcg) Tab PER TUBE 5,000 units HS LUCIEN Administration Cyanocobalamin 1,000 mcg 10/19/20 09:00 10/20/20 11:46 Cyanocobalamin (Vitamin B-12) 1,000 Mcg Tab PO 1,000 mcg DAILY LUCIEN Administration Dexamethasone 2 mg 10/20/20 09:00 10/20/20 14:08 Dexamethasone 1 Mg Tab PO 2 mg DAILY LUCIEN Administration Folic Acid 1 mg 10/19/20 09:00 10/20/20 11:47 Folic Acid 1 Mg Tab PO 1 mg DAILY LUCIEN Administration Furosemide 40 mg 10/19/20 07:30 10/20/20 08:06 Furosemide 40 Mg Tab PO 40 mg DAILY-AC LUCIEN Administration Sodium Acetate 20 meq/ Sodium 1,034.7641 mls @ 50 mls/hr 10/20/20 15:30 10/20/20 21:46 Chloride 15 meq/ Potassium IV 1,034.7641 mls Acetate 10 meq/ Potassium INF LUCIEN Administration Phosphate 15 mmol/ Calcium Gluconate 4.5 meq/ Magnesium Sulfate 5 meq/ Amino Acids/ Dextrose Meropenem 1 gm/ Device 50 mls @ 100 mls/hr 10/20/20 18:00 10/21/20 01:44 IVPB 50 mls 0200,1000,1800 LUCIEN Administration Vancomycin HCl 1.5 gm/ Device 300 mls @ 200 mls/hr 10/20/20 18:00 10/21/20 05:30 IVPB 300 mls 0600,1800 LUCIEN Administration Insulin Human Lispro 0 units 10/01/20 13:49 10/19/20 17:51 Humalog 300 Units/3 Ml Vial SC 2 unit .MODERATE SLIDING SC PRN Administration Moderate Correctional Scale Pantoprazole Sodium 40 mg 10/20/20 09:00 10/20/20 11:47 Pantoprazole 40 Mg Tab PO 40 mg DAILY LUCIEN Administration Sodium Chloride 10 ml 09/21/20 21:00 10/20/20 20:25 Flush - Normal Saline 10 Ml Syringe IVF Not Given Q12HR LUCIEN Tramadol HCl 50 mg 10/14/20 10:05 10/20/20 12:21 Tramadol Hcl 50 Mg Tab PO 50 mg Q6H PRN Administration Moderate Pain (4-6) Zinc Sulfate 220 mg 09/21/20 09:00 10/20/20 11:47 Zinc Sulfate 220 Mg Cap PO 220 mg DAILY LUCIEN Administration - Exam General Appearance: awake alert, ill appearing Neck: supple, no JVD Heart: RRR, no gallops, no rubs, normal peripheral pulses Respiratory: no wheezes, rales, rhonchi, tachypneic Gastrointestinal: soft, non-tender, normal bowel sounds, no guarding, no rigidity Extremities: no cyanosis, no clubbing Neurological: no new deficit Psychiatric: normal affect, A&O x 3 Hosp A/P - Plan Acute hypoxic respiratory failure/sepsis due to COVID 19 pneumonia requiring mechanical ventilation S/p Remdesivir Sepsis probably due to superinfection10/20 Acute kidney injury Hypertension Diabetes mellitus type II Chronic anemia probably due to nutritional deficiency Hypokalemia Hypomagnesemia Swallow dysfunction Physical deconditioning Hyperkalemia/hypernatremia/hyponatremiaresolved Peripheral vascular disease Plan: Patient continues to have poor appetite. Will hold transfer for now. Consult GI for possible PEG tube placement due to poor appetite per family's request. Patient agrees with this plan. Continue to taper steroids. Will get blood and urine cultures and start empiric antibiotics. Case discussed with GI and pulmonary Dr. Sparks. We will continue Eliquis for DVT prophylaxis.
[2020-10-21] MEDS ORDERED: Ketamine 50 MG/ML (10ML VIAL) ONE (12:08)
[2020-10-21] MEDS: Dexamethasone 1 MG TAB PO SCH (13:04)
[2020-10-21] MEDS: Furosemide 40 MG TAB PO SCH (13:04)
[2020-10-21] MEDS: Cyanocobalamin (Vitamin B-12) 1,000 MCG TAB PO SCH (13:04)
[2020-10-21] MEDS: Ascorbic Acid 500 mg Chewable Tablet PO SCH (13:04)
[2020-10-21] MEDS: Zinc Sulfate 220 MG CAP PO SCH (13:05)
[2020-10-21] MEDS: Folic Acid 1 MG TAB PO SCH (13:05)
--- NOTE | 2020-10-21 13:14 | OP ---
DATE OF PROCEDURE: 10/21/2020 PREPROCEDURE DIAGNOSES: 1. Failure to thrive with poor p.o. intake. 2. Severe COVID pneumonia, extubated 7 days ago, still not eating. POSTPROCEDURE DIAGNOSES: Normal EGD; status post PEG tube, Ponsky placement. ANESTHESIA: TIVA. PREOPERATIVE ANTIBIOTICS: Ancef 2 g IV. RECOMMENDATIONS: 1. Start tube feedings in 3 hours. 2. Clean PEG site with soap and water daily. 3. Elevate head of bed during tube feeds. 4. Abdominal binder, so he does not pull his PEG out. PROCEDURE IN DETAIL: After the patient's family was informed of the risks, benefits, and possible complication of endoscopy including perforation, bleeding, reaction to medication, and aspiration, informed consent was obtained. The patient was brought to endoscopy suite, where he was sedated in gradual fashion. The endoscope was advanced through the bite block into the esophagus, stomach, into second and third portions of duodenum and slowly removed. Adequate place for PEG tube placement was identified by transillumination and finger indentation. The stomach appeared normal in forward and retroflexed views. The abdomen was prepped and draped in sterile fashion and a finder needle was used to access the gastric lumen. Once this was confirmed, the PEG tube was placed by Ponsky pull technique. Second-look showed good placement. The scope was removed. The abdominal binder was placed in the OR and the patient was brought to recovery room in stable condition. Job ID: [id number]
--- NOTE | 2020-10-21 16:34 | PDOC.HOSPP ---
- Subjective Encounter Date: 10/21/20 Encounter Time: 14:30 Subjective: Patient seen and examined for respiratory failure due to COVID-19 pneumonia. No overnight events. Underwent PEG tube placement today. Denies any other complaints. - Objective Vital Signs & Weight: Vital Signs (12 hours) Temp Pulse Resp BP Pulse Ox 10/21/20 15:00 104 H 28 H 111/74 97 10/21/20 14:30 103 H 29 H 123/80 95 10/21/20 14:00 103 H 28 H 116/83 93 L 10/21/20 13:30 97.9 F 101 H 32 H 119/74 97 10/21/20 10:43 90 L 10/21/20 10:30 96 10/21/20 08:03 90 24 H 92 L 10/21/20 07:51 99.0 F 102 H 18 130/84 90 L Weight Admit Weight 236 lb Weight 200 lb 5 oz Most Recent Monitor Data Heart Rate from ECG 78 NIBP 167/80 NIBP BP-Mean 109 Respiration from ECG 37 SpO2 99 I&O: 10/20/20 10/21/20 10/22/20 06:59 06:59 06:59 Intake Total 632 30 Output Total 250 Balance 382 30 Result Diagrams: 10/21/20 07:54 10/21/20 07:54 Additional Labs: Accuchecks 10/21/20 10/20/20 04:17 22:35 POC Glucose 132 H 141 H Abnormal Lab Results - Last 48 hrs 10/20/20 07:52: BUN 31 H 10/20/20 23:55: Urine Protein 30 A, Urine WBC 11-20 A, Urine Culture Reflexed Yes A 10/21/20 07:54: BUN 37 H, Alkaline Phosphatase 149 H, Albumin 3.0 L, Globulin 4.6 H, Albumin/Globulin Ratio 0.7 L 10/21/20 07:54: WBC 23.4 H, RBC 3.75 L, Hgb 11.7 L, Hct 36.6 L, MCH 31.2 H, Neutrophils % (Manual) 76 H, Lymphocytes % (Manual) 8 L Microbiology - Entire Visit 10/21/20 01:11 Urine clean catch Urine Culture - Preliminary NO GROWTH AT 12 HOURS 10/20/20 15:18 Venous blood - Right Hand Blood Culture - Preliminary Specimen has been received and culture in progress. No Growth to date. 10/20/20 15:18 Venous blood - Left Hand Blood Culture - Preliminary Specimen has been received and culture in progress. No Growth to date. 09/26/20 10:00 Urine bravo catheter Urine Culture - Final NO GROWTH AT 48 HOURS 09/20/20 10:12 Venous blood - Left Hand Blood Culture - Final NO GROWTH IN 5 DAYS 09/20/20 10:12 Venous blood - Left Arm Blood Culture - Final NO GROWTH IN 5 DAYS Radiology Reviewed by me: Yes (CT chestno pulmonary embolism) Hospitalist ROS - Review of Systems Constitutional: reports: weakness, malaise Cardiovascular: denies: chest pain, palpitations, orthopnea, paroxysmal noc. dyspnea, edema, light headedness, other Gastrointestinal: denies: nausea, vomiting, abdominal pain, diarrhea, constipation, melena, hematochezia, other - Medication Medications: Active Medications Generic Name Dose Route Start Last Admin Trade Name Freq PRN Reason Stop Dose Admin Acetaminophen 650 mg 10/12/20 13:22 10/13/20 15:15 Acetaminophen 650 Mg Suppository VT 650 mg Q4H PRN Administration Headache/Fever or Pain Albuterol Sulfate 2 puff 10/17/20 22:30 10/21/20 15:33 Proventil Inhaler 6.7 G (200 Inhalations) INH 2 puff [id number] LUCIEN Administration Apixaban 2.5 mg 10/17/20 21:00 10/20/20 20:15 Apixaban 2.5 Mg Tab PO 2.5 mg BID LUCIEN Administration Arformoterol Tartrate 15 mcg 09/25/20 18:30 10/21/20 08:05 Arformoterol 15 Mcg/2 Ml Neb NEB 15 mcg BID-RT LUCIEN Administration Ascorbic Acid 1,000 mg 09/21/20 09:00 10/21/20 13:04 Ascorbic Acid 500 Mg Chewable Tablet PO Not Given DAILY LUCIEN Budesonide 0.5 mg 09/25/20 18:30 10/21/20 08:03 Budesonide 0.5 Mg/2 Ml Neb NEB 0.5 mg BID-RT LUCIEN Administration Cholecalciferol 5,000 units 09/24/20 21:00 10/20/20 20:15 Cholecalciferol 1,000 Units (25 Mcg) Tab PER TUBE 5,000 units HS LUCIEN Administration Cyanocobalamin 1,000 mcg 10/19/20 09:00 10/21/20 13:04 Cyanocobalamin (Vitamin B-12) 1,000 Mcg Tab PO Not Given DAILY [facility] Dexamethasone 2 mg 10/20/20 09:00 10/21/20 13:04 Dexamethasone 1 Mg Tab PO Not Given DAILY [facility] Folic Acid 1 mg 10/19/20 09:00 10/21/20 13:05 Folic Acid 1 Mg Tab PO Not Given DAILY [facility] Furosemide 40 mg 10/19/20 07:30 10/21/20 13:04 Furosemide 40 Mg Tab PO Not Given DAILY-AC [facility] Sodium Acetate 20 meq/ Sodium 1,034.7641 mls @ 50 mls/hr 10/20/20 15:30 10/20/20 21:46 Chloride 15 meq/ Potassium IV 10/21/20 18:00 1,034.7641 mls Acetate 10 meq/ Potassium INF LUCIEN Administration Phosphate 15 mmol/ Calcium Gluconate 4.5 meq/ Magnesium Sulfate 5 meq/ Amino Acids/ Dextrose Meropenem 1 gm/ Device 50 mls @ 100 mls/hr 10/20/20 18:00 10/21/20 14:32 IVPB 50 mls 0200,1000,1800 LUCIEN Administration Vancomycin HCl 1.5 gm/ Device 300 mls @ 200 mls/hr 10/20/20 18:00 10/21/20 05:30 IVPB 300 mls 0600,1800 LUCIEN Administration Insulin Human Lispro 0 units 10/01/20 13:49 10/19/20 17:51 Humalog 300 Units/3 Ml Vial SC 2 unit .MODERATE SLIDING SC PRN Administration Moderate Correctional Scale Pantoprazole Sodium 40 mg 10/20/20 09:00 10/21/20 13:05 Pantoprazole 40 Mg Tab PO Not Given DAILY [facility] Sodium Chloride 10 ml 09/21/20 21:00 10/21/20 13:05 Flush - Normal Saline 10 Ml Syringe IVF Not Given Q12HR [facility] Tramadol HCl 50 mg 10/14/20 10:05 10/20/20 12:21 Tramadol Hcl 50 Mg Tab PO 50 mg Q6H PRN Administration Moderate Pain (4-6) Zinc Sulfate 220 mg 09/21/20 09:00 10/21/20 13:05 Zinc Sulfate 220 Mg Cap PO Not Given DAILY LUCIEN - Exam General Appearance: ill appearing Neck: supple Heart: RRR, no gallops Respiratory: rales, rhonchi Gastrointestinal: soft, non-distended, no guarding, no rigidity Extremities: no cyanosis Neurological: no new deficit Musculoskeletal: generalized weakness Psychiatric: normal affect, A&O x 3 Hosp A/P - Plan Acute hypoxic respiratory failure/sepsis due to COVID 19 pneumonia requiring mechanical ventilation S/p Remdesivir Sepsis probably due to superinfection10/20 Repeat cultures negative so far Acute kidney injury Hypertension Diabetes mellitus type II Chronic anemia probably due to nutritional deficiency Hypokalemia Hypomagnesemia Swallow dysfunction Physical deconditioning Hyperkalemia/hypernatremia/hyponatremiaresolved Peripheral vascular disease Moderate to severe malnutrition S/p PEG tube placement10/21 Plan: Patient has been afebrile since yesterday evening after initiation of antibiotics. Will continue vancomycin and meropenem. Monitor vancomycin level. Consult infectious disease. Underwent PEG tube placement today. We will start PEG tube feeding. Consult dietitian for recommendation in a.m. Restart Eliquis tonight per GI. Continue dexamethasone. Continue PPIs. Continue other medications as above. A.m. labs
--- NOTE | 2020-10-21 19:01 | CON ---
DATE OF CONSULTATION: 10/21/2020 CONSULT REASON: Fever. REASON FOR REQUEST: A 65-year-old patient, with a history of type 2 diabetes and hypertension, was admitted on September 20. He was diagnosed with COVID pneumonia with severe manifestation with intrafamilial spread. He was managed with Rocephin, azithromycin, and Decadron as well as enoxaparin and remdesivir. He was deteriorated and had to be intubated and he has been in the unit since the September. So he remained 14 days or two weeks in the ICU, intubated, and was extubated on October 12. At that time, he was on enoxaparin, Pepcid, insulin, metoclopramide, zinc, and electrolytes. He passed a speech therapy evaluation, started eating, but could not keep his nutritional requirements. He was started on peripheral parenteral nutrition and a G-tube was placed by Dr. Lopez today and tomorrow he should be started on enteric feedings. He was noted to have a stage III presacral pressure ulceration measuring about 4 or 5 cm. The base is kind of a hemorrhagic center and currently Mr. Pitts is in the room with . He is awake and follows commands. Denies headaches. Moderate dyspnea. No chest pain. No back pain except for the decubitus ulcer area. No abdominal tenderness and has an indwelling Nicole catheter. PAST MEDICAL HISTORY: Type 2 diabetes, right knee surgery. 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 His son is in college right now, [employer]. Never smoker. ALLERGIES: PENICILLIN. CURRENT MEDICATIONS: 1. Proventil. 2. Brovana. 3. Pulmicort neb solution. 4. Decadron down to 2 mg. 5. Furosemide. 6. He was started on meropenem yesterday and vancomycin. PHYSICAL EXAMINATION: VITAL SIGNS: T-max 101.5 yesterday at 7 a.m., BP 111/74, respiratory rate 28, O2 saturation 97. SKIN: With a stage III pressure ulceration in presacral area. He has a midline in the left upper extremity and is voiding in the diaper and indwelling Nicole catheter removed on the . He has about 1 cm scab in the left side of his nasal tip. HEENT: Ocular movements conjugate. Some temporal wasting. Oral cavity, desiccated teeth enamel. Some periodontitis. Oral mucosa is dry. LUNGS: Symmetric air entry. Few crackles scattered. No wheezing. HEART: S1 and S2. Regular rate. No S3 or murmurs. ABDOMEN: Soft, not distended or tender. No ascites. No bladder distention. No joint inflammatory activity. Pulses 1+ in dorsalis pedis. Moves extremities equally, diffusely weak, but he follows commands. He was able to push my hands with his feet. He is able to lift his hands from the bed. G-tube in place, it is covered right after being placed this morning. NEUROLOGIC: He is awake, oriented, follows commands. LABORATORY DATA: White cell count 23.4, hemoglobin 11.7, platelets 349, 76% neutrophils. Creatinine 1.03. Liver profile normal. Albumin 3.0. Urinalysis, 11-20 wbc's. D-dimer is at 1.32, which is less than few days ago. ASSESSMENT: Type 2 diabetes with severe COVID pneumonia requiring intubation and he was extubated recently and is sating at 91% to 92% at rest and got diffuse infiltrates, has developed a fever yesterday. No obvious line infection or inflammatory process noted. Bacteremia is in the process of being worked up. Urinalysis with a little bit of abnormality. No intraabdominal inflammatory process suspected. The main concern is with bacteremia or a respiratory tract infection from a protracted intubation. I agree with meropenem and vancomycin and will follow up. If he continues to have fever, may have to submit a Karius test and add antifungal coverage and/or rescan Abdomen/Chest. Job ID: [id number] [facility]
[2020-10-21] MEDS: Cholecalciferol 1,000 UNITS (25 MCG) TAB PER TUBE SCH (21:39)
[2020-10-21] MEDS: Apixaban 2.5 MG TAB PO SCH (21:39)
[2020-10-22] MEDS: MEROPENEM 1 GM/50 ML 1 GM in Premix Bag 1 BAG IVPB SCH ×3 (01:52→18:08)
[2020-10-22] MEDS: PROVENTIL INHALER 6.7 G (200 INHALATIONS) INH SCH ×6 (02:26→22:27)
[2020-10-22 06:03] LABS: Vancomycin, Trough 29.8 ug/mL
[2020-10-22 06:10] LABS: ALT (SGPT) 38 U/L (8-55); AST (SGOT) 32 U/L (5-34); Alkaline Phosphatase 193 U/L (40-110); Anion Gap 16 mmol/L (10-20); BUN (Urea Nitrogen) 37 mg/dL (8.4-25.7); Bilirubin, Total 0.4 mg/dL (0.2-1.2); Calc. Creatinine Clearance 101 mL/min (70-130); Calcium 8.7 mg/dL (7.8-10.44); Carbon Dioxide 23 mmol/L (23-31); Chloride 101 mmol/L (98-107); Globulin 4.8 g/dL (2.4-3.5); Glucose 169 mg/dL (80-115); Phosphorus 3.2 mg/dL (2.3-4.7); Potassium 4.3 mmol/L (3.5-5.1); Protein, Total 7.8 g/dL (5.8-8.1); Sodium 136 mmol/L (136-145)
[2020-10-22] MEDS: HumaLOG 300 UNITS/3 ML VIAL SC PRN ×3 (06:24→16:22)
[2020-10-22] MEDS: Furosemide 40 MG TAB PO SCH (06:25)
[2020-10-22] MEDS: Vancomycin 1.5 GRAM/300 ML BAG 1.5 GM in Premix Bag 1 BAG IVPB SCH (06:38)
[2020-10-22] MEDS ORDERED: Magnesium 2 GM/50 ML 2 GM in Premix Bag 1 BAG IVPB SCH (07:00)
[2020-10-22] MEDS: Arformoterol 15 MCG/2 ML NEB NEB SCH ×2 (07:00→19:22)
[2020-10-22] MEDS: Budesonide 0.5 MG/2 ML NEB NEB SCH ×2 (07:01→19:22)
[2020-10-22 08:16] LABS: Hemoglobin 12.5 g/dL (14.0-18.0); Mean Corpuscular HGB CONC 32.6 g/dL (32.0-36.0); Mean Corpuscular Hemoglobin 31.3 pg (27.0-31.0); Mean Corpuscular Volume 96.1 fL (78.0-98.0); Mean Platelet Volume 9.1 fL (7.4-10.4); Platelet Count 375 thou/uL (130-400); White Blood Cell (WBC) Count 19.1 thou/uL (4.8-10.8)
[2020-10-22 08:27] LABS: Band 35 % (5-11); Eosinophils 3 % (0-10); Lymphocytes 10 % (21-51); MDiff Complete? YES; Monocytes 3 % (0-10); Neutrophil 46 % (42-75); Platelet Morphology Comment Appears Adequate; RBC Morphology Normal; Reactive Lymphocytes 3 % (0-10)
[2020-10-22] MEDS: Saccharomyces boulardii 250 MG CAP PO SCH (08:45)
[2020-10-22] MEDS: Zinc Sulfate 220 MG CAP PO SCH (08:45)
[2020-10-22] MEDS: Dexamethasone 1 MG TAB PO SCH (08:45)
[2020-10-22] MEDS: Pantoprazole 40 MG GRANULES PACKET PO SCH (08:45)
[2020-10-22] MEDS: Ascorbic Acid 500 mg Chewable Tablet PO SCH (08:46)
[2020-10-22] MEDS: Folic Acid 1 MG TAB PO SCH (08:46)
[2020-10-22] MEDS: Cyanocobalamin (Vitamin B-12) 1,000 MCG TAB PO SCH (08:46)
[2020-10-22] MEDS: Apixaban 2.5 MG TAB PO SCH ×2 (09:18→21:04)
--- NOTE | 2020-10-22 13:36 | PRG ---
DATE OF SERVICE: 10/22/2020 SUBJECTIVE: Mr. Pitts is doing physical therapy. He started his tube feeds and he is tolerating well. He denies any pain at the PEG site. Antibiotics were expanded due to fever. ID has seen the patient. There is some concern about secondary bacterial pneumonia. He is also on Saccharomyces boulardii prophylaxis against C diff. He is without complaints of abdominal pain. OBJECTIVE: VITAL SIGNS: T-max 101.1 on the 16th, T-current 97.5, pulse 116, respirations 14, 94% saturation on 1 to 2 L nasal cannula, blood pressure 109/74. GENERAL: He is in the room with his daughter. Physical therapy is working with him. He is alert and oriented. He is very weak. ABDOMEN: Soft and nontender. PEG tube site is clean and dry. PEG tube bumper loosened. LABORATORY DATA: White count 19,000, down from 23,000 yesterday; hemoglobin 12.5; platelets 375; 35% bands. BUN and creatinine are 37 and 0.9. Liver function tests normal. Alkaline phosphatase 193, albumin 3, protein 7. ASSESSMENT AND PLAN: 1. Status post percutaneous endoscopic gastrostomy tube for poor intake after unformed infection with COVID-19 pneumonia, which has been severe. Tolerating tube feeds. Percutaneous endoscopic gastrostomy tube looks fine. 2. Recent fever. Blood cultures have been negative. There does not seem to be an intraabdominal source. He has no diarrhea. He does have a peripherally inserted central catheter line, which may make sense to remove at this point in time. We will defer to primary service. 3. If the patient is without diarrhea, low threshold to check for Clostridium difficile. At this point in time, I will follow from a distance. If Gastroenterology can be of any further assistance, please do not hesitate to contact us. Job ID: [id number]
[2020-10-22 13:56] LABS: Vancomycin, Random 23.1 ug/mL (See Comment)
[2020-10-22 14:19] VITALS: BMI 27.9
[2020-10-22] MEDS: Vancomycin 1 GM in Premix Bag 1 BAG IVPB SCH (16:23)
[2020-10-22] MEDS ORDERED: Vancomycin 1.5 GRAM/300 ML BAG 1.5 GM in Premix Bag 1 BAG IVPB SCH (18:00)
--- NOTE | 2020-10-22 18:23 | PDOC.HOSPP ---
- Subjective Encounter Date: 10/22/20 Encounter Time: 15:30 Subjective: Patient seen and examined for sepsis. Tolerating PEG tube feeding. Symptomatically feeling better. No overnight issues. - Objective Vital Signs & Weight: Vital Signs (12 hours) Temp Pulse Resp BP Pulse Ox 10/22/20 16:32 97.8 F 101 H 14 117/73 94 L 10/22/20 11:28 97.5 F L 116 H 14 109/74 94 L 10/22/20 08:20 95 10/22/20 08:14 97.8 F 118 H 16 129/87 95 10/22/20 07:00 117 H 24 H 95 Weight Admit Weight 236 lb Weight 200 lb 5 oz Most Recent Monitor Data Heart Rate from ECG 78 NIBP 167/80 NIBP BP-Mean 109 Respiration from ECG 37 SpO2 99 I&O: 10/21/20 10/22/20 10/23/20 06:59 06:59 06:59 Intake Total 30 280 617 Balance 30 280 617 Result Diagrams: 10/22/20 04:53 10/22/20 04:53 Additional Labs: Accuchecks 10/22/20 10/22/20 10/22/20 15:47 10:50 03:45 POC Glucose 190 H 188 H 194 H 10/21/20 10/21/20 10/20/20 22:14 16:23 16:35 POC Glucose 155 H 115 H 237 H 10/20/20 10/20/20 11:40 08:30 POC Glucose 157 H 133 H Abnormal Lab Results - Last 48 hrs 10/20/20 23:55: Urine Protein 30 A, Urine WBC 11-20 A, Urine Culture Reflexed Yes A 10/21/20 07:54: BUN 37 H, Alkaline Phosphatase 149 H, Albumin 3.0 L, Globulin 4.6 H, Albumin/Globulin Ratio 0.7 L 10/21/20 07:54: WBC 23.4 H, RBC 3.75 L, Hgb 11.7 L, Hct 36.6 L, MCH 31.2 H, Neutrophils % (Manual) 76 H, Lymphocytes % (Manual) 8 L 10/22/20 04:53: BUN 37 H, Alkaline Phosphatase 193 H, Albumin 3.0 L, Globulin 4.8 H, Albumin/Globulin Ratio 0.6 L 10/22/20 04:53: WBC 19.1 H, RBC 4.00 L, Hgb 12.5 L, Hct 38.4 L, MCH 31.3 H, Band Neuts % (Manual) 35 H, Lymphocytes % (Manual) 10 L 10/22/20 04:53: C-Reactive Protein 20.41 H Microbiology - Entire Visit 10/21/20 01:11 Urine clean catch Urine Culture - Final Presumptive Pseudomonas Gram Negative Jakub Gram Negative Jakub#2 10/20/20 15:18 Venous blood - Right Hand Blood Culture - Preliminary NO GROWTH AT 48 HOURS 10/20/20 15:18 Venous blood - Left Hand Blood Culture - Preliminary NO GROWTH AT 48 HOURS 09/26/20 10:00 Urine bravo catheter Urine Culture - Final NO GROWTH AT 48 HOURS 09/20/20 10:12 Venous blood - Left Hand Blood Culture - Final NO GROWTH IN 5 DAYS 09/20/20 10:12 Venous blood - Left Arm Blood Culture - Final NO GROWTH IN 5 DAYS Radiology Reviewed by me: Yes (CTAreviewed) Hospitalist ROS - Review of Systems Cardiovascular: denies: chest pain, palpitations, orthopnea, paroxysmal noc. dyspnea, edema, light headedness, other Gastrointestinal: denies: nausea, vomiting, abdominal pain, diarrhea, constipation, melena, hematochezia, other - Medication Medications: Active Medications Generic Name Dose Route Start Last Admin Trade Name Freq PRN Reason Stop Dose Admin Acetaminophen 650 mg 10/12/20 13:22 10/13/20 15:15 Acetaminophen 650 Mg Suppository [place] 650 mg Q4H PRN Administration Headache/Fever or Pain Albuterol Sulfate 2 puff 10/17/20 22:30 10/22/20 14:18 Proventil Inhaler 6.7 G (200 Inhalations) INH 2 puff [id number] LUCIEN Administration Apixaban 2.5 mg 10/17/20 21:00 10/22/20 09:18 Apixaban 2.5 Mg Tab PO 2.5 mg BID LUCIEN Administration Arformoterol Tartrate 15 mcg 09/25/20 18:30 10/22/20 07:00 Arformoterol 15 Mcg/2 Ml Neb NEB 15 mcg BID-RT LUCIEN Administration Ascorbic Acid 1,000 mg 09/21/20 09:00 10/22/20 08:46 Ascorbic Acid 500 Mg Chewable Tablet PO 1,000 mg DAILY LUCIEN Administration Budesonide 0.5 mg 09/25/20 18:30 10/22/20 07:01 Budesonide 0.5 Mg/2 Ml Neb NEB 0.5 mg BID-RT LUCIEN Administration Cholecalciferol 5,000 units 09/24/20 21:00 10/21/20 21:39 Cholecalciferol 1,000 Units (25 Mcg) Tab PER TUBE 5,000 units HS LUCIEN Administration Cyanocobalamin 1,000 mcg 10/19/20 09:00 10/22/20 08:46 Cyanocobalamin (Vitamin B-12) 1,000 Mcg Tab PO 1,000 mcg DAILY LUCIEN Administration Dexamethasone 2 mg 10/20/20 09:00 10/22/20 08:45 Dexamethasone 1 Mg Tab PO 2 mg DAILY LUCIEN Administration Folic Acid 1 mg 10/19/20 09:00 10/22/20 08:46 Folic Acid 1 Mg Tab PO 1 mg DAILY LUCIEN Administration Furosemide 40 mg 10/19/20 07:30 10/22/20 06:25 Furosemide 40 Mg Tab PO 40 mg DAILY-AC LUCIEN Administration Meropenem 1 gm/ Device 50 mls @ 100 mls/hr 10/20/20 18:00 10/22/20 18:08 IVPB 50 mls 0200,1000,1800 LUCIEN Administration Vancomycin HCl 1 gm/ Device 200 mls @ 200 mls/hr 10/22/20 17:00 10/22/20 16:23 IVPB 200 mls 0500,1700 LUCIEN Administration Insulin Human Lispro 0 units 10/01/20 13:49 10/22/20 16:22 Humalog 300 Units/3 Ml Vial SC 2 unit .MODERATE SLIDING SC PRN Administration Moderate Correctional Scale Pantoprazole Sodium 40 mg 10/22/20 09:00 10/22/20 08:45 Pantoprazole 40 Mg Granules Packet PO 40 mg DAILY LUCIEN Administration Saccharomyces Boulardii 250 mg 10/22/20 09:00 10/22/20 08:45 Saccharomyces Boulardii 250 Mg Cap PO 250 mg DAILY LUCIEN Administration Sodium Chloride 10 ml 09/21/20 21:00 10/22/20 09:18 Flush - Normal Saline 10 Ml Syringe IVF 10 ml Q12HR LUCIEN Administration Tramadol HCl 50 mg 10/14/20 10:05 10/20/20 12:21 Tramadol Hcl 50 Mg Tab PO 50 mg Q6H PRN Administration Moderate Pain (4-6) Zinc Sulfate 220 mg 09/21/20 09:00 10/22/20 08:45 Zinc Sulfate 220 Mg Cap PO 220 mg DAILY LUCIEN Administration - Exam General Appearance: awake alert Neck: supple, no JVD Heart: RRR, no gallops Respiratory: rales, rhonchi Gastrointestinal: soft, no guarding, no rigidity Extremities: no cyanosis Neurological: no new deficit Musculoskeletal: generalized weakness Psychiatric: normal affect, A&O x 3 Hosp A/P - Plan Acute hypoxic respiratory failure/sepsis due to COVID 19 pneumonia requiring mechanical ventilation S/p Remdesivir Sepsis probably due to UTIdiagnosed on 10/20 Acute kidney injury Hypertension Diabetes mellitus type II Chronic anemia probably due to nutritional deficiency Hypokalemia Hypomagnesemia Swallow dysfunction Physical deconditioning Hyperkalemia/hypernatremia/hyponatremiaresolved Peripheral vascular disease Moderate to severe malnutrition S/p PEG tube placement10/21 Plan: Continue supportive care. Tachycardia slowly improving. Afebrile. Urine cultu res positive for multiple organism. Will check bladder scan. WBC count improving. Change PEG tube feeding to bolus. Continue empiric antibiotics. Replace magnesium. Continue Eliquis for DVT prophylaxis. Continue current dose of prednisone. Continue other medications as above. A.m. labs.
[2020-10-22] MEDS: Cholecalciferol 1,000 UNITS (25 MCG) TAB PER TUBE SCH (21:04)
[2020-10-23] MEDS: MEROPENEM 1 GM/50 ML 1 GM in Premix Bag 1 BAG IVPB SCH ×3 (01:06→17:33)
[2020-10-23] MEDS: PROVENTIL INHALER 6.7 G (200 INHALATIONS) INH SCH ×6 (02:19→21:52)
[2020-10-23] MEDS: Vancomycin 1 GM in Premix Bag 1 BAG IVPB SCH ×2 (04:26→16:20)
[2020-10-23 06:10] LABS: ALT (SGPT) 34 U/L (8-55); AST (SGOT) 20 U/L (5-34); Albumin 2.9 g/dL (3.4-4.8); Alkaline Phosphatase 196 U/L (40-110); Anion Gap 15 mmol/L (10-20); BUN (Urea Nitrogen) 42 mg/dL (8.4-25.7); Bilirubin, Total 0.3 mg/dL (0.2-1.2); Calc. Creatinine Clearance 105 mL/min (70-130); Calcium 8.5 mg/dL (7.8-10.44); Carbon Dioxide 26 mmol/L (23-31); Chloride 100 mmol/L (98-107); Globulin 4.7 g/dL (2.4-3.5); Glucose 188 mg/dL (80-115); Magnesium 2.1 mg/dL (1.6-2.6); Phosphorus 2.4 mg/dL (2.3-4.7); Protein, Total 7.6 g/dL (5.8-8.1); Sodium 137 mmol/L (136-145)
[2020-10-23] MEDS: HumaLOG 300 UNITS/3 ML VIAL SC PRN ×3 (06:24→16:47)
[2020-10-23] MEDS: Furosemide 40 MG TAB PO SCH (06:24)
[2020-10-23 06:27] LABS: Hemoglobin 12.3 g/dL (14.0-18.0); Mean Corpuscular HGB CONC 31.7 g/dL (32.0-36.0); Mean Corpuscular Hemoglobin 30.4 pg (27.0-31.0); Mean Corpuscular Volume 95.8 fL (78.0-98.0); Mean Platelet Volume 8.7 fL (7.4-10.4); Platelet Count 419 thou/uL (130-400); RBC Distribution Width 13.8 % (11.5-14.5); Red Blood Cell (RBC) Count 4.06 mill/uL (4.70-6.10); White Blood Cell (WBC) Count 14.5 thou/uL (4.8-10.8)
[2020-10-23 07:41] LABS: Band 13 % (5-11); Eosinophils 2 % (0-10); Lymphocytes 12 % (21-51); MDiff Complete? YES; Monocytes 7 % (0-10); Myelocyte 1 % (0-0); Neutrophil 63 % (42-75); Platelet Morphology Comment Appears Increased; Polychromasia SLIGHT = 2-3 cells (100X) (0-2/hpf); Reactive Lymphocytes 2 % (0-10)
[2020-10-23] MEDS: Budesonide 0.5 MG/2 ML NEB NEB SCH ×2 (07:46→18:56)
[2020-10-23] MEDS: Arformoterol 15 MCG/2 ML NEB NEB SCH ×2 (07:53→18:55)
[2020-10-23] MEDS: Cyanocobalamin (Vitamin B-12) 1,000 MCG TAB PO SCH (08:24)
[2020-10-23] MEDS: Pantoprazole 40 MG GRANULES PACKET PO SCH (08:24)
[2020-10-23] MEDS: Apixaban 2.5 MG TAB PO SCH ×2 (08:24→20:46)
[2020-10-23] MEDS: Saccharomyces boulardii 250 MG CAP PO SCH (08:24)
[2020-10-23] MEDS: Zinc Sulfate 220 MG CAP PO SCH (08:24)
[2020-10-23] MEDS: Dexamethasone 1 MG TAB PO SCH (08:24)
[2020-10-23] MEDS: Folic Acid 1 MG TAB PO SCH (08:24)
[2020-10-23] MEDS: Ascorbic Acid 500 mg Chewable Tablet PO SCH (08:24)
--- NOTE | 2020-10-23 18:00 | PRG ---
DATE OF SERVICE: 10/23/2020 SUBJECTIVE: The patient is doing relatively well. He is not requiring any oxygen supplementation. His saturations are good. He is having some loose stools. He is able to void without difficulty and having a little bit of delirium from time to time. OBJECTIVE: VITAL SIGNS: His temperature kind of settled down a bit, T-max 99.6 earlier today, but otherwise he was afebrile. BP 130/80. He is breathing about 18 times a minute. Room air saturating 97, which is excellent. LUNGS: Pretty symmetric breath sounds with very little crackles. No wheezing. HEART: S1 and S2. ABDOMEN: Soft, not distended. : He is voiding spontaneously. The bladder is not distended. LABORATORY DATA: white cell count decreased to 14.5, hemoglobin 12, platelets 419, and 13% bands still. Creatinine 0.9. Urinalysis showed 11 to 20 wbc's from the 16th. The cultures with 3 different gram negatives including Pseudomonas. Blood culture, no growth from the 16th. ASSESSMENT AND DISCUSSION: Type 2 diabetes, severe COVID pneumonia requiring intubation and mechanical ventilation. Recently extubated successfully and saturating very well, with the fever and the possibility of pneumonia versus a urinary tract infection. Waiting on susceptibilities of the organisms. The CT of the lungs showed changes are more consistent with organizing pneumonia at this stage of COVID-19, less likely to represent nosocomial pneumonia, so maybe the urinary tract is the culprit here. Job ID: [id number] [facility]
--- NOTE | 2020-10-23 18:11 | PDOC.HOSPP ---
- Subjective Encounter Date: 10/23/20 Encounter Time: 10:30 Subjective: Patient seen and examined for sepsis. Symptomatically feeling better. Tolerating PEG tube feeding. No fever or chills reported. Remains on room air. - Objective Vital Signs & Weight: Vital Signs (12 hours) Temp Pulse Resp BP Pulse Ox Pulse Ox Pulse Ox 10/23/20 16:33 98.0 F 97 14 137/86 97 10/23/20 14:37 97 20 97 10/23/20 11:52 99.6 F 112 H 14 128/75 93 L 10/23/20 11:21 96 20 96 10/23/20 11:12 93 L 90 L 10/23/20 08:35 95 10/23/20 08:07 98.1 F 98 14 127/82 95 10/23/20 07:54 97 20 97 10/23/20 07:53 97 20 97 10/23/20 07:46 97 20 97 Weight Admit Weight 236 lb Weight 200 lb 5 oz Most Recent Monitor Data Heart Rate from ECG 78 NIBP 167/80 NIBP BP-Mean 109 Respiration from ECG 37 SpO2 99 I&O: 10/22/20 10/23/20 10/24/20 06:59 06:59 06:59 Intake Total 280 617 Balance 280 617 Result Diagrams: 10/23/20 05:28 10/23/20 05:28 Additional Labs: Accuchecks 10/23/20 10/23/20 10/23/20 15:57 11:01 05:28 POC Glucose 169 H 205 H 186 H 10/22/20 21:37 POC Glucose 117 H Abnormal Lab Results - Last 48 hrs 10/22/20 04:53: BUN 37 H, Alkaline Phosphatase 193 H, Albumin 3.0 L, Globulin 4.8 H, Albumin/Globulin Ratio 0.6 L 10/22/20 04:53: WBC 19.1 H, RBC 4.00 L, Hgb 12.5 L, Hct 38.4 L, MCH 31.3 H, Band Neuts % (Manual) 35 H, Lymphocytes % (Manual) 10 L 10/22/20 04:53: C-Reactive Protein 20.41 H 10/23/20 05:28: BUN 42 H, Alkaline Phosphatase 196 H, Albumin 2.9 L, Globulin 4.7 H, Albumin/Globulin Ratio 0.6 L 10/23/20 05:28: WBC 14.5 H, RBC 4.06 L, Hgb 12.3 L, Hct 38.9 L, MCHC 31.7 L, Plt Count 419 H, Band Neuts % (Manual) 13 H, Lymphocytes % (Manual) 12 L, Myelocytes % 1 H, Plt Morphology Comment Appears Increased H Microbiology - Entire Visit 10/21/20 01:11 Urine clean catch Urine Culture - Final Presumptive Pseudomonas Gram Negative Jakub Gram Negative Jakub#2 10/20/20 15:18 Venous blood - Right Hand Blood Culture - Preliminary NO GROWTH AT 48 HOURS 10/20/20 15:18 Venous blood - Left Hand Blood Culture - Preliminary NO GROWTH AT 48 HOURS 09/26/20 10:00 Urine bravo catheter Urine Culture - Final NO GROWTH AT 48 HOURS 09/20/20 10:12 Venous blood - Left Hand Blood Culture - Final NO GROWTH IN 5 DAYS 09/20/20 10:12 Venous blood - Left Arm Blood Culture - Final NO GROWTH IN 5 DAYS Hospitalist ROS - Review of Systems Cardiovascular: denies: chest pain, palpitations, orthopnea, paroxysmal noc. dyspnea, edema, light headedness, other Gastrointestinal: denies: nausea, vomiting, abdominal pain, diarrhea, constipation, melena, hematochezia, other - Medication Medications: Active Medications Generic Name Dose Route Start Last Admin Trade Name Freq PRN Reason Stop Dose Admin Acetaminophen 650 mg 10/12/20 13:22 10/13/20 15:15 Acetaminophen 650 Mg Suppository [place] 650 mg Q4H PRN Administration Headache/Fever or Pain Albuterol Sulfate 2 puff 10/17/20 22:30 10/23/20 14:37 Proventil Inhaler 6.7 G (200 Inhalations) INH 2 puff [id number] LUCIEN Administration Apixaban 2.5 mg 10/17/20 21:00 10/23/20 08:24 Apixaban 2.5 Mg Tab PO 2.5 mg BID LUCIEN Administration Arformoterol Tartrate 15 mcg 09/25/20 18:30 10/23/20 07:53 Arformoterol 15 Mcg/2 Ml Neb NEB 15 mcg BID-RT LUCIEN Administration Ascorbic Acid 1,000 mg 09/21/20 09:00 10/23/20 08:24 Ascorbic Acid 500 Mg Chewable Tablet PO 1,000 mg DAILY LUCIEN Administration Budesonide 0.5 mg 09/25/20 18:30 10/23/20 07:46 Budesonide 0.5 Mg/2 Ml Neb NEB 0.5 mg BID-RT LUCIEN Administration Cholecalciferol 5,000 units 09/24/20 21:00 10/22/20 21:04 Cholecalciferol 1,000 Units (25 Mcg) Tab PER TUBE 5,000 units HS LUCIEN Administration Cyanocobalamin 1,000 mcg 10/19/20 09:00 10/23/20 08:24 Cyanocobalamin (Vitamin B-12) 1,000 Mcg Tab PO 1,000 mcg DAILY LUCIEN Administration Dexamethasone 2 mg 10/20/20 09:00 10/23/20 08:24 Dexamethasone 1 Mg Tab PO 2 mg DAILY LUCIEN Administration Folic Acid 1 mg 10/19/20 09:00 10/23/20 08:24 Folic Acid 1 Mg Tab PO 1 mg DAILY LUCIEN Administration Furosemide 40 mg 10/19/20 07:30 10/23/20 06:24 Furosemide 40 Mg Tab PO 40 mg DAILY-AC LUCIEN Administration Meropenem 1 gm/ Device 50 mls @ 100 mls/hr 10/20/20 18:00 10/23/20 17:33 IVPB 50 mls 0200,1000,1800 LUCIEN Administration Vancomycin HCl 1 gm/ Device 200 mls @ 200 mls/hr 10/22/20 17:00 10/23/20 16:20 IVPB 200 mls 0500,1700 LUCIEN Administration Insulin Human Lispro 0 units 10/01/20 13:49 10/23/20 16:47 Humalog 300 Units/3 Ml Vial SC 2 unit .MODERATE SLIDING SC PRN Administration Moderate Correctional Scale Pantoprazole Sodium 40 mg 10/22/20 09:00 10/23/20 08:24 Pantoprazole 40 Mg Granules Packet PO 40 mg DAILY LUCIEN Administration Saccharomyces Boulardii 250 mg 10/22/20 09:00 10/23/20 08:24 Saccharomyces Boulardii 250 Mg Cap PO 250 mg DAILY LUCIEN Administration Sodium Chloride 10 ml 09/21/20 21:00 10/23/20 08:24 Flush - Normal Saline 10 Ml Syringe IVF 10 ml Q12HR LUCIEN Administration Tramadol HCl 50 mg 10/14/20 10:05 10/20/20 12:21 Tramadol Hcl 50 Mg Tab PO 50 mg Q6H PRN Administration Moderate Pain (4-6) Zinc Sulfate 220 mg 09/21/20 09:00 10/23/20 08:24 Zinc Sulfate 220 Mg Cap PO 220 mg DAILY LUCIEN Administration - Exam General Appearance: awake alert Heart: RRR, no gallops Respiratory: no wheezes, rales, rhonchi Gastrointestinal: soft, non-distended, no guarding, no rigidity Extremities: no cyanosis Neurological: no new deficit Hosp A/P - Plan DVT proph w/SCDs (With Eliquis) Acute hypoxic respiratory failure/sepsis due to COVID 19 pneumonia requiring mechanical ventilation S/p Remdesivir Sepsis probably due to UTIdiagnosed on 10/20 Acute kidney injury Hypertension Diabetes mellitus type II Chronic anemia probably due to nutritional deficiency Hypokalemia Hypomagnesemia Swallow dysfunction Physical deconditioning Hyperkalemia/hypernatremia/hyponatremiaresolved Peripheral vascular disease Moderate to severe malnutrition S/p PEG tube placement10/21 Plan: Await urine cultures. Would discontinue midline access. Patient has a peripheral access. WBC count is improving. Will continue IV meropenem. Will discontinue vancomycin a.m. labs. Continue other medications as above.
[2020-10-23] MEDS: Cholecalciferol 1,000 UNITS (25 MCG) TAB PER TUBE SCH (20:45)
[2020-10-24] MEDS: MEROPENEM 1 GM/50 ML 1 GM in Premix Bag 1 BAG IVPB SCH ×3 (01:24→17:28)
[2020-10-24] MEDS: PROVENTIL INHALER 6.7 G (200 INHALATIONS) INH SCH ×6 (02:49→22:39)
[2020-10-24 05:52] LABS: Hemoglobin 12.2 g/dL (14.0-18.0); Mean Corpuscular HGB CONC 31.7 g/dL (32.0-36.0); Mean Corpuscular Hemoglobin 30.4 pg (27.0-31.0); Mean Corpuscular Volume 95.8 fL (78.0-98.0); Mean Platelet Volume 8.4 fL (7.4-10.4); Platelet Count 380 thou/uL (130-400); RBC Distribution Width 13.7 % (11.5-14.5); Red Blood Cell (RBC) Count 4.01 mill/uL (4.70-6.10); White Blood Cell (WBC) Count 13.6 thou/uL (4.8-10.8)
[2020-10-24 06:12] LABS: ALT (SGPT) 34 U/L (8-55); AST (SGOT) 23 U/L (5-34); Albumin 2.9 g/dL (3.4-4.8); Alkaline Phosphatase 225 U/L (40-110); Anion Gap 15 mmol/L (10-20); BUN (Urea Nitrogen) 45 mg/dL (8.4-25.7); Bilirubin, Total 0.2 mg/dL (0.2-1.2); Calc. Creatinine Clearance 123 mL/min (70-130); Calcium 8.5 mg/dL (7.8-10.44); Carbon Dioxide 25 mmol/L (23-31); Chloride 99 mmol/L (98-107); Globulin 4.6 g/dL (2.4-3.5); Glucose 156 mg/dL (80-115); Potassium 4.2 mmol/L (3.5-5.1); Protein, Total 7.5 g/dL (5.8-8.1); Sodium 135 mmol/L (136-145)
[2020-10-24] MEDS: Furosemide 40 MG TAB PO SCH (06:24)
[2020-10-24 06:50] LABS: Band 11 % (5-11); Eosinophils 4 % (0-10); Lymphocytes 18 % (21-51); MDiff Complete? YES; Metamyelocyte 1 % (0-0); Monocytes 5 % (0-10); Neutrophil 60 % (42-75); Reactive Lymphocytes 1 % (0-10)
[2020-10-24] MEDS: Budesonide 0.5 MG/2 ML NEB NEB SCH ×2 (07:26→18:31)
[2020-10-24] MEDS: Arformoterol 15 MCG/2 ML NEB NEB SCH ×2 (07:27→18:30)
[2020-10-24] MEDS: Dexamethasone 1 MG TAB PO SCH (08:25)
[2020-10-24] MEDS: Zinc Sulfate 220 MG CAP PO SCH (08:26)
[2020-10-24] MEDS: Pantoprazole 40 MG GRANULES PACKET PO SCH (08:26)
[2020-10-24] MEDS: Cyanocobalamin (Vitamin B-12) 1,000 MCG TAB PO SCH (08:26)
[2020-10-24] MEDS: Apixaban 2.5 MG TAB PO SCH ×2 (08:26→20:49)
[2020-10-24] MEDS: Ascorbic Acid 500 mg Chewable Tablet PO SCH (08:26)
[2020-10-24] MEDS: Folic Acid 1 MG TAB PO SCH (08:26)
[2020-10-24] MEDS: Saccharomyces boulardii 250 MG CAP PO SCH (08:26)
[2020-10-24] MEDS: HumaLOG 300 UNITS/3 ML VIAL SC PRN ×2 (12:42→17:28)
--- NOTE | 2020-10-24 16:49 | PDOC.HOSPP ---
- Subjective Encounter Date: 10/24/20 Encounter Time: 10:30 Subjective: Patient seen and examined for respiratory failure. Denies any new complaints. Generally weak and fatigued. - Objective Vital Signs & Weight: Vital Signs (12 hours) Temp Pulse Resp BP Pulse Ox Pulse Ox 10/24/20 15:57 98.3 F 100 18 133/82 97 10/24/20 14:11 97 16 93 L 10/24/20 11:59 94 L 10/24/20 11:09 96 16 92 L 10/24/20 11:00 97.7 F 110 H 22 H 118/81 95 10/24/20 08:26 95 10/24/20 07:27 95 16 96 10/24/20 07:26 95 16 96 10/24/20 07:22 98.4 F 95 22 H 132/85 97 Weight Admit Weight 236 lb Weight 200 lb 5 oz Most Recent Monitor Data Heart Rate from ECG 78 NIBP 167/80 NIBP BP-Mean 109 Respiration from ECG 37 SpO2 99 I&O: 10/23/20 10/24/20 10/25/20 06:59 06:59 06:59 Intake Total 617 1181 297 Balance 617 1181 297 Result Diagrams: 10/24/20 05:28 10/24/20 05:28 Additional Labs: Accuchecks 10/24/20 10/24/20 10/24/20 15:58 11:02 05:31 POC Glucose 167 H 192 H 144 H 10/23/20 21:35 POC Glucose 131 H Abnormal Lab Results - Last 48 hrs 10/23/20 05:28: BUN 42 H, Alkaline Phosphatase 196 H, Albumin 2.9 L, Globulin 4.7 H, Albumin/Globulin Ratio 0.6 L 10/23/20 05:28: WBC 14.5 H, RBC 4.06 L, Hgb 12.3 L, Hct 38.9 L, MCHC 31.7 L, Plt Count 419 H, Band Neuts % (Manual) 13 H, Lymphocytes % (Manual) 12 L, Myelocytes % 1 H, Plt Morphology Comment Appears Increased H 10/24/20 05:28: Sodium 135 L, BUN 45 H, Alkaline Phosphatase 225 H, Albumin 2.9 L, Globulin 4.6 H, Albumin/Globulin Ratio 0.6 L 10/24/20 05:28: WBC 13.6 H, RBC 4.01 L, Hgb 12.2 L, Hct 38.5 L, MCHC 31.7 L, Lym phocytes % (Manual) 18 L Microbiology - Entire Visit 10/21/20 01:11 Urine clean catch Urine Culture - Final Presumptive Pseudomonas Gram Negative Jakub Gram Negative Jakub#2 10/20/20 15:18 Venous blood - Right Hand Blood Culture - Preliminary NO GROWTH AT 48 HOURS 10/20/20 15:18 Venous blood - Left Hand Blood Culture - Preliminary NO GROWTH AT 48 HOURS 09/26/20 10:00 Urine bravo catheter Urine Culture - Final NO GROWTH AT 48 HOURS 09/20/20 10:12 Venous blood - Left Hand Blood Culture - Final NO GROWTH IN 5 DAYS 09/20/20 10:12 Venous blood - Left Arm Blood Culture - Final NO GROWTH IN 5 DAYS Hospitalist ROS - Review of Systems Cardiovascular: denies: chest pain, palpitations, orthopnea, paroxysmal noc. dyspnea, edema, light headedness, other Gastrointestinal: reports: other (Loose bowel movement after PEG tube feeding). denies: nausea, vomiting, abdominal pain, diarrhea, constipation, melena, hematochezia - Medication Medications: Active Medications Generic Name Dose Route Start Last Admin Trade Name Freq PRN Reason Stop Dose Admin Acetaminophen 650 mg 10/12/20 13:22 10/13/20 15:15 Acetaminophen 650 Mg Suppository [place] 650 mg Q4H PRN Administration Headache/Fever or Pain Albuterol Sulfate 2 puff 10/17/20 22:30 10/24/20 14:11 Proventil Inhaler 6.7 G (200 Inhalations) INH 2 puff [id number] LUCIEN Administration Apixaban 2.5 mg 10/17/20 21:00 10/24/20 08:26 Apixaban 2.5 Mg Tab PO 2.5 mg BID LUCIEN Administration Arformoterol Tartrate 15 mcg 09/25/20 18:30 10/24/20 07:27 Arformoterol 15 Mcg/2 Ml Neb NEB 15 mcg BID-RT LUCIEN Administration Ascorbic Acid 1,000 mg 09/21/20 09:00 10/24/20 08:26 Ascorbic Acid 500 Mg Chewable Tablet PO 1,000 mg DAILY LUCIEN Administration Budesonide 0.5 mg 09/25/20 18:30 10/24/20 07:26 Budesonide 0.5 Mg/2 Ml Neb NEB 0.5 mg BID-RT LUCIEN Administration Cholecalciferol 5,000 units 09/24/20 21:00 10/23/20 20:45 Cholecalciferol 1,000 Units (25 Mcg) Tab PER TUBE 5,000 units HS LUCIEN Administration Cyanocobalamin 1,000 mcg 10/19/20 09:00 10/24/20 08:26 Cyanocobalamin (Vitamin B-12) 1,000 Mcg Tab PO 1,000 mcg DAILY LUCIEN Administration Dexamethasone 2 mg 10/20/20 09:00 10/24/20 08:25 Dexamethasone 1 Mg Tab PO 2 mg DAILY LUCIEN Administration Folic Acid 1 mg 10/19/20 09:00 10/24/20 08:26 Folic Acid 1 Mg Tab PO 1 mg DAILY LUCIEN Administration Furosemide 40 mg 10/19/20 07:30 10/24/20 06:24 Furosemide 40 Mg Tab PO 40 mg DAILY-AC LUCIEN Administration Meropenem 1 gm/ Device 50 mls @ 100 mls/hr 10/20/20 18:00 10/24/20 10:35 IVPB 50 mls 0200,1000,1800 LUCIEN Administration Insulin Human Lispro 0 units 10/01/20 13:49 10/24/20 12:42 Humalog 300 Units/3 Ml Vial SC 2 unit .MODERATE SLIDING SC PRN Administration Moderate Correctional Scale Pantoprazole Sodium 40 mg 10/22/20 09:00 10/24/20 08:26 Pantoprazole 40 Mg Granules Packet PO 40 mg DAILY LUCIEN Administration Saccharomyces Boulardii 250 mg 10/22/20 09:00 10/24/20 08:26 Saccharomyces Boulardii 250 Mg Cap PO 250 mg DAILY LUCIEN Administration Sodium Chloride 10 ml 09/21/20 21:00 10/24/20 08:27 Flush - Normal Saline 10 Ml Syringe IVF 10 ml Q12HR LUCIEN Administration Zinc Sulfate 220 mg 09/21/20 09:00 10/24/20 08:26 Zinc Sulfate 220 Mg Cap PO 220 mg DAILY LUCIEN Administration - Exam General Appearance: awake alert, ill appearing Heart: RRR, no gallops Respiratory: no wheezes, rales, rhonchi Gastrointestinal: soft, non-distended, normal bowel sounds, no guarding, no rigidity Extremities: no cyanosis Musculoskeletal: generalized weakness Psychiatric: normal affect, A&O x 3 Hosp A/P - Plan DVT proph w/SCDs (With Eliquis) Acute hypoxic respiratory failure/sepsis due to COVID 19 pneumonia requiring mechanical ventilation S/p Remdesivir Sepsis probably due to Pseudomonas UTI diagnosed on 10/20 Acute kidney injury Hypertension Diabetes mellitus type II Chronic anemia probably due to nutritional deficiency Hypokalemia Hypomagnesemia Swallow dysfunction Physical deconditioning Hyperkalemia/hypernatremia/hyponatremiaresolved Peripheral vascular disease Moderate to severe malnutrition s/p PEG tube placement10/21 Plan: Will continue diet with aspiration risk along with tube feeding. Vital signs stable. WBC count improving. Urine culture showed 3 different organisms. Will continue meropenem. Continue to taper dexamethasone. Continue current dose of Lasix. Continue other medications as above.
[2020-10-24] MEDS ORDERED: Albuterol Sulfate 2.5 mg/3 ml Neb ONE ×2 (18:16→22:36)
[2020-10-24] MEDS: Cholecalciferol 1,000 UNITS (25 MCG) TAB PER TUBE SCH (20:48)
[2020-10-25] MEDS: MEROPENEM 1 GM/50 ML 1 GM in Premix Bag 1 BAG IVPB SCH ×2 (01:14→10:24)
[2020-10-25] MEDS ORDERED: Albuterol Sulfate 2.5 mg/3 ml Neb ONE (01:52)
[2020-10-25] MEDS: PROVENTIL INHALER 6.7 G (200 INHALATIONS) INH SCH ×6 (02:11→22:25)
[2020-10-25 05:57] LABS: Anion Gap 15 mmol/L (10-20); BUN (Urea Nitrogen) 37 mg/dL (8.4-25.7); Calc. Creatinine Clearance 117 mL/min (70-130); Calcium 8.7 mg/dL (7.8-10.44); Carbon Dioxide 28 mmol/L (23-31); Chloride 98 mmol/L (98-107); Glucose 118 mg/dL (80-115); Potassium 5.2 mmol/L (3.5-5.1); Sodium 136 mmol/L (136-145)
[2020-10-25] MEDS: Furosemide 40 MG TAB PO SCH (06:30)
[2020-10-25] MEDS: Arformoterol 15 MCG/2 ML NEB NEB SCH ×2 (07:03→18:15)
[2020-10-25] MEDS: Budesonide 0.5 MG/2 ML NEB NEB SCH ×2 (07:10→18:18)
[2020-10-25 08:33] LABS: Band 9 % (5-11); Eosinophils 2 % (0-10); Hemoglobin 12.7 g/dL (14.0-18.0); Lymphocytes 14 % (21-51); MDiff Complete? YES; Mean Corpuscular Hemoglobin 29.8 pg (27.0-31.0); Mean Corpuscular Volume 96.4 fL (78.0-98.0); Mean Platelet Volume 8.6 fL (7.4-10.4); Metamyelocyte 2 % (0-0); Monocytes 6 % (0-10); Myelocyte 2 % (0-0); Neutrophil 65 % (42-75); Platelet Count 427 thou/uL (130-400); Platelet Morphology Comment Appears Increased; Polychromasia SLIGHT = 2-3 cells (100X) (0-2/hpf); RBC Distribution Width 14.1 % (11.5-14.5); Red Blood Cell (RBC) Count 4.27 mill/uL (4.70-6.10); White Blood Cell (WBC) Count 14.2 thou/uL (4.8-10.8)
[2020-10-25] MEDS: Folic Acid 1 MG TAB PO SCH (09:11)
[2020-10-25] MEDS: Dexamethasone 1 MG TAB PO SCH (09:12)
[2020-10-25] MEDS: Ascorbic Acid 500 mg Chewable Tablet PO SCH (09:12)
[2020-10-25] MEDS: Cyanocobalamin (Vitamin B-12) 1,000 MCG TAB PO SCH (09:12)
[2020-10-25] MEDS: Zinc Sulfate 220 MG CAP PO SCH (09:12)
[2020-10-25] MEDS: Saccharomyces boulardii 250 MG CAP PO SCH (09:13)
[2020-10-25] MEDS: Apixaban 2.5 MG TAB PO SCH ×2 (09:13→20:22)
[2020-10-25] MEDS: Pantoprazole 40 MG GRANULES PACKET PO SCH (09:14)
[2020-10-25] MEDS: Cholecalciferol 1,000 UNITS (25 MCG) TAB PER TUBE SCH (20:22)
--- NOTE | 2020-10-25 22:00 | PDOC.HOSPP ---
- Subjective Encounter Date: 10/25/20 Encounter Time: 11:30 Subjective: Patient evaluated for respiratory failure. Appetite slowly improving. Denies any nausea, vomiting or fever. - Objective Vital Signs & Weight: Vital Signs (12 hours) Temp Pulse Resp BP Pulse Ox 10/25/20 20:35 93 L 10/25/20 20:32 98.9 F 100 16 119/78 93 L 10/25/20 18:15 97 18 93 L 10/25/20 15:19 98.6 F 93 16 122/79 92 L 10/25/20 12:31 97.7 F 99 18 100/63 100 10/25/20 11:45 94 18 98 Weight Admit Weight 236 lb Weight 200 lb 5 oz Most Recent Monitor Data Heart Rate from ECG 78 NIBP 167/80 NIBP BP-Mean 109 Respiration from ECG 37 SpO2 99 I&O: 10/24/20 10/25/20 10/26/20 06:59 06:59 06:59 Intake Total 1181 1724 Output Total 1 Balance 1181 1724 -1 Result Diagrams: 10/25/20 05:13 10/25/20 05:13 Additional Labs: Accuchecks 10/25/20 10/25/20 10/25/20 20:36 15:21 12:33 POC Glucose 117 H 170 H 178 H Hospitalist ROS - Review of Systems Cardiovascular: denies: chest pain, palpitations, orthopnea, paroxysmal noc. dyspnea, edema, light headedness, other Gastrointestinal: denies: nausea, vomiting, abdominal pain, diarrhea, constipation, melena, hematochezia, other - Medication Medications: Active Medications Generic Name Dose Route Start Last Admin Trade Name Kaia PRN Reason Stop Dose Admin Acetaminophen 650 mg 10/12/20 13:22 10/13/20 15:15 Acetaminophen [address] 650 mg Q4H PRN Administration Headache/Fever or Pain Albuterol Sulfate 2 puff 10/17/20 22:30 10/25/20 18:18 Proventil Inhaler 6.7 G (200 Inhalations) INH 2 puff [id number] LUCIEN Administration Apixaban 2.5 mg 10/17/20 21:00 10/25/20 20:22 Apixaban 2.5 Mg Tab PO 2.5 mg BID LUCIEN Administration Arformoterol Tartrate 15 mcg 09/25/20 18:30 10/25/20 18:15 Arformoterol 15 Mcg/2 Ml Neb NEB 15 mcg BID-RT LUCIEN Administration Ascorbic Acid 1,000 mg 09/21/20 09:00 10/25/20 09:12 Ascorbic Acid 500 Mg Chewable Tablet PO 1,000 mg DAILY LUCIEN Administration Budesonide 0.5 mg 09/25/20 18:30 10/25/20 18:18 Budesonide 0.5 Mg/2 Ml Neb NEB 0.5 mg BID-RT LUCIEN Administration Cholecalciferol 5,000 units 09/24/20 21:00 10/25/20 20:22 Cholecalciferol 1,000 Units (25 Mcg) Tab PER TUBE 5,000 units HS LUCIEN Administration Cyanocobalamin 1,000 mcg 10/19/20 09:00 10/25/20 09:12 Cyanocobalamin (Vitamin B-12) 1,000 Mcg Tab PO 1,000 mcg DAILY LUCIEN Administration Dexamethasone 1.5 mg 10/25/20 09:00 10/25/20 09:12 Dexamethasone 1 Mg Tab PO 1.5 mg DAILY LUCIEN Administration Folic Acid 1 mg 10/19/20 09:00 10/25/20 09:11 Folic Acid 1 Mg Tab PO 1 mg DAILY LUCIEN Administration Furosemide 40 mg 10/19/20 07:30 10/25/20 06:30 Furosemide 40 Mg Tab PO 40 mg DAILY-AC LUCIEN Administration Insulin Human Lispro 0 units 10/01/20 13:49 10/24/20 17:28 Humalog 300 Units/3 Ml Vial SC 2 unit .MODERATE SLIDING SC PRN Administration Moderate Correctional Scale Pantoprazole Sodium 40 mg 10/22/20 09:00 10/25/20 09:14 Pantoprazole 40 Mg Granules Packet PO 40 mg DAILY LUCIEN Administration Saccharomyces Boulardii 250 mg 10/22/20 09:00 10/25/20 09:13 Saccharomyces Boulardii 250 Mg Cap PO 250 mg DAILY LUCIEN Administration Sodium Chloride 10 ml 09/21/20 21:00 10/25/20 20:22 Flush - Normal Saline 10 Ml Syringe IVF 10 ml Q12HR LUCIEN Administration Sodium Chloride 10 ml 10/20/20 14:40 10/24/20 17:28 Flush - Normal Saline 10 Ml Syringe IVF 10 ml PRN PRN Administration Saline Flush Zinc Sulfate 220 mg 09/21/20 09:00 10/25/20 09:12 Zinc Sulfate 220 Mg Cap PO 220 mg DAILY LUCIEN Administration - Exam General Appearance: awake alert Neck: supple, no JVD Heart: RRR, no gallops Respiratory: rales, rhonchi Gastrointestinal: soft, no guarding, no rigidity Extremities: no cyanosis Neurological: no new deficit Hosp A/P - Plan DVT proph w/SCDs (On Eliquis) Acute hypoxic respiratory failure/sepsis due to COVID 19 pneumonia requiring mechanical ventilation S/p Remdesivir Sepsis probably due to Pseudomonas UTI diagnosed on 10/20 Acute kidney injury Hypertension Diabetes mellitus type II Chronic anemia probably due to nutritional deficiency Hypokalemia Hypomagnesemia Swallow dysfunction Physical deconditioning Hyperkalemia/hypernatremia/hyponatremiaresolved Peripheral vascular disease Moderate to severe malnutrition s/p PEG tube placement10/21 Plan: Case discussed with infectious disease recommended discontinuation of the antibiotics. Repeat cultures reviewed continue DVT prophylaxis. Continue to taper steroids. Tube feeding adjustment. Recheck basic metabolic profile in a.m. Continue physical therapy. Continue other medications as above
[2020-10-26] MEDS: PROVENTIL INHALER 6.7 G (200 INHALATIONS) INH SCH ×6 (02:37→23:18)
[2020-10-26] MEDS: HumaLOG 300 UNITS/3 ML VIAL SC PRN ×2 (05:50→12:43)
[2020-10-26 06:15] LABS: Anion Gap 15 mmol/L (10-20); BUN (Urea Nitrogen) 40 mg/dL (8.4-25.7); Calc. Creatinine Clearance 110 mL/min (70-130); Calcium 9.1 mg/dL (7.8-10.44); Carbon Dioxide 29 mmol/L (23-31); Chloride 97 mmol/L (98-107); Glucose 173 mg/dL (80-115); Potassium 4.5 mmol/L (3.5-5.1); Sodium 136 mmol/L (136-145)
[2020-10-26] MEDS: Furosemide 40 MG TAB PO SCH (06:29)
[2020-10-26] MEDS: Arformoterol 15 MCG/2 ML NEB NEB SCH ×2 (07:32→21:02)
[2020-10-26] MEDS: Budesonide 0.5 MG/2 ML NEB NEB SCH ×2 (07:33→21:06)
[2020-10-26] MEDS: Folic Acid 1 MG TAB PO SCH (08:26)
[2020-10-26] MEDS: Dexamethasone 1 MG TAB PO SCH (08:26)
[2020-10-26] MEDS: Cyanocobalamin (Vitamin B-12) 1,000 MCG TAB PO SCH (08:26)
[2020-10-26] MEDS: Zinc Sulfate 220 MG CAP PO SCH (08:26)
[2020-10-26] MEDS: Pantoprazole 40 MG GRANULES PACKET PO SCH (08:26)
[2020-10-26] MEDS: Apixaban 2.5 MG TAB PO SCH ×2 (08:26→20:48)
[2020-10-26] MEDS: Ascorbic Acid 500 mg Chewable Tablet PO SCH (08:26)
[2020-10-26] MEDS: Saccharomyces boulardii 250 MG CAP PO SCH (08:26)
--- NOTE | 2020-10-26 19:23 | PDOC.DS.DS ---
Provider - Provider Date of Admission: 09/20/20 12:35 Date of Discharge: 10/26/20 Admitting Provider: Robert Crews DO Consultations: Gastroentrology, Infectious Disease, Pulmonary Primary Care Physician: Sarmad Zuniga DO Course - Hospital Course Hospital Course: Patient is a 65-year-old male with hypertension and diabetes mellitus type 2 presented to the hospital with shortness of breath on 09/20. His initial O2 saturation was in systolic 70s to low 80s. His work-up was consistent with acute hypoxic respiratory failure with sepsis secondary to COVID-[address] angiogram of the chest on 09/20 showed extensive groundglass opacities seen in the lungs bilaterally. There was no pulmonary embolism. He was started on high flow oxygen. He was later placed on noninvasive positive pressure ventilation with eventual mechanical intubation. He was started on empiric antibiotics, steroids and remdesivir. After a long stay in the ICU he was subsequently extubated on 10/12. He was later transferred out of the ICU. His hospital course was also complicated with sepsis due to UTI. Due to severe malnutrition PEG tube has been placed. [facility] is [facility]. Please refer to various consultation note and imaging for details. He was seen by multiple consultants including infectious disease, gastroenterology and critical care during this hospital stay. Final diagnosis: Acute hypoxic respiratory failure/sepsis due to COVID 19 pneumonia requiring mechanical ventilation S/p Remdesivir Sepsis probably due to Pseudomonas UTI diagnosed on 10/20 Acute kidney injury Hypertension Diabetes mellitus type II Chronic anemia probably due to nutritional deficiency Hypokalemia Hypomagnesemia Swallow dysfunction Physical deconditioning Hyperkalemia/hypernatremia/hyponatremiaresolved Peripheral vascular disease Moderate to severe malnutrition s/p PEG tube placement10/21 Resuscitation Status: 09/20/20 14:31 Resuscitation Status Routine Resuscitation Status: FULL: Full Resuscitation - Labs Lab Results: 10/25/20 05:13 10/26/20 05:18 Abnormal Lab Results - Last 48 hrs 10/25/20 05:13: Potassium 5.2 H, BUN 37 H 10/25/20 05:13: WBC 14.2 H, RBC 4.27 L, Hgb 12.7 L, Hct 41.1 L, MCHC 31.0 L, Plt Count 427 H, Lymphocytes % (Manual) 14 L, Myelocytes % 2 H, Plt Morphology Comment Appears Increased H 10/26/20 05:18: Chloride 97 L, BUN 40 H Microbiology - Entire Visit 10/20/20 15:18 Venous blood - Right Hand Blood Culture - Final NO GROWTH IN 5 DAYS 10/20/20 15:18 Venous blood - Left Hand Blood Culture - Final NO GROWTH IN 5 DAYS 10/21/20 01:11 Urine clean catch Urine Culture - Final Presumptive Pseudomonas Gram Negative Jakub Gram Negative Jakub#2 09/26/20 10:00 Urine bravo catheter Urine Culture - Final NO GROWTH AT 48 HOURS 09/20/20 10:12 Venous blood - Left Hand Blood Culture - Final NO GROWTH IN 5 DAYS 09/20/20 10:12 Venous blood - Left Arm Blood Culture - Final NO GROWTH IN 5 DAYS - Physical Exam Vitals: Vital Signs (12 hours) Temp Pulse Resp BP Pulse Ox 10/26/20 15:23 97.8 F 98 16 125/82 92 L 10/26/20 14:34 97 18 96 10/26/20 11:40 98.0 F 96 18 129/87 94 L 10/26/20 11:20 97 18 95 10/26/20 07:33 98 18 94 L 10/26/20 07:32 98 18 94 L Weight Admit Weight 236 lb Weight 200 lb 5 oz Most Recent Monitor Data Heart Rate from ECG 78 NIBP 167/80 NIBP BP-Mean 109 Respiration from ECG 37 SpO2 99 Physical Exam: The patient was seen and examined on the day of discharge. Plan - Discharge Medications Home Medications: Medication Instructions Recorded Confirmed Type Acetaminophen [Tylenol Elixir] 650 mg PO Q4H PRN udcup 10/20/20 10/27/20 Rx Albuterol Sulfate [Proventil Hfa] 2 puff INH Q2H PRN inh 10/20/20 10/27/20 Rx Albuterol Sulfate [Proventil Hfa] 2 puff INH [id number] inh 10/20/20 10/27/20 Rx Apixaban [Eliquis] 2.5 mg PO BID tab 10/20/20 10/27/20 Rx Arformoterol [Brovana] 15 mcg NEB BID-RT neb 10/20/20 10/27/20 Rx Ascorbic Acid [Vitamin C] 1,000 mg PO DAILY tab 10/20/20 10/27/20 Rx Budesonide [Pulmicort Neb Solution] 0.5 mg NEB BID-RT ampule 10/20/20 10/27/20 Rx Cholecalciferol [Vitamin D3] 5,000 units PO HS tab 10/20/20 10/27/20 Rx Cyanocobalamin (Vitamin B-12) 1,000 mcg PO DAILY tab 10/20/20 10/27/20 Rx [Vitamin B-12] Folic Acid [Folvite] 1 mg PO DAILY tab 10/20/20 10/27/20 Rx Furosemide [Lasix] 40 mg PO DAILY-AC tab 10/20/20 10/27/20 Rx Pantoprazole [Protonix] 40 mg PO DAILY tab 10/20/20 10/27/20 Rx Zinc Sulfate 220 mg PO DAILY cap 10/20/20 10/27/20 Rx Dexamethasone [Decadron] 1.5 mg PO DAILY tab 10/26/20 10/27/20 Rx Saccharomyces boulardii [Florastor] 250 mg PO DAILY cap 10/26/20 10/27/20 Rx Allergies: Penicillins Allergy (Verified 09/20/20 16:01) mushrooms Allergy (Severe, Uncoded 10/19/20 13:36) Anaphylaxis - Discharge Instructions Discharge Instructions:: Cont current PEG tube feed Encourage oral intake during the day, chopped diet with Angel twice daily. Glucerna 1.5 bolus feeds at 2000, 0000, and 0400. 1 can per feed. - Follow up Plan Referrals: Dago Pulido MD [Active] - Sarmad Zuniga DO [Primary Care Provider] - 3 Days Derian Sparks MD [Active] - Disposition: [facility] FACILITY Quality - Care Measures CORE MEASURES:: N/A
[2020-10-26] MEDS: Cholecalciferol 1,000 UNITS (25 MCG) TAB PER TUBE SCH (20:48)
[2020-10-27] MEDS: PROVENTIL INHALER 6.7 G (200 INHALATIONS) INH SCH ×2 (03:46→07:15)
[2020-10-27] MEDS: HumaLOG 300 UNITS/3 ML VIAL SC PRN (06:50)
[2020-10-27] MEDS: Furosemide 40 MG TAB PO SCH (06:50)
[2020-10-27] MEDS: Arformoterol 15 MCG/2 ML NEB NEB SCH (07:16)
[2020-10-27] MEDS: Budesonide 0.5 MG/2 ML NEB NEB SCH (07:17)
[2020-10-27 08:01] VITALS: BP 124/82; TEMP 98.3
[2020-10-27] MEDS: Pantoprazole 40 MG GRANULES PACKET PO SCH (08:10)
[2020-10-27] MEDS: Saccharomyces boulardii 250 MG CAP PO SCH (08:10)
[2020-10-27] MEDS: Apixaban 2.5 MG TAB PO SCH (08:10)
[2020-10-27] MEDS: Zinc Sulfate 220 MG CAP PO SCH (08:10)
[2020-10-27] MEDS: Folic Acid 1 MG TAB PO SCH (08:11)
[2020-10-27] MEDS: Ascorbic Acid 500 mg Chewable Tablet PO SCH (08:11)
[2020-10-27] MEDS: Cyanocobalamin (Vitamin B-12) 1,000 MCG TAB PO SCH (08:11)
[2020-10-27] MEDS: Dexamethasone 1 MG TAB PO SCH (08:11)
--- NOTE | 2020-10-28 19:37 | EKG ---
Test Reason : Blood Pressure : / mmHG Vent. Rate : 141 BPM Atrial Rate : 141 BPM P-R Int : 154 ms QRS Dur : 080 ms QT Int : 260 ms P-R-T Axes : 037 -02 053 degrees QTc Int : 398 ms Sinus tachycardia Possible Left atrial enlargement Left ventricular hypertrophy Cannot rule out Septal infarct , age undetermined Abnormal ECG Confirmed by CAM MATHUR MD ([id number]) on 10/28/2020 7:36:59 PM Referred By: BISI Confirmed By:CAM MATHUR MD
== END 2020-10-27 08:35 | disposition swing bed (61) | DRG 870 ==
LOC: ERS 09:33 → ERHOLD 12:35 → IMCU/EMU 15:15 → CCU 09-24 04:10 → T4-B 10-14 15:39 → SURG A 10-21 22:41
PROVIDERS: ADMIT Family Medicine; ATTEND Internal Medicine
PROC: 8E0ZXY6 Isolation (ICD-10-PCS; 2020-09-20)
PROC: XW033E5 Introduction of Remdesivir Anti-infective into Peripheral Vein, Percutaneous Approach, New Technology Group 5 (ICD-10-PCS; 2020-09-20)
PROC: 5A1955Z Respiratory Ventilation, Greater than 96 Consecutive Hours (ICD-10-PCS; principal; 2020-09-24)
PROC: 0BH17EZ Insertion of Endotracheal Airway into Trachea, Via Natural or Artificial Opening (ICD-10-PCS; 2020-09-24)
PROC: 0DH63UZ Insertion of Feeding Device into Stomach, Percutaneous Approach (ICD-10-PCS; 2020-10-21)
PROC: 3E0336Z Introduction of Nutritional Substance into Peripheral Vein, Percutaneous Approach (ICD-10-PCS; 2020-10-21)
DX: A41.89 Other specified sepsis (principal); L89.153 Pressure ulcer of sacral region, stage 3; U07.1 COVID-19; J96.01 Acute respiratory failure with hypoxia; J12.82 Pneumonia due to coronavirus disease 2019; E43 Unspecified severe protein-calorie malnutrition; N17.0 Acute kidney failure with tubular necrosis; E87.1 Hypo-osmolality and hyponatremia; N39.0 Urinary tract infection, site not specified; E87.0 Hyperosmolality and hypernatremia; E87.4 Mixed disorder of acid-base balance; Z51.5 Encounter for palliative care; A41.52 Sepsis due to Pseudomonas; D53.9 Nutritional anemia, unspecified; I11.9 Hypertensive heart disease without heart failure; E11.65 Type 2 diabetes mellitus with hyperglycemia; E66.9 Obesity, unspecified; E88.09 Other disorders of plasma-protein metabolism, not elsewhere classified; E83.51 Hypocalcemia; T50.8X5A Adverse effect of diagnostic agents, initial encounter; E11.51 Type 2 diabetes mellitus with diabetic peripheral angiopathy without gangrene; E83.42 Hypomagnesemia; E87.5 Hyperkalemia; E87.6 Hypokalemia; Z88.0 Allergy status to penicillin; Z91.018 Allergy to other foods; Z99.81 Dependence on supplemental oxygen; Z79.899 Other long term (current) drug therapy; Z98.890 Other specified postprocedural states; Z68.27 Body mass index [BMI] 27.0-27.9, adult; Z78.1 Physical restraint status; Z83.3 Family history of diabetes mellitus; Z82.49 Family history of ischemic heart disease and other diseases of the circulatory system
CPT/HCPCS: 0240U; 36415; 36416; 36600; 71045; 71275; 80048; 80053; 80076; 80202; 81001; 82040; 82550; 82570; 82728; 82805; 83036; 83605; 83735; 83880; 84100; 84300; 84484; 84540; 85025; 85379; 86140; 87040; 87086; 93005; 93010; 93923; 94002; 94003; 94640; 94660; 94760; 94799; 96365; 96366; 96367; 96375; J0456; J0696; J1100; J1650; J1815; J1940; J2001; J2060; J2185; J2704; J2765; J2930; J3010; J3370; J3475; J3480; J3490; J7030; J7050; J7070; J7611; J7626; J8540; P9047; Q9967

== ENCOUNTER 2021-11-09 04:50 | Observation (INO) | payer MEDICARE ==
[2021-11-09] MEDS ORDERED: Ondansetron PF 4 MG/2 ML Vial ONE ×2 (05:25→10:48)
[2021-11-09] MEDS ORDERED: Morphine 4 MG/ML VIAL ONE ×2 (05:25→07:16)
[2021-11-09 05:29] LABS: #Lymphocytes 1.4 thou/uL (1.20-3.40); #Neutrophils 15.9 thou/uL (1.40-6.50); %Basophils 0.1 % (0.0-1.0); %Eosinophils 0.1 % (0.0-10.0); %Monocytes 10.1 % (0.0-10.0); %Neutrophils 82.6 % (42.0-75.0); Hemoglobin 14.3 g/dL (14.0-18.0); Mean Corpuscular HGB CONC 33.1 g/dL (32.0-36.0); Mean Corpuscular Hemoglobin 32.2 pg (27.0-31.0); Mean Corpuscular Volume 97.5 fL (78.0-98.0); Platelet Count 224 thou/uL (130-400); RBC Distribution Width 12.3 % (11.5-14.5); Red Blood Cell (RBC) Count 4.44 mill/uL (4.70-6.10); White Blood Cell (WBC) Count 19.3 thou/uL (4.8-10.8)
[2021-11-09 05:49] LABS: ALT (SGPT) 59 U/L (8-55); AST (SGOT) 42 U/L (5-34); Albumin 4.3 g/dL (3.4-4.8); Alkaline Phosphatase 182 U/L (40-110); Anion Gap 16 mmol/L (10-20); BUN (Urea Nitrogen) 20 mg/dL (8.4-25.7); Bilirubin, Total 1.6 mg/dL (0.2-1.2); Calc. Creatinine Clearance 0 mL/min (70-130); Calcium 9.5 mg/dL (7.8-10.44); Carbon Dioxide 22 mmol/L (23-31); Chloride 103 mmol/L (98-107); Globulin 4.2 g/dL (2.4-3.5); Glucose 172 mg/dL (80-115); Lipase 15 U/L (8-78); Protein, Total 8.5 g/dL (5.8-8.1); Sodium 137 mmol/L (136-145)
[2021-11-09 05:57] LABS: Bacteria/HPF None Seen HPF (None Seen); Bilirubin Negative (Negative); Blood, Urine Negative (Negative); Clarity Clear (Clear); Glucose, Urine (Dipstick) Normal (Negative); Ketone, Urine Trace mg/dL (Negative); Leukocyte Negative Leu/uL (Negative); Nitrite Negative (Negative); Protein, Urine (Dipstick) 70 mg/dL (Neg-Trace); RBC/HPF 0-3 HPF (0-3); Specific Gravity, Urine 1.021 (1.002-1.036); Squamous Epithelial 0-3 HPF (0-3); Urobilinogen Normal mg/dL (Less than 2); WBC/HPF 0-3 HPF (0-3); pH, Urine 5.5 (5.0-9.0)
[2021-11-09] MEDS ORDERED: Levofloxacin 500 mg/D5W 100 ml Premix Bag ONE (06:50)
[2021-11-09] MEDS ORDERED: metroNIDAZOLE 500 MG in Premix Bag 1 BAG IVPB SCH (07:00)
[2021-11-09 08:12] LABS: SARS-CoV-2 NAA Rapid Test Not Detected (NotDetected)
[2021-11-09] MEDS ORDERED: Xylocaine 1% w/ Epi 1:100K 10 ML VIAL ONE (09:59)
[2021-11-09] MEDS ORDERED: Bupivacaine PF 0.5% 30 ML VIAL ONE (09:59)
[2021-11-09] MEDS ORDERED: Fentanyl 100 MCG/2 ML VIAL ONE ×2 (10:16)
[2021-11-09] MEDS ORDERED: Dexamethasone 20 MG/5 ML VIAL ONE (10:48)
[2021-11-09] MEDS ORDERED: PROPOFOL 200 MG/20 ML VIAL ONE (10:48)
[2021-11-09] MEDS ORDERED: Lidocaine 1% PF 5 ML VIAL ONE (10:48)
[2021-11-09] MEDS ORDERED: Rocuronium Bromide 10 MG/ML (10ML VIAL) ONE (10:48)
[2021-11-09] MEDS ORDERED: Glycopyrrolate 0.2 MG/ML 5 ML SYRINGE ONE (10:48)
[2021-11-09] MEDS ORDERED: Acetaminophen 325 MG TAB PO PRN (11:39)
[2021-11-09] MEDS ORDERED: Ondansetron PF 4 MG/2 ML Vial IVP PRN (11:39)
[2021-11-09] MEDS ORDERED: HYDROcodone/Acetaminophen 5/325 mg Tablet PO PRN ×2 (11:39)
[2021-11-09] MEDS ORDERED: Dextrose 5% in Water 1,000 ML IV PRN (11:42)
[2021-11-09] MEDS ORDERED: Dextrose 50% Abboject 50 ML SYRINGE SLOW IVP PRN (11:42)
[2021-11-09] MEDS ORDERED: Insulin Regular 300 UNITS/3 ML VIAL SC PRN (11:42)
[2021-11-09] MEDS ORDERED: Iopamidol 370 76% 100 ML VIAL ONE (12:03)
[2021-11-09 13:29] VITALS: BMI 31.5
[2021-11-09] MEDS: metroNIDAZOLE 500 MG in Premix Bag 1 BAG IVPB SCH ×2 (15:53→23:58)
[2021-11-10] MEDS: metroNIDAZOLE 500 MG in Premix Bag 1 BAG IVPB SCH (05:07)
[2021-11-10 08:11] VITALS: BP 149/81; TEMP 99
[2021-11-10] MEDS ORDERED: Enoxaparin Sodium 40 MG/0.4 ML SYRINGE SC SCH (09:00)
[2021-11-12] MEDS ORDERED: FLU VACC QS2021-22(65YR UP)/PF 240 MCG/0.7 ML SYRINGE IM ONE (14:30)
== END 2021-11-10 11:28 | disposition home or self-care (01) ==
LOC: ERS 04:50 → SDC 09:25 → SURG A 09:26
PROVIDERS: ADMIT Surgery; ATTEND Surgery
PROC: 0FT44ZZ Resection of Gallbladder, Percutaneous Endoscopic Approach (ICD-10-PCS; principal; 2021-11-09)
DX: K80.00 Calculus of gallbladder with acute cholecystitis without obstruction (principal); K82.A1 Gangrene of gallbladder in cholecystitis; K82.8 Other specified diseases of gallbladder; E11.9 Type 2 diabetes mellitus without complications; M19.90 Unspecified osteoarthritis, unspecified site; I11.9 Hypertensive heart disease without heart failure; I25.10 Atherosclerotic heart disease of native coronary artery without angina pectoris; Z86.16 Personal history of COVID-19; Z79.4 Long term (current) use of insulin; Z79.899 Other long term (current) drug therapy; Z88.0 Allergy status to penicillin; Z91.018 Allergy to other foods; Z20.822 Contact with and (suspected) exposure to COVID-19
CPT/HCPCS: 47562; 74177; 76705; 80053; 82962 ×2; 83605; 83690; 84484; 85025; 87040; 93005; 96365; 96366 ×2; 96367 ×2; 96375; 96376 ×2; 99285; C1713 ×2; G0378 ×3; U0002; 36415; 36416; 81003; 81015; 88304; J0744; J1100; J1815; J1956; J2270; J2405; J2704; J3010; Q9967; S0020

== ENCOUNTER 2022-03-11 13:34 | Outpatient (CLI) | payer OTHER | END 2022-03-11 13:35 | disposition home or self-care (01) | LOC: TBSIIMAG 13:34 | PROVIDERS: ATTEND Neurological Surgery | DX: M48.061 Spinal stenosis, lumbar region without neurogenic claudication (principal); M47.816 Spondylosis without myelopathy or radiculopathy, lumbar region | CPT/HCPCS: 72110; 72148 ==